=== PATIENT | male | born 1990 | race African-American/Black ===

== ENCOUNTER 2022-08-02 05:58 | Day surgery (SDC) | payer MEDICAID, OTHER, SELFPAY ==
[2022-08-02] VITALS (7 sets, daily range): BP systolic 109–152; BP diastolic 63–103; PULSE 58–77; RESP 14–20; TEMP 36.1–37.1; O2SAT 97–100; BMI 31.8
--- NOTE | ~2022-08-02 | CT_ITS ---
EXAMINATION: CT ABDOMEN AND PELVIS WITHOUT CONTRAST CLINICAL INFORMATION: Pain COMPARISON: None available. TECHNIQUE: Multidetector volumetric imaging was performed from the superior aspect of the liver through the pubic symphysis. Sagittal and coronal reformatted images were obtained on the technologist's workstation. This CT examination was performed using dose optimization techniques as appropriate, variously including the following: *Automated exposure control *Adjustment of mA and/or kV according to patient size (this includes techniques or standardized protocols for targeted exams where dose is matched to indication/reason for exam; i.e. extremities or head) *Use of iterative reconstruction technique DLP: 476 mGy-cm FINDINGS: Exam is limited due to motion. LUNG BASES: The visualized lung bases are unremarkable. LIVER, GALLBLADDER, AND BILIARY TREE: The liver is normal in size, shape, and attenuation. No focal hepatic lesion or biliary ductal dilatation is present. The gallbladder is unremarkable with no evidence of radiopaque gallstones, gallbladder wall thickening, or obvious pericholecystic inflammatory changes. PANCREAS: Unremarkable. SPLEEN: Unremarkable. ADRENAL GLANDS: Unremarkable. KIDNEYS AND URETERS: Severe right hydronephrosis from what appear to be 2 adjacent 5 to 6 mm right UPJ stones. Right perinephric stranding probably representing backflow of urine secondary to obstruction. Infection cannot be excluded and clinical correlation recommended. No renal stone seen. No ureteral dilatation or ureteral stone. BLADDER: Unremarkable. GASTROINTESTINAL TRACT: Mild diverticulosis of the colon. The small and large bowel are otherwise unremarkable. The appendix is not seen. ABDOMINAL WALL: Small umbilical hernia containing fat. LYMPH NODES: Normal. VASCULAR: Unremarkable. PELVIC VISCERA: Unremarkable. OSSEOUS STRUCTURES: Unremarkable. CT/CT abdomen pelvis wo IV con IMPRESSION: Limited exam due to motion. Severe right hydronephrosis from what appear to be 2 adjacent 5 to 6 mm right UPJ stones. Right perinephric stranding probably secondary to backflow of urine from obstruction. Infection cannot be excluded and clinical correlation recommended. Fleischner guidelines were followed.
--- NOTE | ~2022-08-02 | FL_ITS ---
EXAMINATION: FL guidance in OR INDICATION: Reason for Exam stent placement COMPARISON: CT abdomen pelvis performed same day TECHNIQUE: Multiple fluoroscopic OR images were provided. FLUOROSCOPY TIME: 40.3 seconds DOSE: 10.54 mGy FINDINGS: Intraoperative fluoroscopy was obtained. No radiologist was in attendance. Please refer to operative report for complete evaluation. Moderate hydronephrosis with a filling defect in the proximal ureter which may correspond to previously seen obstructing stones. Ureteral stent terminates in the expected region of the bladder. FL/FL guidance in OR IMPRESSION: Intraoperative fluoroscopy was obtained. No radiologist was in attendance. Please refer to operative report for complete evaluation.
[2022-08-02 06:27] LABS: MANUAL DIFF FLAG NO
[2022-08-02 06:31] LABS: Basophils Absolute Auto 0.1 X10*3/uL (0.0-0.2); Basophils Percent Auto 0.7 % (0-2); Eosinophils Absolute Auto 0.1 X10*3/uL (0.0-0.4); Eosinophils Percent Auto 1.5 % (0-4); Hematocrit 50.3 % (42.0-52.0); Hemoglobin 17.1 g/dl (14.0-18.0); Imm Gran Abs Auto 0.02 X10*3/uL (0.00-0.03); Imm Gran Pct Auto 0.2 % (0.0-0.4); Lymphocytes Absolute Auto 2.4 X10*3/uL (1.2-4.9); Lymphocytes Percent Auto 26.5 % (20-40); Mean Corpuscular Hemoglobin 29.1 pg (27.0-33.0); Mean Corpuscular Volume 85.7 fL (80.0-98.0); Mean Platelet Volume 10.5 fL (9.4-12.4); Monocytes Absolute Auto 0.5 X10*3/uL (0.1-1.2); Monocytes Percent Auto 5.9 % (2-11); Neutrophils Percent Auto 65.2 % (45-73); Platelet Count 199 X10*3/uL (160-400); Red Blood Count 5.87 X10*6/uL (4.60-5.80); Red Cell Distribution Width 11.7 % (11.0-16.0); White Blood Count 9.2 X10*3/uL (4.8-10.8)
--- NOTE | 2022-08-02 06:34 | ED.GENADULT ---
HPI - General Adult General Chief complaint: Abdominal Pain Stated complaint: Abd pain Time Seen by Provider: 08/02/22 06:32 Source: patient and diplomatic interpreter/translator Mode of arrival: ambulatory Limitations: language barrier History of Present Illness HPI narrative: Patient is a 32 year old assigned male at with no reported medical history presenting to the emergency department today with right flank pain, nausea, and vomiting. Patient states that this morning he had sudden onset of right flank pain that radiates into the rest of his back with nausea and vomiting. Patient denies any dizziness, lightheadedness, abdominal pain, fever, chills, blurry vision, double vision, loss of vision, chest pain, difficulty breathing, shortness of breath, night sweats, pain with urination, increased urinary frequency, increased urinary urgency, blood in his urine or stool, syncope or a near syncopal episode, recent trauma or falls, bowel incontinence, bladder incontinence, bowel retention, bladder retention, or any other complaints at this time. Onset (ago): hour(s) (3) Location: back Radiation: back Severity: moderate Severity scale (1-10): 5 Pain Consistency: constant Relieving factors: none Exacerbating factors: none Associated symptoms: nausea/vomiting Treatments prior to arrival: other (tylenol) Related Data Allergies Allergy/AdvReac Type Severity Reaction Status Date / Time No Known Allergies Allergy Verified 08/02/22 06:18 Review of Systems Constitutional: Constitutional: Reports no additional constitutional complaints, Denies chills, Denies fever(s) and Denies night sweats Eyes: Eyes: Reports no additional eye complaints, Denies blurry vision, Denies change in vision, Denies diplopia, Denies eye discharge, Denies loss of vision and Denies eye pain ENT: Denies dizziness Cardiovascular: Cardiovascular: Reports no additional cardiovascular complaints, Denies chest pain, Denies lightheadedness, Denies Loss of Consciousness and Denies dyspnea Respiratory: Respiratory: Reports no additional respiratory complaints and Denies dyspnea Gastrointestinal: Gastrointestinal: Reports no additional gastrointestinal complaints, Denies melena, Denies hematochezia, Denies change in bowel habits and Denies change in stool character Genitourinary: Genitourinary: Reports no additional male genitourinary complaints, Denies hematuria, Denies oliguria, Denies difficulty urinating, Denies dysuria, Reports flank pain, Denies urinary frequency, Denies urinary hesitancy, Denies urinary incontinence and Denies urinary urgency Musculoskeletal: Musculoskeletal: Reports no additional musculoskeletal complaints, Reports back pain, Denies numbness and Denies tingling Neurologic: Denies dizziness, Denies loss of vision, Denies numbness and Denies tingling Psychiatric: Psychiatric: Reports no additional psychiatric complaints Endocrine: Endocrine: Reports no additional endocrine complaints Hematologic/Lymphatic: Hematologic/Lymphatic: Reports no additional hematologic/lymphatic complaints Allergic/Immunologic: Allergic/Immunologic: Reports no additional allergic/immunologic complaints [facility] Past Medical History Attestation statement: The following information was validated with the patient. Source: old records reviewed and nursing notes reviewed Social History Social History Alcohol intake: current Alcohol intake frequency: holidays/special occasions only Smoked in Last 30 Days: No Use of substances other than those prescribed or required for medical reasons: No Advance Directives: Yes Advance Directives Information Provided: Yes Advance Directives on File: No Physical Exam ED Vital Signs: Vital Signs - 24 hr 08/02/22 06:14 08/02/22 10:26 Temperature 97.8 F 98.7 F Pulse Rate 74 62 Respiratory Rate 20 14 Blood Pressure 152/103 H 110/66 Pulse Oximetry 97 Oxygen Delivery Method Room Air Room Air BMI result Body Mass Index 31.8 Const General: acute distress and ill appearing Nutritional Appearance: well nourished Orientation/consciousness: patient oriented x3 Limitations: language barrier [facility] Head: Yes normal to inspection Ears: hearing grossly normal bilaterally and external ears normal General nose exam: Normal external nose present, no nasal discharge noted and no epistaxis Face and sinus: Yes normal facial exam, No abrasion and No laceration Mouth: Normal oral and palatal mucosa present, no drooling and no muffled voice Eyes General: appearance normal, both eyes and all related structures Periorbital: periorbital findings normal Eyelids: Yes eyelids normal Conjunctivae: conjunctivae normal Pupils: Equal, round and reactive pupils present EOM: EOMs intact bilaterally Neck Neck: Yes normal visual inspection Chest Chest palpation & inspection: normal inspection of the chest Resp Effort & Inspection: normal respiratory effort, no audible wheezes and other (speaking in a whisper) Auscultation: clear to auscultation bilaterally Cardio Rate: regular rate Heart sounds: S1 normal heart sound present and S2 normal heart sound present GI Inspection: Yes normal to inspection Palpation (GI): Soft to palpation, not firm and nontender Auscultation: normal bowel sounds General: Yes CVA tenderness Back/Spine/Pelvis Other: tenderness to lowerback bilaterally, winces in pain when leaning forward during exam, no tenderness at spine Back: CVA tenderness Neuro General: patient oriented x3 Cranial nerves: Yes Equal, round and reactive pupils present Cognition (Neuro): normal cognition Motor exam (neuro): 5/5 motor strength present throughout Sensory Exam: Normal double simultaneous stimulation for sensation Coordination: [id number] test normal Extrem General: Yes normal to inspection, Yes full ROM and Yes capillary refill normal Psych Appearance: grossly normal Mental Status: mental status grossly normal Affect: normal affect Attitude: cooperative Thought process: Normal thought process present Thought content: Normal thought content present Insight: Good insight present (Psych) Medications Administered Discontinued Medications Generic Name Dose Route Start Last Admin Trade Name Freq PRN Reason Stop Dose Admin Sodium Chloride 1,000 mls @ 999 mls/hr 08/02/22 06:45 08/02/22 08:13 Ns IV 08/02/22 07:45 Infused .Q1H1M QIANA Infusion Sodium Chloride 1,000 mls @ 999 mls/hr 08/02/22 09:00 08/02/22 10:40 Ns IV 08/02/22 10:00 Infused .Q1H1M QIANA Infusion Ketorolac Tromethamine 15 mg 08/02/22 08:17 08/02/22 08:55 Ketorolac Tromethamine 15 Mg/Ml Vial IVPUSH 08/02/22 08:18 15 mg ONCE ONE Administration Ondansetron HCl 4 mg 08/02/22 06:34 08/02/22 06:47 Ondansetron Hcl 4 Mg/2 Ml Vial IVPUSH 08/02/22 06:35 4 mg ONCE ONE Administration Medical Decision Making Medical Decision Making MDM Narrative: Patient is a 32 year old assigned male at with no reported medical history presenting to the emergency department today with right sided flank pain. Patient's physical exam showed right sided CVA tenderness. Patient's blood work showed an elevated CR of 1.46 and an initial lactic acid of 3.0. After 1 liter of fluid, patient's lactic decreased to 1.6. Patient's urine showed no acute infectious process. Patient's abdomen/pelvis CT showed severe right hydronephrosis with 2 kidney stones in the UPJ measuring 5-6mm. I consulted urology who recommended keeping the patient NPO and will take the patient to the OR for ureter stent placement at 1330. Patient's clinical presentation is most consistent with a kidney stone or multiple stones obstructing the right kidney. Patient is not septic (@1100). I explained my physical exam findings as well as all test results to the patient. I answered all questions asked by the patient. Patient verbalized agreement and understanding with this treatment plan and stent placement. Differential Diagnosis Differential Diagnoses: The differential diagnosis associated with the presentation includes kidney stone Admission/Observation Consideration of admission/observation: Escalation of care including admission/observation considered Patient would have been admitted had there been concern of renal failure or infectious process / sepsis. Consult Healthcare Provider Management of the patient was discussed with: Attraction Attendant (spoke with urology as noted in the MDM portion of this chart) Lab Data [facility] Lab Attestation statement: I reviewed the patient's lab results. 08/02/22 06:23 08/02/22 06:23 Labs: Lab Results 08/02/22 08/02/22 08/02/22 Range/Units 06:23 06:23 06:25 WBC 9.2 (4.8-10.8) X10*3/uL RBC 5.87 H (4.60-5.80) X10*6/uL Hgb 17.1 (14.0-18.0) g/dl Hct 50.3 (42.0-52.0) % MCV 85.7 (80.0-98.0) fL MCH 29.1 (27.0-33.0) pg MCHC 34.0 (31.0-36.0) g/dl RDW 11.7 (11.0-16.0) % Plt Count 199 (160-400) X10*3/uL MPV 10.5 (9.4-12.4) fL Immature Gran % (Auto) 0.2 (0.0-0.4) % Neut % (Auto) 65.2 (45-73) % Lymph % (Auto) 26.5 (20-40) % [place] % (Auto) 5.9 (2-11) % Eos % (Auto) 1.5 (0-4) % Baso % (Auto) 0.7 (0-2) % Lymph # (Auto) 2.4 (1.2-4.9) X10*3/uL [place] # (Auto) 0.5 (0.1-1.2) X10*3/uL Eos # (Auto) 0.1 (0.0-0.4) X10*3/uL Baso # (Auto) 0.1 (0.0-0.2) X10*3/uL Abs Immat Gran (auto) 0.02 (0.00-0.03) X10*3/uL Absolute Neuts (auto) 6.0 (2.0-8.3) x10*3/uL Absolute Nucleated RBC 0.000 (0.0-0.012) X10*3/uL Nucleated RBC % (auto) 0.0 (0.0-0.2) /100WBC Sodium 142 (135-145) mmol/L Potassium 4.3 (3.3-5.1) mmol/L Chloride 109 H (96-108) mmol/L Carbon Dioxide 26 (22-29) mmol/L Anion Gap 11 L (12-20) BUN 16 (9-16) mg/dL Creatinine 1.46 H (0.5-1.4) mg/dL Estim Creat Clear Calc 76.0 Estimated GFR 56 Random Glucose 118 H (60-115) mg/dL Lactic Acid (0.5-2.0) mmol/L Lactic Acid F/U @ 2Hr (0.5-2.0) mmol/L Calcium 9.9 (8.4-10.2) mg/dL Total Bilirubin 1.3 H (0.0-1.0) mg/dL Direct Bilirubin 0.3 (0.0-0.5) mg/dL AST 29 (5-37) U/L ALT 42 H (0-40) U/L Alkaline Phosphatase 68 (39-117) U/L Troponin I High Sens < 2.7 (<3.5-35.0) ng/L Total Protein 7.4 (6.5-8.0) g/dL Albumin 4.4 (3.5-5.0) g/dL Lipase 27 (8-78) U/L Urine Color Urine Appearance Urine pH (5.0-9.0) Ur Specific [place] (1.005-1.025) Urine Protein (Neg-Trace) mg/dL Urine Glucose (UA) (Negative) mg/dL Urine Ketones (Negative) mg/dL Urine Blood (Negative) Urine Nitrite (Negative) Ur Leukocyte Esterase (Negative) Urine RBC (0-2) /HPF Urine WBC (0-5) /HPF Ur Squamous Epith Cells (0-2) /HPF Urine Bacteria (None Seen) Hyaline Casts (0-2) /LPF COVID-19 (FERNANDA) (Negative) COVID-19 Clin Com Influenza Type A (ERASTO) (Negative) Influenza Type B (ERASTO) (Negative) Influenza A & B Note 08/02/22 08/02/22 08/02/22 Range/Units 06:37 06:50 06:50 WBC (4.8-10.8) X10*3/uL RBC (4.60-5.80) X10*6/uL Hgb (14.0-18.0) g/dl Hct (42.0-52.0) % MCV (80.0-98.0) fL MCH (27.0-33.0) pg MCHC (31.0-36.0) g/dl RDW (11.0-16.0) % Plt Count (160-400) X10*3/uL MPV (9.4-12.4) fL Immature Gran % (Auto) (0.0-0.4) % Neut % (Auto) (45-73) % Lymph % (Auto) (20-40) % [place] % (Auto) (2-11) % Eos % (Auto) (0-4) % Baso % (Auto) (0-2) % Lymph # (Auto) (1.2-4.9) X10*3/uL [place] # (Auto) (0.1-1.2) X10*3/uL Eos # (Auto) (0.0-0.4) X10*3/uL Baso # (Auto) (0.0-0.2) X10*3/uL Abs Immat Gran (auto) (0.00-0.03) X10*3/uL Absolute Neuts (auto) (2.0-8.3) x10*3/uL Absolute Nucleated RBC (0.0-0.012) X10*3/uL Nucleated RBC % (auto) (0.0-0.2) /100WBC Sodium (135-145) mmol/L Potassium (3.3-5.1) mmol/L Chloride (96-108) mmol/L Carbon Dioxide (22-29) mmol/L Anion Gap (12-20) BUN (9-16) mg/dL Creatinine (0.5-1.4) mg/dL Estim Creat Clear Calc Estimated GFR Random Glucose (60-115) mg/dL Lactic Acid 3.0 H* (0.5-2.0) mmol/L Lactic Acid F/U @ 2Hr (0.5-2.0) mmol/L Calcium (8.4-10.2) mg/dL Total Bilirubin (0.0-1.0) mg/dL Direct Bilirubin (0.0-0.5) mg/dL AST (5-37) U/L ALT (0-40) U/L Alkaline Phosphatase (39-117) U/L Troponin I High Sens (<3.5-35.0) ng/L Total Protein (6.5-8.0) g/dL Albumin (3.5-5.0) g/dL Lipase (8-78) U/L Urine Color Urine Appearance Urine pH (5.0-9.0) Ur Specific [place] (1.005-1.025) Urine Protein (Neg-Trace) mg/dL Urine Glucose (UA) (Negative) mg/dL Urine Ketones (Negative) mg/dL Urine Blood (Negative) Urine Nitrite (Negative) Ur Leukocyte Esterase (Negative) Urine RBC (0-2) /HPF Urine WBC (0-5) /HPF Ur Squamous Epith Cells (0-2) /HPF Urine Bacteria (None Seen) Hyaline Casts (0-2) /LPF COVID-19 (FERNANDA) Negative (Negative) COVID-19 Clin Com See Note Influenza Type A (ERASTO) Negative (Negative) Influenza Type B (ERASTO) Negative (Negative) Influenza A & B Note See Note 08/02/22 08/02/22 Range/Units 08:53 09:03 WBC (4.8-10.8) X10*3/uL RBC (4.60-5.80) X10*6/uL Hgb (14.0-18.0) g/dl Hct (42.0-52.0) % MCV (80.0-98.0) fL MCH (27.0-33.0) pg MCHC (31.0-36.0) g/dl RDW (11.0-16.0) % Plt Count (160-400) X10*3/uL MPV (9.4-12.4) fL Immature Gran % (Auto) (0.0-0.4) % Neut % (Auto) (45-73) % Lymph % (Auto) (20-40) % [place] % (Auto) (2-11) % Eos % (Auto) (0-4) % Baso % (Auto) (0-2) % Lymph # (Auto) (1.2-4.9) X10*3/uL [place] # (Auto) (0.1-1.2) X10*3/uL Eos # (Auto) (0.0-0.4) X10*3/uL Baso # (Auto) (0.0-0.2) X10*3/uL Abs Immat Gran (auto) (0.00-0.03) X10*3/uL Absolute Neuts (auto) (2.0-8.3) x10*3/uL Absolute Nucleated RBC (0.0-0.012) X10*3/uL Nucleated RBC % (auto) (0.0-0.2) /100WBC Sodium (135-145) mmol/L Potassium (3.3-5.1) mmol/L Chloride (96-108) mmol/L Carbon Dioxide (22-29) mmol/L Anion Gap (12-20) BUN (9-16) mg/dL Creatinine (0.5-1.4) mg/dL Estim Creat Clear Calc Estimated GFR Random Glucose (60-115) mg/dL Lactic Acid (0.5-2.0) mmol/L Lactic Acid F/U @ 2Hr 1.6 (0.5-2.0) mmol/L Calcium (8.4-10.2) mg/dL Total Bilirubin (0.0-1.0) mg/dL Direct Bilirubin (0.0-0.5) mg/dL AST (5-37) U/L ALT (0-40) U/L Alkaline Phosphatase (39-117) U/L Troponin I High Sens (<3.5-35.0) ng/L Total Protein (6.5-8.0) g/dL Albumin (3.5-5.0) g/dL Lipase (8-78) U/L Urine Color Yellow Urine Appearance Clear Urine pH 6.0 (5.0-9.0) Ur Specific [place] 1.020 (1.005-1.025) Urine Protein Trace (Neg-Trace) mg/dL Urine Glucose (UA) Negative (Negative) mg/dL Urine Ketones Negative (Negative) mg/dL Urine Blood Large (3+) H (Negative) Urine Nitrite Negative (Negative) Ur Leukocyte Esterase Trace H (Negative) Urine RBC >20 H (0-2) /HPF Urine WBC 6-10 H (0-5) /HPF Ur Squamous Epith Cells 0-2 (0-2) /HPF Urine Bacteria None Seen (None Seen) Hyaline Casts 3-5 (0-2) /LPF COVID-19 (FERNANDA) (Negative) COVID-19 Clin Com Influenza Type A (ERASTO) (Negative) Influenza Type B (ERASTO) (Negative) Influenza A & B Note Independent Interpretation I performed an independent interpretation of an: CT Scan Interpretation: My interpretation is in agreement with the radiologist's impression of this imaging study. EXAMINATION: CT ABDOMEN AND PELVIS WITHOUT CONTRAST? CLINICAL INFORMATION: Pain? COMPARISON: None available. TECHNIQUE: Multidetector volumetric imaging was performed from the superior aspect of the liver through the pubic symphysis. Sagittal and coronal reformatted images were obtained on the technologist's workstation.? This CT examination was performed using dose optimization techniques as appropriate, variously including the following: *Automated exposure control *Adjustment of mA and/or kV according to patient size (this includes techniques or standardized protocols for targeted exams where dose is matched to indication/reason for exam; i.e. extremities or head) *Use of iterative reconstruction technique DLP: 476 mGy-cm FINDINGS: Exam is limited due to motion. LUNG BASES: The visualized lung bases are unremarkable.? LIVER, GALLBLADDER, AND BILIARY TREE: The liver is normal in size, shape, and attenuation. No focal hepatic lesion or biliary ductal dilatation is present. The gallbladder is unremarkable with no evidence of radiopaque gallstones, gallbladder wall thickening, or obvious pericholecystic inflammatory changes.? PANCREAS: Unremarkable.? SPLEEN: Unremarkable.? ADRENAL GLANDS: Unremarkable.? KIDNEYS AND URETERS: Severe right hydronephrosis from what appear to be 2 adjacent 5 to 6 mm right UPJ stones. Right perinephric stranding probably representing backflow of urine secondary to obstruction. Infection cannot be excluded and clinical correlation recommended. No renal stone seen. No ureteral dilatation or ureteral stone. BLADDER: Unremarkable.? GASTROINTESTINAL TRACT: Mild diverticulosis of the colon. The small and large bowel are otherwise unremarkable. The appendix is not seen.? ABDOMINAL WALL: Small umbilical hernia containing fat.? LYMPH NODES: Normal. VASCULAR: Unremarkable. PELVIC VISCERA: Unremarkable.? OSSEOUS STRUCTURES: Unremarkable.? CT/CT abdomen pelvis wo IV con IMPRESSION: Limited exam due to motion. Severe right hydronephrosis from what appear to be 2 adjacent 5 to 6 mm right UPJ stones. Right perinephric stranding probably secondary to backflow of urine from obstruction. Infection cannot be excluded and clinical correlation recommended. ? Fleischner guidelines were followed. Dictated By: Bre Boggs MD Signed By: Electronically signed by Bre Boggs MD 08/02/22 0844 Critical Care Time Critical Care Time Critical Care Time: Yes Total Critical Care Time: 30 Attestation: I spent 30 minutes of Critical Care Time with this patient. This does not include time spent on separately reported billable procedures. Discharge Plan Discharge Clinical Impression: Obstruction of ureteropelvic junction (UPJ) due to stone, Hydronephrosis, Calculus of kidney Patient Disposition: Still a Patient
[2022-08-02] MEDS: 0.9 % Sodium Chloride 1,000 ML 999 ML IV ×2 (06:43→08:58)
[2022-08-02 06:45] LABS: Alanine Aminotransferase 42 U/L (0-40); Albumin Level 4.4 g/dL (3.5-5.0); Alkaline Phosphatase 68 U/L (39-117); Anion Gap 11 (12-20); Aspartate Amino Transferase 29 U/L (5-37); Bilirubin Direct 0.3 mg/dL (0.0-0.5); Bilirubin Total 1.3 mg/dL (0.0-1.0); Blood Urea Nitrogen 16 mg/dL (9-16); Calcium 9.9 mg/dL (8.4-10.2); Carbon Dioxide 26 mmol/L (22-29); Chloride 109 mmol/L (96-108); Estimated Glomerular Filt Rate 56; Glucose Random 118 mg/dL (60-115); Lipase 27 U/L (8-78); Potassium 4.3 mmol/L (3.3-5.1); Sodium 142 mmol/L (135-145); Total Protein 7.4 g/dL (6.5-8.0)
[2022-08-02] MEDS: ondansetron HCL 4 MG/2 ML VIAL IVPUSH (06:47)
[2022-08-02 06:53] LABS: Troponin-I High Sensitivity < 2.7 ng/L (<3.5-35.0)
[2022-08-02 07:14] LABS: COVID-19 Test Negative (Negative); IDNOW Serial# 08D9AD1C; IDNOW Serial# BCCEAD1C; Influenza A Negative (Negative); Influenza B2 Negative (Negative)
[2022-08-02 08:44] LABS: Reflex Lactate? Lactic Acid Added
[2022-08-02] MEDS: Ketorolac Tromethamine 15 MG/ML VIAL IVPUSH (08:55)
[2022-08-02 09:12] LABS: Appearance Urine Clear; Color Urine Yellow; Glucose Urine UA Negative (Negative); Leukocyte Esterase Urine Trace (Negative); Nitrite Urine Negative (Negative); UMIC TRIGGER UACC YES; Urine Blood Large (3+) (Negative); Urine Ketones Negative (Negative); Urine Protein Trace mg/dL (Neg-Trace)
[2022-08-02 09:15] LABS: Bacteria Urine None Seen (None Seen); RBC Urine >20 /HPF (0-2); Squamous Epithelial Cell Urine 0-2 /HPF (0-2); UACC Culture Trigger YES
[2022-08-02 09:23] LABS: ~Lactic Acid-LAB USE ONLY 1.6 mmol/L (0.5-2.0)
--- NOTE | 2022-08-02 11:16 | P.CNUR_ITS ---
History of Present Illness Consult details Consult date: 08/02/22 Narrative: 32 yo male presenting to the ED after waking up at 4am with 10/10 diffuse abdominal pain that is now radiating to his lower back. He has vomited twice this am and has also had a large bowel movement. He has had an appendectomy. He has never had pain like this before. He took Tylenol this am without relief. He is denying chest pain, SOB, BROWN, difficulty urinating/pain with urination. CTAP - Severe right hydronephrosis from what appears to be 2 adjacent 5 to 6 mm right UPJ stones. Review of Systems Review of Systems: 10 point review of systems negative other than stated in HPI [facility] Surgical History Surgical History Hx of appendectomy Social History Social History Alcohol intake: current Alcohol intake frequency: holidays/special occasions only Patient Tobacco Use Status: Never used Tobacco Smoked in Last 30 Days: No Use of substances other than those prescribed or required for medical reasons: No Are you DNR?: No Advance Directives: Yes Advance Directives Information Provided: Yes Advance Directives on File: No Advance Directives Date on File: 08/02/22 Meds Allergies Allergy/AdvReac Type Severity Reaction Status Date / Time No Known Allergies Allergy Verified 08/02/22 12:59 Physical Exam Vital Signs: Vital Signs: Last Vital Signs Temp 98.7 F 08/02/22 10:26 Pulse 62 08/02/22 10:26 Resp 14 08/02/22 10:26 BP 110/66 08/02/22 10:26 Pulse Ox 97 08/02/22 10:26 O2 Del Method Room Air 08/02/22 10:26 BMI result Body Mass Index 31.8 Const: General: healthy appearing, no acute distress and well developed Orientation/consciousness: patient oriented x3 HEENT: Head: Yes normocephalic and Yes atraumatic Eyes: Conjunctivae: conjunctivae normal Neck: Neck: Yes normal visual inspection Chest: Chest palpation & inspection: normal inspection of the chest Resp: Effort & Inspection: normal respiratory effort Cardio: Rate: regular rate GI: Inspection: Yes normal to inspection Palpation (GI): Soft to palpation : General: Yes CVA tenderness (right) Back/Spine/Pelvis: Back: CVA tenderness (right) Skin: General skin exam: no rashes or lesions noted Neuro: General: patient oriented x3 Extrem: General: No pedal edema Psych: Appearance: grossly normal Affect: normal affect Results Labs 08/02/22 06:23 08/02/22 06:23 Labs: Abnormal lab results 08/02/22 08/02/22 08/02/22 Range/Units 06:23 06:23 06:37 RBC 5.87 H (4.60-5.80) X10*6/uL Chloride 109 H (96-108) mmol/L Anion Gap 11 L (12-20) Creatinine 1.46 H (0.5-1.4) mg/dL Random Glucose 118 H (60-115) mg/dL Lactic Acid 3.0 H* (0.5-2.0) mmol/L Total Bilirubin 1.3 H (0.0-1.0) mg/dL ALT 42 H (0-40) U/L Urine Blood (Negative) Ur Leukocyte Esterase (Negative) Urine RBC (0-2) /HPF Urine WBC (0-5) /HPF 08/02/22 Range/Units 08:53 RBC (4.60-5.80) X10*6/uL Chloride (96-108) mmol/L Anion Gap (12-20) Creatinine (0.5-1.4) mg/dL Random Glucose (60-115) mg/dL Lactic Acid (0.5-2.0) mmol/L Total Bilirubin (0.0-1.0) mg/dL ALT (0-40) U/L Urine Blood Large (3+) H (Negative) Ur Leukocyte Esterase Trace H (Negative) Urine RBC >20 H (0-2) /HPF Urine WBC 6-10 H (0-5) /HPF Short CBC 08/02/22 Range/Units 06:23 WBC 9.2 (4.8-10.8) X10*3/uL Hgb 17.1 (14.0-18.0) g/dl Hct 50.3 (42.0-52.0) % Plt Count 199 (160-400) X10*3/uL BMP 08/02/22 06:23 Sodium 142 Potassium 4.3 Chloride 109 H Carbon Dioxide 26 BUN 16 Creatinine 1.46 H Calcium 9.9 Liver Function 08/02/22 Range/Units 06:23 Total Bilirubin 1.3 H (0.0-1.0) mg/dL Direct Bilirubin 0.3 (0.0-0.5) mg/dL AST 29 (5-37) U/L ALT 42 H (0-40) U/L Alkaline Phosphatase 68 (39-117) U/L Albumin 4.4 (3.5-5.0) g/dL Urine 08/02/22 Range/Units 08:53 Urine Color Yellow Urine Appearance Clear Urine pH 6.0 (5.0-9.0) Ur Specific [place] 1.020 (1.005-1.025) Urine Protein Trace (Neg-Trace) mg/dL Urine Glucose (UA) Negative (Negative) mg/dL Imaging Additional studies: Date of Service: 08/02/22 EXAMINATION: CT ABDOMEN AND PELVIS WITHOUT CONTRAST? CLINICAL INFORMATION: Pain? COMPARISON: None available. TECHNIQUE: Multidetector volumetric imaging was performed from the superior aspect of the liver through the pubic symphysis. Sagittal and coronal reformatted images were obtained on the technologist's workstation.? This CT examination was performed using dose optimization techniques as appropriate, variously including the following: *Automated exposure control *Adjustment of mA and/or kV according to patient size (this includes techniques or standardized protocols for targeted exams where dose is matched to indication/reason for exam; i.e. extremities or head) *Use of iterative reconstruction technique DLP: 476 mGy-cm FINDINGS: Exam is limited due to motion. LUNG BASES: The visualized lung bases are unremarkable.? LIVER, GALLBLADDER, AND BILIARY TREE: The liver is normal in size, shape, and attenuation. No focal hepatic lesion or biliary ductal dilatation is present. The gallbladder is unremarkable with no evidence of radiopaque gallstones, gallbladder wall thickening, or obvious pericholecystic inflammatory changes.? PANCREAS: Unremarkable.? SPLEEN: Unremarkable.? ADRENAL GLANDS: Unremarkable.? KIDNEYS AND URETERS: Severe right hydronephrosis from what appear to be 2 adjacent 5 to 6 mm right UPJ stones. Right perinephric stranding probably representing backflow of urine secondary to obstruction. Infection cannot be excluded and clinical correlation recommended. No renal stone seen. No ureteral dilatation or ureteral stone. BLADDER: Unremarkable.? GASTROINTESTINAL TRACT: Mild diverticulosis of the colon. The small and large bowel are otherwise unremarkable. The appendix is not seen.? ABDOMINAL WALL: Small umbilical hernia containing fat.? LYMPH NODES: Normal. VASCULAR: Unremarkable. PELVIC VISCERA: Unremarkable.? OSSEOUS STRUCTURES: Unremarkable.? CT/CT abdomen pelvis wo IV con IMPRESSION: Limited exam due to motion. Severe right hydronephrosis from what appear to be 2 adjacent 5 to 6 mm right UPJ stones. Right perinephric stranding probably secondary to backflow of urine from obstruction. Infection cannot be excluded and clinical correlation recommended. Assessment and Plan (1) Obstruction of ureteropelvic junction (UPJ) due to stone: Status: Acute (2) Hydronephrosis: Status: Acute Plan Plan for Cystoscopy, right ureteral stent. Right retrograde possible ureteroscopy. Risks discussed included but not limited to, possible need to repeat procedure if stone is not completely fragmented, Irritative voiding symptoms, bladder spasms, urgency, blood in urine. Time Spent With Patient Time: Total time managing care of this patient today ____ minutes. Procedures Date of Service Date of Service: 08/02/22
--- NOTE | 2022-08-02 12:40 | PC.NURSE ---
Nurse to nurse report given to TYLER Alcantar in Short Stay. pt aware of plan for surgery. at this time no definitive time frame for procedure
[2022-08-02] MEDS: Lactated Ringers 1,000 ML 50 ML IVCONT (13:18)
--- NOTE | 2022-08-02 13:39 | P.CONAN_ITS ---
FORMERLY [facility], LATER [facility] Active Problems Active Problems: All Active Problems (Updated 08/02/22 @ 11:38 by HOMA Page) Obstruction of ureteropelvic junction (UPJ) due to stone (Acute) Hydronephrosis (Acute) Calculus of kidney (Acute) Surgical History Surgical History Hx of appendectomy History of Problems with Anesthesia: No Social History Social History Alcohol intake: current Alcohol intake frequency: holidays/special occasions only Patient Tobacco Use Status: Never used Tobacco Smoked in Last 30 Days: No Use of substances other than those prescribed or required for medical reasons: No Are you DNR?: No Advance Directives: Yes Advance Directives Information Provided: Yes Advance Directives on File: No Advance Directives Date on File: 08/02/22 Meds Allergies Allergy/AdvReac Type Severity Reaction Status Date / Time No Known Allergies Allergy Verified 08/02/22 12:59 Active Medications: Current Medications Lactated Ringer's (Lr) 1,000 mls @ 50 mls/hr IVCONT .Q20H QIANA Last Admin: 08/02/22 13:18 Dose: 50 mls/hr Acetaminophen (Ofirmev) 1,000 mg in 100 mls @ 400 mls/hr IV ONCE ONE Stop: 08/02/22 13:42 Promethazine HCl 6.5 mg/ (Sodium Chloride) 50.26 mls @ 201.04 mls/hr IV ONCE PRN PRN Reason: Nausea and Vomiting Exam Exam Date and Time: August 02, 2022 1339 Height,Weight and Vital Signs: Height 5 ft 6 in Weight 89.4 kg Last Vital Signs Temp 97.7 F 08/02/22 13:11 Pulse 65 08/02/22 13:11 Resp 15 08/02/22 13:11 BP 122/75 08/02/22 13:11 Pulse Ox 98 08/02/22 13:11 O2 Del Method Room Air 08/02/22 13:11 Pertinent Lab Results Pertinent Lab Results: Laboratory Tests 08/02/22 08/02/22 08/02/22 06:23 06:23 06:25 WBC 9.2 RBC 5.87 H Hgb 17.1 Hct 50.3 MCV 85.7 MCH 29.1 MCHC 34.0 RDW 11.7 Plt Count 199 MPV 10.5 Immature Gran % (Auto) 0.2 Neut % (Auto) 65.2 Lymph % (Auto) 26.5 [place] % (Auto) 5.9 Eos % (Auto) 1.5 Baso % (Auto) 0.7 Lymph # (Auto) 2.4 [place] # (Auto) 0.5 Eos # (Auto) 0.1 Baso # (Auto) 0.1 Abs Immat Gran (auto) 0.02 Absolute Neuts (auto) 6.0 Absolute Nucleated RBC 0.000 Nucleated RBC % (auto) 0.0 Sodium 142 Potassium 4.3 Chloride 109 H Carbon Dioxide 26 Anion Gap 11 L BUN 16 Creatinine 1.46 H Estim Creat Clear Calc 76.0 Estimated GFR 56 Random Glucose 118 H Lactic Acid Lactic Acid F/U @ 2Hr Calcium 9.9 Total Bilirubin 1.3 H Direct Bilirubin 0.3 AST 29 ALT 42 H Alkaline Phosphatase 68 Troponin I High Sens < 2.7 Total Protein 7.4 Albumin 4.4 Lipase 27 Urine Color Urine Appearance Urine pH Ur Specific Clarence Urine Protein Urine Glucose (UA) Urine Ketones Urine Blood Urine Nitrite Ur Leukocyte Esterase Urine RBC Urine WBC Ur Squamous Epith Cells Urine Bacteria Hyaline Casts COVID-19 (FERNANDA) COVID-19 Clin Com Influenza Type A (ERASTO) Influenza Type B (ERASTO) Influenza A & B Note 08/02/22 08/02/22 08/02/22 06:37 06:50 06:50 WBC RBC Hgb Hct MCV MCH MCHC RDW Plt Count MPV Immature Gran % (Auto) Neut % (Auto) Lymph % (Auto) [place] % (Auto) Eos % (Auto) Baso % (Auto) Lymph # (Auto) [place] # (Auto) Eos # (Auto) Baso # (Auto) Abs Immat Gran (auto) Absolute Neuts (auto) Absolute Nucleated RBC Nucleated RBC % (auto) Sodium Potassium Chloride Carbon Dioxide Anion Gap BUN Creatinine Estim Creat Clear Calc Estimated GFR Random Glucose Lactic Acid 3.0 H* Lactic Acid F/U @ 2Hr Calcium Total Bilirubin Direct Bilirubin AST ALT Alkaline Phosphatase Troponin I High Sens Total Protein Albumin Lipase Urine Color Urine Appearance Urine pH Ur Specific Clarence Urine Protein Urine Glucose (UA) Urine Ketones Urine Blood Urine Nitrite Ur Leukocyte Esterase Urine RBC Urine WBC Ur Squamous Epith Cells Urine Bacteria Hyaline Casts COVID-19 (FERNANDA) Negative COVID-19 Clin Com See Note Influenza Type A (ERSATO) Negative Influenza Type B (ERASTO) Negative Influenza A & B Note See Note 08/02/22 08/02/22 08:53 09:03 WBC RBC Hgb Hct MCV MCH MCHC RDW Plt Count MPV Immature Gran % (Auto) Neut % (Auto) Lymph % (Auto) [place] % (Auto) Eos % (Auto) Baso % (Auto) Lymph # (Auto) [place] # (Auto) Eos # (Auto) Baso # (Auto) Abs Immat Gran (auto) Absolute Neuts (auto) Absolute Nucleated RBC Nucleated RBC % (auto) Sodium Potassium Chloride Carbon Dioxide Anion Gap BUN Creatinine Estim Creat Clear Calc Estimated GFR Random Glucose Lactic Acid Lactic Acid F/U @ 2Hr 1.6 Calcium Total Bilirubin Direct Bilirubin AST ALT Alkaline Phosphatase Troponin I High Sens Total Protein Albumin Lipase Urine Color Yellow Urine Appearance Clear Urine pH 6.0 Ur Specific Clarence 1.020 Urine Protein Trace Urine Glucose (UA) Negative Urine Ketones Negative Urine Blood Large (3+) H Urine Nitrite Negative Ur Leukocyte Esterase Trace H Urine RBC >20 H Urine WBC 6-10 H Ur Squamous Epith Cells 0-2 Urine Bacteria None Seen Hyaline Casts 3-5 COVID-19 (FERNANDA) COVID-19 Clin Com Influenza Type A (ERASTO) Influenza Type B (ERASTO) Influenza A & B Note Airway Mallampati Class: II TM Dist: >3cm Neck ROM: Full Heart: RRR Lungs: CTA Assessment and Plan Final Anesthetic Review History of Problems with Anesthesia: No ASA Class: II and Emergency Final Preanesthetic Review: Meds/Allgs Chart Reviewed, Consent Obtained/Reviewed and Anes Risks/Benef Reviewed Patient Risk: Low Procedure Risk: Low Anesthetic Plan Anesthetic Plan: GA Disposition: Standard PACU
--- NOTE | 2022-08-02 14:50 | W.PM.OPN ---
Operative Note Operative Note Date of Service: 08/02/22 Narrative: PreOperative Diagnosis:?? Right UPJ stone, right hydronephrosis Post Operative Diagnosis:?? ?Right obstructive UPJ stone, right hydronephrosis Procedure: - cystoscopy, right retrograde - right stent placement 6 Bermudian by multi -length cm Surgeon:?Dr Anne Hunt Anesthesia:? General Indications for procedure: The patient is a 32-year-old gentleman presented with abdominal pain denies previous history of kidney stones. CTAP right hydronephrosis with UPJ stone Procedure: After informed consent was verified the patient was brought to the operating placed on the OR table in supine position.? General Anesthesia was administered per protocol.? The patient was placed in lithotomy position, prepped and draped in the usual sterile fashion.? Safety pause time-out and side of surgery confirmed.? Antibiotics confirmed. A 22 Bermudian cystoscope was inserted transurethrally, the bulbous urethra was within normal limits. The prostatic urethra was nonobstructive. The bladder was visualized.? Both ureteric orifices were in normal position. On fluoroscopy, calcification seen in the region of the renal pelvis. The? right ureteric orifice was cannulated? and a retrograde examination was performed, dilated renal calyces, a hydrophilic guidewire was placed up to the level of the renal pelvis under fluoroscopy. A? 6 Bermudian by multi-length stent was placed into the ureter and renal pelvis under a combination of fluoroscopy and direct visualization. There was notable resistance as the stent pushed beyond the stone. The bladder was emptied.? The rigid cystoscope was removed. ? The patient tolerated the procedure well and was brought to the recovery room in stable condition. Complications: None Drains: Ureteral stent as dictated above
--- NOTE | 2022-08-02 15:06 | HO.POSTANES ---
Post Anesthesia Evaluation Post Anesthesia Evaluation Date of Service: 08/02/22 Vital Signs: Vital Signs Temp Pulse Resp BP Pulse Ox O2 Del Method 08/02/22 15:02 64 20 121/78 100 Room Air 08/02/22 14:52 77 20 109/66 100 Room Air 08/02/22 14:52 97.5 F 66 16 111/63 97 Room Air 08/02/22 13:11 97.7 F 65 15 122/75 98 Room Air 08/02/22 10:26 98.7 F 62 14 110/66 97 Room Air 08/02/22 06:14 97.8 F 74 20 152/103 H Room Air Anesthesia: General LMA Mental Status: Awake Pain Control: Satisfactory Nausea/Vomiting: None Hydration: Adequate Anesthesia-Related Issues: No Anes. Related Issues
[2022-08-02] MEDS: Phenazopyridine HCL 100 MG TABLET PO (15:16)
== END 2022-08-02 15:50 | disposition home or self-care (01) ==
LOC: HO.ED 11:38 → HO.SSS 14:09
PROVIDERS: Urology; Emergency Provider Internal Medicine; Visit Provider Physician Assistant Medical
PROC: (CPT 52332; principal; 2022-08-02 12:00)
DX: N13.0 Hydronephrosis with ureteropelvic junction obstruction (principal); M54.50 Low back pain, unspecified; K42.9 Umbilical hernia without obstruction or gangrene; K57.30 Diverticulosis of large intestine without perforation or abscess without bleeding; Z90.49 Acquired absence of other specified parts of digestive tract; Z20.822 Contact with and (suspected) exposure to COVID-19
CPT/HCPCS: 52332; 36415; 74176; 80053; 81001; 82248; 83605; 83690; 84484; 85025; 87086; 87502; 87635; 96361; 96374; 96375; 99285; C1758; C2617; J0690; J1100; J1885; J2250; J2405; J3010; Q9967

== ENCOUNTER → 2022-08-12 10:32 | Outpatient (BNVA) | payer MEDICAID, SELFPAY | PROVIDERS: Visit Provider Urology | DX: N20.1 Calculus of ureter (principal); Z96.0 Presence of urogenital implants | CPT/HCPCS: 52310; 99212 ==

== ENCOUNTER 2022-08-16 10:29 | Day surgery (SDC) | payer MEDICAID, SELFPAY ==
[2022-08-16] VITALS (8 sets, daily range): BP systolic 118–148; BP diastolic 60–87; PULSE 66–80; RESP 12–18; TEMP 36.1–36.8; O2SAT 95–100; BMI 30.7
--- NOTE | ~2022-08-16 | FL_ITS ---
EXAMINATION: XR FLUOROSCOPY WITH IMAGES CLINICAL INFORMATION: Cystoscopy COMPARISON: None available. TECHNIQUE: Fluoroscopy Supervised By: Dr. Greene. Fluoroscopy Time: 32.8 seconds. Cumulative Dose: 8.44 mGy. DAP: Gycm2. Images: 5. FINDINGS: Initial images demonstrate catheter and wire projecting over the right renal collecting system and ureter. Final image demonstrates the proximal end of the right internal ureteral stent. FL/FL guidance in OR IMPRESSION: Fluoroscopy guidance for urology procedure
[2022-08-16] MEDS: Lactated Ringers 1,000 ML 50 ML IVCONT (12:40)
--- NOTE | 2022-08-16 14:11 | P.CONAN_ITS ---
ON LICENSE OF [facility] Active Problems Active Problems: All Active Problems (Updated 08/02/22 @ 11:38 by HOMA Page) Obstruction of ureteropelvic junction (UPJ) due to stone (Acute) Hydronephrosis (Acute) Calculus of kidney (Acute) Surgical History Surgical History Hx of appendectomy History of Problems with Anesthesia: No Social History Social History Alcohol intake: current Alcohol intake frequency: holidays/special occasions only Patient Tobacco Use Status: Never used Tobacco Are you DNR?: No Advance Directives: No Advance Directives Information Provided: Yes Advance Directives Date on File: 08/02/22 Nutrition Risks: No Nutritional Risk Meds Allergies Allergy/AdvReac Type Severity Reaction Status Date / Time No Known Allergies Allergy Verified 08/16/22 12:55 Active Medications: Current Medications Lactated Ringer's (Lr) 1,000 mls @ 50 mls/hr IVCONT .Q20H QIANA Last Admin: 08/16/22 12:40 Dose: 50 mls/hr Exam Exam Date and Time: August 16, 2022 1411 Height,Weight and Vital Signs: Height 5 ft 6 in Weight 86.183 kg Last Vital Signs Temp 98.2 F 08/16/22 11:46 Pulse 66 08/16/22 11:46 Resp 18 08/16/22 11:46 BP 126/87 08/16/22 11:46 Pulse Ox 97 08/16/22 11:46 O2 Del Method Room Air 08/16/22 11:46 Airway Mallampati Class: III TM Dist: >3cm Neck ROM: Full Assessment and Plan Assessment Anesthesia Assessment: Anesthesia Plan Discussed and Chart Reviewed Final Anesthetic Review History of Problems with Anesthesia: No NPO: Yes ASA Class: II and Emergency Final Preanesthetic Review: No Changes in Pt Med Stat, Meds/Allgs Chart Reviewed, Consent Obtained/Reviewed and Anes Risks/Benef Reviewed Patient Risk: Low Procedure Risk: Low Anesthetic Plan Anesthetic Plan: GA Disposition: Standard PACU
--- NOTE | 2022-08-16 16:04 | MHC.SHP ---
Pre-Procedural Eval Section A Date of Service: 08/16/22 The patient is an INPATIENT: No The History & Physical has been completed within 30 days and I have reviewed it.: Yes Section B Chief Complaint: Calculus of ureter, right, s/p right stent Allergies: Allergies Allergy/AdvReac Type Severity Reaction Status Date / Time No Known Allergies Allergy Verified 08/16/22 12:55 Plan Diagnosis/Plan: Unchanged I have reviewed the history and physical and performed a pertinent physical examination on my patient. No changes have occurred unless specified. Plan for Cystoscopy, Right ureteroscopy, possible laser lithotripsy, ureteral stent exchange. Risks discussed included but not limited to, possible need to repeat procedure if stone is not completely fragmented, Irritative voiding symptoms, bladder spasms, urgency, blood in urine. Time Spent With Patient Time: Total time managing care of this patient today ____ minutes.
--- NOTE | 2022-08-16 17:43 | P.OP_ITS ---
Operative Note Operative Note Date of Service: 08/16/22 Narrative: PreOperative Diagnosis:?? Right UPJ stone s/p right ureteral stent Post Operative Diagnosis:?? Right UPJ stone s/p right ureteral stent Procedure: - Cystoscopy, right ureteroscopy laser lithotripsy stent exchange, [facility] [place] [facility] Surgeon:?Dr Anne Hunt Anesthesia:? General Indications for procedure: Austrian had obstructive uropathy secondary to Right UPJ stone, ureteral stent placed, he is here for definitive stone management Procedure: After informed consent was verified the patient was brought to the operating placed on the OR table in supine position.? General Anesthesia was administered per protocol.? The patient was placed in lithotomy position, prepped and draped in the usual sterile fashion.? Safety pause time-out and side of surgery confirmed.? Antibiotics confirmed. 2% lidocaine jelly 10 mL was pa ssed transurethrally. A 22 Nigerien cystoscope was inserted transurethrally, the bulbous urethra was within normal limits. The prostatic urethra was nonobstructive. The bladder was visualized.? Both ureteric orifices were in normal position. The right ureteral stent was visualized. The stent was grasped with the grasping forceps and brought our of the urethra a guidewire passed thru the stent and stent removed. The cystoscope was replaced and a second guide wire placed. The cystoscope was removed, leaving both guidewires in place. The disposible flexible ureteroscope was passed over one guide wire to the level of the stone in the at the UPJ. The guidewire was then removed. The laser fiber was then passed through the ureteroscopy. Laser lithotripsy of the stone was done using the 270 fiber with settings 0.8 joules by 6 hertz alternating with 0.5 by 20 Hz. There was good fragmentation of the stone. The 0 degree basket was passed through the ureteroscope, a stone fragment was removed to send for analysis. The ureteroscope was removed. The cystoscope was passed over the safety guidewire. A? 6 Nigerien by [place] cm stent was placed into the ureter and renal pelvis under a combination of fluoroscopy and direct visualization. The bladder was emptied.? The rigid cystoscope was removed. ? The patient tolerated the procedure well and was brought to the recovery room in stable condition. Complications: None Drains: Ureteral stent as dictated above
[2022-08-16] MEDS: Ketorolac Tromethamine 30 MG/ML VIAL IVPUSH (18:58)
[2022-08-19 19:58] LABS: Stone Source RIGHT URETERAL STONE
== END 2022-08-16 19:33 | disposition home or self-care (01) ==
PROVIDERS: Visit Provider Urology
PROC: (CPT 52356; principal; 2022-08-16 13:10)
DX: N20.1 Calculus of ureter (principal); Z96.0 Presence of urogenital implants; K57.30 Diverticulosis of large intestine without perforation or abscess without bleeding; K42.9 Umbilical hernia without obstruction or gangrene
CPT/HCPCS: 52356; 82365; 88300; C1769; C2617; J0131; J0690; J1100; J1885; J2250; J2405; J3010; Q9967

== ENCOUNTER → 2022-08-26 13:34 | Outpatient (BNVA) | payer MEDICAID, SELFPAY | PROVIDERS: Visit Provider Urology | DX: N20.1 Calculus of ureter (principal); Z96.0 Presence of urogenital implants | CPT/HCPCS: 52000; 52310 ==

== ENCOUNTER 2022-08-30 13:30 | Day surgery (SDC) | payer MEDICAID, SELFPAY ==
--- NOTE | 2022-08-29 11:54 | P.CONAN_ITS ---
Documented by User: Peggy Tolentino NP 08/29/22 11:56 HPI - Anesthesia Eval Consult details Narrative: 32yo M for Right Cystoscopy & Stent Placement s/p cysto 08/17/22 with GA-LMA 5 PMFSH Active Problems Active Problems: All Active Problems (Updated 08/16/22 @ 14:12 by Anne Hunt MD) Ureteral stent present (Acute) Obstruction of ureteropelvic junction (UPJ) due to stone (Acute) Hydronephrosis (Acute) Calculus of kidney (Acute) Surgical History Surgical History Hx of appendectomy History of Problems with Anesthesia: No Social History Social History Alcohol intake: current Alcohol intake frequency: holidays/special occasions o nly Patient Tobacco Use Status: Never used Tobacco Use of substances other than those prescribed or required for medical reasons: No Are you DNR?: No Advance Directives: No Advance Directives Information Provided: Yes Advance Directives Date on File: 08/02/22 Meds Allergies Allergy/AdvReac Type Severity Reaction Status Date / Time No Known Allergies Allergy Verified 08/26/22 14:01 Exam Exam Date and Time: August 29, 2022 1154 Pertinent Lab Results Pertinent Lab Results: Laboratory Tests 08/02/22 08/02/22 06:23 06:23 WBC 9.2 Hgb 17.1 Hct 50.3 Plt Count 199 Sodium 142 Potassium 4.3 Chloride 109 H Carbon Dioxide 26 BUN 16 Creatinine 1.46 H Assessment and Plan Assessment Anesthesia Assessment: Chart Reviewed Final Anesthetic Review History of Problems with Anesthesia: No Documented by User: Harsha Dorado MD 08/30/22 16:19 PMFSH Family History Family history of problems with anesthesia: No Surgical History Surgical History Hx of appendectomy Social History Social History Alcohol intake: current Alcohol intake frequency: holidays/special occasions only Patient Tobacco Use Status: Never used Tobacco Use of substances other than those prescribed or required for medical reasons: No Are you DNR?: No Advance Directives: No Advance Directives Information Provided: Yes Advance Directives Date on File: 08/02/22 Meds Allergies Allergy/AdvReac Type Severity Reaction Status Date / Time No Known Allergies Allergy Verified 08/26/22 14:01 Exam Airway Mallampati Class: II TM Dist: >3cm Neck ROM: Full Loose/Missing/Broken Teeth: No Assessment and Plan Assessment Anesthesia Assessment: Anesthesia Plan Discussed Final Anesthetic Review Family History of Problems with Anesthesia: No NPO: Yes ASA Class: II Final Preanesthetic Review: No Changes in Pt Med Stat, Meds/Allgs Chart Reviewed, Consent Obtained/Reviewed and Anes Risks/Benef Reviewed Patient Risk: Low Procedure Risk: Low Anesthetic Plan Anesthetic Plan: MAC: Disposition: Standard PACU
--- NOTE | ~2022-08-30 | FL_ITS ---
EXAMINATION: XR FLUOROSCOPY WITH IMAGES CLINICAL INFORMATION: Stent removal. COMPARISON: None available. TECHNIQUE: Fluoroscopy Supervised By: Dr. Kasper. Fluoroscopy Time: 32.8 seconds. Cumulative Dose: 8.44 mGy. DAP: Gycm2. Images: 0. FINDINGS: No fluoroscopic image submitted FL/FL guidance in OR IMPRESSION: Fluoroscopic guidance provided for urology procedure. No radiologist present. No saved images.
[2022-08-30 15:03] VITALS: BMI 29.9
[2022-08-30 15:16] VITALS: BP 120/82; PULSE 65; RESP 16; TEMP 36.7; O2SAT 97
[2022-08-30] MEDS: Lactated Ringers 1,000 ML 100 ML IVCONT (15:25)
[2022-08-30 16:54] VITALS: BP 121/77; PULSE 89; RESP 16; TEMP 36.6; O2SAT 98
--- NOTE | 2022-08-30 16:58 | W.PM.OPN ---
Operative Note Operative Note Date of Service: 08/30/22 Narrative: PREOP DIAGNOSIS: Right ureteral stone status post ureteroscopy laser and ureteral stent POSTOP DIAGNOSIS: Right ureteral stone status post ureteroscopy laser and ureteral stent PROCEDURE: CYSTOSCOPY right ureteral stent removal SURGEON: Anne Hunt MD ANESTHESIA: MAC Indications: The patient did not tolerate the stent removal in the office Details of procedure: The patient was brought into the operating room placed on the OR table in supine position. 2 g of Ancef IV. IV sedation was administered. The patient was repositioned into lithotomy position, prepped and draped in the usual sterile fashion. Time-out was done per protocol. 2% lidocaine jelly was placed transurethrally. A 22 fr cystoscope was placed transurethrally into the bladder. The right and left ureteral orifices were visualized. The distal end of the was visualized. Fluoroscopy was used. The stent was seen in the kidney there were no will stone fragments seen along the stent. The distal end of the stent was grasped with the grasping forceps and pulled retrograde out of the bladder. The patient was awakened and taken to recovery in stable condition. Complications: None Drains: none
[2022-08-30 17:09] VITALS: BP 132/82; PULSE 68; RESP 14; TEMP 36.6; O2SAT 99
[2022-08-30 17:24] VITALS: BP 129/71; PULSE 65; RESP 14; O2SAT 98
[2022-08-30 17:39] VITALS: BP 133/84; PULSE 63; RESP 14; O2SAT 98
[2022-08-30] MEDS: Acetaminophen 325 MG TABLET 975 MG PO (17:42)
[2022-08-30 17:53] VITALS: BP 128/80; PULSE 662; RESP 14; TEMP 36.6; O2SAT 99
== END 2022-08-30 17:58 | disposition home or self-care (01) ==
PROVIDERS: Visit Provider Urology
PROC: (CPT 52310; principal; 2022-08-30 15:30)
DX: N20.1 Calculus of ureter (principal); Z96.0 Presence of urogenital implants; Z79.899 Other long term (current) drug therapy
CPT/HCPCS: 52310; J0690; J2250

== ENCOUNTER 2022-09-29 15:05 | Outpatient (AMB) | payer MEDICAID, SELFPAY ==
--- NOTE | 2022-09-29 07:07 | A.OFFVIS_ITS ---
Intake Intake Visit Reasons: 4 week follow up Intake Note: Patient presents today for a follow-up on Post Op, Cystoscopy Stent Removal: Meds- Naproxen & Oxybtynin Allergies to Antibiotic- No Known Allergies Blood Thinner- None Thread Dresser Required: No Accompanied by: Self / Same As Patient Allergies No Known Allergies Allergy (Verified 09/29/22 15:13) HPI HPI Comments History of Present Illness Details Manjula is a 32-year-old Fijian speaking male who presents to the office for a 4 week follow-up for kidney stones. 09/29/2022-- He was last seen in the office by me on 08/26/2022. 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 He is status post Cystoscopy, right ureteroscopy, and laser lithotripsy. Stent was removed on operative room under anesthesia on 08/30/2022. Results reviewed-- CAT scan of the abdomen/pelvis without IV cont rast?08/02/2022-- At that time stones were noted in the right UPJ, and no stones were noted in the left kidney. He was again counseled on dietary modifications, and instructed him to increase fluid intake, 48-64 ounces. Discussed stone analysis: Stone analysis came back primarily calcium oxalate- 85 percent, and I will give him a copy of that report. Plan: Given diet sheet to the patient to understand the dietary modifications to decrease the risk of kidney stone productions. Metabolic work up including 24 hour urine culture test. Advised the patient to consume adequate amount of fluids, 48-64 ounces. Follow-up in 14 weeks with 24 hour urine culture test prior. PFSH Surgical History (Updated 09/29/22 @ 15:12 by MICKEY Squires) Hx of appendectomy Hx of bladder endoscopy Family History (Updated 09/29/22 @ 15:12 by MICKEY Squires) Father No problems noted. Mother No problems noted. Social History Alcohol intake: current Alcohol intake frequency: holidays/special occasions only Patient Tobacco Use Status: Never used Tobacco Advance Directives Date on File: 08/02/22 Review of Systems Const All systems reviewed & are unremarkable except as noted in HPI and below Reports no additional complaints Eyes Reports no additional complaints ENT Reports no additional complaints Card Denies dyspnea Resp Denies cough and Denies dyspnea GI Reports no additional complaints Musc Reports no additional complaints Skin/Breast Denies rash and Denies unusual bruising Neuro Reports no additional complaints Psych Reports no additional complaints Endo Reports no additional complaints Teodoro/Lymph Reports no additional complaints Aller/Immun Reports no additional complaints Results AMB Urinalysis, Automated UA Leukoctes 0 Steffanie/uL Last Edit by Monique Chacon Indira on 09/29/22 15:24 UA Nitrite Negative Last Edit by Monique Chacon [facility] on 09/29/22 15:24 UA Urobilinogen 0.2 mg/dL Last Edit by Monique Chacon [facility] on 09/29/22 15:2 4 UA Protein 0 mg/dL Last Edit by Monique Chacon [facility] on 09/29/22 15:24 UA pH 6.0 Last Edit by Monique Chacon [facility] on 09/29/22 15:24 UA Blood 0 Mook/uL Last Edit by Monique Chacon [facility] on 09/29/22 15:24 UA Specific [place] 1.020 Last Edit by Monique Chacon [facility] on 09/29/22 15: 24 UA Ketone Negative Last Edit by Monique Chacon [facility] on 09/29/22 15:24 UA Bilirubin 0 mg/dL Last Edit by Monique Chacon [facility] on 09/29/22 15:24 UA Glucose 0 mg/dL Last Edit by Monique Chacon [facility] on 09/29/22 15:24 Results Reviewed Results Reviewed: Laboratory Last Values Urine pH (Auto) 6.0 09/29/22 15:22 Specific [place] (Auto) 1.020 09/29/22 15:22 Urine Protein (Auto) 0 mg/dL 09/29/22 15:22 Glucose (UA)(Auto) 0 mg/dL 09/29/22 15:22 Urine Ketones (Auto) Negative 09/29/22 15:22 Urine Blood (Auto) 0 Mook/uL 09/29/22 15:22 Urine Nitrite (Auto) Negative 09/29/22 15:22 Urine Bilirubin (Auto) 0 mg/dL 09/29/22 15:22 Urine Urobilinogen (Auto) 0.2 mg/dL 09/29/22 15:22 Leukocyte Esterase (Auto) 0 Steffanie/uL 09/29/22 15:22 Date of Service: 08/02/22 EXAMINATION: CT ABDOMEN AND PELVIS WITHOUT CONTRAST? CLINICAL INFORMATION: Pain? COMPARISON: None available. FINDINGS: Exam is limited due to motion. LUNG BASES: The visualized lung bases are unremarkable.? LIVER, GALLBLADDER, AND BILIARY TREE: The liver is normal in size, shape, and attenuation. No focal hepatic lesion or biliary ductal dilatation is present. The gallbladder is unremarkable with no evidence of radiopaque gallstones, gallbladder wall thickening, or obvious pericholecystic inflammatory changes.? PANCREAS: Unremarkable.? SPLEEN: Unremarkable.? ADRENAL GLANDS: Unremarkable.? KIDNEYS AND URETERS: Severe right hydronephrosis from what appear to be 2 adjacent 5 to 6 mm right UPJ stones. Right perinephric stranding probably representing backflow of urine secondary to obstruction. Infection cannot be excluded and clinical correlation recommended. No renal stone seen. No ureteral dilatation or ureteral stone. BLADDER: Unremarkable.? GASTROINTESTINAL TRACT: Mild diverticulosis of the colon. The small and large bowel are otherwise unremarkable. The appendix is not seen.? ABDOMINAL WALL: Small umbilical hernia containing fat.? LYMPH NODES: Normal. VASCULAR: Unremarkable. PELVIC VISCERA: Unremarkable.? OSSEOUS STRUCTURES: Unremarkable.? IMPRESSION: Limited exam due to motion. Severe right hydronephrosis from what appear to be 2 adjacent 5 to 6 mm right UPJ stones. Right perinephric stranding probably secondary to backflow of urine from obstruction. Infection cannot be excluded and clinical correlation recommended. ? Assessment & Plan Assessment & Plan (1) Calculus of kidney: Code(s): N20.0 - Calculus of kidney Plan Given diet sheet to the patient to understand the dietary modifications to decrease the risk of kidney stone productions. Metabolic work up including 24 hour urine culture test. Advised the patient to consume adequate amount of fluids, 48-64 ounces. Follow-up in 14 weeks with 24 hour urine culture test prior. Orders: Orders AMB Urinalysis Automated 09/29/22 Z13.9 - Encounter for screening, unspecified Patient Instructions: The patient had an opportunity to ask questions regarding treatment plan. All questions were answered. Imaging, Laboratory studies and physical exam results were discussed and reviewed in detail. No major barriers to understanding were identified. The patient expressed understanding and agreement with the above treatment plan.? ? ? The patient is aware they should contact our office by phone for worsening of their current condition or the appearance of new symptoms. Compliance is encouraged with any medications and followup testing that is ordered.? ? ? It is a privilege to be allowed the opportunity to participate in the urologic care of your patient. If you have any questions or concerns regarding treatment for the above conditions please do not hesitate to contact me. The office telephone contact is [phone].? ? ? This note is constructed in part using voice recognition software. While every effort has been made to ensure accuracy dredge pipe operator errors may have been included.? ? ? Yours sincerely,? ? ? Anne Hunt MD? Coding Level of Care Code Est Pt Level 3 (86542) Diagnoses Calculus of kidney N20.0
== END 2022-09-29 15:34 | disposition home or self-care (01) ==
PROVIDERS: Visit Provider Urology
DX: N20.0 Calculus of kidney (principal)
CPT/HCPCS: 99213

== ENCOUNTER → 2022-09-29 15:05 | Outpatient (BNVA) | payer MEDICAID, SELFPAY | PROVIDERS: Visit Provider Urology | DX: N20.0 Calculus of kidney (principal) | CPT/HCPCS: 99212 ==

== ENCOUNTER 2022-12-17 09:40 | Outpatient (REF) | payer MEDICAID, SELFPAY | END 2022-12-17 09:41 | disposition home or self-care (01) | LOC: HO.LAB 09:40 | PROVIDERS: Visit Provider Internal Medicine | DX: Z13.89 Encounter for screening for other disorder (principal) ==

== ENCOUNTER 2022-12-19 08:27 | Outpatient (REF) | payer MEDICAID, OTHER, SELFPAY ==
[2022-12-21 16:49] LABS: TS Negative Control Passed; TS Panel A 1; TS Panel B 2; TS Positive Control Passed; TSpotTB Negative (Negative)
[2022-12-21 18:58] LABS: RPR Rapid Plasma Reagin NON-REACTIVE (NON-REACTIVE)
== END 2022-12-19 08:28 | disposition home or self-care (01) ==
LOC: HO.LAB 08:27
PROVIDERS: Visit Provider Internal Medicine
DX: Z00.00 Encounter for general adult medical examination without abnormal findings (principal); Z11.1 Encounter for screening for respiratory tuberculosis
CPT/HCPCS: 36415; 86481; 86592

== ENCOUNTER 2023-04-20 21:35 | Emergency (ER) | payer MEDICAID, OTHER, SELFPAY ==
[2023-04-20 22:18] VITALS: BP 128/88; PULSE 98; RESP 18; TEMP 37.5; O2SAT 98; BMI 28.9
[2023-04-20] MEDS: Ondansetron ODT 4 MG TAB.RAPDIS TRANSLINGU (22:26)
[2023-04-20 23:09] LABS: MANUAL DIFF FLAG NO
[2023-04-20 23:10] LABS: Basophils Percent Auto 0.3 % (0-2); Eosinophils Percent Auto 0.2 % (0-4); Hemoglobin 19.5 g/dl (14.0-18.0); Imm Gran Abs Auto 0.05 X10*3/uL (0.00-0.03); Imm Gran Pct Auto 0.4 % (0.0-0.4); Lymphocytes Absolute Auto 0.6 X10*3/uL (1.2-4.9); Lymphocytes Percent Auto 4.5 % (20-40); Mean Corpuscular HGB Conc 34.3 g/dl (31.0-36.0); Mean Corpuscular Hemoglobin 28.7 pg (27.0-33.0); Mean Corpuscular Volume 83.7 fL (80.0-98.0); Mean Platelet Volume 9.7 fL (9.4-12.4); Monocytes Absolute Auto 0.8 X10*3/uL (0.1-1.2); Neutrophils Absolute Auto 11.8 x10*3/uL (2.0-8.3); Neutrophils Percent Auto 88.6 % (45-73); Platelet Count 196 X10*3/uL (160-400); White Blood Count 13.3 X10*3/uL (4.8-10.8)
--- NOTE | 2023-04-20 23:10 | MHC.EDTECH ---
Patient blood drawn ,urine sample collected and flu/covid swab all sent to lab .
[2023-04-20 23:14] LABS: Hematocrit 56.9 % (42.0-52.0)
[2023-04-20 23:24] LABS: Alanine Aminotransferase 25 U/L (0-40); Albumin Level 4.7 g/dL (3.5-5.0); Alkaline Phosphatase 63 U/L (39-117); Anion Gap 13 (12-20); Aspartate Amino Transferase 26 U/L (5-37); Bilirubin Total 2.1 mg/dL (0.0-1.0); Blood Urea Nitrogen 16 mg/dL (9-16); Carbon Dioxide 25 mmol/L (22-29); Chloride 105 mmol/L (96-108); Creatinine Clr Calc Pharmacy 97.4; Estimated Glomerular Filt Rate > 60; Glucose Random 94 mg/dL (60-115); Lipase 15 U/L (8-78); Potassium 4.4 mmol/L (3.3-5.1); Sodium 139 mmol/L (135-145)
[2023-04-20 23:25] LABS: COVID-19 Test Negative (Negative); IDNOW Serial# 08D9AD1C
[2023-04-20 23:25] LABS: IDNOW Serial# 152EDE1D; Influenza A Negative (Negative); Influenza B2 Negative (Negative)
[2023-04-20 23:48] LABS: Appearance Urine Clear; Color Urine Yellow; Glucose Urine UA Negative (Negative); Leukocyte Esterase Urine Negative (Negative); Nitrite Urine Negative (Negative); Specific Gravity - Urine 1.025 (1.005-1.025); Urine Blood Negative (Negative); Urine Ketones 15 mg/dL (Negative); Urine Protein Trace mg/dL (Neg-Trace)
[2023-04-21 00:53] VITALS: BP 118/82; PULSE 74; RESP 16; TEMP 38.2; O2SAT 98
--- NOTE | 2023-04-21 01:12 | ED.NAVMDI ---
HPI - Nausea/Vomiting/Diarrhea General Chief complaint: Abdominal Pain Stated complaint: headache t-1, vomiting everything up, back pain Time Seen by Provider: 04/21/23 00:47 Source: patient, family and old records reviewed Mode of arrival: ambulatory Limitations: no limitations History of Present Illness HPI Narrative: 32 yo male with PMH of kidney stones comes in with who states on Monday he started to c/o of a headache and a red eye he then started to vomit and have diarrhea as well as diffuse body aches, fevers and back pain. She denies sick contacts, travel, food exposures. MD elicited complaint: nausea, vomiting, diarrhea, abdominal pain and flank pain Pertinent past history: other (kidney stones) Onset (ago): day(s) (monday) Description of vomiting: food contents and watery Associated nausea: Yes Associated abdominal pain: Yes Location of pain: diffuse Radiation: diffuse Pain consistency: constant Severity: severe Quality: aching Exacerbating factors: eating and movement Relieving factors: none Associated symptoms: myalgias, fever/chills, headaches, loss of appetite, malaise, nausea/vomiting, weakness and fatigue Related Data Previous Rx's Medication Instructions Recorded oxybutynin chloride 5 mg tablet 5 mg PO BID PRN bladder spasms #60 08/12/22 tabs naproxen 375 mg tablet 375 mg PO BID PRN pain #12 tabs 08/30/22 ondansetron 4 mg disintegrating 4 mg PO Q8H PRN nausea and 04/21/23 tablet vomiting #20 tabs Allergies Allergy/AdvReac Type Severity Reaction Status Date / Time No Known Allergies Allergy Verified 04/20/23 22:18 Review of Systems Review of Systems: Constitutional : No Weight loss, pos Fever, pos Chills ENT/Mouth : No sore throat, No Rhinorrhea Eyes: No Swelling, No Redness Cardiovascular : No Chest Pain, No SOB, NoEdema Respiratory : No Cough, No Sputum, No Wheezing Gastrointestinal : Positive Nausea, Positive Vomiting, positive Diarrhea, positive abdominal Pain, No Hematochezia, No Melena Genitourinary : No Dysuria, No Urinary Frequency, No Hematuria, No Urgency Musculoskeletal : No joint pain, pos Myalgias, No Joint Swelling, pos back pain Skin : No Skin Lesions, No rash Neuro : No Weakness, No Numbness, No Dizziness, pos Headache Psych : No Anxiety/Panic, No Depression Heme/Lymph: No Bruising, No Lymphadenopathy Endocrine : No Polyuria, No Polydipsia All other systems reviewed and are negative. Gastrointestinal: Gastrointestinal: Reports nausea PMFSH Past Medical History Attestation statement: The following information was validated with the patient. Source: old records reviewed Medical History Calculus of kidney Hydronephrosis Surgical History Hx of bladder endoscopy Hx of appendectomy Family History Family History (Updated 09/29/22 @ 15:12 by MICKEY Squires) Father No problems noted. Mother No problems noted. Social History Social History Alcohol intake: current Alcohol intake frequency: holidays/special occasions only Patient Tobacco Use Status: Never used Tobacco Advance Directives: Yes Advance Directives on File: Yes Advance Directives Date on File: 08/02/22 Physical Exam Vital Signs: Vital Signs: Last Vital Signs Temp 98.9 F 04/21/23 03:21 Pulse 73 04/21/23 03:21 Resp 16 04/21/23 03:21 BP 119/50 L 04/21/23 03:21 Pulse Ox 97 04/21/23 03:21 O2 Del Method Room Air 04/21/23 03:21 BMI result Body Mass Index 28.9 Appearance: Alert. Oriented X3. No acute distress. Eyes: Pupils equal, round and reactive to light. ENT: Pharynx normal. Neck: Normal inspection. Neck supple. no meningeal signs CVS: Normal heart rate and rhythm. Pulses normal. Respiratory: No respiratory distress. Breath sounds normal. Abdomen: Soft and mild diffuse ttp Skin: Skin warm and dry. Normal skin color. Normal skin turgor. Extremities: No lower extremity edema. No calf ttp Neuro: Oriented X 3. No motor deficit. No sensory deficit. Medications Administered Discontinued Medications Generic Name Dose Route Start Last Admin Trade Name Freq PRN Reason Stop Dose Admin Acetaminophen 650 mg 04/21/23 00:58 04/21/23 01:49 Acetaminophen 325 Mg Tablet PO 04/21/23 00:59 650 mg ONCE ONE Administration Sodium Chloride 1,000 mls @ 999 mls/hr 04/21/23 01:00 04/21/23 02:14 Ns IV 04/21/23 02:00 999 mls/hr .Q1H1M QIANA Administration Sodium Chloride 1,000 mls @ 999 mls/hr 04/21/23 01:00 04/21/23 02:14 Ns IV 04/21/23 02:00 999 mls/hr .Q1H1M QIANA Administration Ketorolac Tromethamine 15 mg 04/21/23 00:58 04/21/23 02:12 Ketorolac Tromethamine 15 Mg/Ml Vial IVPUSH 04/21/23 00:59 15 mg ONCE ONE Administration Morphine Sulfate 4 mg 04/21/23 01:11 04/21/23 02:12 Morphine Sulfate 4 Mg/Ml Cartridge IVPUSH 04/21/23 01:12 4 mg ONCE ONE Administration Protocol Ondansetron HCl 4 mg 04/20/23 22:24 04/20/23 22:26 Ondansetron Odt 4 Mg Tab.Rapdis TRANSLINGU 04/20/23 22:25 4 mg ONCE ONE Administration Ondansetron HCl 4 mg 04/21/23 00:58 04/21/23 02:12 Ondansetron Hcl 4 Mg/2 Ml Vial IVPUSH 04/21/23 00:59 4 mg ONCE ONE Administration Medical Decision Making Medical Decision Making [facility] Narrative: 32 yo male with PMH of kidney stones here with c/o headaches, fevers, n/v/d and abdominal cramps starting monday night given the constellation of symptoms there is a concern for viral syndrome he has no focal ttp but diffuse and everything started abruptly.. No meningeal signs at this time will hydrate, provide supportive medications, obtain labs and viral panel. Differential Diagnosis Differential Diagnoses: The differential diagnosis associated with the presentation includes viral syndrome, colitis, dehydration Admission/Observation Consideration of admission/observation: Escalation of care including admission/observation considered VS improved CBC improved with fluids feeling much better WBC count downtrended stable for DC Lab Data [facility] Lab Attestation statement: I reviewed the patient's lab results. 04/21/23 04:28 04/20/23 23:02 Labs: Lab Results 04/20/23 04/20/23 04/20/23 Range/Units 23:02 23:03 23:08 WBC 13.3 H (4.8-10.8) X10*3/uL RBC 6.80 H (4.60-5.80) X10*6/uL Hgb 19.5 H (14.0-18.0) g/dl Hct 56.9 H (42.0-52.0) % MCV 83.7 (80.0-98.0) fL MCH 28.7 (27.0-33.0) pg MCHC 34.3 (31.0-36.0) g/dl RDW 12.0 (11.0-16.0) % Plt Count 196 (160-400) X10*3/uL MPV 9.7 (9.4-12.4) fL Immature Gran % (Auto) 0.4 (0.0-0.4) % Neut % (Auto) 88.6 H (45-73) % Lymph % (Auto) 4.5 L (20-40) % Bowman % (Auto) 6.0 (2-11) % Eos % (Auto) 0.2 (0-4) % Baso % (Auto) 0.3 (0-2) % Lymph # (Auto) 0.6 L (1.2-4.9) X10*3/uL Bowman # (Auto) 0.8 (0.1-1.2) X10*3/uL Eos # (Auto) 0.0 (0.0-0.4) X10*3/uL Baso # (Auto) 0.0 (0.0-0.2) X10*3/uL Abs Immat Gran (auto) 0.05 H (0.00-0.03) X10*3/uL Absolute Neuts (auto) 11.8 H (2.0-8.3) x10*3/uL Absolute Nucleated RBC 0.000 (0.0-0.012) X10*3/uL Nucleated RBC % (auto) 0.0 (0.0-0.2) /100WBC Sodium 139 (135-145) mmol/L Potassium 4.4 (3.3-5.1) mmol/L Chloride 105 (96-108) mmol/L Carbon Dioxide 25 (22-29) mmol/L Anion Gap 13 (12-20) BUN 16 (9-16) mg/dL Creatinine 1.09 (0.5-1.4) mg/dL Estim Creat Clear Calc 97.4 Estimated GFR > 60 Random Glucose 94 (60-115) mg/dL Calcium 10.0 (8.4-10.2) mg/dL Total Bilirubin 2.1 H (0.0-1.0) mg/dL AST 26 (5-37) U/L ALT 25 (0-40) U/L Alkaline Phosphatase 63 (39-117) U/L Total Protein 8.0 (6.5-8.0) g/dL Albumin 4.7 (3.5-5.0) g/dL Lipase 15 (8-78) U/L Urine Color Yellow Urine Appearance Clear Urine pH 6.0 (5.0-9.0) Ur Specific [place] 1.025 (1.005-1.025) Urine Protein Trace (Neg-Trace) mg/dL Urine Glucose (UA) Negative (Negative) mg/dL Urine Ketones 15 (Negative) mg/dL Urine Blood Negative (Negative) Urine Nitrite Negative (Negative) Ur Leukocyte Esterase Negative (Negative) COVID-19 (FERNANDA) Negative (Negative) COVID-19 Clin Com See Note Influenza Type A (ERASTO) Negative (Negative) Influenza Type B (ERASTO) Negative (Negative) Influenza A & B Note See Note 04/21/23 04/21/23 Range/Units 02:10 04:28 WBC Cancelled 11.9 H (4.8-10.8) X10*3/uL RBC Cancelled 6.08 H (4.60-5.80) X10*6/uL Hgb Cancelled 17.5 (14.0-18.0) g/dl Hct Cancelled 51.4 (42.0-52.0) % MCV Cancelled 84.5 (80.0-98.0) fL MCH Cancelled 28.8 (27.0-33.0) pg MCHC Cancelled 34.0 (31.0-36.0) g/dl RDW Cancelled 12.2 (11.0-16.0) % Plt Count Cancelled 178 (160-400) X10*3/uL MPV Cancelled 9.9 (9.4-12.4) fL Immature Gran % (Auto) (0.0-0.4) % Neut % (Auto) (45-73) % Lymph % (Auto) (20-40) % Bowman % (Auto) (2-11) % Eos % (Auto) (0-4) % Baso % (Auto) (0-2) % Lymph # (Auto) (1.2-4.9) X10*3/uL Bowman # (Auto) (0.1-1.2) X10*3/uL Eos # (Auto) (0.0-0.4) X10*3/uL Baso # (Auto) (0.0-0.2) X10*3/uL Abs Immat Gran (auto) (0.00-0.03) X10*3/uL Absolute Neuts (auto) (2.0-8.3) x10*3/uL Absolute Nucleated RBC Cancelled 0.000 (0.0-0.012) X10*3/uL Nucleated RBC % (auto) Cancelled 0.0 (0.0-0.2) /100WBC Sodium (135-145) mmol/L Potassium (3.3-5.1) mmol/L Chloride (96-108) mmol/L Carbon Dioxide (22-29) mmol/L Anion Gap (12-20) BUN (9-16) mg/dL Creatinine (0.5-1.4) mg/dL Estim Creat Clear Calc Estimated GFR Random Glucose (60-115) mg/dL Calcium (8.4-10.2) mg/dL Total Bilirubin (0.0-1.0) mg/dL AST (5-37) U/L ALT (0-40) U/L Alkaline Phosphatase (39-117) U/L Total Protein (6.5-8.0) g/dL Albumin (3.5-5.0) g/dL Lipase (8-78) U/L Urine Color Urine Appearance Urine pH (5.0-9.0) Ur Specific [place] (1.005-1.025) Urine Protein (Neg-Trace) mg/dL Urine Glucose (UA) (Negative) mg/dL Urine Ketones (Negative) mg/dL Urine Blood (Negative) Urine Nitrite (Negative) Ur Leukocyte Esterase (Negative) COVID-19 (FERNANDA) (Negative) COVID-19 Clin Com Influenza Type A (ERASTO) (Negative) Influenza Type B (ERASTO) (Negative) Influenza A & B Note Independent Historian Clinical information obtained from an independent historian. History obtained from or confirmed by: Spouse External Record Review External record reviewed: Inpatient record Prescription Management I considered prescription management with: Other Critical Care Time Critical Care Time Critical Care Time: Yes Total Critical Care Time: 45 Attestation: IV morphine with impovement in pain, repeat labs, 2L of IVF I attest to this time spent taking care of the patient Discharge Plan Discharge Clinical Impression: Acute viral syndrome Vomiting Qualifiers: Vomiting type: unspecified Nausea presence: with nausea Qualified Code(s): R11.2 - Nausea with vomiting, unspecified Patient Disposition: Home, Self-Care Instructions: Acute Nausea and Vomiting (ED), Viral Syndrome (ED) Additional Instructions: eat a bland diet, advance diet as tolerated over 24 hours return for worsening pain, inability to eat or drink, confusion, no improvement or any other concerns. coma rocio dieta blanda, avance la dieta seg?n la tolerancia sharla 24 horas y regrese si el dolor empeora, incapacidad para comer o beber, confusi?n, no mejora o cualquier otra inquietud. Prescriptions: New ondansetron 4 mg tablet,disintegrating 4 mg PO Q8H PRN (Reason: nausea and vomiting) Qty: 20 0RF No Action naproxen 375 mg tablet 375 mg PO BID PRN (Reason: pain) Qty: 12 0RF oxybutynin chloride 5 mg tablet 5 mg PO BID PRN (Reason: bladder spasms) Qty: 60 0RF Rx Instructions: use one tablet once to twice daily for bladder urgency Stand Alone Forms: Work/School Release Print Language: Moldovan
[2023-04-21] MEDS: Acetaminophen 325 MG TABLET 650 MG PO (01:49)
[2023-04-21] MEDS: Ketorolac Tromethamine 15 MG/ML VIAL IVPUSH (02:12)
[2023-04-21] MEDS: ondansetron HCL 4 MG/2 ML VIAL IVPUSH (02:12)
[2023-04-21] MEDS: Morphine Sulfate 4 MG/ML CARTRIDGE IVPUSH (02:12)
[2023-04-21] MEDS: 0.9 % Sodium Chloride 1,000 ML 999 ML IV ×2 (02:14)
--- NOTE | 2023-04-21 02:20 | PC.NURSE ---
Pt ca&ox4, no signs of distress. Meds given per may late d/t IV placement. Pts mom at bedside. Plan of care ongoing.
[2023-04-21 03:21] VITALS: BP 119/50; PULSE 73; RESP 16; TEMP 37.2; O2SAT 97
[2023-04-21 04:32] LABS: Hematocrit 51.4 % (42.0-52.0); Hemoglobin 17.5 g/dl (14.0-18.0); Mean Corpuscular Hemoglobin 28.8 pg (27.0-33.0); Mean Corpuscular Volume 84.5 fL (80.0-98.0); Mean Platelet Volume 9.9 fL (9.4-12.4); Platelet Count 178 X10*3/uL (160-400); Red Blood Count 6.08 X10*6/uL (4.60-5.80); Red Cell Distribution Width 12.2 % (11.0-16.0); White Blood Count 11.9 X10*3/uL (4.8-10.8)
--- NOTE | 2023-04-21 04:32 | MHC.EDTECH ---
Patient repeated cbc drawn and sent to lab .
== END 2023-04-21 05:03 | disposition home or self-care (01) ==
PROVIDERS: Emergency Provider Emergency Medicine
DX: B34.9 Viral infection, unspecified (principal); R11.2 Nausea with vomiting, unspecified; M54.50 Low back pain, unspecified; R51.9 Headache, unspecified; Z11.52 Encounter for screening for COVID-19; Z79.899 Other long term (current) drug therapy
CPT/HCPCS: 36415; 80053; 81003; 83690; 85025; 85027; 87502; 87635; 96374; 96375; 99284; J1885; J2270; J2405

== ENCOUNTER 2023-04-29 01:51 | Emergency (ER) | payer MEDICAID, OTHER, SELFPAY ==
[2023-04-29 02:05] VITALS: BP 138/86; PULSE 69; RESP 16; TEMP 36.6; O2SAT 98; BMI 28.7
== END 2023-04-29 04:50 | disposition left against medical advice (07) ==
PROVIDERS: Emergency Provider Emergency Medicine
DX: R51.9 Headache, unspecified (principal); Z53.21 Procedure and treatment not carried out due to patient leaving prior to being seen by health care provider
CPT/HCPCS: 99281

== ENCOUNTER 2023-04-29 18:45 | Emergency (ER) | payer MEDICAID, OTHER, SELFPAY ==
--- NOTE | ~2023-04-29 | CT_ITS ---
EXAMINATION: CT head/brain wo IV con CLINICAL INFORMATION: Right-sided morning headaches for 5 days COMPARISON: None. TECHNIQUE: Contiguous axial imaging was performed from the skull base to vertex without intravenous contrast. Sagittal and coronal reformatted images were obtained. This CT examination was performed using dose optimization techniques as appropriate, variously including the following: * Automated exposure control * Adjustment of mA and/or kV according to patient size (this includes techniques or standardized protocols for targeted exams where dose is matched to indication/reason for exam; i.e. extremities or head) Use of iterative reconstruction technique DLP: [id number] mGy-cm FINDINGS: No acute osseous or soft tissue abnormality. The mastoid air cells and visualized portions of the paranasal sinuses are well aerated. There is no evidence of acute intracranial hemorrhage or territorial infarction. No abnormal mass effect or midline shift is seen. Mathews to white matter differentiation is well preserved. No extra-axial fluid collections are identified. No hydrocephalus. No significant volume loss. There is no abnormal attenuation within the brain parenchyma. CT/CT head/brain wo IV con IMPRESSION: No acute intracranial abnormality including hemorrhage, mass effect, hydrocephalus, or acute territorial edematous infarction. If there remains a high index of clinical suspicion for intracranial pathology, dedicated MRI brain with and without contrast may be considered for further assessment.
[2023-04-29 19:17] VITALS: BP 131/85; PULSE 61; RESP 14; TEMP 36.7; O2SAT 97; BMI 28.7
--- NOTE | 2023-04-29 20:07 | ED_ITS ---
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 He has hx of migraines in the [place] used to be on medications but that was years ago and they resolved. He has never had any imaging done. Takes excedrin and it feels better. No trauma to the head. No vision changes. Feels pressure in the L eye MD elicited complaint: headache and migraine Pertinent past history: migraines Onset (ago): day(s) (5) Onset description: gradually and while at rest Location: temporal Severity: moderate Quality & Timing: throbbing Exacerbating factors: light, noise and other (laying down) Relieving factors: NSAIDs Context: occurred at rest Associated symptoms: nausea, photophobia and eye pain Treatments prior to arrival: none Related Data Previous Rx's Medication Instructions Recorded oxybutynin chloride 5 mg tablet 5 mg PO BID PRN bladder spasms #60 08/12/22 tabs naproxen 375 mg tablet 375 mg PO BID PRN pain #12 tabs 08/30/22 ondansetron 4 mg disintegrating 4 mg PO Q8H PRN nausea and 04/21/23 tablet vomiting #20 tabs ltrgxwjjoy-qztrhkkkpgtdt-phsyfprl 1 cap PO TID PRN pain #20 caps 04/29/23 50 mg-300 mg-40 mg capsule (Fioricet) sumatriptan succinate 50 mg tablet See Rx Instructions PO .COMPLEX 04/29/23 #10 tabs Allergies Allergy/AdvReac Type Severity Reaction Status Date / Time No Known Allergies Allergy Verified 04/20/23 22:18 Review of Systems Review of Systems: Constitutional : No Fever, No Chills, No Fatigue ENT/Mouth : No sore throat, No Rhinorrhea Eyes: pos Eye Pain, No Swelling, No Redness Cardiovascular : No Chest Pain, No SOB, No Dyspnea on Exertion Respiratory : No Cough, No Sputum Gastrointestinal : No Nausea, No Vomiting, No Diarrhea, No abdominal Pain Genitourinary : No Dysuria, No Urinary Frequency, No Hematuria, Musculoskeletal : No joint pain, No Myalgias, No Joint Swelling Skin : No Skin Lesions, No rash Neuro : No Weakness, No Numbness, No Dizziness, positive Headache Psych : No Anxiety/Panic, No Depression All other systems reviewed and are negative REPLACED BY [facility] Past Medical History Attestation statement: The following information was validated with the patient. Source: old records reviewed Medical History Calculus of kidney Hydronephrosis Surgical History Hx of bladder endoscopy Hx of appendectomy Family History Family History (Updated 09/29/22 @ 15:12 by MICKEY Squires) Father No problems noted. Mother No problems noted. Social History Social History Alcohol intake: current Alcohol intake frequency: holidays/special occasions only Patient Tobacco Use Status: Never used Tobacco Advance Directives: No Advance Directives Information Provided: No Advance Directives Date on File: 08/02/22 Physical Exam Vital Signs: Vital Signs: Last Vital Signs Temp 98.1 F 04/29/23 19:17 Pulse 61 04/29/23 19:17 Resp 14 04/29/23 19:17 BP 131/85 04/29/23 19:17 Pulse Ox 97 04/29/23 19:17 O2 Del Method Room Air 04/29/23 19:17 BMI result Body Mass Index 28.7 Appearance: Alert. Oriented X3. No acute distress. Eyes: Pupils equal, round and reactive to light. reports normal vision pressure in L eye 17 ENT: Pharynx normal. Neck: Normal inspection. Neck supple. no meningeal signs CVS: Normal heart rate and rhythm. Pulses normal. Respiratory: No respiratory distress. Breath sounds normal. Abdomen: Soft and non-tender. Skin: Skin warm and dry. Normal skin color. Normal skin turgor. Extremities: No lower extremity edema. No calf ttp Neuro: Oriented X 3. No motor deficit. No sensory deficit. Medications Administered Discontinued Medications Generic Name Dose Route Start Last Admin Trade Name Freq PRN Reason Stop Dose Admin Ketorolac Tromethamine 30 mg 04/29/23 20:18 04/29/23 20:36 Ketorolac Tromethamine 30 Mg/Ml Vial IM 04/29/23 20:19 30 mg ONCE ONE Administration Metoclopramide HCl 10 mg 04/29/23 20:18 04/29/23 20:35 Metoclopramide Hcl 10 Mg/2 Ml Vial IM 04/29/23 20:19 10 mg ONCE ONE Administration Medical Decision Making Medical Decision Making MDM Narrative: 32 yo male with hx of migraines here with gradual onset headache that is waxing and waning worse at night and AM - started 5 days ago no trauma no fevers no meningeal signs was gradual no trauma hx doubt SAH or ADVANCE SCOUT infection. At this time will provide supportive medications and given pain at rest and laying flat - CT scan for mass. IOP normal at 17. No vision loss. IM supportive medications ordered. Differential Diagnosis Differential Diagnoses: The differential diagnosis associated with the presentation includes migraine, glaucoma, mass, tension headache, viral syndrome Admission/Observation Consideration of admission/observation: Escalation of care including admission/observation considered feels better stable for DC Lab Data [facility] Lab Attestation statement: I reviewed the patient's lab results. Labs: Lab Results 04/29/23 Range/Units 20:42 COVID-19 (FERNANDA) Negative (Negative) COVID-19 Clin Com See Note Independent Interpretation I performed an independent interpretation of an: CT Scan (no mass) Radiology Impression Discussion of test interpretation with radiology: I have reviewed the radiologist's reading. Independent Historian Clinical information obtained from an independent historian. History obtained from or confirmed by: Spouse External Record Review External record reviewed: Inpatient record Prescription Management I considered prescription management with: Pain Medication and Other Discharge Plan Discharge Clinical Impression: Migraine Qualifiers: Migraine type: unspecified Status migrainosus presence: without status migrainosus Intractability: not intractable Qualified Code(s): G43.909 - Migraine, unspecified, not intractable, without status migrainosus Patient Disposition: Home, Self-Care Instructions: Migraine Headache (ED) Additional Instructions: return for numbness, weakness, vision changes, no improvement in pain. you need to see a primary care doctor, eye doctor as well. CT scan shows no acute findings or mass. Regrese por entumecimiento, debilidad, cambios en la visi?n, sin mejor?a en el dolor. es necesario consultar a un m?dico de atenci?n primaria y tambi?n a un oftalm?logo. La tomograf?a computarizada no muestra hallazgos agudos ni masa. Prescriptions: New rmsvgudkyx-coljejvjquang-emdx [Fioricet] 50-300-40 mg capsule 1 cap PO TID PRN (Reason: pain) Qty: 20 0RF sumatriptan succinate 50 mg tablet See Rx Instructions .ROUTE .COMPLEX Qty: 10 0RF Rx Instructions: take 1 tab at onset of headache; if no relief may repeat 1 tab after at least 2 hrs; max = 4 tabs/24 hr No Action naproxen 375 mg tablet 375 mg PO BID PRN (Reason: pain) Qty: 12 0RF ondansetron 4 mg tablet,disintegrating 4 mg PO Q8H PRN (Reason: nausea and vomiting) Qty: 20 0RF oxybutynin chloride 5 mg tablet 5 mg PO BID PRN (Reason: bladder spasms) Qty: 60 0RF Rx Instructions: use one tablet once to twice daily for bladder urgency Print Language: Urdu
[2023-04-29] MEDS: Metoclopramide HCl 10 MG/2 ML VIAL IM (20:35)
[2023-04-29] MEDS: Ketorolac Tromethamine 30 MG/ML VIAL IM (20:36)
[2023-04-29 21:28] LABS: COVID-19 Test Negative (Negative); IDNOW Serial# 152EDE1D
== END 2023-04-29 22:05 | disposition home or self-care (01) ==
PROVIDERS: Emergency Provider Emergency Medicine
DX: G43.909 Migraine, unspecified, not intractable, without status migrainosus (principal); H57.12 Ocular pain, left eye; H53.142 Visual discomfort, left eye; Z11.52 Encounter for screening for COVID-19
CPT/HCPCS: 70450; 87635; 96372; 99283; 99284; J1885; J2765

== ENCOUNTER 2023-05-10 10:03 | Outpatient (REF) | payer MEDICAID, OTHER, SELFPAY ==
[2023-05-10 11:28] LABS: MANUAL DIFF FLAG NO
[2023-05-10 11:31] LABS: Basophils Percent Auto 0.7 % (0-2); Eosinophils Percent Auto 0.7 % (0-4); Hematocrit 53.9 % (42.0-52.0); Hemoglobin 18.1 g/dl (14.0-18.0); Imm Gran Abs Auto 0.02 X10*3/uL (0.00-0.03); Imm Gran Pct Auto 0.3 % (0.0-0.4); Lymphocytes Absolute Auto 2.3 X10*3/uL (1.2-4.9); Lymphocytes Percent Auto 37.7 % (20-40); Mean Corpuscular HGB Conc 33.6 g/dl (31.0-36.0); Mean Corpuscular Volume 86.2 fL (80.0-98.0); Mean Platelet Volume 10.8 fL (9.4-12.4); Monocytes Absolute Auto 0.4 X10*3/uL (0.1-1.2); Monocytes Percent Auto 6.3 % (2-11); Neutrophils Absolute Auto 3.3 x10*3/uL (2.0-8.3); Neutrophils Percent Auto 54.3 % (45-73); Platelet Count 244 X10*3/uL (160-400); Red Blood Count 6.25 X10*6/uL (4.60-5.80)
[2023-05-10 12:04] LABS: Erythrocyte Sedimentation Rate 1 MM/HR (0-15)
[2023-05-10 13:28] LABS: Alanine Aminotransferase 30 U/L (0-40); Albumin Level 4.5 g/dL (3.5-5.0); Alkaline Phosphatase 63 U/L (39-117); Anion Gap 8 (12-20); Aspartate Amino Transferase 22 U/L (5-37); Bilirubin Total 1.2 mg/dL (0.0-1.0); Blood Urea Nitrogen 15 mg/dL (9-16); Calcium 10.1 mg/dL (8.4-10.2); Carbon Dioxide 30 mmol/L (22-29); Chloride 106 mmol/L (96-108); Cholesterol 150 mg/dL (<200); Estimated Glomerular Filt Rate > 60; Glucose Random 89 mg/dL (60-115); HDL Cholesterol 36 mg/dL (>40); LDL Cholesterol Calculated 85 mg/dL (<100); Potassium 4.8 mmol/L (3.3-5.1); Sodium 139 mmol/L (135-145); Total Protein 7.7 g/dL (6.5-8.0); Triglycerides 145 mg/dL (<150)
[2023-05-10 13:54] LABS: TSH reflex Free T4 1.33 uIU/mL (0.32-4.0)
[2023-05-10 14:18] LABS: Reflex LDLD? No
[2023-05-11 08:43] LABS: Syphilis Screen Nonreactive (Nonreactive)
== END 2023-05-10 10:04 | disposition home or self-care (01) ==
LOC: HO.HHCL 10:03
PROVIDERS: Visit Provider Internal Medicine
DX: G44.52 New daily persistent headache (NDPH) (principal)
CPT/HCPCS: 36415; 80053; 80061; 84443; 85025; 85652; 86780

== ENCOUNTER 2023-08-02 19:00 | Emergency (ER) | payer MEDICAID, OTHER, SELFPAY ==
[2023-08-02 19:08] VITALS: BP 139/96; PULSE 61; RESP 18; TEMP 36.6; O2SAT 99; BMI 26.6
--- NOTE | 2023-08-02 19:08 | ED.GENADULT ---
HPI - General Adult General Chief complaint: Neck Pain/Injury Stated complaint: neck pain Time Seen by Provider: 08/02/23 19:45 Source: patient, RN notes reviewed and old records reviewed Mode of arrival: ambulatory Limitations: no limitations History of Present Illness ED Provider: Kristen BARNES narrative: 33-year-old male presents for evaluation of neck pain. He reports waking up with the pain 3 days ago. Denies any trauma to the area, heavy lifting. He has not had any fevers or headaches He reports only using 1 pillow when he sleeps at night. His pain tends to be worse in the morning and improves only symptom today He reports the pain is not in the center of his neck but on both sides and his neck hurts when he turns his head to the right Denies any numbness, tingling. The pain does not radiate to his arm or hand Related Data Previous Rx's ?Medication ?Instructions ?Recorded oxybutynin chloride 5 mg tablet 5 mg PO BID PRN bladder spasms #60 08/12/22 tabs naproxen 375 mg tablet 375 mg PO BID PRN pain #12 tabs 08/30/22 ondansetron 4 mg disintegrating 4 mg PO Q8H PRN nausea and 04/21/23 tablet vomiting #20 tabs bmhodatsib-wfxawappvqyun-leewhkfm 1 cap PO TID PRN pain #20 caps 04/29/23 50 mg-300 mg-40 mg capsule (Fioricet) sumatriptan succinate 50 mg tablet See Rx Instructions PO .COMPLEX 04/29/23 #10 tabs cyclobenzaprine 10 mg tablet 10 mg PO TID PRN muscle spasm #20 08/02/23 tabs Allergies Allergy/AdvReac Type Severity Reaction Status Date / Time No Known Allergies Allergy Verified 08/02/23 19:10 Review of Systems Constitutional: Constitutional: Denies body ache(s), Denies chills, Denies fever(s) and Denies headache(s) Eyes: Eyes: Denies blurry vision ENT: Denies headache(s), Reports neck pain and Denies sore throat Cardiovascular: Cardiovascular: Denies chest pain and Denies dyspnea Respiratory: Respiratory: Denies cough and Denies dyspnea Gastrointestinal: Gastrointestinal: Denies abdominal pain, Denies nausea and Denies vomiting Musculoskeletal: Musculoskeletal: Denies back pain, Denies deformity, Denies muscle cramps, Denies muscle weakness, Reports neck pain, Denies numbness, Denies radiating pain into limb, Reports stiffness and Denies tingling Integumentary/Breasts: Skin/Breast: Denies rash Neurologic: Denies headache(s), Denies numbness and Denies tingling PMFSH Past Medical History Medical History Calculus of kidney Hydronephrosis Surgical History Hx of bladder endoscopy Hx of appendectomy Family History Family History (Updated 09/29/22 @ 15:12 by MICKEY Squires) Father No problems noted. Mother No problems noted. Social History Social History Alcohol intake: current Alcohol intake frequency: holidays/special occasions only Patient Tobacco Use Status: Never used Tobacco Advance Directives: Yes Advance Directives on File: Yes Advance Directives Date on File: 08/02/22 Do you have a plan to hurt others: No Plan Physical Exam ED Vital Signs: Vital Signs - 24 hr 08/02/23 19:08 08/02/23 19:47 Temperature 97.9 F 98.4 F Pulse Rate 61 58 Respiratory Rate 18 16 Blood Pressure 139/96 H 133/90 H Pulse Oximetry 99 97 Oxygen Delivery Method Room Air Room Air BMI result Body Mass Index 26.6 Const General: healthy appearing, comfortable, no acute distress, alert and awake Nutritional Appearance: well nourished Orientation/consciousness: patient oriented x3 HENMT Head: Yes normocephalic and Yes atraumatic Eyes Eyelids: Yes eyelids normal Conjunctivae: conjunctivae normal Sclerae: sclerae normal Corneas: corneas normal Pupils: Equal, round and reactive pupils present EOM: EOMs intact bilaterally Neck Neck: Yes full ROM, No positive Brudzinski's sign and No positive Kernig's sign Resp Effort & Inspection: normal respiratory effort, able to speak in complete sentences and not labored Back/Spine/Pelvis Other: Tenderness across the trapezius muscle groups. No C-spine tenderness. No deformity to the upper extremities. Full range of motion of the bilateral upper extremities. Skin General skin exam: elasticity normal Neuro General: patient oriented x3 Cranial nerves: Yes Equal, round and reactive pupils present and Yes Bilaterally intact EOM present Cognition (Neuro): normal cognition Extrem Other: Moving all extremities well without any obvious deformities Course Course Course Narrative: This is an RME done by HOMA Mccarthy: Additional HPI, ROS, PE not included below will be deferred to primary provider. 33 year old male pmh of hydronephrosis and calculus of kidney presents with complaint of atraumatic neck pain that began 3 days ago when he woke up. He rates the pain a 10/10. Denies fever, chills, change to bowel or bladder habits, numbness, tingling, weakness. Appearance: Alert.? Oriented X3.? No acute cardiopulmonary distress distress.? Head: Normocephalic, atraumatic, no step-offs or deformities Neck: Normal inspection.? Neck supple.?Discomfort with ROM. CVS: Pulses normal.? Respiratory: No respiratory distress.? Abdomen: Soft and nontender.? Skin: ? Normal skin color. Extremities: 5/5 strength to bilateral upper and lower extremities Back: No midline tenderness, no C-spine tenderness, full range of motion, No CVA tenderness bilaterally Neuro: Oriented X 3.? No motor deficit.? No sensory deficit. Medications Administered Discontinued Medications Generic Name Dose Route Start Last Admin Trade Name Freq PRN Reason Stop Dose Admin Cyclobenzaprine HCl 10 mg 08/02/23 20:25 08/02/23 20:45 Cyclobenzaprine Hcl 10 Mg Tablet PO 08/02/23 20:26 10 mg ONCE ONE Administration Ketorolac Tromethamine 30 mg 08/02/23 20:25 08/02/23 20:46 Ketorolac Tromethamine 30 Mg/Ml Vial IM 08/02/23 20:26 30 mg ONCE ONE Administration Medical Decision Making Medical Decision Making MDM Narrative: 83-year-old male presents for evaluation of atraumatic neck pain. 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 He has no fevers to suggest infectious cause. Denies any headaches. He has not IV drug abuse. Plan for symptomatic treatment Differential Diagnosis Differential Diagnoses: The differential diagnosis associated with the presentation includes Muscle strain Cervical strain Radiculopathy Arthritis Cervicalgia Discharge Plan Discharge Clinical Impression: Strain of neck muscle Patient Disposition: Home, Self-Care Instructions: Cervical Strain (ED) Additional Instructions: Your pain is most likely related to muscle spasms in your neck. Use ibuprofen/Tylenol as needed for pain. You may use cyclobenzaprine as needed for muscle spasms. This may make you sleepy, did not drink alcohol or drive after taking it I also recommend using warm compresses to help with your discomfort Follow-up with your primary doctor Prescriptions: New cyclobenzaprine 10 mg tablet 10 mg PO TID PRN (Reason: muscle spasm) Qty: 20 0RF No Action naproxen 375 mg tablet 375 mg PO BID PRN (Reason: pain) Qty: 12 0RF ondansetron 4 mg tablet,disintegrating 4 mg PO Q8H PRN (Reason: nausea and vomiting) Qty: 20 0RF kfjkvlihpx-bttgaqkwahckk-hooj [Fioricet] 50-300-40 mg capsule 1 cap PO TID PRN (Reason: pain) Qty: 20 0RF sumatriptan succinate 50 mg tablet See Rx Instructions .ROUTE .COMPLEX Qty: 10 0RF Rx Instructions: take 1 tab at onset of headache; if no relief may repeat 1 tab after at least 2 hrs; max = 4 tabs/24 hr oxybutynin chloride 5 mg tablet 5 mg PO BID PRN (Reason: bladder spasms) Qty: 60 0RF Rx Instructions: use one tablet once to twice daily for bladder urgency Print Language: Ukrainian
[2023-08-02 19:47] VITALS: BP 133/90; PULSE 58; RESP 16; TEMP 36.9; O2SAT 97
[2023-08-02] MEDS: Cyclobenzaprine HCl 10 MG TABLET PO (20:45)
[2023-08-02] MEDS: Ketorolac Tromethamine 30 MG/ML VIAL IM (20:46)
--- NOTE | 2023-08-02 20:50 | PC.NURSE ---
assumed care at 2030, pt assessed c/o 10/10 neck pain
[2023-08-02 20:51] VITALS: BP 133/90; PULSE 58; RESP 16; TEMP 36.9; O2SAT 97
--- NOTE | 2023-08-02 20:51 | PC.NURSE ---
pt medicated per MAR
== END 2023-08-02 20:54 | disposition home or self-care (01) ==
PROVIDERS: Emergency Provider Emergency Medicine
DX: S16.1XXA Strain of muscle, fascia and tendon at neck level, initial encounter (principal); X58.XXXA Exposure to other specified factors, initial encounter; Y93.9 Activity, unspecified; Y92.9 Unspecified place or not applicable; Y99.9 Unspecified external cause status
CPT/HCPCS: 96372; 99283; 99284; J1885

== ENCOUNTER 2023-08-22 13:40 | Outpatient (REF) | payer MEDICAID, OTHER, SELFPAY ==
[2023-08-22 18:06] LABS: Appearance Urine Clear; Color Urine Yellow; Glucose Urine UA Negative (Negative); Leukocyte Esterase Urine Negative (Negative); Nitrite Urine Negative (Negative); Specific Gravity - Urine 1.025 (1.005-1.025); Urine Blood Negative (Negative); Urine Ketones Trace mg/dL (Negative); Urine Protein Negative (Neg-Trace)
[2023-08-22 18:11] LABS: Bacteria Urine None Seen (None Seen); Hyaline Casts Urine 0-2 /LPF (0-2); RBC Urine 0-2 /HPF (0-2); Squamous Epithelial Cell Urine 0-2 /HPF (0-2); WBC Urine 0-5 /HPF (0-5)
[2023-08-23 03:57] LABS: Syphilis Screen Nonreactive (Nonreactive)
[2023-08-23 04:35] LABS: HBS Num1 1.46 mIU/mL (0-7.99); HIV AB/AG Nonreactive (Nonreactive); HIV Num 1 0.07 S/CO (0.00-0.99); ~Hepatitis B Surface Antibody NONREACTIVE (Nonreactive); ~Hepatitis C Antibody Nonreactive (Nonreactive)
== END 2023-08-22 13:41 | disposition home or self-care (01) ==
LOC: HO.CHCLDS 13:40
PROVIDERS: Visit Provider Internal Medicine
DX: A60.02 Herpesviral infection of other male genital organs (principal)
CPT/HCPCS: 36415; 81001; 86706; 86780; 86803; 87070; 87205; 87389

== ENCOUNTER 2023-08-31 13:18 | Outpatient (REF) | payer MEDICAID, OTHER, SELFPAY ==
[2023-09-01 17:40] LABS: CT PCR NOT DETECTED (Not Detect.); NG PCR NOT DETECTED (Not Detect.)
== END 2023-08-31 13:19 | disposition home or self-care (01) ==
LOC: HO.CHCLNP 13:18
PROVIDERS: Visit Provider Internal Medicine
DX: A60.02 Herpesviral infection of other male genital organs (principal)
CPT/HCPCS: 87491; 87591

== ENCOUNTER 2023-12-20 17:59 | Emergency (ER) | payer MEDICAID, OTHER, SELFPAY ==
[2023-12-20 18:02] VITALS: BP 139/85; PULSE 62; RESP 19; TEMP 36.8; O2SAT 98; BMI 29.9
--- NOTE | 2023-12-20 18:26 | ED.HA ---
HPI - Headache General Chief Complaint: Headache Stated Complaint: headache Time Seen by Provider: 12/20/23 21:46 History of Present Illness ED Provider: Cely BARNES Narrative: The patient is a 33-year-old male who presents with a complaint of head and neck pains he has had for the last 3 days. He says that he has a history of migraine headaches and does not feel this is a migraine. He says that his current symptoms he feels primarily in the back of his neck and are worse with movements. Any kind of activity makes the pain worse. If he lies down and keeps completely still his symptoms resolved. He has had no fever, sweats, chills. He has had no injury. No nausea or vomiting. No numbness, tingling, weakness, burning in his extremities. No visual symptoms. No photophobia. The patient says that when he has a migraine headache it is very different. He says that he gets the pain behind his left eye in his very sensitive to the light. He does not have these symptoms on this occasion. Related Data Previous Rx's ?Medication ?Instructions ?Recorded oxybutynin chloride 5 mg tablet 5 mg PO BID PRN bladder spasms #60 08/12/22 tabs naproxen 375 mg tablet 375 mg PO BID PRN pain #12 tabs 08/30/22 ondansetron 4 mg disintegrating 4 mg PO Q8H PRN nausea and 04/21/23 tablet vomiting #20 tabs rbdsztyunc-jlsvayugaqctu-zepvfpph 1 cap PO TID PRN pain #20 caps 04/29/23 50 mg-300 mg-40 mg capsule (Fioricet) sumatriptan succinate 50 mg tablet See Rx Instructions PO .COMPLEX 04/29/23 #10 tabs cyclobenzaprine 10 mg tablet 10 mg PO TID PRN muscle spasm #20 08/02/23 tabs cyclobenzaprine 10 mg tablet 10 mg PO TID PRN muscle spasm #14 12/20/23 tabs ibuprofen 600 mg tablet 600 mg PO Q6H PRN pain #14 tabs 12/20/23 Allergies Allergy/AdvReac Type Severity Reaction Status Date / Time No Known Allergies Allergy Verified 12/20/23 18:05 Review of Systems Review of Systems: Yes all other systems are reviewed and are negative [facility] Past Medical History Medical History Calculus of kidney Hydronephrosis Surgical History Hx of bladder endoscopy Hx of appendectomy Family History Family History (Updated 09/29/22 @ 15:12 by MICKEY Squires) Father No problems noted. Mother No problems noted. Social History Social History Alcohol intake: current Alcohol intake frequency: holidays/special occasions only Patient Tobacco Use Status: Never used Tobacco Advance Directives: No Advance Directives Information Provided: No Advance Directives Date on File: 08/02/22 Do you have a plan to hurt others: No Plan Physical Exam Vital Signs: Vital Signs: Last Vital Signs Temp 98.9 F 12/20/23 22:27 Pulse 56 12/20/23 22:27 Resp 18 12/20/23 22:27 BP 145/98 H 12/20/23 22:27 Pulse Ox 98 12/20/23 18:02 O2 Del Method Room Air 12/20/23 22:27 BMI result Body Mass Index 29.9 Const: Other: The patient looks as though he is ordinarily healthy and athletic 33 year old. Does not appear in acute distress. HEENT: Other: Face is symmetrical. Mucous membranes moist. The posterior pharynx is normal. Eyes: Other: Pupils are round and equal, conjunctivae are clear, extraocular movements intact. Neck: Other: Neck is supple. No adenopathy. The patient has a lot of muscular tenderness in the paraspinous muscles of the back into the muscles of the shoulder. Resp: Effort & Inspection: normal respiratory effort Auscultation: clear to auscultation bilaterally Cardio: Rate: regular rate Rhythm: regular rhythm Heart sounds: S1 normal heart sound present and S2 normal heart sound present GI: Other: Abdomen is soft and nontender Skin: Other: Skin is dry and unremarkable Neuro: Other: The patient is awake and alert with a normal mental status. His demeanor is nontoxic. He is pleasant and cooperative. Cranial nerves 2-12 are intact. He moves his extremities normally. He has a normal gait. He seems entirely neurologically intact. Extrem: Other: No peripheral edema Course Course Course Narrative: This is a Rapid Medical Examination (RME) performed by Osvaldo Lucas PA-C in triage. Full HPI, ROS, assessment and treatment plan per primary provider in the Main ED. 33 yo male here for eval of headache x3 days. taking tylenol with temporary improvement. reports hx of headaches, feels like typical however not resolving. no injury or trauma. admits to assoc neck pain. utd on vaccines. + exam nonfocal. perrla. no midline c spine tenerness or step off. Plan: basic labs, viral serology Medications Administered Discontinued Medications Generic Name Dose Route Start Last Admin Trade Name Jose Angelq PRN Reason Stop Dose Admin Acetaminophen 975 mg 12/20/23 22:13 12/20/23 22:19 Acetaminophen 325 Mg Tablet PO 12/20/23 22:14 975 mg ONCE ONE Administration Cyclobenzaprine HCl 10 mg 12/20/23 22:13 12/20/23 22:18 Cyclobenzaprine Hcl 10 Mg Tablet PO 12/20/23 22:14 10 mg ONCE ONE Administration Ketorolac Tromethamine 30 mg 12/20/23 22:13 12/20/23 22:21 Ketorolac Tromethamine 30 Mg/Ml Vial IM 12/20/23 22:14 30 mg ONCE ONE Administration Medical Decision Making Medical Decision Making [facility] Narrative: The patient is a 33-year-old male who presents with pain of the head and neck that is worse with movements and which is not similar to previous migraine headaches. He has a lot of pain in the back of his neck and tenderness in the musculature of the paraspinous muscles of the neck and the muscles of the shoulders. Clinically the pain seems very much musculoskeletal rather than the result of some kind of internal derangement. The patient was given an injection of ketorolac. He was also given a dose of cyclobenzaprine. He will be discharged with a prescription for ibuprofen and for cyclobenzaprine. He should follow up with his PCP. He should return if worse. Lab Data 12/20/23 18:50 12/20/23 18:50 Labs: Lab Results 12/20/23 Range/Units 18:50 WBC 9.7 (4.8-10.8) X10*3/uL RBC 5.69 (4.60-5.80) X10*6/uL Hgb 16.9 (14.0-18.0) g/dl Hct 49.1 (42.0-52.0) % MCV 86.3 (80.0-98.0) fL MCH 29.7 (27.0-33.0) pg MCHC 34.4 (31.0-36.0) g/dl RDW 11.9 (11.0-16.0) % Plt Count 208 (160-400) X10*3/uL MPV 10.1 (9.4-12.4) fL Immature Gran % (Auto) 0.3 (0.0-0.4) % Neut % (Auto) 57.2 (45-73) % Lymph % (Auto) 34.4 (20-40) % [place] % (Auto) 5.9 (2-11) % Eos % (Auto) 1.4 (0-4) % Baso % (Auto) 0.8 (0-2) % Lymph # (Auto) 3.3 (1.2-4.9) X10*3/uL [place] # (Auto) 0.6 (0.1-1.2) X10*3/uL Eos # (Auto) 0.1 (0.0-0.4) X10*3/uL Baso # (Auto) 0.1 (0.0-0.2) X10*3/uL Abs Immat Gran (auto) 0.03 (0.00-0.03) X10*3/uL Absolute Neuts (auto) 5.5 (2.0-8.3) x10*3/uL Absolute Nucleated RBC 0.000 (0.0-0.012) X10*3/uL Nucleated RBC % (auto) 0.0 (0.0-0.2) /100WBC Sodium 140 (135-145) mmol/L Potassium 4.1 (3.3-5.1) mmol/L Chloride 105 (96-108) mmol/L Carbon Dioxide 27 (22-29) mmol/L Anion Gap 12 (12-20) BUN 17 H (9-16) mg/dL Creatinine 1.16 (0.5-1.4) mg/dL Estim Creat Clear Calc 92.0 Estimated GFR > 60 Random Glucose 95 (60-115) mg/dL Calcium 9.7 (8.4-10.2) mg/dL Magnesium 2.0 (1.6-2.6) mg/dL Total Bilirubin 0.9 (0.0-1.0) mg/dL AST 23 (5-37) U/L ALT 23 (0-40) U/L Alkaline Phosphatase 66 (39-117) U/L Total Protein 7.6 (6.5-8.0) g/dL Albumin 4.5 (3.5-5.0) g/dL Influenza Type A (PCR) NEGATIVE (Negative) Influenza Type B (PCR) NEGATIVE (Negative) RSV RNA Qual (PCR) NEGATIVE (Negative) SARS-CoV-2 RNA (RT-PCR) NEGATIVE (Negative) Discharge Plan Discharge Clinical Impression: Acute tension headache, Acute neck pain Patient Disposition: Home, Self-Care Additional Instructions: Your headache can your neck pain seem very muscular to me. You may continue to take Tylenol (acetaminophen) as needed for this pain. Additionally I have sent a prescription for ibuprofen that you may also use every 6 hours as needed. Furthermore I have sent a prescription for a medication called cyclobenzaprine, a muscle relaxant. You may take this up to 3 times a day. However you should not take this medication if he will be working or driving. It can make you drowsy. Please follow up with your regular doctor soon. Return to the emergency room if worse. Prescriptions: New ibuprofen 600 mg tablet 600 mg PO Q6H PRN (Reason: pain) Qty: 14 0RF cyclobenzaprine 10 mg tablet 10 mg PO TID PRN (Reason: muscle spasm) Qty: 14 0RF No Action naproxen 375 mg tablet 375 mg PO BID PRN (Reason: pain) Qty: 12 0RF cyclobenzaprine 10 mg tablet 10 mg PO TID PRN (Reason: muscle spasm) Qty: 20 0RF ondansetron 4 mg tablet,disintegrating 4 mg PO Q8H PRN (Reason: nausea and vomiting) Qty: 20 0RF ctwwfewivj-aqxgvspqipwmq-zvdt [Fioricet] 50-300-40 mg capsule 1 cap PO TID PRN (Reason: pain) Qty: 20 0RF sumatriptan succinate 50 mg tablet See Rx Instructions .ROUTE .COMPLEX Qty: 10 0RF Rx Instructions: take 1 tab at onset of headache; if no relief may repeat 1 tab after at least 2 hrs; max = 4 tabs/24 hr oxybutynin chloride 5 mg tablet 5 mg PO BID PRN (Reason: bladder spasms) Qty: 60 0RF Rx Instructions: use one tablet once to twice daily for bladder urgency Referrals: [facility] [Provider Group] (headache and neck pain) Stand Alone Forms: Work/School Release Interventions: ED Discharge Assessment Last Done: 12/20/23 22:27 Discharge Date/Time: 12/20/23 22:28 Print Language: Canadian
[2023-12-20 18:52] LABS: MANUAL DIFF FLAG NO
[2023-12-20 18:54] LABS: Basophils Absolute Auto 0.1 X10*3/uL (0.0-0.2); Basophils Percent Auto 0.8 % (0-2); Eosinophils Absolute Auto 0.1 X10*3/uL (0.0-0.4); Eosinophils Percent Auto 1.4 % (0-4); Hematocrit 49.1 % (42.0-52.0); Hemoglobin 16.9 g/dl (14.0-18.0); Imm Gran Abs Auto 0.03 X10*3/uL (0.00-0.03); Imm Gran Pct Auto 0.3 % (0.0-0.4); Lymphocytes Absolute Auto 3.3 X10*3/uL (1.2-4.9); Lymphocytes Percent Auto 34.4 % (20-40); Mean Corpuscular HGB Conc 34.4 g/dl (31.0-36.0); Mean Corpuscular Hemoglobin 29.7 pg (27.0-33.0); Mean Corpuscular Volume 86.3 fL (80.0-98.0); Mean Platelet Volume 10.1 fL (9.4-12.4); Monocytes Absolute Auto 0.6 X10*3/uL (0.1-1.2); Monocytes Percent Auto 5.9 % (2-11); Neutrophils Absolute Auto 5.5 x10*3/uL (2.0-8.3); Neutrophils Percent Auto 57.2 % (45-73); Platelet Count 208 X10*3/uL (160-400); Red Blood Count 5.69 X10*6/uL (4.60-5.80); Red Cell Distribution Width 11.9 % (11.0-16.0); White Blood Count 9.7 X10*3/uL (4.8-10.8)
[2023-12-20 19:19] LABS: Alanine Aminotransferase 23 U/L (0-40); Albumin Level 4.5 g/dL (3.5-5.0); Alkaline Phosphatase 66 U/L (39-117); Anion Gap 12 (12-20); Aspartate Amino Transferase 23 U/L (5-37); Bilirubin Total 0.9 mg/dL (0.0-1.0); Blood Urea Nitrogen 17 mg/dL (9-16); Calcium 9.7 mg/dL (8.4-10.2); Carbon Dioxide 27 mmol/L (22-29); Chloride 105 mmol/L (96-108); Estimated Glomerular Filt Rate > 60; Glucose Random 95 mg/dL (60-115); Potassium 4.1 mmol/L (3.3-5.1); Sodium 140 mmol/L (135-145); Total Protein 7.6 g/dL (6.5-8.0)
[2023-12-20 19:30] LABS: Influenza A PCR NEGATIVE (Negative); Influenza B PCR NEGATIVE (Negative); Resp Syncy Virus RNA Qual PCR NEGATIVE (Negative); SARS COV2 PCR INHOUSE NEGATIVE (Negative)
[2023-12-20] MEDS: Cyclobenzaprine HCl 10 MG TABLET PO (22:18)
[2023-12-20] MEDS: Acetaminophen 325 MG TABLET 975 MG PO (22:19)
[2023-12-20] MEDS: Ketorolac Tromethamine 30 MG/ML VIAL IM (22:21)
[2023-12-20 22:27] VITALS: BP 145/98; PULSE 56; RESP 18; TEMP 37.2
== END 2023-12-20 22:28 | disposition home or self-care (01) ==
PROVIDERS: Physician Assistant Medical; Emergency Provider Emergency Medicine
DX: G44.209 Tension-type headache, unspecified, not intractable (principal); M54.2 Cervicalgia; Z03.818 Encounter for observation for suspected exposure to other biological agents ruled out
CPT/HCPCS: 0241U; 36415; 80053; 83735; 85025; 96372; 99283; 99284; J1885

== ENCOUNTER 2024-01-13 17:30 | Emergency (ER) | payer MEDICAID, OTHER, SELFPAY ==
--- NOTE | ~2024-01-13 | XR_ITS ---
EXAMINATION: XR KNEE, RIGHT CLINICAL INFORMATION: Atraumatic knee pain COMPARISON: None available. TECHNIQUE: Four views of the right knee. FINDINGS: No fracture or joint effusion. Alignment is anatomic. Joint spaces are maintained. No abnormal soft tissue calcification. XR/XR knee RT 3V IMPRESSION: Normal right knee. Electronically signed by: Berlin Nathan MD 01/13/2024 06:08 PM EST
[2024-01-13 17:35] VITALS: BP 143/93; PULSE 77; RESP 16; TEMP 37; O2SAT 98; BMI 30.3
--- NOTE | 2024-01-13 17:35 | ED_ITS ---
HPI - Extremity Injury (Lower) General Chief Complaint: Extremity Injury, Lower Stated Complaint: Rt knee pain Time Seen by Provider: 01/13/24 17:55 Source: patient, family and healthcare interpreter Mode of arrival: ambulatory Limitations: language barrier History of Present Illness ED Provider: Gracie Atkinson APRN HPI Narrative: 33 yo male here with complaints of atraumatic right knee pain x weeks. No known injury or trauma. Pain worsened with ambulation. Has tried muscle relaxant with continued pain. Has not tried motrin or tylenol. No associated swelling, redness, numbness, tingling of extremity. Related Data Previous Rx's ?Medication ?Instructions ?Recorded oxybutynin chloride 5 mg tablet 5 mg PO BID PRN bladder spasms #60 08/12/22 tabs naproxen 375 mg tablet 375 mg PO BID PRN pain #12 tabs 08/30/22 ondansetron 4 mg disintegrating 4 mg PO Q8H PRN nausea and 04/21/23 tablet vomiting #20 tabs okcejioqkq-jmfbosnxjjhiw-ujgbjubi 1 cap PO TID PRN pain #20 caps 04/29/23 50 mg-300 mg-40 mg capsule (Fioricet) sumatriptan succinate 50 mg tablet See Rx Instructions PO .COMPLEX 04/29/23 #10 tabs cyclobenzaprine 10 mg tablet 10 mg PO TID PRN muscle spasm #20 08/02/23 tabs cyclobenzaprine 10 mg tablet 10 mg PO TID PRN muscle spasm #14 12/20/23 tabs ibuprofen 600 mg tablet 600 mg PO Q6H PRN pain #14 tabs 12/20/23 ibuprofen 600 mg tablet 600 mg PO Q6H PRN pain #20 tabs 01/13/24 Allergies Allergy/AdvReac Type Severity Reaction Status Date / Time No Known Allergies Allergy Verified 01/13/24 17:38 Review of Systems Review of Systems: Yes all other systems are reviewed and are negative Constitutional: Constitutional: Reports no additional constitutional complaints, Denies body ache(s), Denies chills, Denies fever(s), Denies headache(s) and Denies weakness Eyes: Eyes: Reports no additional eye complaints and Denies change in vision ENT: Reports system reviewed and no additional complaints, except as documented, Denies dizziness, Denies headache(s), Denies nasal congestion, Denies nasal discharge and Denies neck pain Cardiovascular: Cardiovascular: Reports no additional cardiovascular complaints, Denies chest pain, Denies leg edema and Denies dyspnea Respiratory: Respiratory: Reports no additional respiratory complaints, Denies cough and Denies dyspnea Gastrointestinal: Gastrointestinal: Reports no additional gastrointestinal complaints, Denies abdominal pain, Denies diarrhea, Denies nausea and Denies vomiting Genitourinary: Genitourinary: Denies urinary incontinence Musculoskeletal: Musculoskeletal: Reports no additional musculoskeletal complaints, Denies back pain, Reports arthralgias, Denies joint swelling, Denies limited range of motion, Denies neck pain, Denies numbness and Denies tingling Integumentary/Breasts: Skin/Breast: Reports system reviewed and no additional complaints, except as docu and Denies rash Neurologic: Reports system reviewed and no additional complaints, except as documented, Denies Abnormal speech present, Denies dizziness, Denies headache(s), Denies numbness, Denies tingling and Denies weakness PMFSH Past Medical History Attestation statement: The following information was validated with the patient. Source: old records reviewed and nursing notes reviewed Medical History Calculus of kidney Hydronephrosis Surgical History Hx of bladder endoscopy Hx of appendectomy Family History Family History Father No problems noted. Mother No problems noted. Social History Social History Alcohol intake: current Alcohol intake frequency: holidays/special occasions only Patient Tobacco Use Status: Never used Tobacco Advance Directives: No Advance Directives Information Provided: Yes Advance Directives Date on File: 08/02/22 Physical Exam Vital Signs: Vital Signs: Last Vital Signs Temp 98.6 F 01/13/24 17:35 Pulse 77 01/13/24 17:35 Resp 16 01/13/24 17:35 BP 143/93 H 01/13/24 17:35 Pulse Ox 98 01/13/24 17:35 O2 Del Method Room Air 01/13/24 17:35 BMI result Body Mass Index 30.3 Const: General: cooperative, healthy appearing, comfortable and no acute distress Orientation/consciousness: patient oriented x3 Limitations: no limitations HEENT: Head: Yes normal to inspection Ears: hearing grossly normal bilaterally General nose exam: Normal external nose present Face and sinus: Yes normal facial exam Mouth: Normal oral and palatal mucosa present Throat: Yes posterior oropharynx normal Eyes: General: appearance normal, both eyes and all related structures Pupils: Equal, round and reactive pupils present Neck: Neck: Yes normal visual inspection Chest: Chest palpation & inspection: normal inspection of the chest Resp: Effort & Inspection: normal respiratory effort Auscultation: clear to auscultation bilaterally Cardio: Rate: regular rate Rhythm: regular rhythm Peripheral pulses: Peripheral pulses 2+ throughout GI: Inspection: Yes normal to inspection Palpation (GI): Soft to palpation and nontender Auscultation: normal bowel sounds Back/Spine/Pelvis: Thoracic/Lumbar Spine: thoracic and lumbar spine normal to inspection Skin: General skin exam: no rashes or lesions noted Neuro: General: patient oriented x3, no focal motor deficits and normal sensation to monofilament Cranial nerves: Yes Equal, round and reactive pupils present Cognition (Neuro): normal cognition Speech: No Abnormal speech present Gait exam (Neuro): Normal gait present Motor exam (neuro): 5/5 motor strength present throughout Extrem: Other: Tenderness along the medial joint enoch. No swelling/warmth/erythema. FROM. NO ligamental laxity. No calf pain or swelling. General: Yes normal to inspection Course Course Course Narrative: This is an RME performed by Yuliya Georges SPECIAL ED ASSISTANT: Additional HPI, ROS, PE not included below will be deferred to primary provider. Patient is a 33-year-old male presents emergency department for evaluation of right knee pain. Onset approximately 2 weeks ago. Has not tried any OTC emergency denies any precipitating injury. Pain is exacerbated while standing for prolonged period and will attempting to drive. Reports approximately 3-4 months ago he had significant swelling to that knee that self resolved after applying ice and elevation. Denies concern for sexually transmitted infections. Denies recent tick bites or possible exposure for Lyme. Plan: XR Reevaluation(s) Reevaluation #1: X-ray show no bony abnormality. Due to chronicity of symptoms I will recommend that he follow up outpatient with Orthopedics. Reviewed supportive measures at home in addition to an NSAID. Reviewed worrisome signs and symptoms of when to return to the emergency room. Comfortable plan for discharge home Medical Decision Making Medical Decision Making MDM Narrative: 33 yo male here with complaints of atraumatic right knee pain x weeks. No known injury or trauma. Pain worsened with ambulation. Has tried muscle relaxant with continued pain. Has not tried motrin or tylenol. No associated swelling, redness, numbness, tingling of extremity. Tenderness along the medial joint enoch. No swelling/warmth/erythema. FROM. NO ligamental laxity. No calf pain or swelling. Will obtain x-rays Differential Diagnosis Differential Diagnoses: The differential diagnosis associated with the presentation includes strain, sprain, ligamental injury, meniscus injury arthritis Low suspicion for DVT, septic arthritis, dislocation or fracture Admission/Observation Consideration of admission/observation: Escalation of care including admission/observation considered Low suspicion for DVT, septic arthritis, dislocation or fracture requiring advanced imaging, urgent ortho referral or consultation Independent Interpretation I performed an independent interpretation of an: Plain X-Ray Interpretation: I independently reviewed the x-ray and agree with the rad report Radiology Impression Discussion of test interpretation with radiology: I have reviewed the radiologist's reading. Radiologist Impression: [address] [address] XRay Report Signed Patient: Manjula Dietrich MR#: [id number] : 1990 Acct:[id number] Age/Sex: 33 / M ADM Date: 01/13/24 Loc: .ED Attending Dr: Ordering Physician: Lisset Georges CNP Date of Service: 01/13/24 Procedure(s): XR knee RT 3V Accession Number(s): [id number] cc: Lisset Georges CNP; Physician,None ~ EXAMINATION: XR KNEE, RIGHT CLINICAL INFORMATION: Atraumatic knee pain COMPARISON: None available. TECHNIQUE: Four views of the right knee. FINDINGS: No fracture or joint effusion. Alignment is anatomic. Joint spaces are maintained. No abnormal soft tissue calcification. XR/XR knee RT 3V IMPRESSION: Normal right knee. Electronically signed by: [place] Nathan MD 01/13/2024 06:08 PM [facility] [place] Independent Historian Clinical information obtained from an independent historian. History obtained from or confirmed by: Spouse Discharge Plan Discharge Clinical Impression: Acute knee pain Patient Disposition: Home, Self-Care Instructions: Knee Pain (ED) Additional Instructions: Your x-ray show no bony abnormality Please call orthopedics to follow-up Apply heat or ice Gentle stretching Elevation Prescriptions: New ibuprofen 600 mg tablet 600 mg PO Q6H PRN (Reason: pain) Qty: 20 0RF No Action naproxen 375 mg tablet 375 mg PO BID PRN (Reason: pain) Qty: 12 0RF cyclobenzaprine 10 mg tablet 10 mg PO TID PRN (Reason: muscle spasm) Qty: 20 0RF ibuprofen 600 mg tablet 600 mg PO Q6H PRN (Reason: pain) Qty: 14 0RF cyclobenzaprine 10 mg tablet 10 mg PO TID PRN (Reason: muscle spasm) Qty: 14 0RF ondansetron 4 mg tablet,disintegrating 4 mg PO Q8H PRN (Reason: nausea and vomiting) Qty: 20 0RF gcyvauuttu-volvhwfkphfxb-tuey [Fioricet] 50-300-40 mg capsule 1 cap PO TID PRN (Reason: pain) Qty: 20 0RF sumatriptan succinate 50 mg tablet See Rx Instructions .ROUTE .COMPLEX Qty: 10 0RF Rx Instructions: take 1 tab at onset of headache; if no relief may repeat 1 tab after at least 2 hrs; max = 4 tabs/24 hr oxybutynin chloride 5 mg tablet 5 mg PO BID PRN (Reason: bladder spasms) Qty: 60 0RF Rx Instructions: use one tablet once to twice daily for bladder urgency Referrals: [facility] [place] Group] - 2 weeks Print Language: Yakut
[2024-01-13 18:40] VITALS: BP 134/85; PULSE 68; RESP 20; TEMP 36.9; O2SAT 99
[2024-01-13 18:44] VITALS: BP 134/85; PULSE 68; RESP 20; TEMP 36.9; O2SAT 99
== END 2024-01-13 18:46 | disposition home or self-care (01) ==
PROVIDERS: Emergency Provider Emergency Medicine
DX: M25.561 Pain in right knee (principal)
CPT/HCPCS: 73562; 99282; 99283

== ENCOUNTER 2024-01-25 16:13 | Outpatient (REF) | payer MEDICAID, OTHER, SELFPAY ==
[2024-01-25 18:37] LABS: Alanine Aminotransferase 33 U/L (0-40); Albumin Level 4.5 g/dL (3.5-5.0); Alkaline Phosphatase 58 U/L (39-117); Anion Gap 11 (12-20); Aspartate Amino Transferase 28 U/L (5-37); Bilirubin Total 0.9 mg/dL (0.0-1.0); Blood Urea Nitrogen 17 mg/dL (9-16); Calcium 9.9 mg/dL (8.4-10.2); Carbon Dioxide 27 mmol/L (22-29); Chloride 107 mmol/L (96-108); Estimated Glomerular Filt Rate > 60; Glucose Random 74 mg/dL (60-115); Sodium 141 mmol/L (135-145); Total Protein 7.8 g/dL (6.5-8.0)
[2024-01-25 18:37] LABS: Creatinine Urine 136.88 mg/dL; Microalbum/Creatinine Ratio Ur 5.1 ug/mg cr (<30)
[2024-01-26 07:49] LABS: Syphilis Screen Nonreactive (Nonreactive)
[2024-01-26 08:18] LABS: HIV AB/AG Nonreactive (Nonreactive); HIV Num 1 0.06 S/CO (0.00-0.99); ~HepC Num1 0.15 S/CO (0.00-0.79); ~Hepatitis C Antibody Nonreactive (Nonreactive)
[2024-01-26 14:29] LABS: CT PCR NOT DETECTED (Not Detect.); NG PCR NOT DETECTED (Not Detect.)
== END 2024-01-25 16:14 | disposition home or self-care (01) ==
LOC: HO.CHCLDS 16:13
PROVIDERS: Visit Provider Pediatrics
DX: A60.01 Herpesviral infection of penis (principal); F41.8 Other specified anxiety disorders; I10 Essential (primary) hypertension
CPT/HCPCS: 36415; 80053; 82043; 82570; 86780; 86803; 87389; 87491; 87591

== ENCOUNTER 2024-02-16 17:20 | Emergency (ER) | payer MEDICAID, OTHER, SELFPAY ==
--- NOTE | ~2024-02-16 | US_ITS ---
EXAMINATION: US SCROTUM CLINICAL INFORMATION: Left testicular pain. COMPARISON: None available. TECHNIQUE: A sonogram of the scrotum was performed assessing dasilva-scale appearance and color Doppler flow. Spectral Doppler analysis of the arterial and venous flow were performed in the testes bilaterally. FINDINGS: RIGHT: Right testicle measures 4.4 x 2.5 x 4.2 cm, volume 24.8 mL. No focal testicular parenchymal lesions are visualized. Spectral Doppler analysis of the arterial and venous flow is normal in the right testis. Right epididymal head is normal in size. No right hydrocele or varicocele is seen. Right epididymal Doppler flow is normal. LEFT: Left testicle measures 3.9 x 2.5 x 2.8 cm, volume 14.4 mL. No focal testicular parenchymal lesions are visualized. Spectral Doppler analysis of the arterial and venous flow is normal in the left testis. Left epididymal head is normal in size. No left hydrocele or varicocele is seen. Left epididymal Doppler flow is normal. US/US scrotum IMPRESSION: Normal scrotal ultrasound. Electronically signed by: Matthieu Pang DO 02/16/2024 06:48 PM EST
--- NOTE | ~2024-02-16 | US_ITS ---
EXAMINATION: US SCROTUM CLINICAL INFORMATION: Left testicular pain. COMPARISON: None available. TECHNIQUE: A sonogram of the scrotum was performed assessing dasilva-scale appearance and color Doppler flow. Spectral Doppler analysis of the arterial and venous flow were performed in the testes bilaterally. FINDINGS: RIGHT: Right testicle measures 4.4 x 2.5 x 4.2 cm, volume 24.8 mL. No focal testicular parenchymal lesions are visualized. Spectral Doppler analysis of the arterial and venous flow is normal in the right testis. Right epididymal head is normal in size. No right hydrocele or varicocele is seen. Right epididymal Doppler flow is normal. LEFT: Left testicle measures 3.9 x 2.5 x 2.8 cm, volume 14.4 mL. No focal testicular parenchymal lesions are visualized. Spectral Doppler analysis of the arterial and venous flow is normal in the left testis. Left epididymal head is normal in size. No left hydrocele or varicocele is seen. Left epididymal Doppler flow is normal. US/US scrotum doppler IMPRESSION: Normal scrotal ultrasound. Electronically signed by: Matthieu Pang DO 02/16/2024 06:48 PM EST
[2024-02-16 17:24] VITALS: BP 146/89; PULSE 77; RESP 18; TEMP 36.6; O2SAT 98; BMI 29.9
--- NOTE | 2024-02-16 17:26 | ED.GENADULT ---
HPI - General Adult General Chief complaint: Urogenital-Male Stated complaint: Left testicular pain/discomfort Time Seen by Provider: 02/16/24 23:47 Source: patient Mode of arrival: ambulatory Limitations: no limitations History of Present Illness ED Provider: HPI narrative: Patient complaining of pain in left last 2 had 2 episode last 2 episodes this week this time yet pain started 90 minutes ago had ultrasound done at the time of pain which was normal no urinary problems no trauma no penile discharge no history of STI Related Data Previous Rx's ?Medication ?Instructions ?Recorded oxybutynin chloride 5 mg tablet 5 mg PO BID PRN bladder spasms #60 08/12/22 tabs naproxen 375 mg tablet 375 mg PO BID PRN pain #12 tabs 08/30/22 ondansetron 4 mg disintegrating 4 mg PO Q8H PRN nausea and 04/21/23 tablet vomiting #20 tabs drajgnwoux-bvttpnnlrfvps-huhssiqm 1 cap PO TID PRN pain #20 caps 04/29/23 50 mg-300 mg-40 mg capsule (Fioricet) sumatriptan succinate 50 mg tablet See Rx Instructions PO .COMPLEX 04/29/23 #10 tabs cyclobenzaprine 10 mg tablet 10 mg PO TID PRN muscle spasm #20 08/02/23 tabs cyclobenzaprine 10 mg tablet 10 mg PO TID PRN muscle spasm #14 12/20/23 tabs ibuprofen 600 mg tablet 600 mg PO Q6H PRN pain #14 tabs 12/20/23 ibuprofen 600 mg tablet 600 mg PO Q6H PRN pain #20 tabs 01/13/24 Allergies Allergy/AdvReac Type Severity Reaction Status Date / Time No Known Allergies Allergy Verified 02/16/24 17:29 Review of Systems Review of Systems: Yes all other systems are reviewed and are negative PMFSH Past Medical History Medical History Calculus of kidney Hydronephrosis Surgical History Hx of bladder endoscopy Hx of appendectomy Family History Family History Father No problems noted. Mother No problems noted. Social History Social History Alcohol intake: current Alcohol intake frequency: holidays/special occasions only Patient Tobacco Use Status: Never used Tobacco Advance Directives: No Advance Directives Information Provided: No Advance Directives Date on File: 08/02/22 Do you have a plan to hurt others: No Plan Physical Exam ED Vital Signs: Vital Signs - 24 hr 02/16/24 17:24 02/16/24 22:46 02/17/24 00:05 Temperature 98 F 98 F 97.9 F Pulse Rate 77 73 78 Respiratory Rate 18 19 16 Blood Pressure 146/89 H 140/91 H 142/100 H Pulse Oximetry 98 98 97 Oxygen Delivery Method Room Air Room Air Room Air BMI result Body Mass Index 29.9 Appearance: Alert. Oriented X3. No acute distress. ENT: Pharynx normal. Oral Mucosa moist Neck: Normal inspection. Neck supple. CVS: Normal heart rate and rhythm. Pulses normal. Respiratory: No respiratory distress. Equal air entry bilateral, no wheezing/rales/rhonchi Skin: Skin warm and dry. Normal skin color. Normal skin turgor. Extremities: No lower extremity edema. Neuro: Oriented X 3. Male General Exam: Yes normal external exam Penis: normal penis and circumcised Meatus: meatus normal Scrotum: scrotum normal, testes descended bilaterally, no hydroceles, no inguinal hernias, no masses, no scrotal swelling, no spermatoceles and no varicoceles Testes: Testes normal, testicular lie normal and epididymides normal Course Course Course Narrative: RME, this is a rapid medical exam performed by Anthony Franks please refer to primary provider for complete H&P- 33-year-old male presents for evaluation of left testicular pain. The patient does not actively have any pain but he has had the pain for times in the last week. Denies any flank pain, abdominal pain, urethral discharge. Plan for labs, urinalysis, ultrasound of the scrotum with Doppler Medical Decision Making Medical Decision Making MDM Narrative: Patient with nonspecific pain of the testicle possible has transient intermittent torsion but ultrasound was done at the time when patient has pain and has a good blood flow patient advised to follow up with urologist Differential Diagnosis Differential Diagnoses: The differential diagnosis associated with the presentation includes Lab Data MDM Lab Attestation statement: I reviewed the patient's lab results. 02/16/24 19:26 02/16/24 19:26 Labs: Lab Results 02/16/24 Range/Units 19:26 WBC 7.7 (4.8-10.8) X10*3/uL RBC 5.96 H (4.60-5.80) X10*6/uL Hgb 17.7 (14.0-18.0) g/dl Hct 50.2 (42.0-52.0) % MCV 84.2 (80.0-98.0) fL MCH 29.7 (27.0-33.0) pg MCHC 35.3 (31.0-36.0) g/dl RDW 11.9 (11.0-16.0) % Plt Count 205 (160-400) X10*3/uL MPV 9.7 (9.4-12.4) fL Immature Gran % (Auto) 0.3 (0.0-0.4) % Neut % (Auto) 53.3 (45-73) % Lymph % (Auto) 39.4 (20-40) % Highland % (Auto) 5.5 (2-11) % Eos % (Auto) 0.9 (0-4) % Baso % (Auto) 0.6 (0-2) % Lymph # (Auto) 3.0 (1.2-4.9) X10*3/uL [place]land # (Auto) 0.4 (0.1-1.2) X10*3/uL Eos # (Auto) 0.1 (0.0-0.4) X10*3/uL Baso # (Auto) 0.1 (0.0-0.2) X10*3/uL Abs Immat Gran (auto) 0.02 (0.00-0.03) X10*3/uL Absolute Neuts (auto) 4.1 (2.0-8.3) x10*3/uL Absolute Nucleated RBC 0.000 (0.0-0.012) X10*3/uL Nucleated RBC % (auto) 0.0 (0.0-0.2) /100WBC Sodium 141 (135-145) mmol/L Potassium 4.5 (3.3-5.1) mmol/L Chloride 108 (96-108) mmol/L Carbon Dioxide 25 (22-29) mmol/L Anion Gap 13 (12-20) BUN 14 (9-16) mg/dL Creatinine 1.11 (0.5-1.4) mg/dL Estim Creat Clear Calc 96.1 Estimated GFR > 60 Random Glucose 89 (60-115) mg/dL Calcium 9.6 (8.4-10.2) mg/dL Urine Color Yellow Urine Appearance Clear Urine pH 6.0 (5.0-9.0) Ur Specific Manson >= 1.030 H (1.005-1.025) Urine Protein Trace (Neg-Trace) mg/dL Urine Glucose (UA) Negative (Negative) mg/dL Urine Ketones Negative (Negative) mg/dL Urine Blood Negative (Negative) Urine Nitrite Negative (Negative) Ur Leukocyte Esterase Negative (Negative) Urine RBC 0-2 (0-2) /HPF Urine WBC 0-5 (0-5) /HPF Ur Squamous Epith Cells 0-2 (0-2) /HPF Urine Bacteria None Seen (None Seen) Hyaline Casts 0-2 (0-2) /LPF Independent Interpretation I performed an independent interpretation of an: Ultrasound Interpretation: NAD Radiology Impression Discussion of test interpretation with radiology: I have reviewed the radiologist's reading. Discharge Plan Discharge Clinical Impression: Left testicular pain Patient Disposition: Home, Self-Care Instructions: Testicle Pain (ED) Additional Instructions: Cause of your testicular pain is not clear possible you have intermittent testicular torsion at this time there is no torsion Follow up with urologist in 2-3 days Report to the ER if recurrence of the pain Prescriptions: No Action naproxen 375 mg tablet 375 mg PO BID PRN (Reason: pain) Qty: 12 0RF cyclobenzaprine 10 mg tablet 10 mg PO TID PRN (Reason: muscle spasm) Qty: 20 0RF ibuprofen 600 mg tablet 600 mg PO Q6H PRN (Reason: pain) Qty: 14 0RF cyclobenzaprine 10 mg tablet 10 mg PO TID PRN (Reason: muscle spasm) Qty: 14 0RF ondansetron 4 mg tablet,disintegrating 4 mg PO Q8H PRN (Reason: nausea and vomiting) Qty: 20 0RF jenuxtyenz-rkpkkhhjeijgn-jkik [Fioricet] 50-300-40 mg capsule 1 cap PO TID PRN (Reason: pain) Qty: 20 0RF sumatriptan succinate 50 mg tablet See Rx Instructions .ROUTE .COMPLEX Qty: 10 0RF Rx Instructions: take 1 tab at onset of headache; if no relief may repeat 1 tab after at least 2 hrs; max = 4 tabs/24 hr ibuprofen 600 mg tablet 600 mg PO Q6H PRN (Reason: pain) Qty: 20 0RF oxybutynin chloride 5 mg tablet 5 mg PO BID PRN (Reason: bladder spasms) Qty: 60 0RF Rx Instructions: use one tablet once to twice daily for bladder urgency Referrals: Thor Santoyo MD [Physician] - 3 days Print Language: Malawian
[2024-02-16 19:30] LABS: MANUAL DIFF FLAG NO
[2024-02-16 19:36] LABS: Basophils Absolute Auto 0.1 X10*3/uL (0.0-0.2); Basophils Percent Auto 0.6 % (0-2); Eosinophils Absolute Auto 0.1 X10*3/uL (0.0-0.4); Eosinophils Percent Auto 0.9 % (0-4); Hematocrit 50.2 % (42.0-52.0); Hemoglobin 17.7 g/dl (14.0-18.0); Imm Gran Abs Auto 0.02 X10*3/uL (0.00-0.03); Imm Gran Pct Auto 0.3 % (0.0-0.4); Lymphocytes Percent Auto 39.4 % (20-40); Mean Corpuscular HGB Conc 35.3 g/dl (31.0-36.0); Mean Corpuscular Hemoglobin 29.7 pg (27.0-33.0); Mean Corpuscular Volume 84.2 fL (80.0-98.0); Mean Platelet Volume 9.7 fL (9.4-12.4); Monocytes Absolute Auto 0.4 X10*3/uL (0.1-1.2); Monocytes Percent Auto 5.5 % (2-11); Neutrophils Absolute Auto 4.1 x10*3/uL (2.0-8.3); Neutrophils Percent Auto 53.3 % (45-73); Platelet Count 205 X10*3/uL (160-400); Red Blood Count 5.96 X10*6/uL (4.60-5.80); Red Cell Distribution Width 11.9 % (11.0-16.0); White Blood Count 7.7 X10*3/uL (4.8-10.8)
[2024-02-16 19:44] LABS: Bacteria Urine None Seen (None Seen); Hyaline Casts Urine 0-2 /LPF (0-2); RBC Urine 0-2 /HPF (0-2); Squamous Epithelial Cell Urine 0-2 /HPF (0-2); WBC Urine 0-5 /HPF (0-5)
[2024-02-16 19:47] LABS: Appearance Urine Clear; Color Urine Yellow; Glucose Urine UA Negative (Negative); Leukocyte Esterase Urine Negative (Negative); Nitrite Urine Negative (Negative); Specific Gravity - Urine >= 1.030 (1.005-1.025); Urine Blood Negative (Negative); Urine Ketones Negative (Negative); Urine Protein Trace mg/dL (Neg-Trace)
[2024-02-16 19:56] LABS: Anion Gap 13 (12-20); Blood Urea Nitrogen 14 mg/dL (9-16); Calcium 9.6 mg/dL (8.4-10.2); Carbon Dioxide 25 mmol/L (22-29); Chloride 108 mmol/L (96-108); Creatinine Clr Calc Pharmacy 96.1; Estimated Glomerular Filt Rate > 60; Glucose Random 89 mg/dL (60-115); Potassium 4.5 mmol/L (3.3-5.1); Sodium 141 mmol/L (135-145)
[2024-02-16 22:46] VITALS: BP 140/91; PULSE 73; RESP 19; TEMP 36.6; O2SAT 98
[2024-02-17 00:05] VITALS: BP 142/100; PULSE 78; RESP 16; TEMP 36.6; O2SAT 97
[2024-02-17 01:10] VITALS: BP 132/98; PULSE 80; RESP 16; TEMP 36.4; O2SAT 99
[2024-02-17 01:48] LABS: CT PCR NOT DETECTED (Not Detect.); NG PCR NOT DETECTED (Not Detect.)
== END 2024-02-17 01:11 | disposition home or self-care (01) ==
PROVIDERS: Physician Assistant; Emergency Provider Internal Medicine
DX: N50.812 Left testicular pain (principal)
CPT/HCPCS: 36415; 76870; 80048; 81001; 85025; 87491; 87591; 93975; 99284

== ENCOUNTER 2024-07-25 16:12 | Outpatient (REF) | payer MEDICAID, SELFPAY ==
--- OUTSIDE RECORDS SUMMARY | 2024-07-25 16:24 | XMS_ITS | Encounter Summary ---
Author Organization [employer] Address [address] [place] [address] [address] [place] [address] Care Team Providers Care Floor Space Allocator Name Role Phone Jaimie Cadena MD Primary Care Provider [phone] Reason for Referral * Consultation (Routine) - Pending Review Specialty Diagnoses / Procedures Referred By Анна wilson Referred To Contact Urology Diagnoses Encounter for circumcision Rolf John MD [address] [place] [address] Phone: tel: fax: Referral ID Status Reason Start Date Expiration Date Visits Requested Visits Authorized [id number] Pending Review Specialty Services Required 07/25/2024 07/25/2025 1 1 Encounter Details Date Type Department Care Team ([facility] st Contact Info) Description 07/25/2024 3:30 PM EDT Office Visit [facility] [address] [place] [address] Rolf John MD [address] [place] [address] Bloating (Primary Dx); Encounter for circumcision Social History Tobacco Use Types Packs/Day Years Used Date Smoking Tobacco: Never Passive Smoke Exposure: Never Smokeless Tobacco: Never Alcohol Use Standard Drinks/Week Comments Not Currently 0 (1 standard drink = 0.6 oz pur e alcohol) Last drink > 5y ago Depression Answer Date Recorded Patient Health Questionnaire-9 Score 16 09/18/2023 Patient Health Questionnaire-9 Score 16 09/18/2023 Last PHQ-9: Questionnaire Data Not on file 0 09/18/2023 Housing Stability Answer Date Recorded What is your housing situation today? I have wing thomas 05/16/[address] you li ve. Do you have problems with any of the following? None of the above 05/16/2023 Food Insecurity Answer Date Recorded Within the past 12 months, y ou worried that your food would run out before you got money to buy more: Never True 05/16/2023 Within the past 12 months,th e food you bought just didn't last and you didn't have enough money to get more: Never True 02/2024 Transportation Answer Date Recorded In the past 12 months, has l ack of transportation kept you from medical appts, meetings, work or from getting things needed for daily living? No 05/16/2023 Utilities Answer Date Recorded In the past 12 months, has t he electric, gas, oil or water company threatened to shut off services in your home? No 05/16/2023 Depression Answer Date Recorded Patient Health Questionnaire-2 Score 4 09/18/2023 Sex and Gender Information Value Date Recorded Sex Assigned at Male 09/28/2022 9:44 AM EDT Legal Sex Male 9:43 AM EDT Gender Identity Male 09/28/2022 9:44 AM EDT Sexual Orientation Don't know 09/28/2022 9: 44 AM EDT documented as of this encounter Last Filed Vital Signs Vital Sign Reading Time Taken Comments Blood Pressure 161/88 07/25/2024 3:47 PM EDT Pulse 73 07/25/2024 3:47 PM EDT Temperature 36.4 ??C (97.6 ??F) 07/25/2024 3:47 PM ED T Respiratory Rate 20 07/25/2024 3:47 PM EDT Oxygen Saturation 99% 07/25/2024 3:47 PM EDT Inhaled Oxygen Concentration - - Weight 89.4 kg (197 lb) 07/25/2024 3:47 PM EDT Height 170.2 cm (5' 7 ) 07/25/2024 3:47 PM EDT Body Mass Index 30.85 07/25/2024 3:47 PM EDT documented in this encounter Plan of Treatment Upcoming Encounters Date Type Department Care Team (Late st Contact Info) Description 08/14/2024 3:15 PM EDT Office Visit [facility] [address] [place] [address] Ino Delgado DMD [address] [place] [address] 09/04/2024 10:15 AM EDT Office Visit [facility]ED[facility] [address] [place] [address] Jaimie Cadena MD [address] [place] [address] 10/23/2024 3:00 PM EDT Office Visit [facility] [address] [place] [address] Aileen Jacome Scheduled Orders Name Type Priority Associated Diagnoses Orde r Schedule Helicobacter pylori??Antigen, EIA, Stool Lab Routine Bloating Expected: 07/25/2024, Expires: 07/25/2025 Scheduled Referrals Name Type Priority Associated Diagnoses Orde r Schedule Referral to Urology Outpatient Referral Routine Encounter for circumcision Expected: 07/25/2024 (Approximate), Expires: 07/25/2025 documented as of this encounter Visit Diagnoses Diagnosis Bloating- Primary Flatulence, eructation, and gas pain Encounter for circumcision Routine or ritual circumcision documented in this encounter Additional Health Concerns Assessment Noted Time PHQ-9 Depression Total Score: 16 07/2 024 9:53 AM EDT documented as of this encounter Care Teams Floor Space Allocator Relationship Specialty Start Date End Date Jaimie Cadena MD [address] [place] [address] PCP - General Internal Medicine 05/25/23 documented as of this encounter
== END 2024-07-25 16:13 | disposition home or self-care (01) ==
LOC: HO.CHCLDS 16:12
PROVIDERS: Visit Provider Internal Medicine
DX: R14.0 Abdominal distension (gaseous) (principal)
CPT/HCPCS: 87338

== ENCOUNTER → 2024-12-10 13:02 | Outpatient (BNVA) | payer OTHER, SELFPAY | PROVIDERS: Visit Provider Physician Assistant Medical | DX: Z77.21 Contact with and (suspected) exposure to potentially hazardous body fluids (principal); Z23 Encounter for immunization | CPT/HCPCS: 84450; 84460; 85025; 86704; 86706; 86803; 87340; 87389; 90715; 99203 ==

== ENCOUNTER 2024-12-17 14:20 | Emergency (ER) | payer MEDICAID, OTHER, SELFPAY ==
--- OUTSIDE RECORDS SUMMARY | 2024-10-25 11:00 | XMS_ITS | Encounter Summary ---
Author Organization [employer] Address [address] [place] [address] Care Team Providers Care Mrp Controller Name Role Phone Jaimie Cadena MD Primary Care Provider [phone] Reason for Visit * Reason Comments Routine Cleaning Dental Exam Encounter Details Date Type Department Care Team ([facility] st Contact Info) Description 10/25/2024 11:00 AM EDT Office Visit [facility] [address] [place] [address] Melquiades Hawkins Dental calculus (Primary Dx); Supernumerary teeth Social History Tobacco Use Types Packs/Day Years Used Date Smoking Tobacco: Never Passive Smoke Exposure: Never Smokeless Tobacco: Never Alcohol Use Standard Drinks/Week Comments Not Currently 0 (1 standard drink = 0.6 oz pur e alcohol) Last drink > 5y ago Depression Answer Date Recorded Patient Health Questionnaire-9 Score 0 09/04/2024 Patient Health Questionnaire-9 Score 0 09/04/2024 Last PHQ-9: Questionnaire Data Not on file 0 09/04/2024 Housing Stability Answer Date Recorded What is your housing situation today? I have wing thomas 09/04/[address] you li ve. Do you have problems with any of the following? None of the above 09/04/2024 Food Insecurity Answer Date Recorded Within the past 12 months, y ou worried that your food would run out before you got money to buy more: Never True 09/04/2024 Within the past 12 months,th e food you bought just didn't last and you didn't have enough money to get more: Never True 04/2024 Transportation Answer Date Recorded In the past 12 months, has l ack of transportation kept you from medical appts, meetings, work or from getting things needed for daily living? No 09/04/2024 Utilities Answer Date Recorded In the past 12 months, has t he electric, gas, oil or water company threatened to shut off services in your home? No 09/04/2024 Depression Answer Date Recorded Patient Health Questionnaire-2 Score 0 09/04/2024 Internet Access Answer Date Recorded Internet Access Q1 Yes 09/04/2024 Internet Access Q2 Not on file 09/04/2024 Sex and Gender Information Value Date Recorded Sex Assigned at Male 09/28/2022 9:44 AM EDT Legal Sex Male 9:43 AM EDT Gender Identity Male 09/28/2022 9:44 AM EDT Sexual Orientation Don't know 09/28/2022 9: 44 AM EDT documented as of this encounter Last Filed Vital Signs Vital Sign Reading Time Taken Comments Blood Pressure 136/80 10/25/2024 11:06 AM EDT Pulse 80 10/25/2024 11:06 AM EDT Temperature - - Respiratory Rate - - Oxygen Saturation - - Inhaled Oxygen Concentration - - Weight - - Height - - Body Mass Index - - documented in this encounter Progress Notes * Nelli Real DDS - 10/25/2024 11:00 AM EDT Dental procedures in this visit D1110 - PROPHYLAXIS - ADULT (Completed) Service provider: Melquiades Hawkins Billblu provider: Aura Ralph DDS D1330 - ORAL HYGIENE INSTRUCTIONS (Completed) Service provider: Melquiades Hawkins Billblu provider: Aura Ralph DDS D9450 - CASE PRESENTATION, DETAILED AND EXTENSIVE TREATMENT PLANNING (Completed) Service provider: Melquiades Hawkins Billblu provider: Aura Ralph DDS D0120 - PERIODIC ORAL EVALUATION - ESTABLISHED PATIENT (Completed) Service provider: Nelli Real DDS Billing provider: Aura Ralph DDS Patient ID: Manjula Webb is a 34 y.o. male. Time Out: Date: 10/25/2024 Location: [facility] Tooth: Maxilla and Mandible Procedure: Exam Verified the above with patient, assistant professor of german, and provider. Confirmed via patient's chart, intraorally and by radiographs. On Site Property Manager: not applicable 34 y.o. years old male presents for a periodic examination done by Dr. Nelli Real DDS CONSENT FORM INITIALED & SIGNED BY THE PATIENT AND COUNTER SIGNED BY Dr. Nelli Real DDS Chief Complaint: Just here for my check up, my gums are sensitive Medical History: Patient does not report any changes in health issues that could alter the Treatment Plan. Medical consult / medical clearance needed: No CHIGNIK LAGOON: Pain: No, occasional gingival sensitivity Duration: No extended duration Scale of pain from 1 - 10: - Aggravating factors: Brushing Pain radiating: No Postural variation: No Allergies: Reviewed in EHR Medications: Reviewed in EHR Vital signs: Blood pressure 136/80, pulse 80. Habits: Smoking: no Drinking: yes, social drinking Brushinx day Flossing: occasional Cancer screening: Extra-oral: wnl Intraoral: wnl Extra-oral examination TMJ Deviation - no Clicking - no Tenderness - no Facial symmetry - symmetrical Lymph nodes - wnl Cheeks - wnl Intraoral examination Soft tissues - wnl Palate - wnl Tongue - wnl Buccal mucosa - wnl Floor of mouth - wnl, bilateral kenzie Vestibules - wnl Glands - wnl Duct area - wnl Oropharynx - wnl Gingiva Color - pink Contour - wnl Recession - yes Consistency - soft Texture - hard Bleeding on probing - no Radiographs Full Mouth X-rays taken on: No radiographs taken on this visit Quality are of diagnostic value and appropriate for radiographic analysis? : NA Radiograph interpretation Thickened PDL on: NA Abnormal root resorption: No Horizontal Bone Resorption: No Abnormal root formation: No Vertical Bone Loss: No Periodontal diagnosis: No Hard tissue exam Missing - as charted Plaque - light localized Calculus - light localized Abfraction - no Mobility - no Furcation - no Occlusion Overbite (mm): 3 mm Overjet (mm): 5 mm Diastema: no Right Molar Occlusion: class 1 Left Molar Occlusion: class 1 Right Canine Occlusion: class 1 Left Canine Occlusion: class 1 Midline: class 1 Anterior/Posterior crossbite: no Arches: wide Wear Facets: yes DIAGNOSIS Findings, risks, benefits and alternatives discussed with pt. Discussed sequelae of bacteria on gingiva and underlying bone. Prophy, and OHI performed by Ashwini Hawkins. Advised increased frequency of brushing and flossing. 4-6 week perio reevaluation to determine if further treatment indicated. Oral surgery consult necessary for wisdom teeth removal and supra-numerary upper right posterior. TREATMENT PLAN Phase 1 - Oral Surgery Consult for [place] Teeth Removal and Supra-numerary Phase 2 - Restorative Phase 3- Recall Patient agrees with treatment plan. Patient satisfied, dismissed in stable condition. NV: Oral Surgery Consult Provider: Dr. Nelli Real DDS Supervising Dentist: Dr. Aura Ralph * Mlequiades Hawkins - 10/25/2024 11:00 AM EDT Patient ID: Manjula Webb is a 34 y.o. male. Time Out: Timeout Date: 10/25/24, Timeout Time: 1105 Location: [facility] Tooth: Maxilla and Mandible Procedure: Exam and Prophylaxis Verified the above with patient, assistant professor of german, and provider. Confirmed via patient's chart, intraorally and by radiographs. On Site Property Manager: not applicable Medical Hx: Vitals: Blood pressure 136/80, pulse 80. Medications, Med Hx reviewed with patient and updated in chart. Treatment Provided Dental procedures in this visit D1110 - PROPHYLAXIS - ADULT (Completed) Service provider: Melquiades Hawkins Billblu provider: Aura Ralph DDS D1330 - ORAL HYGIENE INSTRUCTIONS (Completed) Service provider: Melquiades Hawkins Billing provider: Aura Ralph DDS D9450 - CASE PRESENTATION, DETAILED AND EXTENSIVE TREATMENT PLANNING (Completed) Service provider: Melquiades Hawkins Billing provider: Aura Ralph DDS Instruments Used: Ultrasonic Scalers and Prophy angle Fluoride: N/A Oral Cancer Screening: No lesions Head/Neck Exam: No Lesions Calculus: Light and Localized Plaque: Light and Generalized Stain: Light and Localized Bleeding: Light and Localized Gingiva: Healthy OH: Fair Perio Chart: Not Completed Oral hygiene instructions provided to patient including brushing technique and flossing. Dental exam done by . Recommendations: Neches two times daily, modified chilel technique, Floss daily Recall Frequency: 6 mo NV: vivien Hygienist: Melquiades Hawkins RDH * Aura Ralph DDS - 10/25/2024 11:00 AM EDT I have reviewed the documentation and dental procedures completed by the rendering provider, Nelli Real DDS, and approve their chart entries for this visit. SINDY Aj DDS documented in this encounter Plan of Treatment Upcoming Encounters Date Type Department Care Team (Late st Contact Info) Description 04/28/2025 12:45 PM EST Office Visit [facility] [address] [place] [address] Melquiades Hawkins Scheduled Orders Name Type Priority Associated Diagnoses Orde r Schedule 1 1 EXTRACTION, ERUPTED TOOTH OR EXPOSED ROOT (ELEVATION/FORCEPS REMOVAL) Dental Routine [address] arting 10/25/2024 16 16 EXTRACTION, ERUPTED TOOTH OR EXPOSED ROOT (ELEVATION/FORCEPS REMOVAL) Dental Routine [address] arting 10/25/2024 17 17 EXTRACTION, ERUPTED TOOTH OR EXPOSED ROOT (ELEVATION/FORCEPS REMOVAL) Dental Routine [address] arting 10/25/2024 32 32 EXTRACTION, ERUPTED TOOTH OR EXPOSED ROOT (ELEVATION/FORCEPS REMOVAL) Dental Routine [address] arting 10/25/2024 documented as of this encounter Procedures Procedure Name Priority Date/Time Associated Diagnosis Comments PROPHYLAXIS - ADULT Routine 10/25/2024 1 1:00 AM EDT PERIODIC ORAL EVALUATION - ESTABLISHED PATIENT Routine 10/25/2024 11:00 AM EDT ORAL HYGIENE INSTRUCTIONS Routine 2024 11:00 AM EDT CASE PRESENTATION, DETAILED AND EXTENSIVE TREATMENT PLANNING Routine 10/25/2024 11:00 AM EDT 30 B COMPOSITE FILLING Routine 12:00 AM EDT 29 O COMPOSITE FILLING Routine 5 12:00 AM EDT 28 O COMPOSITE FILLING Routine 12:00 AM EDT documented in this encounter Visit Diagnoses Diagnosis Dental calculus- Primary Accretions on teeth Supernumerary teeth documented in this encounter Additional Health Concerns Assessment Noted Time PHQ-9 Depression Total Score: 0 07/02/20 25 10:20 AM EDT documented as of this encounter Care Teams Mrp Controller Relationship Specialty Start Date End Date Jaimie Cadena MD [address] [place] [id number] PCP - General Internal Medicine 05/25/23 documented as of this encounter
[2024-12-17 14:51] VITALS: BP 143/78; PULSE 75; RESP 18; TEMP 36.6; O2SAT 98; BMI 27.3
--- NOTE | 2024-12-17 14:51 | ED.GENADULT ---
HPI - General Adult General Chief complaint: Headache Stated complaint: headache Time Seen by Provider: 12/17/24 21:22 Source: patient, RN notes reviewed, old records reviewed and permastone mechanic Mode of arrival: ambulatory Limitations: language barrier History of Present Illness ED Provider: Golden HPI narrative: 34-year-old male presents for evaluation of headache. He reports he woke up at 9:00 a.m. this morning with a pain in his right upper shoulder that radiates up the right side of his head. He feels if he has muscle soreness. 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 He does not remember injuring himself yesterday but again does lift heavy items. He denies any fevers, chills, cough, shortness of breath pain Denies any blurry vision, nausea vomiting. He reports a history of migraines but this feels different No other complaints or concerns at this time Related Data Previous Rx's ?Medication ?Instructions ?Recorded oxybutynin chloride 5 mg tablet 5 mg PO BID PRN bladder spasms #60 08/12/22 tabs naproxen 375 mg tablet 375 mg PO BID PRN pain #12 tabs 08/30/22 ondansetron 4 mg disintegrating 4 mg PO Q8H PRN nausea and 04/21/23 tablet vomiting #20 tabs odkwsweyzc-onwzzqdxjdxak-altvunnp 1 cap PO TID PRN pain #20 caps 04/29/23 50 mg-300 mg-40 mg capsule (Fioricet) sumatriptan succinate 50 mg tablet See Rx Instructions PO .COMPLEX 04/29/23 #10 tabs cyclobenzaprine 10 mg tablet 10 mg PO TID PRN muscle spasm #20 08/02/23 tabs cyclobenzaprine 10 mg tablet 10 mg PO TID PRN muscle spasm #14 12/20/23 tabs ibuprofen 600 mg tablet 600 mg PO Q6H PRN pain #14 tabs 12/20/23 ibuprofen 600 mg tablet 600 mg PO Q6H PRN pain #20 tabs 01/13/24 cyclobenzaprine 10 mg tablet 10 mg PO TID PRN muscle spasm #20 12/17/24 tabs naproxen 500 mg tablet 500 mg PO BID PRN pain #20 tabs 12/17/24 Allergies Allergy/AdvReac Type Severity Reaction Status Date / Time No Known Allergies Allergy Verified 12/17/24 14:52 Review of Systems Constitutional: Constitutional: Denies body ache(s), Denies chills, Denies fever(s), Denies frequent falls and Reports headache(s) Eyes: Eyes: Denies blurry vision and Denies exophthalmos ENT: Denies vertigo, Denies dizziness and Reports headache(s) Cardiovascular: Cardiovascular: Denies chest pain, Denies dyspnea and Denies dyspnea on exertion Respiratory: Respiratory: Denies cough, Denies dyspnea and Denies dyspnea on exertion Gastrointestinal: Gastrointestinal: Denies abdominal pain, Denies nausea and Denies vomiting Musculoskeletal: Musculoskeletal: Denies back pain Integumentary/Breasts: Skin/Breast: Denies rash Neurologic: Denies vertigo, Denies dizziness, Denies frequent falls and Reports headache(s) Psychiatric: Psychiatric: Denies depression PMFSH Past Medical History Medical History Calculus of kidney Hydronephrosis Surgical History Hx of bladder endoscopy Hx of appendectomy Family History Family History Father No problems noted. Mother No problems noted. Social History Social History Alcohol intake: current Alcohol intake frequency: holidays/special occasions only Patient Tobacco Use Status: Never used Tobacco Advance Directives: No Advance Directives Information Provided: No Advance Directives Date on File: 08/02/22 Do you have a plan to hurt others: No Plan Physical Exam ED Vital Signs: Vital Signs - 24 hr 12/17/24 14:51 12/17/24 21:13 Temperature 98 F Pulse Rate 75 75 Respiratory Rate 18 16 Blood Pressure 143/78 H 135/91 H Pulse Oximetry 98 96 Oxygen Delivery Method Room Air Room Air BMI result Body Mass Index 27.3 Const General: healthy appearing, comfortable, no acute distress, alert and awake Nutritional Appearance: well nourished Orientation/consciousness: patient oriented x3 HENMT Head: Yes normocephalic and Yes atraumatic Eyes Eyelids: Yes eyelids normal Conjunctivae: conjunctivae normal Sclerae: sclerae normal Corneas: corneas normal Pupils: Equal, round and reactive pupils present EOM: EOMs intact bilaterally Neck Neck: Yes full ROM Resp Effort & Inspection: normal respiratory effort, able to speak in complete sentences and not labored Cardio Rate: regular rate Rhythm: regular rhythm GI Inspection: No distended Palpation (GI): Soft to palpation, not firm, nontender, no guarding and not rigid Skin General skin exam: no rashes or lesions noted Neuro General: patient oriented x3 Cranial nerves: Yes CN's II-XII intact bilaterally, Yes Equal, round and reactive pupils present and Yes Bilaterally intact EOM present Cognition (Neuro): normal cognition Extrem Other: Moving all extremities well without any obvious deformities Course Course Course Narrative: This is a rapid medical exam performed by Cirilo New NP: Additional HPI, ROS, PE not included below will be deferred to primary provider. Patient is a 34y/o Ghanaian speaking male presenting to the ED with complaint of headache since 9am today. Took OTC medication without relief. Whispering due to pain. Reports history of headaches but not usually this strong. Plan: viral swabs Medications Administered Discontinued Medications Generic Name Dose Route Start Last Admin Trade Name Freq PRN Reason Stop Dose Admin Cyclobenzaprine HCl 10 mg 12/17/24 22:09 12/17/24 22:18 Cyclobenzaprine Hcl 10 Mg Tablet PO 12/17/24 22:10 10 mg ONCE ONE Administration Ketorolac Tromethamine 30 mg 12/17/24 22:09 12/17/24 22:18 Ketorolac Tromethamine 30 Mg/Ml Vial IM 12/17/24 22:10 30 mg ONCE ONE Administration Medical Decision Making Medical Decision Making [facility] Narrative: 34-year-old male presents for evaluation of a headache. He does lift heavy for work. He feels like he has a muscle spasm in his tender in the right trapezius muscle group. He has no neuro deficits, an NIH stroke score is 0. There were no trauma to the head or neck. We will treat conservatively for tension headache. No evidence of infectious cause Differential Diagnosis Differential Diagnoses: The differential diagnosis associated with the presentation includes Muscle strain Acute headache Tension headache Migraine Cluster headache Lab Data Labs: Lab Results 12/17/24 Range/Units 15:00 COVID-19 (FERNANDA) Negative (Negative) COVID-19 Clin Com See Note Influenza Type A (ERASTO) Negative (Negative) Influenza Type B (ERASTO) Negative (Negative) Influenza A & B Note See Note Discharge Plan Discharge Clinical Impression: Tension headache Patient Disposition: Home, Self-Care Instructions: Tension Headache (ED) Additional Instructions: Your exam is most consistent with a tension headache. That has muscle spasm in the upper shoulder area that causes your headache pain I recommend using naproxen and cyclobenzaprine for your pain. Cyclobenzaprine may make you drowsy, do not drink alcohol or drive after taking it. You may also benefit from some warm compresses Follow up with your primary doctor, return for new or worsening symptoms Prescriptions: New naproxen 500 mg tablet 500 mg PO BID PRN (Reason: pain) Qty: 20 0RF cyclobenzaprine 10 mg tablet 10 mg PO TID PRN (Reason: muscle spasm) Qty: 20 0RF No Action naproxen 375 mg tablet 375 mg PO BID PRN (Reason: pain) Qty: 12 0RF cyclobenzaprine 10 mg tablet 10 mg PO TID PRN (Reason: muscle spasm) Qty: 20 0RF ibuprofen 600 mg tablet 600 mg PO Q6H PRN (Reason: pain) Qty: 14 0RF cyclobenzaprine 10 mg tablet 10 mg PO TID PRN (Reason: muscle spasm) Qty: 14 0RF ondansetron 4 mg tablet,disintegrating 4 mg PO Q8H PRN (Reason: nausea and vomiting) Qty: 20 0RF qkpbvjtvbm-fsikhwicnxuqd-xhbq [Fioricet] 50-300-40 mg capsule 1 cap PO TID PRN (Reason: pain) Qty: 20 0RF sumatriptan succinate 50 mg tablet See Rx Instructions .ROUTE .COMPLEX Qty: 10 0RF Rx Instructions: take 1 tab at onset of headache; if no relief may repeat 1 tab after at least 2 hrs; max = 4 tabs/24 hr ibuprofen 600 mg tablet 600 mg PO Q6H PRN (Reason: pain) Qty: 20 0RF oxybutynin chloride 5 mg tablet 5 mg PO BID PRN (Reason: bladder spasms) Qty: 60 0RF Rx Instructions: use one tablet once to twice daily for bladder urgency Stand Alone Forms: Work/School Release Print Language: Ghanaian
[2024-12-17 15:31] LABS: COVID-19 Test Negative (Negative); IDNOW Serial# 55D5AD1C; IDNOW Serial# 58CA691E; Influenza B2 Negative (Negative)
[2024-12-17 21:13] VITALS: BP 135/91; PULSE 75; RESP 16; O2SAT 96
--- OUTSIDE RECORDS SUMMARY | 2024-12-17 21:26 | XMS_ITS | Encounter Summary ---
Author Organization [employer] Address [address] [place] [address] Care Team Providers Care Chili Pepper Grinder Name Role Phone Jaimie Cadena MD Primary Care Provider [phone] Encounter Details Date Type Department Care Team ([facility] st Contact Info) Description 05/25/2023 Telephone [facility] [address] [place] [address] Jaimie Cadena MD [address] [place], [place] [phone] Social History Tobacco Use Types Packs/Day Years Used Date Smoking Tobacco: Never Smokeless Tobacco: Never Alcohol Use Standard Drinks/Week Comments Not Currently 0 (1 standard drink = 0.6 oz pur e alcohol) Last drink > 5y ago Depression Answer Date Recorded Patient Health Questionnaire-9 Score 9 05/25/2023 Patient Health Questionnaire-9 Score 9 05/25/2023 Last PHQ-9: Questionnaire Data Not on file 0 05/25/2023 Housing Stability Answer Date Recorded What is [...] Answer Date Recorded Patient Health Questionnaire-2 Score 2 05/25/2023 Sex and Gender Information Value Date Recorded Sex Assigned at Male 09/28/2022 9:44 AM EDT Legal Sex Male 9:43 AM EDT Gender Identity Male 09/28/2022 9:44 AM EDT Sexual Orientation Don't know 09/28/2022 9: 44 AM EDT documented as of this encounter Functional Status * Over the past 2 weeks, how often have you been bothered by any of the following problems? Question Answer Date of Assessment Author Patient Health Questionnaire -2 Score 2 05/25/2023 1:19 PM EDT Sonny Pizano MA * If you checked off any problems on this questionnaire so far, Question Answer Date of Assessment Author How difficult have these problems made it for you to do your work, take care of things at home, or get along with other people? Not difficult at all 05/25/2023 1:19 PM EDT Mary Pizano MA * Over the past 2 weeks, how often have you been bothered by any of the following problems? Question Answer Date of Assessment Author Little interest or pleasure in doing things Several days 05/25/2023 1:19 PM PHILOMENAT Mary Pizano MA Feeling down, depressed, or hopeless Several days 05/25/2023 1:19 PM EDT Mary Pizano MA Trouble falling or staying asleep, or sleeping too much More than half the days 05/25/2023 1:19 PM EDT Mary Pizano MA Feeling tired or having little energy More than half the days 05/25/2023 1:19 PM PHILOMENAT Mary Pizano MA Poor appetite or overeating More than half the days 05/25/2023 1:19 PM EDT Mary Pizano MA Feeling bad about yourself - or that you are a failure or have let yourself or your family down Not at all 05/25/2023 1:19 PM EDT Mary Pizano MA Trouble concentrating on things, such as reading the newspaper or watching television Not at all 05/25/2023 1:19 PM EDT Mary Pizano MA Moving or speaking so slowly that other people could have noticed? Or the opposite - being so fidgety or restless that you have been moving around a lot more than usual. Several days 05/25/2023 1:19 PM EDT Mary Pizano MA Thoughts that you would be better off or hurting yourself in some way Not at all 05/25/2023 1:19 PM EDT Mary Pizano MA Patient Health Questionnaire-9 Score 9 05/25/2023 1:19 PM EDT Mary Pizano MA documented as of this encounter Plan of Treatment Upcoming Encounters Date Type Department Care Team (Late st Contact Info) Description 04/28/2025 12:45 PM EST Office Visit [facility] [address] [place] [address] Melquiades Hawkins documented as of this encounter Visit Diagnoses Not on filedocumented in this encounter Additional Health Concerns Assessment Noted Time PHQ-9 Depression Total Score: 9 05/25/19 1:19 PM EDT documented as of this encounter Care Teams Chili Pepper Grinder Relationship Specialty Start Date End Date Jaimie Cadena MD [address] [place] [address] PCP - General Internal Medicine 05/25/23 documented as of this encounter
--- OUTSIDE RECORDS SUMMARY | 2024-12-17 21:26 | XMS_ITS | Encounter Summary ---
Author Organization [facility] Address [address] [place] [address] Care Team Providers Care Microstrategy Reports Developer Name Role Phone Jaimie Cadena Primary Care Provider [phone] Encounter Details Date Type Department Care Team ([facility] st Contact Info) Description 09/27/2024 myChart Message [facility] Operating Room [address] [place] [id number] Mychart, Generic Provider [address] [place] [id number] Questionnaire Submission Social History Tobacco Use Types Packs/Day Years Used Date Smoking Tobacco: Never Passive Smoke Exposure: Never Smokeless Tobacco: Never Alcohol Use Standard Drinks/Week Comments Never 0 (1 standard drink = 0.6 oz pur e alcohol) Sex and Gender Information Value Date Recorded Sex Assigned at Male 07/02/2023 7:40 PM EDT Legal Sex Male 12:25 PM EDT Gender Identity Male 07/02/2023 7:40 PM EDT Sexual Orientation Choose not to disclose 2023 7:40 PM EDT documented as of this encounter Plan of Treatment Not on file documented as of this encounter Visit Diagnoses Not on filedocumented in this encounter Care Teams Microstrategy Reports Developer Relationship Specialty Start Date End Date Jaimie Cadena [address] [place] [address] PCP - General Internal Medicine 06/15/23 documented as of this encounter
--- OUTSIDE RECORDS SUMMARY | 2024-12-17 21:26 | XMS_ITS | Encounter Summary ---
Author Organization [employer] Address [address] [facility] 7 [place] [address] Care Team Providers Care Ice Rink Attendant Name Role Phone Jaimie Cadena MD Primary Care Provider [phone] Reason for Visit * Reason Onset Date Comments Results 07/30/2024 Encounter Details Date Type Department Care Team ([facility] st Contact Info) Description 07/30/2024 Telephone [facility] MEDICINE [address] [place] [address] Jaimie Cadena MD [address] [place], [place] [phone] Results Social History Tobacco Use Types Packs/Day Years [...] AM EDT documented as of this encounter Miscellaneous Notes * Telephone Encounter - Manuel Cheung - 07/31/2024 9:30 AM EDT Tc from pt requesting status of prior message Please return call [phone] * Telephone Encounter - Myriam Muhammad - 07/30/2024 11:06 AM EDT TC from pt requesting call back regarding Results. Type of results: Helicobacter pylori Antigen, EIA, Stool Date when done: 07/25/2024 Facility: [facility] [phone] [facility] documented in this encounter Plan of Treatment Upcoming Encounters Date Type Department Care Team (Late st Contact Info) Description 04/28/2025 12:45 PM EST Office Visit [facility] ADULT D[facility]AL [address] [place] [address] Melquiaeds Hawkins documented as of this encounter Visit Diagnoses Not on filedocumented in this encounter Additional Health Concerns Assessment Noted Time PHQ-9 Depression Total Score: 16 024 9:53 AM EDT documented as of this encounter Care Teams Ice Rink Attendant Relationship Specialty Start Date End Date Jaimie Cadena MD [address] [place] [address] PCP - General Internal Medicine 05/25/23 documented as of this encounter
--- OUTSIDE RECORDS SUMMARY | 2024-12-17 21:26 | XMS_ITS | Encounter Summary ---
Author Organization [employer] Address [address] [facility] 7 [place] [address] Care Team Providers Care Clinical Psychiatrist Name Role Phone Jaimie Cadena MD Primary Care Provider [phone] Reason for Visit * Reason Onset Date Comments New Med Request 05/25/2023 Encounter Details Date Type Department Care Team ([facility] st Contact Info) Description 05/25/2023 Telephone [facility] MED[facility]INE [address] [place] [address] Jaimie Cadena MD [address] [place], [place] [phone] New Med Request Social History Tobacco Use Types Packs/Day Years [...] 1:19 PM PHILOMENAT Mary Pizano MA Feeling bad about yourself [...] Pizano MA documented as of this encounter Miscellaneous Notes * Telephone Encounter - Keshia Sheridan RN - 05/26/2023 10:32 AM EDT Returned call to pt and informed med was sent to pharmacy last night and can fern picker med at pt convenience. Pt agrees with plan. * Telephone Encounter - Ines Alfred - 05/25/2023 3:57 PM EDT Tc from pt stating during visit today Dr Cadena stated will send script for Lisinopril, however went to the pharmacy and is not there, please advise. documented in this encounter Plan of Treatment Upcoming Encounters Date Type Department Care Team (Late st Contact Info) Description 04/28/2025 12:45 PM EST Office Visit [facility] ADULT DENTAL [address] [facility] [place] [address] Melquiades Hawkins documented as of this encounter Visit Diagnoses Not on filedocumented in this encounter Additional Health Concerns Assessment Noted Time PHQ-9 Depression Total Score: 9 05/25/19 24 1:19 PM EDT documented as of this encounter Care Teams Clinical Psychiatrist Relationship Specialty Start Date End Date Jaimie Cadena MD [address] [place] [phone] PCP - General Internal Medicine 05/25/23 documented as of this encounter
--- OUTSIDE RECORDS SUMMARY | 2024-12-17 21:26 | XMS_ITS | Clinical Summary ---
Author Organization [employer] Address 75 [facility] 7t [place] [address] Care Team Providers Care Pile Fabric Knitter Name Role Phone Jaimie Cadena MD Primary Care Provider [phone] Allergies No known active allergies Medications * This document contains information received from the source organization and may not represent a complete record from that organization. valACYclovir (Valtrex) 1 g tablet Take 1 tablet (1,000 mg) by mouth Once per day. 30 tablet 01/25/20 24 025 Active Additional Information Patient not taking.Reported on 11/27/2024 Omeprazole 20 MG tablet delayed-releas e Take 1 tablet (20 mg) by mouth Once per day. 90 tablet 07/26/19 25 Active Additional Information Patient not taking.Reported on 11/27/2024 FLUoxetine (PROzac) 20 MG capsuleIndicat ions:Anxiety with depression Take 1 capsule (20 mg) by mouth Once per day. 30 capsule 09/05/19 026 Active lisinopril (Prinivil) 20 MG tablet Take 1 tablet (20 mg) by mouth Once per day. 30 tablet 09/05/19 026 Active cyclobenzaprin e (Flexeril) 10 MG tabletIndicati ons:Neck pain TAKE 1 TABLET BY MOUTH THREE TIMES DAILY 30 tablet 2 11/22/19 25 Active SUMAtriptan (Imitrex) 100 MG tablet TAKE 1 TABLET BY MOUTH ONCE NEEDED FOR MIGRAINE 9 tablet 3 12/03/19 25 Active SUMAtriptan (Imitrex) 100 MG tablet TAKE 1 TABLET BY MOUTH ONCE NEEDED FOR MIGRAINE 9 tablet 3 07/24/19 25 025 Discontinued cyclobenzaprin e (Flexeril) 10 MG tabletIndicati ons:Neck pain Take 1 tablet (10 mg) by mouth 3 times daily. 30 tablet 2 09/05/19 25 025 Discontinued Active Problems Problem Noted Date Diagnosed Date Helicobacter pylori (H. pylori) infection 2024 Assessment & Plan (08/01/2024 2:26 PM EDT): Positive results, will start on quadruple therapy, risk vs benefits discussed, follow up in 6 weeks for erradication confirmation Bloating 07/26/2024 Assessment & Plan (07/26/2024 2:10 PM EDT): Bloating with flatus, and gerd, will order hpylori test, fodmap diet reviewed, call back if not improving Encounter for circumcision 07/26/2024 Assessment & Plan (07/26/2024 2:11 PM EDT): Will refer to urology for evaluation Neck pain 01/31/2024 Assessment & Plan (01/31/2024 3:49 PM EST): Apply heat on affected area Acetaminophen PRN Flexeril 10mg Q 8hrs if needed (Patient is aware of side effect somnolence, I advise not to drive while on this medication) Anxiety with depression 12/11/2023 Assessment & Plan (12/11/2023 2:22 PM EDT): I prescribed for him his fluoxetine 20mg daily Continue to f/u with PCP 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 Manjula experiences depressive symptoms on and off over the last two years per his report. Constant headaches, relationship issues and every day stress exacerbates symptoms and are identified as triggers for presentation of sxs. He currently lives with his mom; has positive support from family. During today's consult, Manjula was engaged in active, reflective listening. clinician provided intervention and assessed for risk, stressors, and protective factors using open-ended questions. Discussed grounding techniques: meditation, journaling, physical activity as part of self-regulation when symptoms increase. PLAN: (check all that apply) Behavioral Health Integration Plan Patient Self Plan Patient to utilize skills provided in intervention , Patient to reach out to [facility] team as needed, and Patient to reach out to [facility] as needed. Due to limited insurance patient was self- referred to [facility] programs. clinician will be available if requested/needed during next medical appointment. Persistent depressive disorder 09/14/2023 Assessment & Plan (09/18/2023 10:17 AM EDT): During IBH Consult Manjula presenting with depressed mood, loss of interests/pleasure , changes in sleep difficulty falling asleep, change in appetite or weight reduce appetite, psychomotor retardation, trouble concentrating, thoughts of worthlessness or guilt, fatigue/loss of energy, difficulty concentrating; for a period of 24+ mo, for all symptoms in the context of divorce/separation and illness or family illness. Manjula experiences depressive symptoms on and off over the last two years per his report. Constant headaches, relationship issues and every day stress exacerbates symptoms and are identified as triggers for presentation of sxs. He currently lives with his mom; has positive support from family. During today's consult, Manjula was engaged in active, reflective listening. clinician provided intervention and assessed for risk, stressors, and protective factors using open-ended questions. Discussed grounding techniques: meditation, journaling, physical activity as part of self-regulation when symptoms increase. PLAN: (check all that apply) Behavioral Health Integration Plan Patient Self Plan Patient to utilize skills provided in intervention , Patient to reach out to [facility] team as needed, and Patient to reach out to [facility] as needed. Due to limited insurance patient was self- referred to [facility] programs. clinician will be available if requested/needed during next medical appointment. Lesion of frontal lobe of brain 05/25/2023 Hypertension 05/25/2023 Assessment & Plan (12/11/2023 2:21 PM EDT): I advise low Na diet I refilled his lisinopril F/u with PCP Elevated blood pressure reading 05/08/2023 Assessment & Plan (05/08/2023 2:44 PM EST): Pos Fam Hx Counseled re low salt diet/increase moderate physical activity. Check home BP TIW and prn CP/BROWN/CARREON, fu with new PCP in 2w Non smoking patient. Vision abnormalities 05/08/2023 Assessment & Plan (05/08/2023 2:44 PM EST): Likely related to migraine Last exam > 2y ago, will refer to eye clinic. New daily persistent headache 05/08/2023 Assessment & Plan (05/08/2023 2:44 PM EST): Most likely migraine BROWN, he has Fam Hx or it could have been triggered by recent viral disease or other conditions, HTN? Order labs to ro underlying conditions.. Take Tylenol prn onset BROWN. Take Imitrex 100 mg if BROWN is not resolved within 2h after taking tylenol Encounters Date Type Department Care Team Description 12/01/2024 Refill [facility] MEDICINE [address] [place] [address] Jaimie Cadena MD 11/27/2024 1:00 PM EDT Office Visit [facility] ADULT DENTAL [address] [place] [address] Nelli Real DDS 11/21/2024 Refill [facility] [address] [place], [place] [phone] Jaimie Cadena MD Neck pain 10/28/2024 Telephone [facility] WALK[facility] [address] [place] [address] Claude Haynes MD 10/25/2024 11:00 AM EDT Office Visit [facility]ULT [facility] [address] [place] [address] Melquiades Hawkins Dental calculus (Primary Dx); 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 Orders Only [facility] [address] [place] [address] Provider, MD Micheal from Last 3 Months Immunizations Immunization Administration Dates Next Due Hep B, adult 08/31/2023,12/18/2022 Influenza Injectable Quadriv alant Preservative Free IIV4 MDCK 12/18/2022 Influenza, seasonal, injectable, preservative fr ee 01/25/2024 MMR 12/18/2022 Tdap 12/18/2022 Family History Medical History Relation Name Comments brain bleed Father Migraines Mother Relation Name Status Comments Brother Alive Daughter Alive Father Mother Alive Sister Alive Social History Tobacco Use Types Packs/Day Years Used Date Smoking Tobacco: Never Passive Smoke Exposure: Never Smokeless Tobacco: Never Tobacco Cessation:Counseling Given: Not Answered Alcohol Use Standard Drinks/Week Comments Not Currently [...] the past 12 months, has t he [employer] oil or water company threatened to shut [...] Don't know 09/28/2022 9: 44 AM EDT Last Filed Vital Signs Vital Sign Reading Time Taken Comments Blood Pressure 140/62 11/27/2024 1:12 PM EDT Pulse 80 10/25/2024 11:06 AM EDT Temperature 36.3 C (97.3 F) 09/04/2024 10:13 AM EDT Respiratory Rate 16 09/04/2024 10:13 AM EDT Oxygen Saturation 99% 07/25/2024 3:47 PM EDT Inhaled Oxygen Concentration - - Weight 83 kg (183 lb) 09/04/2024 10:13 AM EDT Height 170.2 cm (5' 7 ) 09/04/2024 10:13 AM EDT Body Mass Index 28.66 09/04/2024 10:13 AM EDT Plan of Treatment Upcoming Encounters Date Type Department Care Team (Late st Contact Info) Description 04/28/2025 12:45 PM EST Office Visit [facility] ADULT [facility] [address] [place] [address] Melquiades Hawkins Health Maintenance Due Date Last Done Comments Disability Screening 1990 Family Planning (PISQ) 2005 HPV Vaccines (1 - Male 3-dos e series) 2005 Hepatitis B Vaccines (3 of 3 - 19+ 3-dose series) 10/26/2023 08/31/2023, 12/18/2022 COVID-19 Vaccine (1 - 2023-2 5 season) 2024 Influenza Vaccine (#1) 2024 , 12/18/2022 Dental X-Ray: Bitewings 04/25/2025 04/24/2024 Dental Oral Exam 04/28/2025 10/25/2024, 04/24/2024 Dental Prophylaxis 04/28/2025 10/25/2024, 04/24/2024 Alcohol/Substance Use Screening 09/04/2025 09/04/2024 Depression Screening 09/04/2025 09/04/2024, 09/04/2024 SDOH Screening 09/04/2025 09/04/2024 Tobacco Screening 11/27/2025 11/27/2024 Dental X-Ray: Full Mouth 05/22/2027 025, 04/24/2024 Lipid Panel 05/09/2028 05/10/2023 DTaP/Tdap/Td Vaccines (2 - T d or Tdap) 12/18/2032 12/18/2022 Zoster Vaccines (1 of 2) 2040 RSV Patients and Patients Aged 60 years or older (1 - 1-dose 75+ series) 2065 HIV Screening Completed 01/25/2024, 08/22/2023 Hepatitis C Screening Completed 01/25/2024 , 08/22/2023 HIB Vaccines Aged Out No longer eligi ble based on patient's age to complete this topic Hepatitis A Vaccines Aged Out No long er eligible based on patient's age to complete this topic IPV Vaccines Aged Out No longer eligi ble based on patient's age to complete this topic Meningococcal B Vaccine Aged Out No l onger eligible based on patient's age to complete this topic Meningococcal Vaccine Aged Out No pema louie eligible based on patient's age to complete this topic Pneumococcal Vaccine: Pediatrics (0 to 5 Years) and At-Risk Patients (6 to 49) Years Aged Out No longer eligible b ased on patient's age to complete this topic RSV under 20 months Aged Out No longe r eligible based on patient's age to complete this topic Rotavirus Vaccines Aged Out No longer eligible based on patient's age to complete this topic Procedures Procedure Name Priority Date/Time Associated Diagnosis Comments 2 O RESIN-BASED COMPOSITE - 1 SURF, POSTERIOR Routine 11/27/2024 1:00 PM EDT CASE PRESENTATION, DETAILED AND EXTENSIVE TREATMENT PLANNING Routine 11/27/2024 1:00 PM EDT PERIODIC ORAL EVALUATION - ESTABLISHED PATIENT Routine 10/25/2024 11:00 AM EDT ORAL HYGIENE INSTRUCTIONS Routine 10/25/2024 11:00 AM EDT PROPHYLAXIS - ADULT Routine 10/25/2024 1 1:00 AM EDT CASE PRESENTATION, DETAILED AND EXTENSIVE TREATMENT PLANNING Routine 10/25/2024 11:00 AM EDT 30 B COMPOSITE FILLING Routine 10/25/2024 12:00 AM EDT 29 O COMPOSITE FILLING Routine 10/25/2024 12:00 AM EDT 28 O COMPOSITE FILLING Routine 10/25/2024 12:00 AM EDT SURGICAL PATHOLOGY Routine 10/21/2024 12 :37 PM EDT AMB REFERRAL TO UROLOGY Routine 10/21/2024 Encounter for circumcision PANORAMIC RADIOGRAPHIC IMAGE Routine 05/20/2024 2:30 PM EDT INTRAORAL - COMPLETE SERIES OF RADIOGRAPHIC IMAGES Routine 04/24/2024 2:00 PM EST HEPATITIS C AB W/REFL TO HCV RNA, QN, PCR Routine 01/25/2024 4:15 PM EST Anxiety with depression Primary hypertension Herpes simplex infection of penis HIV 1/2 ANTIGEN/ANTIBODY, FOURTH GENERATION W/RFL Routine 01/25/2024 4:15 PM EST Anxiety with depression Primary hypertension Herpes simplex infection of penis LIPID PANEL WITH REFLEX TO DIRECT LDL Routine 05/10/2023 10:05 AM EST New daily persistent headache from Last 3 Months or Most Recently Relevant to Health Maintenance Results * Surgical Pathology (10/21/2024 12:37 PM EDT) Historical Provider LAB PATHOLOGY ORDERABLES Final Result * Referral to Urology (10/21/2024) us Rolf Cruz MD OUTPATIENT REFERRA L ORDERABLES Final Result * Hepatitis C Antibody with Reflex to HCV, RNA, Quantitative, Real-Time PCR (01/25/2024 4:15 PM EST) Hepatitis C Antibody Nonreactive Nonreactive [facility] Comment:Antibodies to HCV no t detected; does not exclude early acuteHCV infection. Blood Venous blood specimen / Unknown 01/25/2024 4:15 PM EST 01/25/2024 5:47 PM EST us Jaimie Cadena MD LAB BLOOD ORDERABLES Final Re sult Performing Organization Address City/[facility] Co de Phone Number [facility] [address] [place] [phone] * HIV-1/2 Antigen and Antibodies, Fourth Generation, with Reflexes (01/25/2024 4:15 PM EST) HIV AB/AG Nonreactive Nonreactive [facility] Comment:HIV-1 p24 Ag and/or HIV-1/HIV-2 Ab not detected.A test result that is nonreactive does not exclude thepossibility of exposure to or infection with HIV-1 and/orHIV-2. Nonreactive results in this assay for individualswith prior exposure to HIV-1 and/or HIV-2 may be due toantigen and antibody levels that are below the limit ofdetection of this assay.The [employer] HIV Ag/Ab Combo assay result andsupplemental assay results should be interpreted inconjunction with the patient's clinical presentation,history and other laboratory results. If the results areinconsistent with clinical evidence, additional testing issuggested to confirm the result. Blood Venous blood specimen / Unknown 01/25/2024 4:15 PM EST 01/25/2024 5:47 PM EST Jaimie Cadena MD LAB BLOOD ORDERABLES Final Re sult Performing Organization Address City/[facility]/ZIP Co de Phone Number [facility] [address] [place] [address] [phone] * (ABNORMAL) Lipid Panel with Reflex to Direct LDL (05/10/2023 10:05 AM EST) Triglycerides 145 <150 mg/dL [facility] Comment:Desirable Triglyceri de: less than 150 mg/dLBorderline High Triglyceride 150-199 mg/dLHigh Triglyceride: 200-499 mg/dLVery High Triglyceride: greater than or equal to 5OO mg/dL Cholesterol 150 <200 mg/dL [facility] Comment:Desirable Cholestero l: less than 200 mg/dLBorderline High Cholesterol: 200-239 mg/dLHigh Cholesterol: greater than 239 mg/dL LDL Cholesterol Calculated 85 <100 mg/dL [facility] Comment:Desirable LDL: less than 100 mg/dLNear Optimal/Above Optimal LDL: 110- 129 mg/dLBorderline High LDL: 130-159 mg/dLHigh LDL: 160-189 mg/dLVery High LDL: greater than or equal to 190 mg/dL HDL Cholesterol 36(L) >40 mg/dL [facility] Comment:Desirable HDL: great er than 40 mg/dL Note: This HDL assay may give artificially low results in patients with liver disease. Blood 05/10/2023 10:0 5 AM EST 05/10/2023 11:23 AM EST Emelia Hui MD LAB BLOOD ORDERABLES Fin al Result Performing Organization Address City/State/[facility] Co de Phone Number [facility] [address] [place] [phone] from Last 3 Months or Most Recently Relevant to Health Maintenance Insurance [facility] D[facility] MEDICAID LIMITED ADULT DENTAL - [facility]SN FULL (MEDICAID) Care Teams Pile Fabric Knitter Relationship Specialty Start Date End Date Jaimie Cadena MD [address] [place] [phone] PCP - General Internal Medicine 05/25/23
--- OUTSIDE RECORDS SUMMARY | 2024-12-17 21:26 | XMS_ITS | Encounter Summary ---
Author Organization [employer] Address [address] [place] [address] 7[address] [place] [address] Care Team Providers Care Brim Flexer Name Role Phone Jaimie Cadena MD Primary Care Provider [phone] Reason for Visit * Reason Onset Date Comments New Patient 11/30/2022 Encounter Details Date Type Department Care Team (Late Contact Info) Description 11/30/2022 Telephone [facility] MEDICINE [address] [place] [address] Hakeem Akhtar MD [address] [place] [address] New Patient Social History Tobacco Use Types Packs/Day Years Used Date Smoking Tobacco: Never Assessed Sex and Gender Information Value Date Recorded Sex Assigned at Male 09/28/2022 9:44 AM EDT Legal Sex Male 9:43 AM EDT Gender Identity Male 09/28/2022 9:44 AM EDT Sexual Orientation Don't know 09/28/2022 9: 44 AM EDT documented as of this encounter Miscellaneous Notes * Telephone Encounter - Jenny Rivers - 11/30/2022 2:03 PM EDT New Patients Par Jenny Rodriguez called to schedule New patient appt, pt did not answer/ could not leave voicemail documented in this encounter Plan of Treatment Upcoming Encounters Date Type Department Care Team (Late Contact Info) Description 04/28/2025 12:45 PM EST Office Visit [facility] ADULT D[facility] [address] [place], [place] [phone] Melquiades Hawkins documented as of this encounter Visit Diagnoses Not on filedocumented in this encounter Care Teams Brim Flexer Relationship Specialty Start Date End Date Jaimie Cadena MD [address] [place] [phone] PCP - General Internal Medicine 05/25/23 documented as of this encounter
--- OUTSIDE RECORDS SUMMARY | 2024-12-17 21:26 | XMS_ITS | Clinical Summary ---
Author Organization [facility] Address [address] [place] [address] Care Team Providers Care Manager Sales Support Name Role Phone Jaimie Cadena Primary Care Provider [phone] Allergies No known active allergies Medications butalbital-acet aminophen-caffe ine (FIORICET) 50-325-40 mg tablet Take 1 tablet by mouth 3 times daily as needed for migraine. 05/25/2023 Active lisinopriL (PRINIVIL,ZESTR IL) 10 mg tablet Take 10 mg by mouth once a day. Active SUMAtriptan (IMITREX) 100 mg tablet Take 100 mg by mouth once as needed. Active acetaminophen (TYLENOL) 325 mg tablet Take 2 tablets (650 mg total) by mouth every 6 hours as needed for pain. 10/21/2024 Active Active Problems No known active problems Encounters Date Type Department Care Team Description 10/21/2024 10:05 AM EDT Anesthesia Event [facility] Operating Room [address] [place] [address] Tavares Shine MD Gioules, Nicole A, DO 10/21/2024 9:10 AM EDT - 10/21/2024 11:10 AM EDT Surgery [facility] Operating Room [address] [place] [address] Luciana Mata MD Circumcision, penile block, all indicated procedures [98313 (CPT )] 10/21/2024 6:36 AM EDT - 10/21/2024 1:29 PM EDT Hospital Encounter [facility] Operating Room [address] [place] [address] Luciana Mata MD Redundant prepuce Discharge Disposition: Home or Self Care () 10/21/2024 Telephone [facility] Urology [address] [address] [employer] Supervisor: Luciana Bellamy MD 09/27/2024 Results Follow-Up [facility] Urology [address] [address] [employer] Supervisor: Luciana Bellamy MD 09/27/2024 myChart Message [facility] Operating Room [address] [place] [address] Manuela, [facility] Provider Questionnaire Submission 09/25/2024 5:14 PM EDT - 09/25/2024 11:59 PM EDT Hospital Encounter [facility] Ultrasound [address] [place] [address] Luciana Mata MD History of nephrolithiasis Discharge Disposition: Home or Self Care () 09/25/2024 Telephone [facility] Urology [address] [address] [employer] Supervisor: Luciana Bellamy MD 09/16/2024 11:00 AM EDT Office Visit [facility] Urology [address] [address] [employer] Supervisor: Luciana Bellamy MD Redundant prepuce (Primary Dx); History of nephrolithiasis 09/16/2024 Telephone [facility] Urology [address] [address] [employer] Supervisor: Luciana Bellamy MD 09/16/2024 Prep for [facility] [address] [place] [address] [employer] Supervisor: Luciana Bellamy MD Redundant prepuce (Primary Dx) from Last 3 Months Family History Medical History Relation Name Comments Bladder Cancer Neg Hx Kidney cancer Neg Hx Prostate cancer Neg Hx Urolithiasis Neg Hx Social History Tobacco Use Types Packs/Day Years Used Date Smoking Tobacco: Never Passive Smoke Exposure: Never Smokeless Tobacco: Never Alcohol Use Standard Drinks/Week Comments Yes 0 (1 standard drink = 0.6 oz pur e alcohol) social Sex and Gender Information Value Date Recorded Sex Assigned at Male 07/02/2023 7:40 PM EDT Legal Sex Male 12:25 PM EDT Gender Identity Male 07/02/2023 7:40 PM EDT Sexual Orientation Choose not to disclose 2023 7:40 PM EDT Last Filed Vital Signs Vital Sign Reading Time Taken Comments Blood Pressure 128/89 10/21/2024 12:30 PM EDT Pulse 61 10/21/2024 12:30 PM EDT Temperature 36.1 C (97 F) 10/21/2024 12:30 PM EDT Respiratory Rate 23 10/21/2024 12:30 PM EDT Oxygen Saturation 100% 10/21/2024 12:30 PM EDT Inhaled Oxygen Concentration - - Weight 84.6 kg (186 lb 8.2 oz) 10/21/2024 7:14 A M EDT Height 178.4 cm (5' 10.24 ) 10/21/2024 7:14 AM E DT Body Mass Index 26.58 10/21/2024 7:14 AM EDT Plan of Treatment Health Maintenance Due Date Last Done Comments Varicella Vaccines (1 of 2 - 13+ 2-dose series) 05/18/2003 Hepatitis B Vaccines (3 of 3 - 19+ 3-dose series) 10/26/2023 08/31/2023, 12/18/2022 Alcohol/Substance Use Screening 03/06/2024 Depression Screening and Follow-Up 03/06/2024 Social Drivers of Health Annual Screening 03/06/2024 Basic Metabolic Panel 05/09/2024 05/10/2023 COVID-19 Vaccine (1 - 2024-2 6 season) 2024 Influenza Vaccine (#1) 2024 , 12/18/2022 DTaP,Tdap,and Td Vaccines (2 - Td or Tdap) 12/18/2032 12/18/2022 RSV Vaccine (60+ years old and patients) (1 - 1-dose 75+ series) 2065 HIV Screening Completed 01/25/2024, 01/25/2024, 08/22/2023 Hepatitis C Screening Completed 01/25/2024 Pneumococcal Vaccine: Pediatric (0-5 Years) and At-Risk Patients (6-50 Years) Aged Out No longer eligible based on patient's age to complete this topic Procedures * Due to [place] [employer] law, this organization might not be sharing negative HIV tests. Procedure Name Priority Date/Time Associated Diagnosis Comments TISSUE EXAM Routine 10/21/2024 10:42 AM EDT Redundant prepuce [place] CIRCUMCISION,OTHR 10/21/2024 9:57 AM EDT Redundant prepuce US KIDNEY AND BLADDER COMPLETE Routine 09/25/2024 6:12 PM EDT History of nephrolithiasis from Last 3 Months Results * Due to [place] [employer] law, this organization might not be sharing negative HIV tests. * Tissue Exam (10/21/2024 10:42 AM EDT) Final Diagnosis Foreskin, Circumcision: - Unremarkable foreskin [facility] 10/22/2024 1:13 PM EDT [employer] [facility] at 1313 EDT Clinical History Pre-op diagnosis: Redundant prepuce [N47.8] [facility] 10/22/2024 1:13 PM EDT [employer] [facility] Gross Description 1. Foreskin The specimen is received in formalin, labeled with the patient's name, medical record number, date of , and foreskin . It consists of a 7.5 x 3.5 x 1.3 cm dark brown, wrinkled skin fragment with a pink-red, shaggy underlying fascial plane (inked black). The skin surface is unremarkable for any grossly identifiable lesions. The cut surface ranges from red-pink and soft to focally fibrous. Siding Applicator sections are submitted in 1A. [facility] MANUAL 10/22/2024 1:13 PM EDT [facility] Gross Description User Grossing complete by Hope Terry on 10/21/2024 1:40 PM [facility] MANUAL 10/22/2024 1:13 PM EDT [employer] [facility] Embedded Images [facility] MANUAL 10/22/2024 1:13 PM EDT [facility] [employer] Resulting Agency Case was signed out at [facility], Department of Pathology, [employer] 3 CLIA [id number] [facility] MANUAL 10/22/2024 1:13 PM EDT [facility] [employer] [facility] Report Header Surgical Pathology Report Case: [id number] Authorizing Provider: Luciana Mata MD Collected: 10/21/2024 1042 Ordering Location: [facility] Received: 10/21/2024 [facility] Operating Room Pathologist: Jaden Lind MD Specimen: Foreskin, foreskin 10/22/2024 1:13 PM EDT [facility] [employer] [facility] Tissue Structure of prepuce of penis / Unknown 10/21/2024 10:42 AM EDT 10/21/2024 12:42 PM EDT Comment:Pre-op diagnosis: Redundant prepuce [N47.8] us Luciana Mata MD LAB PATHOLOGY/CYTOLOGY OR DERABLES Final Result [facility] [employer] [facility] [address] [place] [address], [place] * US Kidney Complete and Bladder (09/25/2024 6:12 PM EDT) Anatomical Region Laterality Modality Body N/A Ultrasound 09/26/2024 5:13 AM EDT Impressions 09/26/2024 5:15 AM EDT Impression: 1. No sonographically evident nephrolithiasis bilaterally. No indwelling ureteral stents seen. Communication: Per written report. If this radiology report contains a blank impression section, it is an incomplete radiology report. Please contact the interpreting radiologist or applicable radiology division as soon as possible to obtain the completed interpretation. Workstation ID: [id number] Narrative 09/26/2024 5:15 AM EDT Examination: Renal ultrasound. Indication: Unclear history of stone treatment or presence of stent Technique: Real-time sonographic evaluation of the kidneys and bladder with color Doppler and pre and post voiding bladder volume calculation is performed and business services representative static images and cine captures are submitted. Comparison: None Findings: RIGHT KIDNEY: 11.0 cm. Extrarenal pelvis. Normal parenchyma without solid mass hydronephrosis or sonographically evident nephrolithiasis. Patent vasculature. No ureteral stent identified. LEFT KIDNEY: 11.6 cm. Normal parenchyma without solid mass hydronephrosis or sonographically evident nephrolithiasis. Patent vasculature. No ureteral stent identified. BLADDER: Distended total volume of 274 mL. Both ureteral jets seen. No ureteral stent identified. No dependent debris or bladder wall thickening Post voiding residual 6 mL. Resulting Agency Comment [id number] Procedure Note Massimo, Bre Ireland MD - 09/26/2024 Examination: Renal ultrasound. Indication: Unclear history of stone treatment or presence of stent Technique: Real-time sonographic evaluation of the kidneys and bladderwith color Doppler and pre and post voiding bladder volume calculation isperformed and business services representative static images and cine captures aresubmitted. Comparison: None Findings: RIGHT KIDNEY: 11.0 cm. Extrarenal pelvis. Normal parenchyma without solidmass hydronephrosis or sonographically evident nephrolithiasis. Patentvasculature. No ureteral stent identified. LEFT KIDNEY: 11.6 cm. Normal parenchyma without solid mass hydronephrosisor sonographically evident nephrolithiasis. Patent vasculature. Noureteral stent identified. BLADDER: Distended total volume of 274 mL. Both ureteral jets seen. Noureteral stent identified. No dependent debris or bladder wall thickeningPost voiding residual 6 mL. IMPRESSION: Impression: 1. No sonographically evident nephrolithiasis bilaterally. No indwellingureteral stents seen. Communication: Per written report. If this radiology report contains a blank impression section, it is anincomplete radiology report. Please contact the interpreting radiologistor applicable radiology division as soon as possible to obtain thecompleted interpretation. Workstation ID: [id number] us Luciana Mata MD IMG US PROCEDURES Final R esult from Last 3 Months Insurance [facility] [place] [id number] HSNO/FREE CARE Care Teams Manager Sales Support Relationship Specialty Start Date End Date Jaimie Cadena [address] [place] [id number] PCP - General Internal Medicine 06/15/23
--- OUTSIDE RECORDS SUMMARY | 2024-12-17 21:26 | XMS_ITS | Encounter Summary ---
Author Organization [employer] Address [address] [place] [address] Care Team Providers Care Prism Measurer Name Role Phone Jaimie Cadena MD Primary Care Provider [phone] Encounter Details Date Type Department Care Team (Late st Contact Info) Description 10/23/2024 Orders Only [facility] [address] [place] [address] ProviderMicheal MD Social History Tobacco Use Types Packs/Day Years [...] AM EDT documented as of this encounter Plan of Treatment Upcoming Encounters Date Type Department Care Team (Late st Contact Info) Description 04/28/2025 12:45 PM EST Office Visit [facility] [place] [facility] [address] [place] [address] Melquiades Hawkins documented as of this encounter Procedures Procedure Name Priority Date/Time Associated Diagnosis Comments SURGICAL PATHOLOGY Routine 10/21/2024 12:37 PM EDT documented in this encounter Results * Surgical Pathology (10/21/2024 12:37 PM EDT) us Historical Provider LAB PATHOLOGY ORDERABLES Final Result documented in this encounter Visit Diagnoses Not on filedocumented in this encounter Additional Health Concerns Assessment Noted Time PHQ-9 Depression Total Score: 0 09/05/19 25 10:20 AM EDT documented as of this encounter Care Teams Prism Measurer Relationship Specialty Start Date End Date Jaimie Cadena MD [address] [place] [address] PCP - General Internal Medicine 05/25/23 documented as of this encounter
[2024-12-17 22:36] VITALS: BP 135/91; PULSE 75; RESP 16; TEMP -17.7; TEMP 0; O2SAT 96
== END 2024-12-17 22:37 | disposition home or self-care (01) ==
PROVIDERS: Registered Nurse Emergency; Emergency Provider Emergency Medicine
DX: G44.209 Tension-type headache, unspecified, not intractable (principal)
CPT/HCPCS: 87502; 87635; 99283; J1885

== ENCOUNTER 2025-01-06 10:32 | Emergency (ER) | payer MEDICAID, OTHER, SELFPAY ==
--- NOTE | ~2025-01-06 | CT_ITS ---
EXAMINATION: CT ANGIOGRAM HEAD AND NECK CLINICAL INFORMATION: Left eye pain, elevated intraocular pressure. COMPARISON: No prior CT angiography. Correlation made with CT noncontrast head 04/29/2023. TECHNIQUE: Noncontrast axial imaging of the head was performed. This was followed by test bolus sequences and head and neck intravenous bolus administration 70 mL of Omnipaque 350. Helical imaging was performed in the axial plane from the aortic arch to the skull vertex. The data was processed at the nuclear medicine chief technologist's workstation for generation of MIP sequences. Angled MIPs and volume rendered reformatted images were also generated at an offline 3D workstation. Stenoses are assessed in accordance with NASCET criteria unless otherwise indicated. This CT examination was performed using dose optimization techniques as appropriate, variously including the following: *Automated exposure control *Adjustment of mA and/or kV according to patient size (this includes techniques or standardized protocols for targeted exams where dose is matched to indication/reason for exam; i.e. extremities or head) *Use of iterative reconstruction technique FINDINGS: NONCONTRAST HEAD CT: There is no evidence of intracranial hemorrhage or extra-axial fluid collection. There is no mass effect, or edema. No CT evidence of acute territorial infarct. Ventricles, sulci, and cisterns are normal in size and configuration for patient age. No hydrocephalus. No midline shift. No significant white matter abnormalities. Globes and orbital contents image normally. No extracranial soft tissue abnormalities. The paranasal sinuses, mastoid air cells, and tympanic cavities are normally aerated. No suspicious bony abnormalities. NECK CTA: -AORTIC ARCH: Normal in caliber. No atheromatous calcification. Three-vessel branching pattern. -GREAT VESSEL ORIGINS: Widely patent. No stenosis. -RIGHT COMMON CAROTID ARTERY: Normal in course and caliber to the level of the bifurcation. -CERVICAL RIGHT INTERNAL CAROTID ARTERY: Normal opacification without focal stenosis or occlusion. -LEFT COMMON CAROTID ARTERY: Normal in course and caliber to the level of the bifurcation. -CERVICAL LEFT INTERNAL CAROTID ARTERY: Normal opacification without focal stenosis or occlusion. -CERVICAL RIGHT VERTEBRAL ARTERY: Dominant. Normal in origin, course and caliber into the skull base. -CERVICAL LEFT VERTEBRAL ARTERY: Nondominant. Normal in origin, course and caliber into the skull base. OTHER, SOFT TISSUES: -No lymphadenopathy or mass. No abnormal fluid collection or soft tissue swelling. -Normal thyroid. -Imaged superior mediastinal structures normal. -Imaged lung apices clear. CTA OF THE BRAIN: -INTRACRANIAL INTERNAL CAROTID ARTERIES: No focal stenosis or occlusion. The ophthalmic artery origins enhance normally. -RIGHT ANTERIOR CEREBRAL ARTERY: Normal A1 segment. Normal arborization of the distal segments. -LEFT ANTERIOR CEREBRAL ARTERY: Normal A1 segment. Normal arborization of the distal segments. -ANTERIOR COMMUNICATING ARTERY: Normal. -RIGHT MIDDLE CEREBRAL ARTERY: Normal M1 segment of the MCA without focal stenosis or occlusion. Normal bifurcation. Normal arborization of the distal segments. -LEFT MIDDLE CEREBRAL ARTERY: Normal M1 segment of the MCA without focal stenosis or occlusion. Normal bifurcation. Normal arborization of the distal segments. -RIGHT VERTEBRAL ARTERY V4: Normal in course and caliber. Normal PICA branch. -LEFT VERTEBRAL ARTERY V4: Normal in course and caliber. Normal PICA branch. -BASILAR ARTERY: Normal without focal stenosis or occlusion. Normal appearance of the proximal superior cerebellar arteries. Normal basilar tip. -RIGHT POSTERIOR CEREBRAL ARTERY: Normal P1 segment. Normal opacification of the distal HEEL NAILING MACHINE OPERATOR segments. -LEFT POSTERIOR CEREBRAL ARTERY: Normal P1 segment. Normal opacification of the distal HEEL NAILING MACHINE OPERATOR segments. -POSTERIOR COMMUNICATING ARTERIES: The left is small but present. The right is not well seen. Normal opacification of the superior sagittal, straight, transverse, and sigmoid sinuses. No venous thrombosis. CT/CT angio head neck IMPRESSION: NON-CONTRAST HEAD CT: 1. No intracranial hemorrhage or mass effect. No CT evidence of acute territorial infarct. CTA NECK: 1. No evidence of significant stenosis, occlusion, dissection, or aneurysm of the major cervical arterial vasculature. CTA HEAD: 1. No evidence of significant stenosis, occlusion, dissection, or aneurysm of the major intracranial arterial vasculature. The ophthalmic artery origins bilaterally enhance normally. 2. Major cortical and dural venous sinuses are patent. Electronically signed by: Pablo Dawson MD 01/06/2025 03:48 PM EST
--- NOTE | 2025-01-06 10:37 | ED.GENADULT ---
HPI - General Adult General Chief complaint: Recheck/Abnormal Lab/Rx Stated complaint: head pressure, liu? Time Seen by Provider: 01/06/25 13:09 Source: patient Mode of arrival: ambulatory Limitations: no limitations History of Present Illness ED Provider: ADEOLA LUCAS PA-C HPI narrative: 34-year-old male with pmhx significant for hypertension presents to the ED today for evaluation of left eye pain/pressure x24 hours. Pain has been intermittent. States it feels like a throbbing sensation around the left eye. He does have a history of migraines, managed with Sumatriptan prescribed by his PCP. He did not attempt to take this for his pain. He reports compliance with his antihypertensives (lisinopril). Took this yesterday and this morning without improvement in pain. He is not established with an medical interpreter and has not received an eye exam. Denies fever, chills, nasal congestion, eye tearing, N/V, photophobia, vision changes, scalp tenderness, jaw claudication, neck pain. Related Data Previous Rx's ?Medication ?Instructions ?Recorded oxybutynin chloride 5 mg tablet 5 mg PO BID PRN bladder spasms #60 08/12/22 tabs naproxen 375 mg tablet 375 mg PO BID PRN pain #12 tabs 08/30/22 ondansetron 4 mg disintegrating 4 mg PO Q8H PRN nausea and 04/21/23 tablet vomiting #20 tabs vetojcfged-vbgonzvwfshcm-kgmwmsgn 1 cap PO TID PRN pain #20 caps 04/29/23 50 mg-300 mg-40 mg capsule (Fioricet) sumatriptan succinate 50 mg tablet See Rx Instructions PO .COMPLEX 04/29/23 #10 tabs cyclobenzaprine 10 mg tablet 10 mg PO TID PRN muscle spasm #20 08/02/23 tabs cyclobenzaprine 10 mg tablet 10 mg PO TID PRN muscle spasm #14 12/20/23 tabs ibuprofen 600 mg tablet 600 mg PO Q6H PRN pain #14 tabs 12/20/23 ibuprofen 600 mg tablet 600 mg PO Q6H PRN pain #20 tabs 01/13/24 cyclobenzaprine 10 mg tablet 10 mg PO TID PRN muscle spasm #20 12/17/24 tabs naproxen 500 mg tablet 500 mg PO BID PRN pain #20 tabs 12/17/24 rvcrcctghe-bfnkvjhdxiqkn-drvctaec 1 cap PO Q8H PRN headache #5 caps 01/06/25 50 mg-300 mg-40 mg capsule (Fioricet) Allergies Allergy/AdvReac Type Severity Reaction Status Date / Time No Known Allergies Allergy Verified 01/06/25 10:43 Review of Systems Review of Systems: Yes all other systems are reviewed and are negative PMFSH Past Medical History Attestation statement: The following information was validated with the patient. Source: old records reviewed and nursing notes reviewed Medical History Calculus of kidney Hydronephrosis Surgical History Hx of bladder endoscopy Hx of appendectomy Family History Family History Father No problems noted. Mother No problems noted. Social History Social History Alcohol intake: current Alcohol intake frequency: holidays/special occasions only Patient Tobacco Use Status: Never used Tobacco Advance Directives Date on File: 08/02/22 Physical Exam ED Vital Signs: Vital Signs - 24 hr 01/06/25 10:38 01/06/25 13:33 01/06/25 16:27 Temperature 97.7 F Pulse Rate 69 73 66 Respiratory Rate 18 18 18 Blood Pressure 143/87 H 119/76 105/67 Pulse Oximetry 99 98 98 Oxygen Delivery Method Room Air Room Air Room Air 01/06/25 17:18 Temperature 97.9 F Pulse Rate 68 Respiratory Rate 16 Blood Pressure 107/63 Pulse Oximetry 99 Oxygen Delivery Method Room Air BMI result Body Mass Index 30.0 Hypertensive General: Well appearing, in no acute distress. Skin: Warm, dry, intact. No rashes or lesions. Head: Normocephalic, atraumatic. no palpable temporal artery, no scalp tenderness. EENT: Hearing is intact b/l. Moist mucous membranes.?No periorbital swelling. No enophthalmous or exopthalmous. EOMs intact without pain or entrapment. PERRLA. Positive photophobia. No obvious foreign body or abrasion. No conjunctival injection or chemosis. No hazy cornea. Visual acuity 20/20 bilaterally. IOP OD 16.5, IOP OS 17. On tetracaine exam, no reuptake to suggest abrasion or fb. No ulceration. No dendritic lesions. Cardiac: Chest wall symmetric. RRR Lungs: Normal respiratory effort without accessory muscle use. CTA bilaterally Ext: Upper and lower extremities atraumatic, without tenderness, deformity, swelling or erythema Neuro: AOx3. Normal speech. NIH 0. Ambulating with steady gait. Psych: Appropriate mood and affect. Responds appropriately to questions. Course Course Course Narrative: Rapid medical examination performed in triage by Francisca Browning PA-C: Patient is a 34 year old assigned male at presenting to the emergency department with a headache and elevated blood pressure. Patient states that he has a history of high blood pressure and takes his medication as prescribed. Patient states that he has a headache and the urgent care was concerned so they sent him here. Detailed physical exam and review of systems are deferred to the aids social worker. EKG, labs, imaging, and swabs ordered. Patient placed back in the waiting room pending room availability and results. Reevaluation(s) Reevaluation #1: CBC without leukocytosis or left shift. No anemia. H&H stable. Chemistry without acute electrolyte abnormality requiring intervention. No SHANELL. Liver function appears to be around baseline. Troponin undetectable. Negative COVID, flu. CTA head/neck unremarkable. I did perform tetracaine/fluorescein exam which did not demonstrate any abrasion or foreign body. Intra-ocular pressures are normal. Inflammatory markers are normal. > patient endorses improvement in headache after receiving migraine cocktail. Patient has remained stable throughout ED visit today. Discussed worrisome signs and symptoms and when to return to the ED. All questions answered at this time. Patient is agreeable with disposition and stable for discharge. Medications Administered Discontinued Medications Generic Name Dose Route Start Last Admin Trade Name Freq PRN Reason Stop Dose Admin Diphenhydramine HCl 25 mg 01/06/25 13:42 01/06/25 14:58 Diphenhydramine Hcl 50 Mg/Ml Vial IVPUSH 01/06/25 13:43 25 mg ONCE ONE Administration Fluorescein Sodium 1 strip 01/06/25 14:51 01/06/25 15:06 Fluorescein Sodium Strip EYE-LEFT 01/06/25 14:52 1 strip ONCE ONE Administration Iohexol 100 ml 01/06/25 15:19 01/06/25 15:19 Iohexol 350 Mg/Ml 100 Ml Infus..Btl IV 01/06/25 15:20 70 ml ONCE ONE Administration Ketorolac Tromethamine 30 mg 01/06/25 13:42 01/06/25 14:58 Ketorolac Tromethamine 30 Mg/Ml Vial IVPUSH 01/06/25 13:43 30 mg ONCE ONE Administration Metoclopramide HCl 10 mg 01/06/25 13:42 01/06/25 14:58 Metoclopramide Hcl 10 Mg/2 Ml Vial IVPUSH 01/06/25 13:43 10 mg ONCE ONE Administration Tetracaine HCl 1 drop 01/06/25 14:51 01/06/25 15:03 Tetracaine Hcl/Pf 0.5% Oph Ines 4 Ml Drops EYE-LEFT 01/06/25 14:52 1 drop ONCE ONE Administration Medical Decision Making Medical Decision Making [facility] Narrative: 34-year-old male with pmhx significant for hypertension presents to the ED today for evaluation of left eye pain/pressure x24 hours. Differential diagnosis includes anemia, electrolyte abnormality, dehydration, viral syndrome, migraine vs tension type headache. No headache red flags. Neurologic exam without evidence of meningismus. No focal neurologic findings. Presentation not consistent with acute intracranial bleed including SAH. Presentation not consistent with acute SALON RECEPTIONIST infection including meningitis or brain abscess. Temporal arteritis unlikely, as is acute angle closure glaucoma given history and physical findings. Presentation not consistent with other acute, emergent causes of headache at this time. Plan to treat symptomatically with pain medication. No indication for LP at this time. Plan: labs, viral swabs, migraine cocktail, eye exam, CT brain, reassessment Differential Diagnosis Differential Diagnoses: The differential diagnosis associated with the presentation includes as above. Admission/Observation Not indicated Lab Data [facility] Lab Attestation statement: I reviewed the patient's lab results. as above. 01/06/25 11:09 01/06/25 11:09 Labs: Lab Results 01/06/25 Range/Units 11: WBC 6.2 (4.8-10.8) X10*3/uL RBC 6.06 H (4.60-5.80) X10*6/uL Hgb 17.5 (14.0-18.0) g/dl Hct 52.0 (42.0-52.0) % MCV 85.8 (80.0-98.0) fL MCH 28.9 (27.0-33.0) pg MCHC 33.7 (31.0-36.0) g/dl RDW 11.9 (11.0-16.0) % Plt Count 186 (160-400) X10*3/uL MPV 10.2 (9.4-12.4) fL Immature Gran % (Auto) 0.2 (0.0-0.4) % Neut % (Auto) 60.1 (45-73) % Lymph % (Auto) 30.0 (20-40) % [place] % (Auto) 6.1 (2-11) % Eos % (Auto) 2.6 (0-4) % Baso % (Auto) 1.0 (0-2) % Lymph # (Auto) 1.9 (1.2-4.9) X10*3/uL [place] # (Auto) 0.4 (0.1-1.2) X10*3/uL Eos # (Auto) 0.2 (0.0-0.4) X10*3/uL Baso # (Auto) 0.1 (0.0-0.2) X10*3/uL Abs Immat Gran (auto) 0.01 (0.00-0.03) X10*3/uL Absolute Neuts (auto) 3.8 (2.0-8.3) x10*3/uL Absolute Nucleated RBC 0.000 (0.0-0.012) X10*3/uL Nucleated RBC % (auto) 0.0 (0.0-0.2) /100WBC ESR 1 (0-15) MM/HR Sodium 141 (135-145) mmol/L Potassium 5.0 (3.3-5.1) mmol/L Chloride 108 (96-108) mmol/L Carbon Dioxide 30 H (22-29) mmol/L Anion Gap 8 L (12-20) BUN 17 H (9-16) mg/dL Creatinine 1.00 (0.5-1.4) mg/dL Estim Creat Clear Calc 113.0 Estimated GFR > 60 Random Glucose 104 (60-115) mg/dL Calcium 9.7 (8.4-10.2) mg/dL Total Bilirubin 1.1 H (0.0-1.0) mg/dL AST 56 H (5-37) U/L ALT 53 H (0-40) U/L Alkaline Phosphatase 60 (39-117) U/L Troponin I High Sens < 2.7 (<3.5-35.0) ng/L C-Reactive Protein < 0.10 (< or = 0.50) mg/dL Total Protein 7.7 (6.5-8.0) g/dL Albumin 4.9 (3.5-5.0) g/dL COVID-19 (FERNANDA) Negative (Negative) COVID-19 Clin Com See Note Influenza Type A (ERASTO) Negative (Negative) Influenza Type B (ERASTO) Negative (Negative) Influenza A & B Note See Note Independent Interpretation I performed an independent interpretation of an: EKG and CT Scan Interpretation: ekg showing NSR rate 66 bpm, no acute ischemic changes or st elevations ct head without occlusion, bleed Radiology Impression Discussion of test interpretation with radiology: I have reviewed the radiologist's reading. Radiologist Impression: Procedure(s): CT angio head neck Accession Number(s): [id number] cc: Physician,Unknown ; Adeola Lucas~ Report Number: [id number]: Total DLP = 1556.00 mGy-cm Reason for Exam: L EYE PAIN, ELEVATED IOP EXAMINATION: CT ANGIOGRAM HEAD AND NECK CLINICAL INFORMATION: Left eye pain, elevated intraocular pressure. COMPARISON: No prior CT angiography. Correlation made with CT noncontrast head 04/29/2023. TECHNIQUE: Noncontrast axial imaging of the head was performed. This was followed by test bolus sequences and head and neck intravenous bolus administration 70 mL of Omnipaque 350. Helical imaging was performed in the axial plane from the aortic arch to the skull vertex. The data was processed at the geospatial technologist's workstation for generation of MIP sequences. Angled MIPs and volume rendered reformatted images were also generated at an offline 3D workstation. Stenoses are assessed in accordance with NASCET criteria unless otherwise indicated. This CT examination was performed using dose optimization techniques as appropriate, variously including the following: *Automated exposure control *Adjustment of mA and/or kV according to patient size (this includes techniques or standardized protocols for targeted exams where dose is matched to indication/reason for exam; i.e. extremities or head) *Use of iterative reconstruction technique FINDINGS: NONCONTRAST HEAD CT: There is no evidence of intracranial hemorrhage or extra-axial fluid collection. There is no mass effect, or edema. No CT evidence of acute territorial infarct. Ventricles, sulci, and cisterns are normal in size and configuration for patient age. No hydrocephalus. No midline shift. No significant white matter abnormalities. Globes and orbital contents image normally. No extracranial soft tissue abnormalities. The paranasal sinuses, mastoid air cells, and tympanic cavities are normally aerated. No suspicious bony abnormalities. NECK CTA: -AORTIC ARCH: Normal in caliber. No atheromatous calcification. Three-vessel branching pattern. -GREAT VESSEL ORIGINS: Widely patent. No stenosis. -RIGHT COMMON CAROTID ARTERY: Normal in course and caliber to the level of the bifurcation. -CERVICAL RIGHT INTERNAL CAROTID ARTERY: Normal opacification without focal stenosis or occlusion. -LEFT COMMON CAROTID ARTERY: Normal in course and caliber to the level of the bifurcation. -CERVICAL LEFT INTERNAL CAROTID ARTERY: Normal opacification without focal stenosis or occlusion. -CERVICAL RIGHT VERTEBRAL ARTERY: Dominant. Normal in origin, course and caliber into the skull base. -CERVICAL LEFT VERTEBRAL ARTERY: Nondominant. Normal in origin, course and caliber into the skull base. OTHER, SOFT TISSUES: -No lymphadenopathy or mass. No abnormal fluid collection or soft tissue swelling. -Normal thyroid. -Imaged superior mediastinal structures normal. -Imaged lung apices clear. CTA OF THE BRAIN: -INTRACRANIAL INTERNAL CAROTID ARTERIES: No focal stenosis or occlusion. The ophthalmic artery origins enhance normally. -RIGHT ANTERIOR CEREBRAL ARTERY: Normal A1 segment. Normal arborization of the distal segments. -LEFT ANTERIOR CEREBRAL ARTERY: Normal A1 segment. Normal arborization of the distal segments. -ANTERIOR COMMUNICATING ARTERY: Normal. -RIGHT MIDDLE CEREBRAL ARTERY: Normal M1 segment of the MCA without focal stenosis or occlusion. Normal bifurcation. Normal arborization of the distal segments. -LEFT MIDDLE CEREBRAL ARTERY: Normal M1 segment of the MCA without focal stenosis or occlusion. Normal bifurcation. Normal arborization of the distal segments. -RIGHT VERTEBRAL ARTERY V4: Normal in course and caliber. Normal PICA branch. -LEFT VERTEBRAL ARTERY V4: Normal in course and caliber. Normal PICA branch. -BASILAR ARTERY: Normal without focal stenosis or occlusion. Normal appearance of the proximal superior cerebellar arteries. Normal basilar tip. -RIGHT POSTERIOR CEREBRAL ARTERY: Normal P1 segment. Normal opacification of the distal TELEGRAPH REPEATER INSTALLER segments. -LEFT POSTERIOR CEREBRAL ARTERY: Normal P1 segment. Normal opacification of the distal TELEGRAPH REPEATER INSTALLER segments. -POSTERIOR COMMUNICATING ARTERIES: The left is small but present. The right is not well seen. Normal opacification of the superior sagittal, straight, transverse, and sigmoid sinuses. No venous thrombosis. CT/CT angio head neck IMPRESSION: NON-CONTRAST HEAD CT: 1. No intracranial hemorrhage or mass effect. No CT evidence of acute territorial infarct. CTA NECK: 1. No evidence of significant stenosis, occlusion, dissection, or aneurysm of the major cervical arterial vasculature. CTA HEAD: 1. No evidence of significant stenosis, occlusion, dissection, or aneurysm of the major intracranial arterial vasculature. The ophthalmic artery origins bilaterally enhance normally. 2. Major cortical and dural venous sinuses are patent. Electronically signed by: Pablo Dawson MD 01/06/2025 03:48 PM [facility] External Record Review External record reviewed: Inpatient record Prescription Management I considered prescription management with: Pain Medication Chronic Conditions Patient?s care impacted by: Hypertension Social Determinants Patient?s care significantly limited by Social Determinants of Health including: Other Social Determinant of Health Critical Care Time Critical Care Time Critical Care Time: No Discharge Plan Discharge Clinical Impression: Headache Patient Disposition: Home, Self-Care Instructions: General Headache (ED) Additional Instructions: Your workup today is reassuring. Your eye pressures are normal. There is no obvious abrasion to your cornea. The CT scan of your head is normal. Your blood pressure has improved. Your symptoms have improved with IV medications today. Please follow up with your PCP. I have also provided you with a referral to Ophthalmology. Contact them to establish care you should have regular eye exams. Return with any new or worsening symptoms. In the case of an emergency call 911. Prescriptions: New oihvaorksp-makjzepntpuxu-rsbh [Fioricet] 50-300-40 mg capsule 1 cap PO Q8H PRN (Reason: headache) Qty: 5 0RF No Action naproxen 375 mg tablet 375 mg PO BID PRN (Reason: pain) Qty: 12 0RF cyclobenzaprine 10 mg tablet 10 mg PO TID PRN (Reason: muscle spasm) Qty: 20 0RF ibuprofen 600 mg tablet 600 mg PO Q6H PRN (Reason: pain) Qty: 14 0RF cyclobenzaprine 10 mg tablet 10 mg PO TID PRN (Reason: muscle spasm) Qty: 14 0RF naproxen 500 mg tablet 500 mg PO BID PRN (Reason: pain) Qty: 20 0RF cyclobenzaprine 10 mg tablet 10 mg PO TID PRN (Reason: muscle spasm) Qty: 20 0RF ondansetron 4 mg tablet,disintegrating 4 mg PO Q8H PRN (Reason: nausea and vomiting) Qty: 20 0RF hdldrnkpvr-teetldgwvhmqd-ripm [Fioricet] 50-300-40 mg capsule 1 cap PO TID PRN (Reason: pain) Qty: 20 0RF sumatriptan succinate 50 mg tablet See Rx Instructions .ROUTE .COMPLEX Qty: 10 0RF Rx Instructions: take 1 tab at onset of headache; if no relief may repeat 1 tab after at least 2 hrs; max = 4 tabs/24 hr ibuprofen 600 mg tablet 600 mg PO Q6H PRN (Reason: pain) Qty: 20 0RF oxybutynin chloride 5 mg tablet 5 mg PO BID PRN (Reason: bladder spasms) Qty: 60 0RF Rx Instructions: use one tablet once to twice daily for bladder urgency Referrals: Christopher Riley [Physician, Ophthalmology] Physician,Conchita J [Primary Care Provider, Medical] Interventions: ED Discharge Assessment Last Done: 01/06/25 17:18 Discharge Date/Time: 01/06/25 17:19 Print Language: Serbian
[2025-01-06 10:38] VITALS: BP 143/87; PULSE 69; RESP 18; TEMP 36.5; O2SAT 99
--- NOTE | 2025-01-06 10:43 | ECG_ITS ---
Test Reason : hypertension Blood Pressure : */* mmHG Vent. Rate : 66 BPM Atrial Rate : 66 BPM P-R Int : 138 ms QRS Dur : 82 ms QT Int : 364 ms P-R-T Axes : 63 26 30 degrees QTcB Int : 381 ms Normal sinus rhythm Normal ECG No previous ECGs available Referred By: Francisca Browning Electronically Signed By: Vj Gómez
[2025-01-06 11:15] LABS: MANUAL DIFF FLAG NO
[2025-01-06 11:16] LABS: Hematocrit 52.0 % (42.0-52.0); Hemoglobin 17.5 g/dl (14.0-18.0); Imm Gran Abs Auto 0.01 X10*3/uL (0.00-0.03); Imm Gran Pct Auto 0.2 % (0.0-0.4); Lymphocytes Absolute Auto 1.9 X10*3/uL (1.2-4.9); Mean Corpuscular HGB Conc 33.7 g/dl (31.0-36.0); Mean Corpuscular Hemoglobin 28.9 pg (27.0-33.0); Mean Corpuscular Volume 85.8 fL (80.0-98.0); NRBC Abs Auto 0.000 X10*3/uL (0.0-0.012); NRBC Pct Auto 0.0 /100WBC (0.0-0.2); Platelet Count 186 X10*3/uL (160-400); Red Blood Count 6.06 X10*6/uL (4.60-5.80); White Blood Count 6.2 X10*3/uL (4.8-10.8)
[2025-01-06 11:30] LABS: Alanine Aminotransferase 53 U/L (0-40); Albumin Level 4.9 g/dL (3.5-5.0); Alkaline Phosphatase 60 U/L (39-117); Anion Gap 8 (12-20); Aspartate Amino Transferase 56 U/L (5-37); Blood Urea Nitrogen 17 mg/dL (9-16); Calcium 9.7 mg/dL (8.4-10.2); Carbon Dioxide 30 mmol/L (22-29); Chloride 108 mmol/L (96-108); Creatinine Clr Calc Pharmacy 113.0; Estimated Glomerular Filt Rate > 60; Potassium 5.0 mmol/L (3.3-5.1); Sodium 141 mmol/L (135-145); Total Protein 7.7 g/dL (6.5-8.0)
[2025-01-06 11:35] LABS: COVID-19 Test Negative (Negative); IDNOW Serial# 55D5AD1C
[2025-01-06 11:37] LABS: Troponin-I High Sensitivity < 2.7 ng/L (<3.5-35.0)
[2025-01-06 11:39] LABS: IDNOW Serial# 58CA691E; Influenza B2 Negative (Negative)
[2025-01-06 13:33] VITALS: BP 119/76; PULSE 73; RESP 18; O2SAT 98
--- NOTE | 2025-01-06 14:28 | PC.NURSE ---
Patient is away for imaging at this time, will medicate upon return.
[2025-01-06] MEDS: Tetracaine HCl/PF 0.5% Oph Sol 4 ML DROPS 1 DROP EYE-LEFT (15:03)
[2025-01-06] MEDS: Fluorescein Sodium STRIP 1 STRIP EYE-LEFT (15:06)
[2025-01-06] MEDS: iohexoL 350 MG/ML 100 ML INFUS..BTL IV (15:19)
[2025-01-06 15:39] LABS: Erythrocyte Sedimentation Rate 1 MM/HR (0-15)
[2025-01-06 16:27] VITALS: BP 105/67; PULSE 66; RESP 18; O2SAT 98
[2025-01-06 17:18] VITALS: BP 107/63; PULSE 68; RESP 16; TEMP 36.6; O2SAT 99
== END 2025-01-06 17:19 | disposition home or self-care (01) ==
PROVIDERS: Physician Assistant Medical; Emergency Provider Emergency Medicine
DX: R51.9 Headache, unspecified (principal); H57.12 Ocular pain, left eye; Z79.899 Other long term (current) drug therapy; Z86.69 Personal history of other diseases of the nervous system and sense organs
CPT/HCPCS: 70496; 70498; 80053; 84484; 85025; 85652; 86140; 87502; 87635; 93005; 96374; 96375; 99284; J1200; J1885; J2765; Q9967

== ENCOUNTER → 2025-01-06 10:43 | Outpatient (BNV) | payer MEDICAID, SELFPAY | PROVIDERS: Emergency Provider Emergency Medicine; Visit Provider Internal Medicine Cardiovascular Disease | DX: I10 Essential (primary) hypertension (principal) | CPT/HCPCS: 93010 ==

== ENCOUNTER → 2025-01-06 13:42 | Outpatient (BNV) | payer MEDICAID, SELFPAY | PROVIDERS: Emergency Provider Emergency Medicine; Visit Provider Radiology Diagnostic Radiology | DX: H57.12 Ocular pain, left eye (principal) | CPT/HCPCS: 70496; 70498 ==

== ENCOUNTER 2025-01-11 14:34 | Emergency (ER) | payer MEDICAID, OTHER, SELFPAY ==
--- OUTSIDE RECORDS SUMMARY | 2025-01-06 10:00 | XMS_ITS | Encounter Summary ---
Author Organization [employer] Address [address] [facility] [address] [facility] [address] [place] [address] Care Team Providers Care Movement Assembler Name Role Phone Jaimie Cadena MD Primary Care Provider [phone] Reason for Visit * Reason Comments Eye Pain Encounter Details Date Type Department Care Team ([facility] st Contact Info) Description 01/06/2025 10:00 AM EST Office Visit [facility] [address] [place] [address] Marybel Shin FNP [address] [place] [address] Acute intractable headache, unspecified headache type (Primary Dx); Elevated blood pressure reading in office with diagnosis of hypertension Social History Tobacco Use Types Packs/Day Years [...] Sign Reading Time Taken Comments Blood Pressure 149/110 01/06/2025 9:46 AM EST Pulse 86 01/06/2025 9:46 AM EST Temperature 36.7 C (98.1 F) 01/06/2025 9:46 AM EST Respiratory Rate 18 01/06/2025 9:46 AM EST Oxygen Saturation 98% 01/06/2025 9:46 AM EST Inhaled Oxygen Concentration - - Weight 88.9 kg (196 lb) 01/06/2025 9:46 AM EST Height - - Body Mass Index 30.7 09/04/2024 10:13 AM EDT documented in this encounter Progress Notes * ROMÁN Steinberg - 01/06/2025 10:00 AM EST SUBJECTIVE Manjula Webb is a 34 y.o. male who presents for Migraine and Headache - History of migraines, with previous episodes described as sensitivity to light and noise - Current episode began on January 05, 2025, with pain in the left eye and left side of the face, described as pounding and drumming sensation - Eye pain associated with tearing and keeping the eye closed due to discomfort when opened - Light sensitivity present during previous migraines, but currently daylight is not bothersome - Noise sensitivity and nausea reported - Severity of headache described as bad and different from usual migraine pain - Takes Imitrex for migraine, and did not take any abortive medication this morning - BP elevated at this visit reports Took antihypertensive pill in the morning. History of high blood pressure, with previous episodes of elevated readings - Current episode of elevated blood pressure, took antihypertensive medication this morning Review of Systems Constitutional: Negative for chills and fever. HENT: Negative for congestion, sinus pressure and sore throat. Respiratory: Negative for cough, chest tightness, shortness of breath and wheezing. Cardiovascular: Negative for chest pain and palpitations. Neurological: Positive for headaches. Negative for dizziness, weakness and light-headedness. Psychiatric/Behavioral: Negative for suicidal ideas. Allergies[1] OBJECTIVE Vitals: 01/06/25 0946 BP: (!) 149/110 BP Location: Right arm Patient Position: Sitting BP Cuff Size: Adult Pulse: 86 Resp: 18 Temp: 98.1 ??F (36.7 ??C) TempSrc: Temporal SpO2: 98% Weight: 196 lb (88.9 kg) Physical Exam Vitals reviewed. Constitutional: Appearance: Normal appearance. HENT: Head: Atraumatic. Cardiovascular: Rate and Rhythm: Normal rate and regular rhythm. Pulses: Normal pulses. Heart sounds: Normal heart sounds. No murmur heard. Pulmonary: Effort: Pulmonary effort is normal. Breath sounds: Normal breath sounds. No wheezing. Neurological: Mental Status: He is alert and oriented to person, place, and time. Motor: No weakness. Coordination: Coordination normal. Gait: Gait normal. Deep Tendon Reflexes: Reflexes normal. Psychiatric: Mood and Affect: Mood normal. Behavior: Behavior normal. Assessment/Plan Problem List Items Addressed This Visit Hypertension Acute intractable headache - Primary Headache with elevated blood pressure: - Severe headache episode with associated elevated blood pressure. Differential diagnosis includes migraine triggered or exacerbated by hypertension. - Referred to emergency department for intravenous medication to lower blood pressure and treat migraine. [place] [facility] [place]. This note was drafted using Ambient (AI) technology. The patient/patient's guardian has been informed and has consented to the use of this technology: Yes Future Appointments Date Time Provider Department Center 04/28/2025 12:45 PM Melquiades Hawkins [facility] [1] No Known Allergies documented in this encounter Plan of Treatment Upcoming Encounters Date Type Department Care Team (Late st Contact Info) Description 01/22/2025 9:00 AM EST Office Visit [facility] MED [facility] PEDS [address] [place] [address] Jaimie Cadena MD [address] [place] [address] 04/28/2025 12:45 PM EST Office Visit [facility] ADULT DENTAL [address] [place] [address] Melquiades Hawkins documented as of this encounter Visit Diagnoses Diagnosis Acute intractable headache, unspecified headache type- Primary Elevated blood pressure reading in office with diagnosis of hypertension documented in this encounter Additional Health Concerns Assessment Noted Time PHQ-9 Depression Total Score: 0 09/05/19 25 10:20 AM EDT documented as of this encounter Care Teams Movement Assembler Relationship Specialty Start Date End Date Jaimie Cadena MD [address] [place] [address] PCP - General Internal Medicine 05/25/23 documented as of this encounter
[2025-01-11 14:38] VITALS: BP 147/85; PULSE 89; RESP 18; TEMP 36.3; O2SAT 99; BMI 21.5
--- NOTE | 2025-01-11 14:39 | ED.GENADULT ---
HPI - General Adult General Chief complaint: Headache Stated complaint: headache Time Seen by Provider: 01/11/25 18:28 History of Present Illness HPI narrative: Patient is a 34-year-old male presents today with having headache on the left side over the head to the back. Very similar headache in the past. Patient was seen recently. Was given Fioricet and lisinopril for blood pressure and headache. Patient claims that the symptom has gotten worse again. Came to the ED. He actually had a CAT scan done during the last visit. No fever no chills no neck pain. No focal weakness. Patient is from home. No sudden deaths in his family. No trauma. Patient claims the headache has been ongoing Related Data Previous Rx's ?Medication ?Instructions ?Recorded oxybutynin chloride 5 mg tablet 5 mg PO BID PRN bladder spasms #60 08/12/22 tabs naproxen 375 mg tablet 375 mg PO BID PRN pain #12 tabs 08/30/22 ondansetron 4 mg disintegrating 4 mg PO Q8H PRN nausea and 04/21/23 tablet vomiting #20 tabs lzoenpnrkf-wwrdibvbvfjhm-nxzdqvrc 1 cap PO TID PRN pain #20 caps 04/29/23 50 mg-300 mg-40 mg capsule (Fioricet) sumatriptan succinate 50 mg tablet See Rx Instructions PO .COMPLEX 04/29/23 #10 tabs cyclobenzaprine 10 mg tablet 10 mg PO TID PRN muscle spasm #20 08/02/23 tabs cyclobenzaprine 10 mg tablet 10 mg PO TID PRN muscle spasm #14 12/20/23 tabs ibuprofen 600 mg tablet 600 mg PO Q6H PRN pain #14 tabs 12/20/23 ibuprofen 600 mg tablet 600 mg PO Q6H PRN pain #20 tabs 01/13/24 cyclobenzaprine 10 mg tablet 10 mg PO TID PRN muscle spasm #20 12/17/24 tabs naproxen 500 mg tablet 500 mg PO BID PRN pain #20 tabs 12/17/24 hfijbyotsc-qlhpvgslkujry-zrubxlcp 1 cap PO Q8H PRN headache #5 caps 01/06/25 50 mg-300 mg-40 mg capsule (Fioricet) Allergies Allergy/AdvReac Type Severity Reaction Status Date / Time No Known Allergies Allergy Verified 01/11/25 14:40 Review of Systems Review of Systems: Positive headache Yes all other systems are reviewed and are negative [facility] Past Medical History Attestation statement: The following information was validated with the patient. Medical History Calculus of kidney Hydronephrosis Surgical History Hx of bladder endoscopy Hx of appendectomy Family History Family History Father No problems noted. Mother No problems noted. Social History Social History Alcohol intake: current Alcohol intake frequency: holidays/special occasions only Patient Tobacco Use Status: Never used Tobacco Advance Directives: No Advance Directives Information Provided: No Advance Directives Date on File: 08/02/22 Physical Exam ED Exam Exam: Appearance: Alert. Oriented X3. No acute distress. Eyes: Pupils equal, round and reactive to light. ENT: Pharynx normal. Neck: Normal inspection. Neck supple. No lymph nodes noted. No crepitus CVS: Normal heart rate and rhythm. Pulses normal. Normal S1 and S2 Respiratory: No respiratory distress. Breath sounds normal. No Wheezing. No rales Abdomen: Soft and nontender. No rigidity. No distention. good BS x4 Skin: Skin warm and dry. Normal skin color. Normal skin turgor. Extremities: No lower extremity edema. Neurovascular intact to all extremities. No Lacerations. No Rash Neuro: Oriented X 3. No motor deficit. No sensory deficit. Moving all extermities. No slurred speech Vital Signs: Vital Signs - 24 hr 01/11/25 14:38 01/11/25 18:44 01/11/25 19:59 Temperature 97.3 F 97.6 F 97.8 F Pulse Rate 89 65 67 Respiratory Rate 18 16 18 Blood Pressure 147/85 H 131/95 H 143/88 H Pulse Oximetry 99 100 99 Oxygen Delivery Method Room Air Room Air Room Air BMI result Body Mass Index 21.5 Course Course Course Narrative: Medical screening exam performed. Please refer to detailed history, exam, evaluation, and management by primary provider. 34-year-old male with recurrent headaches. Multiple recent visits, including CTA of the head and neck which was negative. Patient continues medications but minimal improvement. Repeat labs. Medications Administered Discontinued Medications Generic Name Dose Route Start Last Admin Trade Name Federico PRRuth Reason Stop Dose Admin Diphenhydramine HCl 25 mg 01/11/25 18:43 01/11/25 20:06 Diphenhydramine Hcl 50 Mg/Ml Vial IVPUSH 01/11/25 18:44 25 mg ONCE ONE Administration Sodium Chloride 1,000 mls @ 999 mls/hr 01/11/25 18:45 01/11/25 20:05 Ns IV 01/11/25 19:45 999 mls/hr .Q1H1M QIANA Administration Ketorolac Tromethamine 30 mg 01/11/25 18:43 01/11/25 20:06 Ketorolac Tromethamine 30 Mg/Ml Vial IVPUSH 01/11/25 18:44 30 mg ONCE ONE Administration Metoclopramide HCl 10 mg 01/11/25 18:44 01/11/25 20:06 Metoclopramide Hcl 10 Mg/2 Ml Vial IVPUSH 01/11/25 18:45 10 mg ONCE ONE Administration Medical Decision Making Medical Decision Making MDM Narrative: Neurologically intact. I reviewed patient's old chart including previous CTA angio head there is no evidence of bleed. There is no evidence for aneurysm on a previous CT done within the last week. Neurologically intact patient well-appearing symptoms not consistent with meningitis. Patient's white count is normal. Electrolytes unremarkable. COVID flu RSV were all negative. Given a migraine cocktail for the left-sided headache with good relief of symptoms. Will discharge patient home. Differential Diagnosis Differential Diagnoses: The differential diagnosis associated with the presentation includes Migraine headache tension headache Admission/Observation Consideration of admission/observation: Escalation of care including admission/observation considered Lab Data [facility] Lab Attestation statement: I reviewed the patient's lab results. 01/11/25 14:52 01/11/25 14:52 Labs: Lab Results 01/11/25 Range/Units 14:52 WBC 8.3 (4.8-10.8) X10*3/uL RBC 6.21 H (4.60-5.80) X10*6/uL Hgb 18.1 H (14.0-18.0) g/dl Hct 52.9 H (42.0-52.0) % MCV 85.2 (80.0-98.0) fL MCH 29.1 (27.0-33.0) pg MCHC 34.2 (31.0-36.0) g/dl RDW 12.0 (11.0-16.0) % Plt Count 210 (160-400) X10*3/uL MPV 10.2 (9.4-12.4) fL Immature Gran % (Auto) 0.2 (0.0-0.4) % Neut % (Auto) 56.4 (45-73) % Lymph % (Auto) 32.0 (20-40) % Hunt % (Auto) 7.5 (2-11) % Eos % (Auto) 2.9 (0-4) % Baso % (Auto) 1.0 (0-2) % Lymph # (Auto) 2.6 (1.2-4.9) X10*3/uL Hunt # (Auto) 0.6 (0.1-1.2) X10*3/uL Eos # (Auto) 0.2 (0.0-0.4) X10*3/uL Baso # (Auto) 0.1 (0.0-0.2) X10*3/uL Abs Immat Gran (auto) 0.02 (0.00-0.03) X10*3/uL Absolute Neuts (auto) 4.7 (2.0-8.3) x10*3/uL Absolute Nucleated RBC 0.000 (0.0-0.012) X10*3/uL Nucleated RBC % (auto) 0.0 (0.0-0.2) /100WBC Sodium 140 (135-145) mmol/L Potassium 4.4 (3.3-5.1) mmol/L Chloride 106 (96-108) mmol/L Carbon Dioxide 26 (22-29) mmol/L Anion Gap 12 (12-20) BUN 11 (9-16) mg/dL Creatinine 1.01 (0.5-1.4) mg/dL Estim Creat Clear Calc 129.1 Estimated GFR > 60 Random Glucose 87 (60-115) mg/dL Calcium 9.4 (8.4-10.2) mg/dL COVID-19 (FERNANDA) Negative (Negative) COVID-19 Clin Com See Note Influenza Type A (ERASTO) Negative (Negative) Influenza Type B (ERASTO) Negative (Negative) Influenza A & B Note See Note External Record Review I reviewed patient's previous CT angio head and neck. Prescription Management I considered prescription management with: Pain Medication Patient already has a script for pain medication Social Determinants Patient?s care significantly limited by Social Determinants of Health including: Problems related to primary support group Discharge Plan Discharge Clinical Impression: Headache Patient Disposition: Home, Self-Care Instructions: Acute Headache (DC) Prescriptions: No Action naproxen 375 mg tablet 375 mg PO BID PRN (Reason: pain) Qty: 12 0RF cyclobenzaprine 10 mg tablet 10 mg PO TID PRN (Reason: muscle spasm) Qty: 20 0RF ibuprofen 600 mg tablet 600 mg PO Q6H PRN (Reason: pain) Qty: 14 0RF cyclobenzaprine 10 mg tablet 10 mg PO TID PRN (Reason: muscle spasm) Qty: 14 0RF naproxen 500 mg tablet 500 mg PO BID PRN (Reason: pain) Qty: 20 0RF cyclobenzaprine 10 mg tablet 10 mg PO TID PRN (Reason: muscle spasm) Qty: 20 0RF ondansetron 4 mg tablet,disintegrating 4 mg PO Q8H PRN (Reason: nausea and vomiting) Qty: 20 0RF alegvupwjx-uljvmaqpjutyk-zcpx [Fioricet] 50-300-40 mg capsule 1 cap PO TID PRN (Reason: pain) Qty: 20 0RF sumatriptan succinate 50 mg tablet See Rx Instructions .ROUTE .COMPLEX Qty: 10 0RF Rx Instructions: take 1 tab at onset of headache; if no relief may repeat 1 tab after at least 2 hrs; max = 4 tabs/24 hr ibuprofen 600 mg tablet 600 mg PO Q6H PRN (Reason: pain) Qty: 20 0RF wgtbphbsga-obmkcydlgjugx-rmcy [Fioricet] 50-300-40 mg capsule 1 cap PO Q8H PRN (Reason: headache) Qty: 5 0RF oxybutynin chloride 5 mg tablet 5 mg PO BID PRN (Reason: bladder spasms) Qty: 60 0RF Rx Instructions: use one tablet once to twice daily for bladder urgency Referrals: [facility] [Physician, Medical] - 01/14/25 Physician,Unknown J [Primary Care Provider, Medical] Print Language: Montenegrin
[2025-01-11 14:57] LABS: MANUAL DIFF FLAG NO
[2025-01-11 14:58] LABS: Hematocrit 52.9 % (42.0-52.0); Hemoglobin 18.1 g/dl (14.0-18.0); Imm Gran Abs Auto 0.02 X10*3/uL (0.00-0.03); Imm Gran Pct Auto 0.2 % (0.0-0.4); Lymphocytes Absolute Auto 2.6 X10*3/uL (1.2-4.9); Mean Corpuscular HGB Conc 34.2 g/dl (31.0-36.0); Mean Corpuscular Hemoglobin 29.1 pg (27.0-33.0); Mean Corpuscular Volume 85.2 fL (80.0-98.0); NRBC Abs Auto 0.000 X10*3/uL (0.0-0.012); NRBC Pct Auto 0.0 /100WBC (0.0-0.2); Platelet Count 210 X10*3/uL (160-400); Red Blood Count 6.21 X10*6/uL (4.60-5.80); White Blood Count 8.3 X10*3/uL (4.8-10.8)
[2025-01-11 15:16] LABS: COVID-19 Test Negative (Negative); IDNOW Serial# 55D5AD1C; IDNOW Serial# 58CA691E; Influenza B2 Negative (Negative)
[2025-01-11 15:19] LABS: Anion Gap 12 (12-20); Blood Urea Nitrogen 11 mg/dL (9-16); Calcium 9.4 mg/dL (8.4-10.2); Carbon Dioxide 26 mmol/L (22-29); Chloride 106 mmol/L (96-108); Creatinine Clr Calc Pharmacy 129.1; Estimated Glomerular Filt Rate > 60; Potassium 4.4 mmol/L (3.3-5.1); Sodium 140 mmol/L (135-145)
--- OUTSIDE RECORDS SUMMARY | 2025-01-11 17:53 | XMS_ITS | Encounter Summary ---
Author Organization [employer] Address [address] [place] [address] Care Team Providers Care Director Customer Name Role Phone Jaimie Cadena MD Primary Care Provider [phone] Encounter Details Date Type Department Care Team ([facility] st Contact Info) Description 05/25/[address] [facility] MEDICINE [address] [place] [address] Jaimie Cadena MD [address] [place], [place] [phone] Social History Tobacco Use Types Packs/Day Years [...] Description 01/22/2025 9:00 AM EST Office Visit [facility] MED & PEDS [address] [place] [address] Jaimie Cadena MD [address] [place] [address] 04/28/2025 12:45 PM EST Office Visit [facility] ADULT DENTAL [address] [place] [address] Melquiades Hawkins documented as of this encounter Visit Diagnoses Not on filedocumented in this encounter Additional Health Concerns Assessment Noted Time PHQ-9 Depression Total Score: 9 05/25/19 24 1:19 PM EDT documented as of this encounter Care Teams Director Customer Relationship Specialty Start Date End Date Jaimie Cadena MD [address] [place] [address] PCP - General Internal Medicine 05/25/23 documented as of this encounter
--- OUTSIDE RECORDS SUMMARY | 2025-01-11 17:53 | XMS_ITS | Encounter Summary ---
Author Organization [employer] Address [address] [facility] [address] 7 [place] [address] Care Team Providers Care Bond Broker Name Role Phone Jaimie Cadena MD Primary Care Provider [phone] Reason for Visit * Reason Onset Date Comments New Patient 11/30/2022 Encounter Details Date Type Department Care Team (Late Contact Info) Description 11/30/2022 Telephone [facility] MEDICINE [address] [place] [address] Hakeem Akhtar MD [address] [place] [address] New Patient Social History Tobacco Use Types [...] Department Care Team (Late Contact Info) Description 01/22/2025 9:00 AM EST Office Visit [facility] MED & PEDS [address] [place], [place] [phone] Jaimie Cadena MD [address] [place] [address] 04/28/2025 12:45 PM EST Office Visit [facility] ADULT DENTAL [address] [place] [address] Melquiades Hawkins documented as of this encounter Visit Diagnoses Not on filedocumented in this encounter Care Teams Bond Broker Relationship Specialty Start Date End Date Jaimie Cadena MD [address] [place] [address] PCP - General Internal Medicine 05/25/23 documented as of this encounter
--- OUTSIDE RECORDS SUMMARY | 2025-01-11 17:53 | XMS_ITS | Encounter Summary ---
Author Organization [employer] Address [address] [facility] 7 [place] [address] Care Team Providers Care Chromosomal Disorders Counselor Name Role Phone Jaimie Cadena MD Primary Care Provider [phone] Reason for Visit * Reason Onset Date Comments Results 07/30/2024 Encounter Details Date Type Department Care Team ([facility] st Contact Info) Description 07/30/2024 Telephone [facility] MEDICINE [address] [place] [address] Jaimie Cadena MD [address] [place] [address] Results Social History Tobacco Use Types Packs/Day [...] status of prior message Please return call [phone] * Telephone Encounter - Myriam Muhammad - 07/30/2024 11:06 AM EDT TC from pt requesting call back regarding Results. Type of results: Helicobacter pylori Antigen, EIA, Stool Date when done: 07/25/2024 Facility: [facility] [phone] [facility] documented in this encounter Plan of Treatment Upcoming Encounters Date Type Department Care Team (Late st Contact Info) Description 01/22/2025 9:00 AM EST Office Visit [facility] MED & PEDS [address] [place] [address] Jaimie Cadena MD [address] [place] [address] 04/28/2025 12:45 PM EST Office Visit [facility] ADULT DENTAL [address] [place] [address] Melquiades Hawkins documented as of this encounter Visit Diagnoses Not on filedocumented in this encounter Additional Health Concerns Assessment Noted Time PHQ-9 Depression Total Score: 16 024 9:53 AM EDT documented as of this encounter Care Teams Chromosomal Disorders Counselor Relationship Specialty Start Date End Date Jaimie Cadena MD [address] [place] [address] PCP - General Internal Medicine 05/25/23 documented as of this encounter
--- OUTSIDE RECORDS SUMMARY | 2025-01-11 17:53 | XMS_ITS | Encounter Summary ---
Author Organization [employer] Address [address] [place] [address] Care Team Providers Care Bottling Supervisor Name Role Phone Jaimie Cadena MD Primary Care Provider [phone] Encounter Details Date Type Department Care Team (Latest Contact Info) Description 01/06/2025 Travel Social History Tobacco Use Types Packs/Day Years [...] your housing situation today? I have wing thomsa 09/04/[address] you li [...] Description 01/22/2025 9:00 AM EST Office Visit [facility] MED & PEDS [address] [place] [address] Jaimie Cadena MD [address] [place] [address] 04/28/2025 12:45 PM EST Office Visit [facility] ADULT DENTAL [address] [place] [address] Melquiades Hawkins documented as of this encounter Visit Diagnoses Not on filedocumented in this encounter Additional Health Concerns Assessment Noted Time PHQ-9 Depression Total Score: 0 09/05/19 25 10:20 AM EDT documented as of this encounter Care Teams Bottling Supervisor Relationship Specialty Start Date End Date Jaimie Cadena MD [address] [place] [address] PCP - General Internal Medicine 05/25/23 documented as of this encounter
--- OUTSIDE RECORDS SUMMARY | 2025-01-11 17:53 | XMS_ITS | Encounter Summary ---
Author Organization [employer] Address [address] 7[address] [place] [address] Care Team Providers Care Tool Smith Name Role Phone Jaimie Cadena MD Primary Care Provider [phone] Encounter Details Date Type Department Care Team (Late st Contact Info) Description 10/23/2024 Orders Only [facility] CHC MED & PEDS [address] [place] [address] ProviderMicheal MD Social History Tobacco Use Types [...] Description 01/22/2025 9:00 AM EST Office Visit [facility] MED & PEDS [address] [place] [address] Jaimie Cadena MD [address] [place] [address] 04/28/2025 12:45 PM EST Office Visit [facility] ADULT DENTAL [address] [place] [address] Melquiades Hawkins documented as of this encounter [...] documented as of this encounter Care Teams Tool Smith Relationship Specialty Start Date End Date Jaimie Cadena MD [address] [place] [address] PCP - General Internal Medicine 05/25/23 documented as of this encounter
--- OUTSIDE RECORDS SUMMARY | 2025-01-11 17:53 | XMS_ITS | Clinical Summary ---
Author Organization [facility] Address [address] [place] [address] Care Team Providers Care Still Operator Gin Name Role Phone Jaimie Cadena Primary Care Provider Allergies No known active allergies Medications butalbital-acet [...] Description 10/21/2024 10:05 AM EDT Anesthesia Event [facility] Operating Room [address] [place] [address] Tavares Shine MD Gioules, Nicole A, DO 10/21/2024 9:10 AM EDT - 10/21/2024 11:10 AM EDT Surgery [facility] Operating Room [address] [place] [address] Luciana Mata MD Circumcision, penile block, all indicated procedures [21569 (CPT )] 10/21/2024 6:36 AM EDT - 10/21/2024 1:29 PM EDT Hospital Encounter [facility] Operating Room [address] [place] [address] Luciana Mata MD Redundant prepuce Discharge Disposition: Home or Self Care () 10/21/2024 Telephone [facility] [address] [facility] [place] [address] [employer] Shop Supervisor: Luciana Bellamy MD from Last 3 Months Family History Medical [...] (2 - Td or Tdap) 12/18/2032 12/18/2022 HIV Screening Completed 01/25/2024, 01/25/2024, 08/22/2023 Hepatitis C Screening Completed 01/25/2024 Pneumococcal Vaccine: Pediatric (0-5 Years) and At-Risk Patients (6-50 Years) Aged Out No longer eligible based on patient's age to complete this topic Procedures * Due to [place] law, this organization might not be sharing negative HIV tests. Procedure Name Priority Date/Time Associated Diagnosis Comments TISSUE EXAM Routine 10/21/2024 10:42 AM EDT Redundant prepuce IA CIRCUMCISION,OTHR 10/21/2024 9:57 AM EDT Redundant prepuce from Last 3 Months Results * Due to [place] law, this organization might not be sharing negative HIV tests. * Tissue Exam (10/21/2024 10:42 AM EDT) Final Diagnosis Foreskin, Circumcision: - Unremarkable foreskin [facility] 10/22/2024 1:13 PM EDT [facility] at 1313 EDT Clinical History Pre-op diagnosis: Redundant prepuce [N47.8] [facility] 10/22/2024 1:13 PM EDT [facility] Gross Description 1. [...] from red-pink and soft to focally fibrous. Slag Wheeler sections are submitted in 1A. [facility] 10/22/2024 1:13 PM EDT [facility] Gross Description User Grossing complete by Hope Terry on 10/21/2024 1:40 PM [facility] 10/22/2024 1:13 PM EDT [facility] Embedded Images [facility] 10/22/2024 1:13 PM EDT [facility] Resulting Agency Case was signed out at [facility], Department of Pathology, [employer] 3 CLIA [id number] [facility] 10/22/2024 1:13 PM EDT [facility] Report Header Surgical Pathology Report Case: [id number] Authorizing Provider: Luciana Mata MD Collected: 10/21/2024 1042 Ordering Location: [facility] Received: 10/21/[address] [place] [address] Operating Room Pathologist: Jaden Lind MD Specimen: Foreskin, foreskin 10/22/2024 1:13 PM EDT [facility] Tissue Structure of prepuce of penis / Unknown 10/21/2024 10:42 AM EDT 10/21/2024 12:42 PM EDT Comment:Pre-op diagnosis: Redundant prepuce [N47.8] us Luciana Mata MD LAB PATHOLOGY/CYTOLOGY OR DERABLES Final Result [facility] [address] [place] [address], from Last 3 Months Insurance [facility] HSNO/FREE CARE Care Teams Still Operator Gin Relationship Specialty Start Date End Date Jaimie Cadena [address] [place] [address] PCP - General Internal Medicine 06/15/23
--- OUTSIDE RECORDS SUMMARY | 2025-01-11 17:53 | XMS_ITS | Encounter Summary ---
Author Organization [employer] Address [address] [facility] 7t [place] [address] Care Team Providers Care Railway Signal Electrician Name Role Phone Jaimie Cadena MD Primary Care Provider [phone] Reason for Visit * Reason Onset Date Comments ED Expect 01/06/2025 Encounter Details Date Type Department Care Team (Late st Contact Info) Description 01/06/2025 Telephone [facility] MEDICINE [address] [place] [address] Petra Lai, RN [address] [place] [address] ED Expect Social History Tobacco Use Types Packs/Day Years [...] encounter Miscellaneous Notes * Telephone Encounter - Petra Lai RN - 01/06/2025 10:18 AM EST Telephone call placed to [facility] ED for expect per Aleida. Informed severe H/A and blood pressure 149/110, pt arriving by normal vehicle. Ruchi SCOTT repeated back to me. documented in this encounter Plan of Treatment Upcoming Encounters Date Type Department Care Team (Late st Contact Info) Description 01/22/2025 9:00 AM EST Office Visit [facility] MED & PEDS [address] [place] [address] Jaimie Cadena MD [address] [place] [address] 04/28/2025 12:45 PM EST Office Visit [facility] ADULT DENTAL [address] [place] [address] Melquiades Hawkins documented as of this encounter Visit Diagnoses Not on filedocumented in this encounter Additional Health Concerns Assessment Noted Time PHQ-9 Depression Total Score: 0 09/05/19 25 10:20 AM EDT documented as of this encounter Care Teams Railway Signal Electrician Relationship Specialty Start Date End Date Jaimie Cadena MD [address] [place] [address] PCP - General Internal Medicine 05/25/23 documented as of this encounter
--- OUTSIDE RECORDS SUMMARY | 2025-01-11 17:53 | XMS_ITS | Encounter Summary ---
Author Organization [employer] Address [address] [facility] 7 [place] [address] Care Team Providers Care Cd Storage And Materials Make Up Helper Name Role Phone Jaimie Cadena MD Primary Care Provider [phone] Reason for Visit * Reason Onset Date Comments New Med Request 05/25/2023 Encounter Details Date Type Department Care Team ([facility] st Contact Info) Description 05/25/2023 Telephone [facility] MEDICINE [address] [place] [address] Jaimie Cadena MD [address] [place], [place] [phone] New Med Request Social History Tobacco Use [...] sent to pharmacy last night and can cotton picker med at pt convenience. Pt agrees [...] 01/22/2025 9:00 AM EST Office Visit [facility] MED & PEDS [address] [place] [address] Jaimie Cadena MD [address] [place] [address] 04/28/2025 12:45 PM EST Office Visit [facility] ADULT DENTAL [address] [place] [address] Melquiades Hawkins documented as of this encounter Visit Diagnoses Not on filedocumented in this encounter Additional Health Concerns Assessment Noted Time PHQ-9 Depression Total Score: 9 05/25/19 24 1:19 PM EDT documented as of this encounter Care Teams [employer] Storage [employer] Materials Make Up Helper Relationship Specialty Start Date End Date Jaimie Cadena MD [address] [facility] [place] [address] PCP - General Internal Medicine 05/25/23 documented as of this encounter
--- OUTSIDE RECORDS SUMMARY | 2025-01-11 17:53 | XMS_ITS | Clinical Summary ---
Author Organization [employer] Address [address] [facility] [address] [place] [address] Care Team Providers Care Wiring Mechanic Name Role Phone Jaimie Cadena MD Primary Care Provider [phone] Allergies No known active allergies Medications * This document contains information received from the source organization and may not represent a complete record from that organization. valACYclovir (Valtrex) 1 g tablet Take 1 tablet (1,000 mg) by mouth Once per day. 30 tablet 11 4 01/20/20 25 Active Additional Information Patient not taking.Reported on 11/27/2024 Omeprazole 20 MG tablet delayed-release Take 1 tablet (20 mg) by mouth Once per day. 90 tablet 5 Active Additional Information Patient not taking.Reported on 11/27/2024 FLUoxetine (PROzac) 20 MG capsuleIndicati ons:Anxiety with depression Take 1 capsule (20 mg) by mouth Once per day. 30 capsule 11 5 09/05/19 26 Active lisinopril (Prinivil) 20 MG tablet Take 1 tablet (20 mg) by mouth Once per day. 30 tablet 11 5 09/05/19 26 Active cyclobenzaprine (Flexeril) 10 MG tabletIndicatio ns:Neck pain TAKE 1 TABLET BY MOUTH THREE TIMES DAILY 30 tablet 2 5 Active SUMAtriptan (Imitrex) 100 MG tablet TAKE 1 TABLET BY MOUTH ONCE NEEDED FOR MIGRAINE 9 tablet 3 5 Active Active Problems Problem Noted Date Diagnosed Date Acute intractable headache 01/06/2025 Helicobacter pylori (H. pylori) infection 2024 Assessment [...] intervention , Patient to reach out to [facility] team as needed, and Patient [...] intervention , Patient to reach out to [facility] team as needed, and Patient to reach out to [facility] as needed. Due to limited insurance patient was self- referred to [facility] programs. clinician will be available if requested/needed [...] Encounters Date Type Department Care Team Description 01/10/2025 Telephone [facility] [address] [place] [phone] Jaimie Cadena MD Nurse Triage 01/06/2025 10:00 AM EST Office Visit [facility] [address] [place] [address] Marybel Shin, ROMÁN Acute intractable headache, unspecified headache type (Primary Dx); Elevated blood pressure reading in office with diagnosis of hypertension 01/06/2025 Telephone [facility] [address] [place] [address] Petra Lai, PASTE THINNER Expect 01/06/2025 Travel 12/01/2024 Refill [facility] [address] [place] [address] Jaimie Cadena MD 11/27/2024 1:00 PM EDT Office Visit [facility] [address] [place] [address] Nelli Real DDS 11/21/2024 Refill [facility] [address] [place] [address] Jaimie Cadena MD Neck pain 10/28/2024 Telephone [facility] [address] [place], [place] [phone] Claude Haynes MD 10/25/2024 11:00 AM EDT Office Visit [facility] [address] [place] [address] Melquiades Hawkins Dental calculus (Primary Dx); 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 I have wingziggy thomas 09/04/[address] you [...] (196 lb) 01/06/2025 9:46 AM EST Height 170.2 cm (5' 7 ) 09/04/2024 10:13 AM EDT Body Mass Index 30.7 09/04/2024 10:13 AM EDT Plan of Treatment Upcoming Encounters Date Type Department Care Team (Late st Contact Info) Description 01/22/2025 9:00 AM EST Office Visit [facility] [address] [place] [address] Jaimie Cadena MD [address] [place] [address] 04/28/2025 12:45 PM EST Office Visit [facility] [address] [place] [address] Melquiades Hawkins Health Maintenance Due Date Last [...] 09/04/2024 SDOH Screening 09/04/2025 09/04/2024 Tobacco Screening 01/06/2026 01/06/2025 Dental X-Ray: Full Mouth 05/22/2027 025, 04/24/2024 Lipid Panel 05/09/2028 05/10/2023 DTaP/Tdap/Td Vaccines (3 - T d or Tdap) 12/10/2034 12/10/2024, 12/18/2022 Zoster Vaccines (1 of 2) 2040 [...] Final Result * Referral to Urology (10/21/2024) Rolf Cruz MD OUTPATIENT REFERRA L ORDERABLES Final Result * Hepatitis C Antibody with Reflex to HCV, RNA, Quantitative, Real-Time PCR (01/25/2024 4:15 PM EST) Hepatitis C Antibody Nonreactive Nonreactive [facility] Comment:Antibodies to HCV no t detected; does not exclude early acuteHCV infection. Blood Venous blood specimen / Unknown 01/25/2024 4:15 PM EST 01/25/2024 5:47 PM EST us Jaimie Cadena MD LAB BLOOD ORDERABLES Final Re sult [facility] [address] [place] [phone] * HIV-1/2 Antigen and Antibodies, Fourth Generation, with Reflexes (01/25/2024 4:15 PM EST) HIV AB/AG Nonreactive Nonreactive [facility] Comment:HIV-1 p24 Ag and/or HIV-1/HIV-2 Ab not detected.A test result that is nonreactive does not exclude thepossibility of exposure to or infection with HIV-1 and/orHIV-2. Nonreactive results in this assay for individualswith prior exposure to HIV-1 and/or HIV-2 may be due toantigen and antibody levels that are below the limit ofdetection of this assay.The [employer] HIV Ag/Ab Combo assay result andsupplemental assay results should be interpreted inconjunction with the patient's clinical presentation,history and other laboratory results. If the results areinconsistent with clinical evidence, additional testing issuggested to confirm the result. Blood Venous blood specimen / Unknown 01/25/2024 4:15 PM EST 01/25/2024 5:47 PM EST us Jaimie Cadena MD LAB BLOOD ORDERABLES Final Re sult Performing Organization Address [facility] de Phone Number [facility] [address] [place] [address] [phone] * (ABNORMAL) Lipid Panel with Reflex to Direct LDL (05/10/2023 10:05 AM EST) Triglycerides 145 <150 mg/dL [facility] Comment:Desirable Triglyceri de: less than 150 mg/dLBorderline High Triglyceride 150-199 mg/dLHigh Triglyceride: 200-499 mg/dLVery High Triglyceride: greater than or equal to 5OO mg/dL Cholesterol 150 <200 mg/dL [facility] Comment:Desirable Cholestero l: less than 200 mg/dLBorderline High Cholesterol: 200-239 mg/dLHigh Cholesterol: greater than 239 mg/dL LDL Cholesterol Calculated 85 <100 mg/dL [facility] Comment:Desirable LDL: less than 100 mg/dLNear Optimal/Above Optimal LDL: 110- 129 mg/dLBorderline High LDL: 130-159 mg/dLHigh LDL: 160-189 mg/dLVery High LDL: greater than or equal to 190 mg/dL HDL Cholesterol 36(L) >40 mg/dL [facility] Comment:Desirable HDL: great er than 40 mg/dL Note: This HDL assay may give artificially low results in patients with liver disease. Blood 05/10/2023 10:0 5 AM EST 05/10/2023 11:23 AM EST us Emelia Hui MD LAB BLOOD ORDERABLES Fin al Result Performing Organization Address [facility] Co de Phone Number [facility] [address] [place] [address] [phone] from Last 3 Months or Most Recently Relevant to Health Maintenance Insurance [employer] [facility] F[facility] MEDICAID LIMITED ADULT DENTAL - HSN FULL (MEDICAID) Care Teams Wiring Mechanic Relationship Specialty Start Date End Date Jaimie Cadena MD [address] [place] [phone] PCP - General Internal Medicine 05/25/23
--- OUTSIDE RECORDS SUMMARY | 2025-01-11 17:53 | XMS_ITS | Encounter Summary ---
Author Organization [employer] Address [address] [facility] 7 [place] [address] Care Team Providers Care Aircraft Engine Installer Name Role Phone Jaimie Cadena MD Primary Care Provider [phone] Reason for Visit * Reason Onset Date Comments Nurse Triage 01/10/2025 Encounter Details Date Type Department Care Team (Late st Contact Info) Description 01/10/2025 Telephone [facility] [address] [place] [address] Jaimie Cadena MD [address] [place] [address] Nurse Triage Social History Tobacco Use Types Packs/Day Years [...] encounter Miscellaneous Notes * Telephone Encounter - Savannah Hernandez RN - 01/10/2025 10:45 AM EST Noted pt. In ED send from walk in 01/06/25 for severe headache, pressure behind L eye and BP 149/110. BP in ED 143/87 then 105/[address]/ CTA WNL. Eye pressure checked and normal. Pt. Was given migraine cocktail with positive effect. Discharged home with Fioricet q. 8 hours prn. Recommended f/up with eye care referral although not sure if pt. Can be seen at referring office (Dr. Nic noonan) with limited insurance. TC returned to pt. Pt. Reports has not checked BP at home since discharge from ED Monday. Has been compliant with lisinopril daily. Reports migraine pain and throbbing pressure behind eye is still present, has been using Imitrex without positive effect. Reports he went to [facility] pharmacy to p/up fiorecet and was unable to obtain. TC placed to [facility] pharmacy and they report capsules are not covered but tablets are. They took the verbal order to change the prescription. Pt. Informed of this, he will come to [facility] pharmacy today to see if this medication has positive effect. Also informed pt. I would place a referral for our eye care department and pt. Agrees to plan. Pt. Agrees to f/up appointment with PCP 01/22/25 at 9am. Willcontact the clinic for any worsening symptoms or if fiorecet does not improve current symptoms. ED note sent to scan * Telephone Encounter - Jaci Calloway - 01/10/2025 10:01 AM EST Symptom: High Blood Pressure - Caller Reports Outcome: Schedule an urgent appointment (within 1 hour) or talk to a nurse or provider soon Reason: Getting worse The caller accepted this outcome. Tristanian speaker Dr. Cadena documented in this encounter Plan of Treatment Upcoming Encounters Date Type Department Care Team ([facility] st Contact Info) Description 01/22/2025 9:00 AM EST Office Visit [facility] [address] [place] [address] Jaimie Cadena MD [address] [place] [address] 04/28/2025 12:45 PM EST Office Visit [facility] ADULT DENT[facility] [address] [place] [address] Melquiades Hawkins documented as of this encounter Visit Diagnoses Not on filedocumented in this encounter Additional Health Concerns Assessment Noted Time PHQ-9 Depression Total Score: 0 09/05/19 25 10:20 AM EDT documented as of this encounter Care Teams Aircraft Engine Installer Relationship Specialty Start Date End Date Jaimie Cadena MD [address] [place] [address] PCP - General Internal Medicine 05/25/23 documented as of this encounter
--- OUTSIDE RECORDS SUMMARY | 2025-01-11 17:53 | XMS_ITS | Encounter Summary ---
Author Organization [facility] Address [address] [place] [address] Care Team Providers Care Plant Health Manager Name Role Phone Jaimie Cadena Primary Care Provider [phone] Encounter Details Date Type Department Care Team ([facility] st Contact Info) Description 09/27/2024 myChart Message [facility] Operating Room [address] [place] [address] Mychart, Generic Provider [address] [place] [phone] Questionnaire Submission Social History Tobacco Use [...] on filedocumented in this encounter Care Teams Plant Health Manager Relationship Specialty Start Date End Date Jaimie Cadena [address] [place] [address] PCP - General Internal Medicine 06/15/23 documented as of this encounter
[2025-01-11 18:44] VITALS: BP 131/95; PULSE 65; RESP 16; TEMP 36.4; O2SAT 100
--- NOTE | 2025-01-11 19:47 | PC.NURSE ---
Waiting for the language interpreter, meds delayed.
[2025-01-11 19:59] VITALS: BP 143/88; PULSE 67; RESP 18; TEMP 36.6; O2SAT 99
[2025-01-11 20:52] VITALS: BP 143/88; PULSE 67; RESP 18; TEMP 36.6; O2SAT 99
== END 2025-01-11 20:52 | disposition home or self-care (01) ==
PROVIDERS: Physician Assistant; Emergency Provider Emergency Medicine Emergency Medical Services
DX: R51.9 Headache, unspecified (principal)
CPT/HCPCS: 80048; 85025; 87502; 87635; 96361; 96374; 96375; 99284; 99285; J1200; J1885; J2765

== ENCOUNTER 2025-01-13 10:25 | Outpatient (REF) | payer MEDICAID, OTHER, SELFPAY ==
--- OUTSIDE RECORDS SUMMARY | 2025-01-13 09:15 | XMS_ITS | Encounter Summary ---
Author Organization [employer] Address [address] [facility] 7t [place] [address] Care Team Providers Care Plaster Patternmaker Name Role Phone Jaimie Cadena MD Primary Care Provider [phone] Encounter Details Date Type Department Care Team ([facility] st Contact Info) Description 01/13/2025 9:15 AM EST Office Visit [facility] [address] [place], [place] [phone] Cindy Davila, ROMÁN [address] [place] [address] Pain of left eye (Primary Dx) Social History Tobacco Use Types Packs/Day Years [...] Sign Reading Time Taken Comments Blood Pressure 148/100 01/13/2025 9:11 AM EST Pulse 72 01/13/2025 9:11 AM EST Temperature 36.8 C (98.2 F) 01/13/2025 9:11 AM EST Respiratory Rate 20 01/13/2025 9:11 AM EST Oxygen Saturation 99% 01/13/2025 9:11 AM EST Inhaled Oxygen Concentration - - Weight 87.5 kg (193 lb) 01/13/2025 9:11 AM EST Height 170.2 cm (5' 7 ) 01/13/2025 9:11 AM EST Body Mass Index 30.23 01/13/2025 9:11 AM EST documented in this encounter Plan of Treatment Upcoming Encounters Date Type Department Care Team (Late st Contact Info) Description 01/14/2025 3:30 PM EST Office Visit [facility] [address] [place] [address] Idania Thomas, OD [address] [place] [address] 01/22/2025 9:00 AM EST Office Visit [facility] [address] [place] [address] Jaimie Cadena MD [address] [place] [address] 04/28/2025 12:45 PM EST Office Visit [facility] [address] [place] [address] Melquiades Hawkins Scheduled Orders Name Type Priority Associated Diagnoses Orde r Schedule CBC auto differential Lab Routine Pain of left eye Expected: 01/13/2025 (Approximate), Expires: 01/13/2026 Sed Rate by Modified Westergren Lab Routine Pain of left eye Expected: 01/13/2025, Expires: 01/13/2026 documented as of this encounter Visit Diagnoses Diagnosis Pain of left eye- Primary documented in this encounter Additional Health Concerns Assessment Noted Time PHQ-9 Depression Total Score: 0 09/05/19 25 10:20 AM EDT documented as of this encounter Care Teams Plaster Patternmaker Relationship Specialty Start Date End Date Jaimie Cadena MD [address] [place] [address] PCP - General Internal Medicine 05/25/23 documented as of this encounter
--- OUTSIDE RECORDS SUMMARY | 2025-01-13 12:13 | XMS_ITS | Encounter Summary ---
Author Organization [employer] Address 75 [facility] 7 [place] [address] Care Team Providers Care Automation Operator Name Role Phone Jaimie Cadena MD Primary Care Provider [phone] Reason for Visit * Reason Onset Date Comments New Med Request 05/25/2023 Encounter Details Date Type Department Care Team ([facility] st Contact Info) Description 05/25/[address] [facility] MEDICINE [address] [place] [address] Jaimie Cadena MD [address] [place], [place] [phone] New Med Request Social History Tobacco Use [...] sent to pharmacy last night and can potato picker med at pt convenience. Pt agrees [...] Description 01/14/2025 3:30 PM EST Office Visit [facility] OPTOMETRY [address] [place] [address] Idania Thomas, OD [address] [place] [address] 01/22/2025 9:00 AM EST Office Visit [facility] CHC MED & PEDS [address] [place] [address] Jaimie Cadena MD [address] [place] [address] 04/28/2025 12:45 PM EST Office Visit [facility] ADULT DENTAL [address] [place] [address] Melquiades Hawkins documented as of this encounter Visit Diagnoses Not on filedocumented in this encounter Additional Health Concerns Assessment Noted Time PHQ-9 Depression Total Score: 9 05/25/19 24 1:19 PM EDT documented as of this encounter Care Teams Automation Operator Relationship Specialty Start Date End Date Jaimie Cadena MD [address] [place] [address] PCP - General Internal Medicine 05/25/23 documented as of this encounter
--- OUTSIDE RECORDS SUMMARY | 2025-01-13 12:13 | XMS_ITS | Encounter Summary ---
Author Organization [employer] Address 75 [facility] 7 [place] [address] Care Team Providers Care Video Game Producer Name Role Phone Jaimie Cadena MD Primary Care Provider [phone] Reason for Visit * Reason Onset Date Comments Results 07/30/2024 Encounter Details Date Type Department Care Team ([facility] st Contact Info) Description 07/30/2024 Telephone [facility] MEDICINE [address] [place] [address] Jaimie Cadena MD [address] [place] [address] Results Social History Tobacco Use Types Packs/Day [...] status of prior message Please return call [phone] * Telephone Encounter - Myriam Muhammad - 07/30/2024 11:06 AM EDT TC from pt requesting call back regarding Results. Type of results: Helicobacter pylori Antigen, EIA, Stool Date when done: 07/25/2024 Facility: [facility] [phone] [facility] documented in this encounter Plan of Treatment Upcoming Encounters Date Type Department Care Team (Late st Contact Info) Description 01/14/2025 3:30 PM EST Office Visit [facility] OPTOMETRY [address] [place] [address] Idania Thomas, OD [address] [place] [address] 01/22/2025 9:00 AM EST Office Visit [facility] MED & PEDS [address] [place] [address] Jaimie Cadena MD [address] [place] [address] 04/28/2025 12:45 PM EST Office Visit [facility] ADULT DENTAL [address] [place] [address] Melquiades Hawkins documented as of this encounter Visit Diagnoses Not on filedocumented in this encounter Additional Health Concerns Assessment Noted Time PHQ-9 Depression Total Score: 16 07/ 024 9:53 AM EDT documented as of this encounter Care Teams Video Game Producer Relationship Specialty Start Date End Date Jaimie Cadena MD [address] [place] [address] PCP - General Internal Medicine 05/25/23 documented as of this encounter
--- OUTSIDE RECORDS SUMMARY | 2025-01-13 12:13 | XMS_ITS | Encounter Summary ---
Author Organization [employer] Address [address] [facility] [address] 7t [place] [address] Care Team Providers Care Rubbing Bed Operator Name Role Phone Jaimie Cadena MD Primary Care Provider [phone] Encounter Details Date Type Department Care Team (Latest Contact Info) Description 01/13/2025 Travel Social History Tobacco Use Types Packs/Day [...] Description 01/14/2025 3:30 PM EST Office Visit [facility] OPTOMETRY [address] [place] [address] TarIdania stevens, OD [address] [place] [address] 01/22/2025 9:00 AM EST Office Visit [facility] MED & PEDS [address] [place] [address] Jaimie Cadena MD [address] [place] [address] 04/28/2025 12:45 PM EST Office Visit [facility] ADULT DENTAL [address] [place] [address] Melquiades Hawkins documented as of this encounter Visit Diagnoses Not on filedocumented in this encounter Additional Health Concerns Assessment Noted Time PHQ-9 Depression Total Score: 0 09/05/19 25 10:20 AM EDT documented as of this encounter Care Teams Rubbing Bed Operator Relationship Specialty Start Date End Date Jaimie Cadena MD [address] [place] [address] PCP - General Internal Medicine 05/25/23 documented as of this encounter
--- OUTSIDE RECORDS SUMMARY | 2025-01-13 12:13 | XMS_ITS | Encounter Summary ---
Author Organization [employer] Address [address] [facility] [address] 7t [place] [address] Care Team Providers Care Customer Marketing Assistant Name Role Phone Jaimie Cadena MD Primary Care Provider Encounter Details Date Type Department Care Team (Late st Contact Info) Description 10/23/2024 Orders Only [facility] CHC MED & PEDS [address] [place] [address] ProviderMicheal MD Social History Tobacco Use Types [...] Description 01/14/2025 3:30 PM EST Office Visit [facility] OPTOMETRY [address] [place] [address] TarkaIdania, OD [address] [place] [address] 01/22/2025 9:00 AM EST Office Visit [facility] MED & PEDS [address] [place] [address] Jaimie Cadena MD [address] [place] [address] 04/28/2025 12:45 PM EST Office Visit [facility] ADULT DENTAL [address] [place] [address] Melquiades Hawkins documented as of this encounter [...] documented as of this encounter Care Teams Customer Marketing Assistant Relationship Specialty Start Date End Date Jaimie Cadena MD [address] [place] [address] PCP - General Internal Medicine 05/25/23 documented as of this encounter
--- OUTSIDE RECORDS SUMMARY | 2025-01-13 12:13 | XMS_ITS | Clinical Summary ---
Author Organization [employer] Address 75 [facility] 7t [place] [address] Care Team Providers Care Curtain Feller Blindstitch Name Role Phone Jaimie Cadena MD Primary Care Provider [phone] Allergies No known active allergies Medications * [...] FOR MIGRAINE 9 tablet 3 5 Active oxyCODONE (Roxicodone) 5 MG immediate release tabletIndicatio ns:Pain of left eye Take 1 tablet (5 mg) by mouth every 6 (six) hours if needed for severe pain for up to 1 day. 4 tablet 5 01/15/20 25 Active Active Problems Problem Noted Date Diagnosed [...] intervention , Patient to reach out to [facility] team as needed, and Patient [...] intervention , Patient to reach out to [facility] team as needed, and Patient [...] Encounters Date Type Department Care Team Description 01/13/2025 9:15 AM EST Office Visit [facility] CHC MED & PEDS [address] [place] [address] Cindy Davila, CARD PUNCHER Pain of left eye (Primary Dx) 01/13/2025 Travel 01/10/2025 Telephone [facility] MEDICINE [address] [place] [address] Jaimie Cadena MD Nurse Triage 01/06/2025 10:00 AM EST Office Visit [facility] WALK-IN CENTER [address] [place] [address] Marybel Shin, ROMÁN Acute intractable headache, unspecified headache type (Primary Dx); Elevated blood pressure reading in office with diagnosis of hypertension 01/06/2025 Telephone [facility] MEDICINE [address] [place] [address] Petra Lai, HIGH SCHOOL COMPUTER SCIENCE TEACHER Expect 01/06/2025 Travel 12/01/2024 Refill [facility] MEDICINE [address] [place] [address] Jaimie Cadena MD 11/27/2024 1:00 PM EDT Office Visit [facility] ADULT DENTAL [address] [place] [address] Nelli Real DDS 11/21/2024 Refill [facility] MED & PEDS [address] [place] [address] Jaimie Cadena MD Neck pain 10/28/2024 Telephone [facility] WALK-IN CENTER [address] [place] [address] Claude Haynes MD 10/25/2024 11:00 AM EDT Office Visit [facility] ADULT DENTAL [address] [place] [address] Melquiades Hawkins Dental calculus (Primary Dx); 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 Orders Only [facility] MED & PEDS [address] [place] [address] Provider, MD Micheal from Last 3 Months [...] Mass Index 30.23 01/13/2025 9:11 AM EST Plan of Treatment Upcoming Encounters Date Type Department Care Team (Late st Contact Info) Description 01/14/2025 3:30 PM EST Office Visit [facility] OPTOMETRY [address] [place] [address] GihildaIdania, OD [address] [place] [address] 01/22/2025 9:00 AM EST Office Visit [facility] MED & PEDS [address] [place], [place] [phone] Jaimie Cadena MD [address] [place], [place] [phone] 04/28/2025 12:45 PM EST Office Visit [facility] ADULT DENTAL [address] [place], [place] [phone] Melquiades Hawkins Health Maintenance Due Date Last [...] * Surgical Pathology (10/21/2024 12:37 PM EDT) Micheal Provider LAB PATHOLOGY ORDERABLES Final Result * Referral to Urology (10/21/2024) Rolf Cruz MD OUTPATIENT REFERRA L ORDERABLES Final Result * Hepatitis C Antibody with Reflex to HCV, RNA, Quantitative, Real-Time PCR (01/25/2024 4:15 PM EST) Hepatitis C Antibody Nonreactive Nonreactive [facility] Comment:Antibodies to HCV no t detected; does not exclude early acuteHCV infection. Blood Venous blood specimen / Unknown 01/25/2024 4:15 PM EST 01/25/2024 5:47 PM EST Jaimie Cadena MD LAB BLOOD ORDERABLES Final Re sult [facility] [address] [place] [phone] * HIV-1/2 Antigen and Antibodies, Fourth Generation, with Reflexes (01/25/2024 4:15 PM EST) HIV AB/AG Nonreactive Nonreactive [facility] Comment:HIV-1 p24 Ag and/or HIV-1/HIV-2 Ab not detected.A test result that is nonreactive does not exclude thepossibility of exposure to or infection with HIV-1 and/orHIV-2. Nonreactive results in this assay for individualswith prior exposure to HIV-1 and/or HIV-2 may be due toantigen and antibody levels that are below the limit ofdetection of this assay.The [employer] HIV Ag/Ab Combo assay result andsupplemental assay results should be interpreted inconjunction with the patient's clinical presentation,history and other laboratory results. If the results areinconsistent with clinical evidence, additional testing issuggested to confirm the result. Blood Venous blood specimen / Unknown 01/25/2024 4:15 PM EST 01/25/2024 5:47 PM EST us Jaimie Cadena MD LAB BLOOD ORDERABLES Final Re sult [facility] [address] [place] [phone] * (ABNORMAL) Lipid Panel with Reflex to Direct LDL (05/10/2023 10:05 AM EST) Triglycerides 145 <150 mg/dL [facility] Comment:Desirable Triglyceri de: less than 150 mg/dLBorderline High Triglyceride 150-199 mg/dLHigh Triglyceride: 200-499 mg/dLVery High Triglyceride: greater than or equal to 5OO mg/dL Cholesterol 150 <200 mg/dL [facility] Comment:Desirable Cholestero l: less than 200 mg/dLBorderline High Cholesterol: 200-239 mg/dLHigh Cholesterol: greater than 239 mg/dL LDL Cholesterol Calculated 85 <100 mg/dL [facility] Comment:Desirable LDL: less than 100 mg/dLNear Optimal/Above Optimal LDL: 110- 129 mg/dLBorderline High LDL: 130-159 mg/dLHigh LDL: 160-189 mg/dLVery High LDL: greater than or equal to 190 mg/dL HDL Cholesterol 36(L) >40 mg/dL [facility] Comment:Desirable HDL: great er than 40 mg/dL Note: This HDL assay may give artificially low results in patients with liver disease. Blood 05/10/2023 10:0 5 AM EST 05/10/2023 11:23 AM EST Emelia Hui MD LAB BLOOD ORDERABLES Fin al Result [facility] [address] [place] [address] [phone] from Last 3 Months or Most Recently Relevant to Health Maintenance Insurance [facility] HSN FULL DENTAL[place] ADULT DENTAL - HSN FULL (MEDICAID) Care Teams Curtain Feller Blindstitch Relationship Specialty Start Date End Date Jaimie Cadena MD [address] [place] [address] PCP - General Internal Medicine 05/25/23
--- OUTSIDE RECORDS SUMMARY | 2025-01-13 12:13 | XMS_ITS | Clinical Summary ---
Author Organization [facility] Address [address] [place] [address] Care Team Providers Care Hyperbaric Technologist Name Role Phone Jaimie Cadena Primary Care Provider [phone] Allergies No known active allergies Medications butalbital-acet [...] Description 10/21/2024 10:05 AM EDT Anesthesia Event [facility] Operating Room [address] [place] [address] Tavares Shine MD Gioules, Nicole A, DO 10/21/2024 9:10 AM EDT - 10/21/2024 11:10 AM EDT Surgery [facility] Operating Room [address] [place] [address] Luciana Mata MD Circumcision, penile block, all indicated procedures [18695 (CPT )] 10/21/2024 6:36 AM EDT - 10/21/2024 1:29 PM EDT Hospital Encounter [facility] Operating Room [address] [place] [address] Luciana Mata MD Redundant prepuce Discharge Disposition: Home or Self Care () 10/21/2024 Telephone [facility] Urology Clinic [address] [facility] [place] [address] Principal Associate: Luciana Bellamy MD from Last 3 Months [...] complete this topic Procedures * Due to [place] [employer] law, this organization might not be sharing negative HIV tests. Procedure Name Priority Date/Time Associated Diagnosis Comments TISSUE EXAM Routine 10/21/2024 10:42 AM EDT Redundant prepuce ME CIRCUMCISION,OTHR 10/21/2024 9:57 AM EDT Redundant prepuce from Last 3 Months Results * Due to [place] [employer] law, this organization might not be sharing negative HIV tests. * Tissue Exam (10/21/2024 10:42 AM EDT) Final Diagnosis Foreskin, Circumcision: - Unremarkable foreskin [facility] 10/22/2024 1:13 PM EDT [facility] at 1313 EDT Clinical History Pre-op diagnosis: Redundant prepuce [N47.8] [facility] 10/22/2024 1:13 PM EDT [facility] Gross Description 1. [...] from red-pink and soft to focally fibrous. [employer] Mill Operator sections are submitted in 1A. [facility] 10/22/2024 1:13 PM EDT [facility] Gross Description User Grossing complete by Hope Terry on 10/21/2024 1:40 PM [facility] 10/22/2024 1:13 PM EDT [facility] Embedded Images [facility] 10/22/2024 1:13 PM EDT [employer] [facility] Resulting Agency Case was signed out at [facility], Department of Pathology, [employer] 3 CLIA [id number] [facility] 10/22/2024 1:13 PM EDT [facility] Report Header Surgical Pathology Report Case: [id number] Authorizing Provider: Luciana Mata MD Collected: 10/21/2024 1042 Ordering Location: [facility] Received: 10/21/[address] [place] [address] Operating Room Pathologist: Jaden Lind MD Specimen: Foreskin, foreskin 10/22/2024 1:[address] [facility] Tissue Structure of prepuce of penis / Unknown 10/21/2024 10:42 AM EDT 10/21/2024 12:42 PM EDT Comment:Pre-op diagnosis: Redundant prepuce [N47.8] us Luciana Mata MD LAB PATHOLOGY/CYTOLOGY OR DERABLES Final Result [facility] [address] [place] [address], from Last [address] [facility] HSNO/FREE CARE Care Teams Hyperbaric Technologist Relationship Specialty Start Date End Date Jaimie Cadena [address] [place] [phone] PCP - General Internal Medicine 06/15/23
--- OUTSIDE RECORDS SUMMARY | 2025-01-13 12:13 | XMS_ITS | Encounter Summary ---
Author Organization [employer] Address 75 [facility] 7 [place] [address] Care Team Providers Care Animal Nursery Worker Name Role Phone Jaimie Cadena MD Primary Care Provider [phone] Reason for Visit * Reason Onset Date Comments Nurse Triage 01/10/2025 Encounter Details Date Type Department Care Team (Late st Contact Info) Description 01/10/2025 Telephone [facility] MEDICINE [address] [place] [address] Jaimie Cadena MD [address] [place] [address] Nurse Triage Social History Tobacco Use Types [...] without positive effect. Reports he went to [facility] pharmacy to p/up fiorecet and was unable to obtain. TC placed to [facility] pharmacy and they report capsules are not covered but tablets are. They took the verbal order to change the prescription. Pt. Informed of this, he will come to [facility] pharmacy today to see if this [...] Getting worse The caller accepted this outcome. Icelandic speaker Dr. Cadena documented in this encounter Plan of Treatment Upcoming Encounters Date Type Department Care Team (Late st Contact Info) Description 01/14/2025 3:30 PM EST Office Visit [facility] OPTOMETRY [address] [place] [address] TarkaIdania, OD [address] [place] [address] 01/22/2025 9:00 AM EST Office Visit [facility] MED & PEDS [address] [place] [address] Jaimie Cadena MD [address] [place] [address] 04/28/2025 12:45 PM EST Office Visit [facility] ADULT DENTAL [address] [place] [address] Melquiades Hawkins documented as of this encounter Visit Diagnoses Not on filedocumented in this encounter Additional Health Concerns Assessment Noted Time PHQ-9 Depression Total Score: 0 09/05/19 25 10:20 AM EDT documented as of this encounter Care Teams Animal Nursery Worker Relationship Specialty Start Date End Date Jaimie Cadena MD [address] [place] [address] PCP - General Internal Medicine 05/25/23 documented as of this encounter
--- OUTSIDE RECORDS SUMMARY | 2025-01-13 12:13 | XMS_ITS | Encounter Summary ---
Author Organization [facility] Address [address] [place] [address] Care Team Providers Care Lna Name Role Phone Jaimie Cadena Primary Care Provider [phone] Encounter Details Date Type Department Care Team ([facility] st Contact Info) Description 09/27/2024 myChart Message [facility] Operating Room [address] [place] [address] Mychart, Generic Provider [address] [place] [phone] Questionnaire Submission Social History Tobacco Use [...] on filedocumented in this encounter Care Teams Lna Relationship Specialty Start Date End Date Jaimie Cadena [address] [place] [address] PCP - General Internal Medicine 06/15/23 documented as of this encounter
--- OUTSIDE RECORDS SUMMARY | 2025-01-13 12:13 | XMS_ITS | Encounter Summary ---
Author Organization [employer] Address [address] [place] [address] Care Team Providers Care Operator Receptionist Name Role Phone Jaimie Cadena MD Primary Care Provider [phone] Encounter Details Date Type Department Care Team ([facility] st Contact Info) Description 05/25/2023 Telephone [facility] MEDICINE [address] [place] [address] Jaimie Cadena MD [address] [place], [place] [phone] Social History Tobacco Use Types Packs/Day Years [...] Description 01/14/2025 3:30 PM EST Office Visit [facility] OPTOMETRY [address] [place] [address] Idania Thomas, OD [address] [place] [address] 01/22/2025 9:00 AM EST Office Visit [facility] MED & PEDS [address] [place] [address] Jaimie Cadena MD [address] [place] [address] 04/28/2025 12:45 PM EST Office Visit [facility] ADULT DENTAL [address] [place] [address] Melquiades Hawkins documented as of this encounter Visit Diagnoses Not on filedocumented in this encounter Additional Health Concerns Assessment Noted Time PHQ-9 Depression Total Score: 9 05/25/19 24 1:19 PM EDT documented as of this encounter Care Teams Operator Receptionist Relationship Specialty Start Date End Date Jaimie Cadena MD [address] [place] [address] PCP - General Internal Medicine 05/25/23 documented as of this encounter
--- OUTSIDE RECORDS SUMMARY | 2025-01-13 12:13 | XMS_ITS | Encounter Summary ---
Author Organization [employer] Address [address] [place] [address] [address] [place] [address] Care Team Providers Care Analytical Research Program Manager Name Role Phone Jaimie Cadena MD Primary Care Provider [phone] Reason for Visit * Reason Onset Date Comments New Patient 11/30/2022 Encounter Details Date Type Department Care Team (Late st Contact Info) Description 11/30/2022 Telephone [facility] MEDICINE [address] [place] [address] Hakeem Akhtar MD [address] [place] [address] New Patient Social History Tobacco Use Types [...] 3:30 PM EST Office Visit [facility] OPTOMETRY [address] [place], [place] [phone] TarkaIdania, OD [address] [place] [address] 01/22/2025 9:00 AM EST Office Visit [facility] MED & PEDS [address] [place] [address] Jaimie Cadena MD [address] [place] [address] 04/28/2025 12:45 PM EST Office Visit [facility] ADULT DENTAL [address] [place] [address] Melquiades Hawkins documented as of this encounter Visit Diagnoses Not on filedocumented in this encounter Care Teams Analytical Research Program Manager Relationship Specialty Start Date End Date Jaimie Cadena MD [address] [place] [address] PCP - General Internal Medicine 05/25/23 documented as of this encounter
[2025-01-13 14:22] LABS: MANUAL DIFF FLAG NO
[2025-01-13 14:26] LABS: Hematocrit 53.2 % (42.0-52.0); Hemoglobin 17.6 g/dl (14.0-18.0); Imm Gran Abs Auto 0.03 X10*3/uL (0.00-0.03); Imm Gran Pct Auto 0.5 % (0.0-0.4); Lymphocytes Absolute Auto 2.1 X10*3/uL (1.2-4.9); Mean Corpuscular HGB Conc 33.1 g/dl (31.0-36.0); Mean Corpuscular Hemoglobin 28.9 pg (27.0-33.0); Mean Corpuscular Volume 87.2 fL (80.0-98.0); NRBC Abs Auto 0.000 X10*3/uL (0.0-0.012); NRBC Pct Auto 0.0 /100WBC (0.0-0.2); Platelet Count 204 X10*3/uL (160-400); Red Blood Count 6.10 X10*6/uL (4.60-5.80); White Blood Count 6.6 X10*3/uL (4.8-10.8)
== END 2025-01-13 10:26 | disposition home or self-care (01) ==
LOC: HO.CHCLDS 10:25
PROVIDERS: Visit Provider Registered Nurse
DX: H57.12 Ocular pain, left eye (principal)
CPT/HCPCS: 36415; 85025; 85652

== ENCOUNTER 2025-01-14 11:18 | Emergency (ER) | payer MEDICAID, OTHER, SELFPAY ==
--- OUTSIDE RECORDS SUMMARY | 2025-01-13 09:15 | XMS_ITS | Encounter Summary ---
Author Organization [employer] Address 75 [facility] 7t [place] [address] Care Team Providers Care Forest Fire Prevention Specialist Name Role Phone Jaimie Cadena MD Primary Care Provider [phone] Encounter Details Date Type Department Care Team ([facility] st Contact Info) Description 01/13/2025 9:15 AM EST Office Visit [facility] MED & PEDS [address] [place], [place] [phone] Cindy Davila, AIR PRESS OPERATOR [address] [place], [place] [phone] Headache behind the eyes (Primary Dx) Social [...] - He was evaluated on 01/06/25 at [facility] Walk in [place] and sent to ED. Head CT and CTA of brain and neck were unremarkable. Eye pressures and visual acuity checked in hospital were wnl. He was given migraine cocktail with positive effect. Lab work reassuring including no leukocytosis and normal inflammatory markers. - He was re-evaluated in [facility] ED on 01/11/25 for persistent symptoms. There [...] by Modified Westergren Follow up: tomorrow with [facility], ED sooner as needed. [1] [...] [facility] MED & PEDS [address] [place] [address] Jaimie Cadena MD [address] [place] [address] 04/28/2025 12:45 PM EST Office Visit [facility] ADULT DENTAL [address] [place] [address] Melquiades Velazco documented as of this encounter Procedures Procedure Name Priority Date/Time Associated Diagnosis Comments CBC WITH AUTO DIFFERENTIAL Routine 01/13/2025 10:29 AM EST Headache behind the eyes SED RATE BY MODIFIED WESTERGREN Routine 01/13/2025 10:29 AM EST Headache behind the eyes documented in this encounter Results * Sed Rate by Modified Westergren (01/13/2025 10:29 AM EST) Pathologist [facility] Erythrocyte Sedimentation Rate 1 0 - 15 MM/HR [facility] Comment:Patients with polycy themia and many hemoglobin abnormalitiesmay have depressed sed rates whereas patients with anemiamay have elevated sed rates. Blood Venous blood specimen / Unknown 01/13/2025 10:29 AM EST 01/13/2025 2:17 PM EST Cindy Davila [facility] LAB BLOOD ORDERABLES Final Res ult [facility] [address] [place] [phone] * (ABNORMAL) CBC auto differential (01/13/2025 10:29 AM EST) Pathologist [facility] White Blood Count 6.6 4.8 - 10.8 X10*3/uL [facility] Red Blood Count 6.10(H) 4.60 - 5.80 X10*6/uL [facility] Hemoglobin 17.6 14.0 - 18.0 g/dl [facility] Hematocrit 53.2(H) 42.0 - 52.0 % [facility] Mean Corpuscular Volume 87.2 80.0 - 98.0 fL [facility] Mean Corpuscular Hemoglobin 28.9 27.0 - 33.0 pg [facility] Mean Corpuscular HGB Conc 33.1 31.0 - 36.0 g/dl [facility] Red Cell Distribution Width 12.2 11.0 - 16.0 % [facility] Platelet Count 204 160 - 400 X10*3/uL [facility] Mean Platelet Volume 10.8 9.4 - 12.4 fL [facility] Neutrophils Percent Auto 60.3 45 - 73 % [facility] Imm Gran Pct Auto 0.5(H) 0.0 - 0.4 % [facility] Lymphocytes Percent Auto 31.2 20 - 40 % [facility] Monocytes Percent Auto 6.2 2 - 11 % [facility] Eosinophils Percent Auto 1.2 0 - 4 % [facility] Basophils Percent Auto 0.6 0 - 2 % [facility] NRBC Pct Auto 0.0 0.0 - 0.2 /100WBC [facility] Neutrophils Absolute Auto 4.0 2.0 - 8.3 x10*3/uL [facility] Imm Gran Abs Auto 0.03 0.00 - 0.03 X10*3/uL [facility] Lymphocytes Absolute Auto 2.1 1.2 - 4.9 X10*3/uL [facility] Monocytes Absolute Auto 0.4 0.1 - 1.2 X10*3/uL [facility] Eosinophils Absolute Auto 0.1 0.0 - 0.4 X10*3/uL [facility] Basophils Absolute Auto 0.0 0.0 - 0.2 X10*3/uL [facility] NRBC Abs Auto 0.000 0.0 - 0.012 X10*3/uL [facility] Blood Venous blood specimen / Unknown 01/13/2025 10:29 AM EST 01/13/2025 2:20 PM EST us Cindy Davila AIR PRESS OPERATOR LAB BLOOD ORDERABLES Final Res ult [facility] [address] [place] [phone] documented in this encounter Visit Diagnoses Diagnosis Headache behind the eyes- Primary Headache documented in this encounter Additional Health Concerns Assessment Noted Time PHQ-9 Depression Total Score: 0 09/05/19 25 10:20 AM EDT documented as of this encounter Care Teams Forest Fire Prevention Specialist Relationship Specialty Start Date End Date Jaimie Cadena MD [address] [place] [address] PCP - General Internal Medicine 05/25/23 documented as of this encounter
--- OUTSIDE RECORDS SUMMARY | 2025-01-13 14:00 | XMS_ITS | Encounter Summary ---
Author Organization [employer] Address [address] [facility] 7t [place] [address] Care Team Providers Care Industrial Aerial Installer Name Role Phone Jaimie Cadena MD Primary Care Provider [phone] Encounter Details Date Type Department Care Team ([facility] st Contact Info) Description 01/13/2025 2:00 PM EST Office Visit [facility] OPTOMETRY [address] [place], [place] [phone] TarkaIdania, OD [address] [place] [address] Migraine without aura and with status migrainosus, [...] tropicamide @ 2:09 PM Additional Tests Color escapement matcher desat: normal, symmetrical Slit Lamp and Fundus [...] Exam Right Left Vitreous Clear Clear Disc [place] with distinct margins [place] with distinct margins C/D Ratio Vertical 0.20 [...] CTA, CT, labs and viral testing at [facility]. Walk in provider reordered CBC & ESR to r/o GCA - all tests have returned and are unremarkable. - Advised patient that ocular health assessment today was unremarkable and symptoms are consistent with cluster headache - Recommended that patient follow up with PCP and to go to the ER if symptoms worsen/persist Idania Thomas, OD 01/13/2025, 3:18 PM Top Precipitator Operator Source: __ None _x_ Bilingual Staff __ Qualified Staff Certified Ethical Hacker __ Telephone Top Precipitator Operator; ID# __ Top Precipitator Operator brought by patient (family member, friend, CUTTER IN, etc) __ In person director labor standards __ Ipad Top Precipitator Operator; ID#: Language Spoken During Exam: Maltese [1] Current Outpatient Medications Medication Sig Dispense [...] [facility] MED & PEDS [address] [place] [address] Jaimie Cadena MD [address] [place], [place] [phone] 04/28/2025 12:45 PM EST Office Visit [facility] CHC ADULT DENTAL [address] [place] [address] Melquiades Hawkins documented as of this encounter Visit Diagnoses Diagnosis Migraine without aura and with status migrainosus, not intractable- Primary documented in this encounter Additional Health Concerns Assessment Noted Time PHQ-9 Depression Total Score: 0 09/05/19 25 10:20 AM EDT documented as of this encounter Care Teams Industrial Aerial Installer Relationship Specialty Start Date End Date Jaimie Cadena MD [address] [place] [address] PCP - General Internal Medicine 05/25/23 documented as of this encounter
--- NOTE | 2025-01-14 | ECG_ITS ---
Test Reason : AMS Blood Pressure : */* mmHG Vent. Rate : 61 BPM Atrial Rate : 61 BPM P-R Int : 148 ms QRS Dur : 86 ms QT Int : 380 ms P-R-T Axes : 56 23 20 degrees QTcB Int : 382 ms Normal sinus rhythm Normal ECG When compared with ECG of 06-Jan-2025 11:02, No significant change was found Referred By: Generic ED Physician Electronically Signed By: JAEL KELLER MD
--- NOTE | ~2025-01-14 | CT_ITS ---
EXAMINATION: CT HEAD WITHOUT CONTRAST CLINICAL INFORMATION: [facility] COMPARISON: April 29, 2023. TECHNIQUE: Contiguous axial imaging was performed from the skull base to vertex without intravenous administration of contrast. This CT examination was performed using dose optimization techniques as appropriate, variously including the following: *Automated exposure control *Adjustment of mA and/or kV according to patient size (this includes techniques or standardized protocols for targeted exams where dose is matched to indication/reason for exam; i.e. extremities or head) *Use of iterative reconstruction technique DLP: 716 mGy-cm FINDINGS: No acute intracranial hemorrhage, mass effect, midline shift, hydrocephalus or herniation. Mathews-white matter differentiation is normal. Posterior cranial fossa contents demonstrated no acute hemorrhage or mass effect. Normal position of the cerebellar tonsils. Sellar/suprasellar region demonstrated no gross abnormality. Tympanic cavities and mastoid cells are aerated. Pneumatized petrous apices, congenital. Mucous retention cyst, left ethmoid air cells. CT/CT head/brain wo IV con IMPRESSION: No acute or structural brain abnormality by CT. Electronically signed by: Zain Cunningham MD 01/14/2025 02:32 PM [facility]
--- OUTSIDE RECORDS SUMMARY | 2025-01-14 11:00 | XMS_ITS | Encounter Summary ---
Author Organization [employer] Address [address] 7[address] [place] [address] Care Team Providers Care Steamfitter Supervisor Name Role Phone Jaimie Cadena MD Primary Care Provider [phone] Encounter Details Date Type Department Care Team (Latest Contact Info) Description 01/14/2025 11:00 AM EST Office Visit [facility] WALK-IN CENTER [address] [place] [phone] Claude Haynes MD [address] [place] [address] Decreased responsiveness (Primary Dx); Intractable headache, unspecified [...] and hypertension,referred to the ED. In [place] [facility] [place], CT scan of the head, CTA of the brain and CTA of the neck were read as no acute abnormalities. Bilateral intraocular pressures were normal. CBC, CMP, rapid COVID and flu tests were negative. Clinical impression: Headache. Discharged home. On January 11 he returned to the [facility] ED because of persistent left headache. [...] Description 01/22/2025 9:00 AM EST Office Visit [facility] MED & PEDS [address] [place] [address] Jaimie Cadena MD [address] [place] [address] 04/28/2025 12:45 PM EST Office Visit [facility] ADULT DENTAL [address] [place] [address] Melquiades Hawkins documented as of this encounter Visit Diagnoses Diagnosis Decreased responsiveness- Primary Intractable headache, unspecified chronicity pattern, unspecified headache type Hypertension, unspecified type documented in this encounter Additional Health Concerns Assessment Noted Time PHQ-9 Depression Total Score: 0 09/05/19 25 10:20 AM EDT documented as of this encounter Care Teams Steamfitter Supervisor Relationship Specialty Start Date End Date Jaimie Cadena MD [address] [place] [address] PCP - General Internal Medicine 05/25/23 documented as of this encounter
[2025-01-14 11:36] VITALS: BP 140/90; PULSE 59; RESP 18; TEMP 36.8; O2SAT 100; BMI 26.5
[2025-01-14 11:42] VITALS: BP 170/94; PULSE 56; O2SAT 100
[2025-01-14 11:54] LABS: MANUAL DIFF FLAG NO
[2025-01-14 11:57] LABS: Hematocrit 53.2 % (42.0-52.0); Hemoglobin 17.9 g/dl (14.0-18.0); Imm Gran Abs Auto 0.02 X10*3/uL (0.00-0.03); Imm Gran Pct Auto 0.3 % (0.0-0.4); Lymphocytes Absolute Auto 2.0 X10*3/uL (1.2-4.9); Mean Corpuscular HGB Conc 33.6 g/dl (31.0-36.0); Mean Corpuscular Hemoglobin 29.4 pg (27.0-33.0); Mean Corpuscular Volume 87.5 fL (80.0-98.0); NRBC Abs Auto 0.000 X10*3/uL (0.0-0.012); NRBC Pct Auto 0.0 /100WBC (0.0-0.2); Platelet Count 188 X10*3/uL (160-400); Red Blood Count 6.08 X10*6/uL (4.60-5.80); White Blood Count 7.7 X10*3/uL (4.8-10.8)
[2025-01-14 12:09] LABS: Alanine Aminotransferase 63 U/L (0-40); Albumin Level 4.8 g/dL (3.5-5.0); Alkaline Phosphatase 62 U/L (39-117); Anion Gap 10 (12-20); Aspartate Amino Transferase 43 U/L (5-37); Blood Urea Nitrogen 14 mg/dL (9-16); Calcium 9.8 mg/dL (8.4-10.2); Carbon Dioxide 27 mmol/L (22-29); Chloride 106 mmol/L (96-108); Creatinine Clr Calc Pharmacy 90.6; Estimated Glomerular Filt Rate > 60; Magnesium 2.0 mg/dL (1.6-2.6); Potassium 4.7 mmol/L (3.3-5.1); Sodium 138 mmol/L (135-145); Total Protein 7.7 g/dL (6.5-8.0)
--- NOTE | 2025-01-14 13:35 | ED_ITS ---
HPI - General Adult General Chief complaint: General Medical Stated complaint: UNRESPONSIVE Time Seen by Provider: 01/14/25 13:17 History of Present Illness ED Provider: Dr. Becerra HPI narrative: 34 y/o M patient; PMH recurrent migraine headaches; presents via EMS from clinic appointment with unresponsiveness . The patient to EMS and family reported NBNB nausa/vomiting and headache. He described the headache as left sided with eye throbbing. EMS did provide Zofran 4mg IV prior to arrival. Patient providing limited information. I reviewed his recent relevant medical records. He was seen at this hospital 04/29/2023 for headache and started on Fioricet and Sumatriptan at that time. He was seen at [facility] 12/17, 01/06, 01/11/25 for these symptoms as well. He was then started on naproxen and cyclobenazaprine. He had a CTA Head/Neck completed which was reassuring. He was seen at his PCP recently where he was prescribed 5mg Oxycodone. He was referred to the ophthlamologist who evaluated him yesterday and reported no abnormalities. I spoke with the on-call neurologist Dr. Busch. Recommends 60mg Prednisone 3 days and then taper. Related Data Previous Rx's ?Medication ?Instructions ?Recorded oxybutynin chloride 5 mg tablet 5 mg PO BID PRN bladde r spasms #60 08/12/22 tabs naproxen 375 mg tablet 375 mg PO BID PRN pain #12 t abs 08/30/22 ondansetron 4 mg disintegrating 4 mg PO Q8H PRN nausea and 04/21/23 tablet vomiting #20 tabs dzyeyyzygu-ljjycuojlfqdv-dftkkdyk 1 cap PO TID PRN rhoda n #20 caps 04/29/23 50 mg-300 mg-40 mg capsule (Fioricet) sumatriptan succinate 50 mg tablet See Rx Instructions PO .COMPLEX 04/29/23 #10 tabs cyclobenzaprine 10 mg tablet 10 mg PO TID PRN muscle s pasm #20 08/02/23 tabs cyclobenzaprine 10 mg tablet 10 mg PO TID PRN muscle s pasm #14 12/20/23 tabs ibuprofen 600 mg tablet 600 mg PO Q6H PRN pain #14 t abs 12/20/23 ibuprofen 600 mg tablet 600 mg PO Q6H PRN pain #20 t abs 01/13/24 cyclobenzaprine 10 mg tablet 10 mg PO TID PRN muscle s pasm #20 12/17/24 tabs naproxen 500 mg tablet 500 mg PO BID PRN pain #20 t abs 12/17/24 hqcvgyubwx-eexxyocfmubgl-yoltmwuw 1 cap PO Q8H PRN hea dache #5 caps 01/06/25 50 mg-300 mg-40 mg capsule (Fioricet) prednisone 10 mg tablet 60 mg (6 x 10 mg) PO DIRE CTED 01/14/25 18 days #63 tabs Allergies Allergy/AdvReac Type Severity Reaction Status Date / Time No Known Allergies Allergy Verified 01/14/25 11:39 Review of Systems 2 Review of Systems: Yes all other systems are reviewed and are negative Neurologic: Denies Abnormal speech present and Denies Sensory deficit (Neuro) [facility] Past Medical History Attestation statement: The following information was validated with the patient. Source: old records reviewed Medical History Calculus of kidney Hydronephrosis Surgical History Hx of bladder endoscopy Hx of appendectomy Family History Family History Father No problems noted. Mother No problems noted. Social History Social History Alcohol intake: current Alcohol intake frequency: holidays/special occasions only Patient Tobacco Use Status: Never used Tobacco Advance Directives: No Advance Directives Information Provided: Yes Advance Directives Date on File: 08/02/22 Do you have a plan to hurt others: No Plan Physical Exam ED Vital Signs: Vital Signs - 24 hr 01/14/25 11:36 01/14/25 13:51 Temperature 98.3 F Pulse Rate 59 73 Respiratory Rate 18 12 Blood Pressure 140/90 H 129/84 Pulse Oximetry 100 98 Oxygen Delivery Method Room Air Room Air BMI result Body Mass Index 26.5 Patient is afebrile and hemodynamically stable. Const General: cooperative and no acute distress Orientation/consciousness: patient oriented x3 HENMT Head: Yes normal to inspection and Yes atraumatic Eyes General: appearance normal, both eyes and all related structures Pupils: Equal, round and reactive pupils present EOM: EOMs intact bilaterally Neck Neck: Yes normal visual inspection, Yes full ROM, Yes supple and No tender Chest Chest palpation & inspection: normal inspection of the chest and normal palpation of entire chest wall Resp Effort & Inspection: normal respiratory effort, able to speak in complete sentences and no cough Auscultation: clear to auscultation bilaterally Cardio Rate: regular rate Rhythm: regular rhythm Peripheral pulses: Peripheral pulses 2+ throughout GI Inspection: Yes normal to inspection, No Abdominal wall edema and No distended Palpation (GI): Soft to palpation, not firm, nontender, no guarding and not rigid Auscultation: normal bowel sounds Back/Spine/Pelvis Back: No back tenderness Neuro General: patient oriented x3 Cranial nerves: Yes Equal, round and reactive pupils present Cognition (Neuro): normal cognition Speech: No Abnormal speech present Motor exam (neuro): 5/5 motor strength present throughout Sensory Exam: No Sensory deficit (Neuro) Course Course Course Narrative: Patient is afebrile and hemodynamically stable. He is voluntarily moving his feet and hands. Will plan to observe. Will obtain screening labs and repeat CT Head due to patient's dramatic presentation today. Providing symptom control with tylenol, IV fluids, reglan, and benadryl. Labs reviewed. No significant anemia. No significant leukocytosis. Mild (baseline) transaminitis. CT Head is unremarkable. Patient placed on NRB 15L with concern for cluster headaches. Consented for lidocaine block - applied 1.5cc 2% lidocaine to bilateral nares with atomizer. I discussed the case with Neurology Dr. Busch given patient's multiple recent emergency department visits. Agrees with plan for prednisone 60mg for 3 days, then taper. Will give information for follow up. Patient reports modest improvement in symptoms from >10/10 to 8/10. He is ambulatory without difficulty and has a normal neurological exam. Plan: Discharge to home with Neurology follow up Return precautions given Rx prednisone taper sent to pharmacy Medications Administered Discontinued Medications Generic Name Dose Route Start Last Admin Trade Name Freq PRN Reason Stop Dose Admin Diphenhydramine HCl 50 mg 01/14/25 13:42 01/14/25 13:55 Diphenhydramine Hcl 50 Mg/Ml Vial IVPUSH 01/14/25 13:43 50 mg ONCE ONE Administration Sodium Chloride 1,000 mls @ 999 mls/hr 01/14/25 13:45 01/14/25 15:39 Ns IV 01/14/25 14:45 Infused .Q1H1M QIANA Infusion Acetaminophen 1,000 mg in 100 mls @ 400 mls/hr 01/14/25 13:42 01/14/25 14:45 Ofirmev IV 01/14/25 13:56 Infused ONCE ONE Infusion Metoclopramide HCl 10 mg 01/14/25 13:42 01/14/25 13:55 Metoclopramide Hcl 10 Mg/2 Ml Vial IVPUSH 01/14/25 13:43 10 mg ONCE ONE Administration Medical Decision Making Lab Data 01/14/25 11:49 01/14/25 11:49 Labs: Lab Results 01/14/25 Range/Units 11:49 WBC 7.7 (4.8-10.8) X10*3/uL RBC 6.08 H (4.60-5.80) X10*6/uL Hgb 17.9 (14.0-18.0) g/dl Hct 53.2 H (42.0-52.0) % MCV 87.5 (80.0-98.0) fL MCH 29.4 (27.0-33.0) pg MCHC 33.6 (31.0-36.0) g/dl RDW 11.9 (11.0-16.0) % Plt Count 188 (160-400) X10*3/uL MPV 10.1 (9.4-12.4) fL Immature Gran % (Auto) 0.3 (0.0-0.4) % Neut % (Auto) 66.6 (45-73) % Lymph % (Auto) 25.4 (20-40) % Patrick % (Auto) 5.7 (2-11) % Eos % (Auto) 1.2 (0-4) % Baso % (Auto) 0.8 (0-2) % Lymph # (Auto) 2.0 (1.2-4.9) X10*3/uL Patrick # (Auto) 0.4 (0.1-1.2) X10*3/uL Eos # (Auto) 0.1 (0.0-0.4) X10*3/uL Baso # (Auto) 0.1 (0.0-0.2) X10*3/uL Abs Immat Gran (auto) 0.02 (0.00-0.03) X10*3/uL Absolute Neuts (auto) 5.2 (2.0-8.3) x10*3/uL Absolute Nucleated RBC 0.000 (0.0-0.012) X10*3/uL Nucleated RBC % (auto) 0.0 (0.0-0.2) /100WBC Sodium 138 (135-145) mmol/L Potassium 4.7 (3.3-5.1) mmol/L Chloride 106 (96-108) mmol/L Carbon Dioxide 27 (22-29) mmol/L Anion Gap 10 L (12-20) BUN 14 (9-16) mg/dL Creatinine 1.26 (0.5-1.4) mg/dL Estim Creat Clear Calc 90.6 Estimated GFR > 60 Random Glucose 97 (60-115) mg/dL Calcium 9.8 (8.4-10.2) mg/dL Magnesium 2.0 (1.6-2.6) mg/dL Total Bilirubin 0.9 (0.0-1.0) mg/dL AST 43 H (5-37) U/L ALT 63 H (0-40) U/L Alkaline Phosphatase 62 (39-117) U/L Total Protein 7.7 (6.5-8.0) g/dL Albumin 4.8 (3.5-5.0) g/dL Independent Interpretation I performed an independent interpretation of an: EKG Interpretation: EKG independently interpreted by myself as NSR 61BPM with normal intervals without ischemic changes Radiology Impression Discussion of test interpretation with radiology: I have reviewed the radiologist's reading. Radiologist Impression: EXAMINATION: CT HEAD WITHOUT CONTRAST CLINICAL INFORMATION: AMS COMPARISON: April 29, 2023. TECHNIQUE: Contiguous axial imaging was performed from the skull base to vertex without intravenous administration of contrast. This CT examination was performed using dose optimization techniques as appropriate, variously including the following: *Automated exposure control *Adjustment of mA and/or kV according to patient size (this includes techniques or standardized protocols for targeted exams where dose is matched to indication/reason for exam; i.e. extremities or head) *Use of iterative reconstruction technique DLP: 716 mGy-cm FINDINGS: No acute intracranial hemorrhage, mass effect, midline shift, hydrocephalus or herniation. Mathews-white matter differentiation is normal. Posterior cranial fossa contents demonstrated no acute hemorrhage or mass effect. Normal position of the cerebellar tonsils. Sellar/suprasellar region demonstrated no gross abnormality. Tympanic cavities and mastoid cells are aerated. Pneumatized petrous apices, congenital. Mucous retention cyst, left ethmoid air cells. CT/CT head/brain wo IV con IMPRESSION: No acute or structural brain abnormality by CT. Electronically signed by: Zain Cunningham MD 01/14/2025 02:32 PM [facility] Discharge Plan Discharge Clinical Impression: Cluster headache Patient Disposition: Home, Self-Care Additional Instructions: Today you were diagnosed with cluster headaches. You received high dose oxygen and a block with lidocaine for your pain. I spoke with the Neurologist who recommended calling their office for appointment. Take the prednisone exactly as prescribed. Take 60mg (6 tabs) for 3 days Take 50mg (5 tab) for 3 days Take 40mg (4 tab) for 3 days Take 30mg (3 tab) for 3 days Take 20mg (2 tab) for 3 days Take 10mg (1 tab) for 3 days Prescriptions: New prednisone 10 mg tablet 60 mg PO DIRECTED 18 Days Qty: 63 0RF Rx Instructions: see taper instructions Take 60mg (6 tabs) for 3 days Take 50mg (5 tab) for 3 days Take 40mg (4 tab) for 3 days Take 30mg (3 tab) for 3 days Take 20mg (2 tab) for 3 days Take 10mg (1 tab) for 3 days No Action naproxen 375 mg tablet 375 mg PO BID PRN (Reason: pain) Qty: 12 0RF cyclobenzaprine 10 mg tablet 10 mg PO TID PRN (Reason: muscle spasm) Qty: 20 0RF ibuprofen 600 mg tablet 600 mg PO Q6H PRN (Reason: pain) Qty: 14 0RF cyclobenzaprine 10 mg tablet 10 mg PO TID PRN (Reason: muscle spasm) Qty: 14 0RF naproxen 500 mg tablet 500 mg PO BID PRN (Reason: pain) Qty: 20 0RF cyclobenzaprine 10 mg tablet 10 mg PO TID PRN (Reason: muscle spasm) Qty: 20 0RF ondansetron 4 mg tablet,disintegrating 4 mg PO Q8H PRN (Reason: nausea and vomiting) Qty: 20 0RF oziocygztk-cfelbkrdpwjgr-srhd [Fioricet] 50-300-40 mg capsule 1 cap PO TID PRN (Reason: pain) Qty: 20 0RF sumatriptan succinate 50 mg tablet See Rx Instructions .ROUTE .COMPLEX Qty: 10 0RF Rx Instructions: take 1 tab at onset of headache; if no relief may repeat 1 tab after at least 2 hrs; max = 4 tabs/24 hr ibuprofen 600 mg tablet 600 mg PO Q6H PRN (Reason: pain) Qty: 20 0RF xibodcpalc-bznrshgiqnpln-klfn [Fioricet] 50-300-40 mg capsule 1 cap PO Q8H PRN (Reason: headache) Qty: 5 0RF oxybutynin chloride 5 mg tablet 5 mg PO BID PRN (Reason: bladder spasms) Qty: 60 0RF Rx Instructions: use one tablet once to twice daily for bladder urgency Referrals: Joie Busch MD [Physician, Neurology] Referral Note: Please call this number to make an appointment with the neurologist and ask to have an appointment with Brianna Ruvalcbaa Print Language: Maldivian
[2025-01-14 13:51] VITALS: BP 129/84; PULSE 73; RESP 12; O2SAT 98
--- OUTSIDE RECORDS SUMMARY | 2025-01-14 14:04 | XMS_ITS | Encounter Summary ---
Author Organization [employer] Address [address] [facility] 7 [place] [address] Care Team Providers Care Gas Line Installer Supervisor Name Role Phone Jaimie Cadena MD Primary Care Provider [phone] Reason for Visit * Reason Onset Date Comments 911 Call 01/14/2025 Encounter Details Date Type Department Care Team ([facility] st Contact Info) Description 01/14/2025 Telephone [facility] [address] [place] [address] Jaimie Cadena MD [address] [place] [address] [id number] Call Social History Tobacco Use Types Packs/Day Years [...] encounter Miscellaneous Notes * Telephone Encounter - Mei Herrera RN - 01/14/2025 11:29 AM EST Patient presented to walk in center almost collapsed while checking in front desk admin called for nurse.Patient found incoherent in waiting room responsive to touch immediately asked [place] to get a providerand pt was brought back in a wheel chair to be assessed while 911 was initiated. Pt was found to behypertensive all other vitals stable however pt was diaphoretic and placed on 2 L of oxygen. EMS transported pt to [facility] will forward message to [facility] for a status check tomorrow. documented in this encounter Plan of Treatment Upcoming Encounters Date Type Department Care Team (Late st Contact Info) Description 01/22/2025 9:00 AM EST Office Visit [facility] [address] [place] [address] Jaimie Cadena MD [address] [place] [address] 04/28/2025 12:45 PM EST Office Visit [facility] [address] [place] [address] Melquiades Hawkins documented as of this encounter Visit Diagnoses Not on filedocumented in this encounter Additional Health Concerns Assessment Noted Time PHQ-9 Depression Total Score: 0 09/05/19 25 10:20 AM EDT documented as of this encounter Care Teams Gas Line Installer Supervisor Relationship Specialty Start Date End Date Jaimie Cadena MD [address] [place] [address] PCP - General Internal Medicine 05/25/23 documented as of this encounter
--- OUTSIDE RECORDS SUMMARY | 2025-01-14 14:04 | XMS_ITS | Encounter Summary ---
Author Organization [employer] Address [address] [facility] [address] 7[address] [place] [address] Care Team Providers Care Transport Operations Inspector Name Role Phone Jaimie Cadena MD Primary Care Provider Encounter Details Date Type Department Care Team ([facility] st Contact Info) Description 05/25/2023 Telephone [facility] [address] [place] [address] Jaimie Cadena MD [address] [place], [place] [phone] Social History Tobacco Use Types Packs/Day Years [...] Score 9 05/25/2023 1:19 PM EDT Mary Piazno [place] documented as of this encounter Plan of Treatment Upcoming Encounters Date Type Department Care Team (Late st Contact Info) Description 01/22/2025 9:00 AM EST Office Visit [facility] [address] [place] [address] Jaimie Cadena MD [address] [place] [address] 04/28/2025 12:45 PM EST Office Visit [facility] [address] [place] [address] Melquiades Hawkins documented as of this encounter Visit Diagnoses Not on filedocumented in this encounter Additional Health Concerns Assessment Noted Time PHQ-9 Depression Total Score: 9 05/25/19 24 1:19 PM EDT documented as of this encounter Care Teams Transport Operations Inspector Relationship Specialty Start Date End Date Jaimie Cadena MD [address] [place] [address] PCP - General Internal Medicine 05/25/23 documented as of this encounter
--- OUTSIDE RECORDS SUMMARY | 2025-01-14 14:04 | XMS_ITS | Encounter Summary ---
Author Organization [employer] Address [address] [facility] [address] 7[address] [place] [address] Care Team Providers Care Mortgage Closer Name Role Phone Jaimie Cadena MD Primary Care Provider [phone] Encounter Details Date Type Department Care Team (Late st Contact Info) Description 10/23/2024 Orders Only [facility] [address] [place] [address] ProviderMicheal MD Social History Tobacco Use Types [...] Description 01/22/2025 9:00 AM EST Office Visit [facility] [address] [place] [address] Jaimie Cadena MD [address] [place] [address] 04/28/2025 12:45 PM EST Office Visit [facility] [address] [place] [address] Melquiades Hawkins documented as of this encounter [...] documented as of this encounter Care Teams Mortgage Closer Relationship Specialty Start Date End Date Jaimie Cadena MD [address] [place] [address] PCP - General Internal Medicine 05/25/23 documented as of this encounter
--- OUTSIDE RECORDS SUMMARY | 2025-01-14 14:04 | XMS_ITS | Encounter Summary ---
Author Organization [employer] Address [address] [facility] 7 [place] [address] Care Team Providers Care Technical Illustrations Map Inker Name Role Phone Jaimie Cadena MD Primary Care Provider [phone] Reason for Visit * Reason Onset Date Comments New Med Request 05/25/2023 Encounter Details Date Type Department Care Team ([facility] st Contact Info) Description 05/25/2023 Telephone [facility] MEDIC[facility] [address] [place] [address] Jaimie Cadena MD [address] [place], [place] [phone] New Med Request Social History Tobacco Use [...] sent to pharmacy last night and can belt picker med at pt convenience. Pt agrees [...] 01/22/2025 9:00 AM EST Office Visit [facility] [address] [place] [address] Jaimie Cadena MD [address] [place] [address] 04/28/2025 12:45 PM EST Office Visit [facility] [address] [place] [address] Melquiades Hawkins documented as of this encounter Visit Diagnoses Not on filedocumented in this encounter Additional Health Concerns Assessment Noted Time PHQ-9 Depression Total Score: 9 05/25/19 24 1:19 PM EDT documented as of this encounter Care Teams Technical Illustrations Map Inker Relationship Specialty Start Date End Date Jaimie Cadena MD [address] [facility] [place] [address] PCP - General Internal Medicine 05/25/23 documented as of this encounter
--- OUTSIDE RECORDS SUMMARY | 2025-01-14 14:05 | XMS_ITS | Encounter Summary ---
Author Organization [employer] Address [address] [facility] [address] [place] [address] Care Team Providers Care Tree Worker Name Role Phone Jaimie Cadena MD Primary Care Provider [phone] Encounter Details Date Type Department Care Team [...] AM EST Office [facility] [address] [place] [address] Jaimie Cadena MD [address] [place] [address] 04/28/2025 12:45 PM EST Office [facility] [address] [place] [address] Melquiades Hawkins documented as of this encounter Visit Diagnoses Not on filedocumented in this encounter Additional Health Concerns Assessment Noted Time PHQ-9 Depression Total Score: 0 09/05/19 25 10:20 AM EDT documented as of this encounter Care Teams Tree Worker Relationship Specialty Start Date End Date Jaimie Cadena MD [address] [place] [address] PCP - General Internal Medicine 05/25/23 documented as of this encounter
--- OUTSIDE RECORDS SUMMARY | 2025-01-14 14:05 | XMS_ITS | Encounter Summary ---
Author Organization [employer] Address [address] [facility] 7 [place] [address] Care Team Providers Care Assistant Brand Manager Name Role Phone Jaimie Cadena MD Primary Care Provider [phone] Reason for Visit * Reason Onset Date Comments Results 07/30/2024 Encounter Details Date Type Department Care Team ([facility] st Contact Info) Description 07/30/2024 Telephone [facility] MED[facility] [address] [place] [address] Jaimie Cadena MD [address] [place] [address] Results Social History Tobacco Use Types Packs/Day [...] status of prior message Please return call [phone] * Telephone Encounter - Myriam Muhammad - 07/30/2024 11:06 AM EDT TC from pt requesting call back regarding Results. Type of results: Helicobacter pylori Antigen, EIA, Stool Date when done: 07/25/2024 Facility: [facility] [phone] [facility] documented in this encounter Plan of Treatment Upcoming Encounters Date Type Department Care Team (Late st Contact Info) Description 01/22/2025 9:00 AM EST Office Visit [facility] [address] [place] [address] Jaimie Cadena MD [address] [place] [address] 04/28/2025 12:45 PM EST Office Visit [facility] [address] [place] [address] Melquiades Hawkins documented as of this encounter Visit Diagnoses Not on filedocumented in this encounter Additional Health Concerns Assessment Noted Time PHQ-9 Depression Total Score: 16 024 9:53 AM EDT documented as of this encounter Care Teams Assistant Brand Manager Relationship Specialty Start Date End Date Jaimie Cadena MD [address] [place] [address] PCP - General Internal Medicine 05/25/23 documented as of this encounter
--- OUTSIDE RECORDS SUMMARY | 2025-01-14 14:05 | XMS_ITS | Encounter Summary ---
Author Organization [employer] Address [address] [facility] [address] [place] [address] Care Team Providers Care Gas Engine Operator Name Role Phone Jaimie Cadena MD Primary Care Provider [phone] Encounter Details Date Type Department Care Team (Latest Contact Info) Description 01/14/2025 Travel Social History Tobacco Use Types Packs/Day [...] Description 01/22/2025 9:00 AM EST Office Visit [facility] [address] [place] [address] Jaimie Cadena MD [address] [place] [address] 04/28/2025 12:45 PM EST Office Visit [facility] [address] [place] [address] Melquiades Hawkins documented as of this encounter Visit Diagnoses Not on filedocumented in this encounter Additional Health Concerns Assessment Noted Time PHQ-9 Depression Total Score: 0 09/05/19 25 10:20 AM EDT documented as of this encounter Care Teams Gas Engine Operator Relationship Specialty Start Date End Date Jaimie Cadena MD [address] [place] [address] PCP - General Internal Medicine 05/25/23 documented as of this encounter
--- OUTSIDE RECORDS SUMMARY | 2025-01-14 14:05 | XMS_ITS | Encounter Summary ---
Author Organization [facility] Address [address] [place] [address] Care Team Providers Care Regrind Mill Operator Name Role Phone Jaimie Cadena Primary Care Provider [phone] Encounter Details Date Type Department Care Team ([facility] st Contact Info) Description 09/27/2024 myChart Message [facility] Operating Room [address] [place] [address] Mychart, Generic Provider [address] [place] [address] Questionnaire Submission Social History Tobacco Use [...] on filedocumented in this encounter Care Teams Regrind Mill Operator Relationship Specialty Start Date End Date Jaimie Cadena [address] [place] [address] PCP - General Internal Medicine 06/15/23 documented as of this encounter
--- OUTSIDE RECORDS SUMMARY | 2025-01-14 14:05 | XMS_ITS | Clinical Summary ---
Author Organization [facility] Address [address] [place] [address] Care Team Providers Care Dental Cream Maker Name Role Phone Jaimie Cadena Primary Care Provider [phone] Allergies No known active allergies Medications butalbital-acet [...] Description 10/21/2024 10:05 AM EDT Anesthesia Event [facility] Operating Room [address] [place] [address] Tavares Shine MD Gioules, Nicole A, DO 10/21/2024 9:10 AM EDT - 10/21/2024 11:10 AM EDT Surgery [facility] Operating Room [address] [place] [address] Luciana Mata MD Circumcision, penile block, all indicated procedures [14139 (CPT )] 10/21/2024 6:36 AM EDT - 10/21/2024 1:29 PM EDT Hospital Encounter [facility] Operating Room [address] [place] [address] Luciana Mata MD Redundant prepuce Discharge Disposition: Home or Self Care () 10/21/2024 Telephone [facility] [address] [facility] [place] [address] Coal Cutter: Luciana Bellamy MD from Last 3 Months [...] complete this topic Procedures * Due to [place] Tuan800 law, this organization might not be sharing negative HIV tests. Procedure Name Priority Date/Time Associated Diagnosis Comments TISSUE EXAM Routine 10/21/2024 10:42 AM EDT Redundant prepuce [place] CIRCUMCISION,OTHR 10/21/2024 9:57 AM EDT Redundant prepuce from Last 3 Months Results * Due to [place] Tuan800 law, this organization might not be sharing negative HIV tests. * Tissue Exam (10/21/2024 10:42 AM EDT) Final Diagnosis Foreskin, Circumcision: - Unremarkable foreskin [facility] 10/22/2024 1:13 PM EDT [facility] at 1313 EDT Clinical History Pre-op diagnosis: Redundant prepuce [N47.8] [facility] 10/22/2024 1:13 PM EDT [facility] Gross Description 1. [...] from red-pink and soft to focally fibrous. Equip Tech sections are submitted in 1A. [facility] 10/22/2024 1:13 PM EDT [facility] Gross Description User Grossing complete by Hope Terry on 10/21/2024 1:40 PM [facility] 10/22/2024 1:13 PM EDT [facility] Embedded Images [facility] 10/22/2024 1:13 PM EDT [facility] Resulting Agency Case was signed out at [facility], Department of Pathology, Biotech 3 CLIA [id number] [facility] MANUAL 10/22/2024 1:13 PM EDT [facility] Report Header Surgical Pathology Report Case: [id number] Authorizing Provider: Luciana Mata MD Collected: 10/21/2024 1042 Ordering Location: [facility] Received: 10/21/[address] [place] [address] Operating Room Pathologist: Jaden Lind MD Specimen: Foreskin, foreskin 10/22/2024 1:13 PM EDT [facility] Tissue Structure of prepuce of penis / Unknown 10/21/2024 10:42 AM EDT 10/21/2024 12:42 PM EDT Comment:Pre-op diagnosis: Redundant prepuce [N47.8] us Luciana Mata MD LAB PATHOLOGY/CYTOLOGY OR DERABLES Final Result [facility] [address] [place] [address], from Last 3 Months Insurance [facility] HSNO/FREE CARE Care Teams Dental Cream Maker Relationship Specialty Start Date End Date Jaimie Cadena [address] [place] [phone] PCP - General Internal Medicine 06/15/23
--- OUTSIDE RECORDS SUMMARY | 2025-01-14 14:05 | XMS_ITS | Encounter Summary ---
Author Organization [employer] Address [address] [facility] 7t [place] [address] Care Team Providers Care Plasticator Name Role Phone Jaimie Cadena MD Primary Care Provider [phone] Encounter Details Date Type Department Care Team ([facility] Contact Info) Description 01/13/2025 Results Follow-Up [facility] CHC MED & PEDS [address] [place], [place] [phone] Cindy Davila, SALES OFFICE ADMINISTRATOR [address] [place] [address] CBC auto differential, Sed Rate by Modified Westergren Social History Tobacco Use Types Packs/Day Years [...] Visit [facility] MED & PEDS [address] [place] [address] Jaimie Cadena MD [address] [place] [address] 04/28/2025 12:45 PM EST Office Visit [facility] ADULT DENTAL [address] [place] [address] Melquiades Hawkins documented as of this encounter Visit Diagnoses Not on filedocumented in this encounter Additional Health Concerns Assessment Noted Time PHQ-9 Depression Total Score: 0 09/05/19 25 10:20 AM EDT documented as of this encounter Care Teams Plasticator Relationship Specialty Start Date End Date Jaimie Cadena MD [address] [place] [address] PCP - General Internal Medicine 05/25/23 documented as of this encounter
--- OUTSIDE RECORDS SUMMARY | 2025-01-14 14:05 | XMS_ITS | Encounter Summary ---
Author Organization [employer] Address [address] [facility] 7 [place] [address] Care Team Providers Care Kettle Operator Head Name Role Phone Jaimie Cadena MD Primary Care Provider [phone] Reason for Visit * Reason Onset Date Comments New Patient 11/30/2022 Encounter Details Date Type Department Care Team (Late Contact Info) Description 11/30/2022 Telephone [facility] MEDICINE [address] [place] [address] Hakeem Akhtar MD [address] [place] [address] New Patient Social History Tobacco Use Types [...] Description 01/22/2025 9:00 AM EST Office Visit [facility] CHC MED & PEDS [address] [place], [place] [phone] Jaimie Cadena MD [address] [place] [address] 04/28/2025 12:45 PM EST Office Visit [facility] ADULT DENTAL [address] [place] [address] Melquiades Hawkins documented as of this encounter Visit Diagnoses Not on filedocumented in this encounter Care Teams Kettle Operator Head Relationship Specialty Start Date End Date Jaimie Cadena MD [address] [place] [address] PCP - General Internal Medicine 05/25/23 documented as of this encounter
--- OUTSIDE RECORDS SUMMARY | 2025-01-14 14:05 | XMS_ITS | Encounter Summary ---
Author Organization [employer] Address [address] [facility] 7 [place] [address] Care Team Providers Care Computer Systems Security Administrator Name Role Phone Jaimie Cadena MD Primary Care Provider [phone] Reason for Visit * Reason Onset Date Comments Nurse Triage 01/10/2025 Encounter Details Date Type Department Care Team (Late st Contact Info) Description 01/10/2025 Telephone [facility] MEDICINE [address] [place] [address] Jaimie Cadena MD [address] [place] [address] Nurse Triage Social History Tobacco Use Types [...] without positive effect. Reports he went to [facility] pharmacy to p/up fiorecet and was unable to obtain. TC placed to [facility] pharmacy and they report capsules are not covered but tablets are. They took the verbal order to change the prescription. Pt. Informed of this, he will come to [facility] pharmacy today to see if this medication [...] Getting worse The caller accepted this outcome. Occitan speaker Dr. Cadena documented in this encounter Plan of Treatment Upcoming Encounters Date Type Department Care Team ([facility] st Contact Info) Description 01/22/2025 9:00 AM EST Office Visit [facility] MED & PEDS [address] [place] [address] Jaimie Cadena MD [address] [place] [address] 04/28/2025 12:45 PM EST Office Visit [facility] ADULT DENTAL [address] [place] [address] Melquiades Hawkins documented as of this encounter Visit Diagnoses Not on filedocumented in this encounter Additional Health Concerns Assessment Noted Time PHQ-9 Depression Total Score: 0 09/05/19 25 10:20 AM EDT documented as of this encounter Care Teams Computer Systems Security Administrator Relationship Specialty Start Date End Date Jaimie Cadena MD [address] [place] [address] PCP - General Internal Medicine 05/25/23 documented as of this encounter
--- OUTSIDE RECORDS SUMMARY | 2025-01-14 14:05 | XMS_ITS | Clinical Summary ---
Author Organization [employer] Address [address] [facility] 7t [place] [address] Care Team Providers Care Border Police Name Role Phone Jaimie Cadena MD Primary Care Provider [phone] Allergies No known active allergies Medications * [...] oxyCODONE (Roxicodone) 5 MG immediate release tabletIndicatio ns:Headache behind the eyes Take 1 tablet (5 mg) by mouth [...] intervention , Patient to reach out to [facility] team as needed, and Patient to reach [...] intervention , Patient to reach out to [facility] team as needed, and Patient to reach [...] new PCP in 2w Non smoking patient. New daily persistent headache 05/08/2023 Assessment & Plan (05/08/2023 2:44 PM EST): Most likely migraine BROWN, he has Fam Hx or it could have been triggered by recent viral disease or other conditions, HTN? Order labs to ro underlying conditions.. Take Tylenol prn onset BROWN. Take Imitrex 100 mg if BROWN is not resolved within 2h after taking tylenol Resolved Problems Problem Noted Date Diagnosed Date Resolved Date Vision abnormalities 05/08/2023 025 Assessment & Plan (05/08/2023 2:44 PM EST): Likely related to migraine Last exam > 2y ago, will refer to eye clinic. Encounters Date Type Department Care Team Description 01/14/2025 11:00 AM EST Office Visit [facility] WALK-IN CENTER [address] [place] [address] Claude Haynes MD Decreased responsiveness (Primary Dx); Intractable headache, unspecified chronicity pattern, unspecified headache type; Hypertension, unspecified type 01/14/2025 Telephone [facility] WALK-IN CENTER [address] [place] [address] Jaimie Cadena MD 911 Call 01/14/2025 Travel 01/13/2025 2:00 PM EST Office Visit [facility] OPTOMETRY [address] [place] [address] Idania Thomas, OD Migraine without aura and with status migrainosus, not intractable (Primary Dx) 01/13/2025 9:15 AM EST Office Visit [facility] MED & PEDS [address] [place] [address] Cindy Davila, OSTEOPATHIC PHYSICIAN Headache behind the eyes (Primary Dx) 01/13/2025 Results Follow-Up [facility] MED & PEDS [address] [place] [address] Cindy Davila, OSTEOPATHIC PHYSICIAN CBC auto differential, Sed Rate by Modified Westergren 01/13/2025 Travel 01/10/[address] [address] Jaimie Cadena MD Nurse Triage 01/06/2025 10:00 AM EST Office Visit [facility] WALK-IN [address] [address] Marybel Shin FNP Acute intractable headache, unspecified headache type (Primary Dx); Elevated blood pressure reading in office with diagnosis of hypertension 01/06/[address] [address] Petra Lai, OPTICAL DISPENSER Expect 01/06/2025 Travel 12/01/[address] [address] Jaimie Cadena MD 11/27/2024 1:00 PM EDT Office Visit [facility] ADULT DENTAL [address] [place] [address] Nelli Real DDS 11/21/2024 Refill [facility] MED & PEDS [address] [place] [address] Jaimie Cadena MD Neck pain 10/28/2024 Telephone [facility] WALK-IN [address] [address] Claude Haynes MD 10/25/2024 11:00 AM EDT Office Visit [facility] ADULT DENTAL [address] [place] [address] Melquiades Hawkins Dental calculus (Primary Dx); 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 Orders Only [facility] MED & PEDS [address] [place] [address] Provider, MD Micheal from Last 3 Months [...] Pulse 65 01/14/2025 12:06 PM EST Temperature 36.8 C (98.2 F) 01/13/2025 9:11 AM EST Respiratory Rate 12 01/14/2025 12:06 PM EST [...] Description 01/22/2025 9:00 AM EST Office Visit [facility] MED & PEDS [address] [place] [address] Jaimie Cadena MD [address] [place] [address] 04/28/2025 12:45 PM EST Office Visit [facility] ADULT DENTAL [address] [place] [address] Melquiades Hawkins Health Maintenance Due Date Last [...] 09/04/2024 SDOH Screening 09/04/2025 09/04/2024 Tobacco Screening 01/14/2026 01/14/2025 Dental X-Ray: Full Mouth 05/22/2027 025, 04/24/2024 [...] Procedure Name Priority Date/Time Associated Diagnosis Comments SED RATE BY MODIFIED WESTERGREN Routine 01/13/2025 10:29 AM EST Headache behind the eyes CBC WITH AUTO DIFFERENTIAL Routine 01/13/2025 10:29 AM EST Headache behind the eyes 2 O RESIN-BASED COMPOSITE - 1 SURF, [...] Recently Relevant to Health Maintenance Results * (ABNORMAL) CBC auto differential (01/13/2025 10:29 AM EST) White Blood Count 6.6 4.8 - 10.8 X10*3/uL [facility] Red Blood Count 6.10(H) 4.60 - 5.80 X10*6/uL [facility] Hemoglobin 17.6 14.0 - 18.0 g/dl [facility] Hematocrit 53.2(H) 42.0 - 52.0 % [facility] Mean Corpuscular Volume 87.2 80.0 - 98.0 fL [facility] Mean Corpuscular Hemoglobin 28.9 27.0 - 33.0 pg [facility] Mean Corpuscular HGB Conc 33.1 31.0 - 36.0 g/dl [facility] Red Cell Distribution Width 12.2 11.0 - 16.0 % [facility] Platelet Count 204 160 - 400 X10*3/uL [facility] Mean Platelet Volume 10.8 9.4 - 12.4 fL [facility] Neutrophils Percent Auto 60.3 45 - 73 % [facility] Imm Gran Pct Auto 0.5(H) 0.0 - 0.4 % [facility] Lymphocytes Percent Auto 31.2 20 - 40 % [facility] Monocytes Percent Auto 6.2 2 - 11 % [facility] Eosinophils Percent Auto 1.2 0 - 4 % [facility] Basophils Percent Auto 0.6 0 - 2 % [facility] NRBC Pct Auto 0.0 0.0 - 0.2 /100WBC [facility] Neutrophils Absolute Auto 4.0 2.0 - 8.3 x10*3/uL [facility] Imm Gran Abs Auto 0.03 0.00 - 0.03 X10*3/uL [facility] Lymphocytes Absolute Auto 2.1 1.2 - 4.9 X10*3/uL [facility] Monocytes Absolute Auto 0.4 0.1 - 1.2 X10*3/uL [facility] Eosinophils Absolute Auto 0.1 0.0 - 0.4 X10*3/uL [facility] Basophils Absolute Auto 0.0 0.0 - 0.2 X10*3/uL [facility] NRBC Abs Auto 0.000 0.0 - 0.012 X10*3/uL [facility] Blood Venous blood specimen / Unknown 01/13/2025 10:29 AM EST 01/13/2025 2:20 PM EST us Cindy Phalen OSTEOPATHIC PHYSICIAN LAB BLOOD ORDERABLES Final Res ult Performing Organization Address [facility] Co de Phone Number [facility] [address] [place] [address] [phone] * Sed Rate by Modified Abilioergren (01/13/2025 10:29 AM EST) Erythrocyte Sedimentation Rate 1 0 - 15 MM/HR [facility] Comment:Patients with polycy themia and many hemoglobin abnormalitiesmay have depressed sed rates whereas patients with anemiamay have elevated sed rates. Blood Venous blood specimen / Unknown 01/13/2025 10:29 AM EST 01/13/2025 2:17 PM EST Cindy Davila OSTEOPATHIC PHYSICIAN LAB BLOOD ORDERABLES Final Res ult Performing Organization Address [facility] Co de Phone Number [facility] [address] [place] [phone] * Surgical Pathology (10/21/2024 12:37 PM EDT) Micheal Moyer MD LAB PATHOLOGY ORDERABLES Final Result * Referral to Urology (10/21/2024) Rolf Cruz MD OUTPATIENT REFERRA L ORDERABLES Final Result * Hepatitis C Antibody with Reflex to HCV, RNA, Quantitative, Real-Time PCR (01/25/2024 4:15 PM EST) Hepatitis C Antibody Nonreactive Nonreactive [facility] Comment:Antibodies to HCV no t detected; does not exclude early acuteHCV infection. Blood Venous blood specimen / Unknown 01/25/2024 4:15 PM EST 01/25/2024 5:47 PM EST Jaimie Cadena MD LAB BLOOD ORDERABLES Final Re sult Performing Organization Address [facility] Co de Phone Number [facility] [address] [place] [address] [phone] * HIV-1/2 Antigen and Antibodies, Fourth Generation, with Reflexes (01/25/2024 4:15 PM EST) Pathologist [facility] HIV AB/AG Nonreactive Nonreactive [facility] Comment:HIV-1 p24 Ag and/or HIV-1/HIV-2 Ab not detected.A test result that is nonreactive does not exclude thepossibility of exposure to or infection with HIV-1 and/orHIV-2. Nonreactive results in this assay for individualswith prior exposure to HIV-1 and/or HIV-2 may be due toantigen and antibody levels that are below the limit ofdetection of this assay.The [email or web address] HIV Ag/Ab Combo assay result andsupplemental assay results should be interpreted inconjunction with the patient's clinical presentation,history and other laboratory results. If the results areinconsistent with clinical evidence, additional testing issuggested to confirm the result. Blood Venous blood specimen / Unknown 01/25/2024 4:15 PM EST 01/25/2024 5:47 PM EST us Jaimie Cadena MD LAB BLOOD ORDERABLES Final Re sult [facility] [address] [place] [address] [phone] * (ABNORMAL) Lipid Panel with Reflex to Direct LDL (05/10/2023 10:05 AM EST) Triglycerides 145 <150 mg/dL [facility] Comment:Desirable Triglyceri de: less than 150 mg/dLBorderline High Triglyceride 150-199 mg/dLHigh Triglyceride: 200-499 mg/dLVery High Triglyceride: greater than or equal to 5OO mg/dL Cholesterol 150 <200 mg/dL [facility] Comment:Desirable Cholestero l: less than 200 mg/dLBorderline High Cholesterol: 200-239 mg/dLHigh Cholesterol: greater than 239 mg/dL LDL Cholesterol Calculated 85 <100 mg/dL [facility] Comment:Desirable LDL: less than 100 mg/dLNear Optimal/Above Optimal LDL: 110- 129 mg/dLBorderline High LDL: 130-159 mg/dLHigh LDL: 160-189 mg/dLVery High LDL: greater than or equal to 190 mg/dL HDL Cholesterol 36(L) >40 mg/dL [facility] Comment:Desirable HDL: great er than 40 mg/dL Note: This HDL assay may give artificially low results in patients with liver disease. Blood 05/10/2023 10:0 5 AM EST 05/10/2023 11:23 AM EST us Emelia Hui MD LAB BLOOD ORDERABLES Fin al Result [facility] [address] [place] [phone] from Last 3 Months or Most Recently Relevant to Health Maintenance [facility] [place] [address] [place] DENT[place] - [place] FULL (MEDICAID) Care Teams Border Police Relationship Specialty Start Date End Date Jaimie Cadena MD [address] [place] [phone] PCP - General Internal Medicine 05/25/23
[2025-01-14] MEDS: Lidocaine HCl 2 % 20 ML VIAL INFILTRATI (16:38)
[2025-01-14 16:41] VITALS: BP 140/92; PULSE 70; RESP 18; TEMP 36.7; O2SAT 99
[2025-01-14 16:43] VITALS: BP 140/92; PULSE 70; RESP 18; TEMP 36.7; O2SAT 99
== END 2025-01-14 16:44 | disposition home or self-care (01) ==
PROVIDERS: Emergency Provider Emergency Medicine; PCP Pediatrics
DX: G44.009 Cluster headache syndrome, unspecified, not intractable (principal); R41.82 Altered mental status, unspecified; R11.2 Nausea with vomiting, unspecified
CPT/HCPCS: 36415; 70450; 80053; 83735; 85025; 93005; 96361; 96374; 96375; 99284; 99285; J0131; J1200; J2003; J2765

== ENCOUNTER → 2025-01-14 11:58 | Outpatient (BNV) | payer MEDICAID, SELFPAY | PROVIDERS: Emergency Provider Emergency Medicine; PCP Pediatrics; Visit Provider Internal Medicine Cardiovascular Disease | DX: R41.82 Altered mental status, unspecified (principal) | CPT/HCPCS: 93010 ==

== ENCOUNTER → 2025-01-14 13:18 | Outpatient (BNV) | payer MEDICAID, SELFPAY | PROVIDERS: Emergency Provider Emergency Medicine; PCP Pediatrics; Visit Provider Radiology Diagnostic Radiology | DX: R41.82 Altered mental status, unspecified (principal) | CPT/HCPCS: 70450 ==

== ENCOUNTER 2025-01-17 21:47 | Emergency (ER) | payer MEDICAID, OTHER, SELFPAY ==
[2025-01-17 21:53] VITALS: BMI 24.4
[2025-01-17 22:04] VITALS: BP 144/85; PULSE 67; RESP 20; TEMP 36.6; O2SAT 100
[2025-01-17] MEDS: diazePAM 10 MG/2 ML CARTRIDGE 2.5 MG IVPUSH (22:37)
--- NOTE | 2025-01-17 22:51 | PC.NURSE ---
15 L O2 applied via non rebreather for 15 min for cluster headaches per ELIZABETH verbal order. Pt tolerated well.
[2025-01-18 00:34] VITALS: BP 97/52; PULSE 78; RESP 18; TEMP 36.7; O2SAT 98
--- OUTSIDE RECORDS SUMMARY | 2025-01-18 01:10 | XMS_ITS | Clinical Summary ---
Author Organization [facility] Address [address] [place] [address] Care Team Providers Care Cardiology Specialist Name Role Phone Jaimie Cadena Primary Care Provider [phone] Allergies No known active allergies Medications butalbital-acet [...] Description 10/21/2024 10:05 AM EDT Anesthesia Event [facility] Operating Room [address] [place] [address] Tavares Shine MD Gioules, Nicole A, DO 10/21/2024 9:10 AM EDT - 10/21/2024 11:10 AM EDT Surgery [facility] Operating Room [address] [place] [address] Luciana Mata MD Circumcision, penile block, all indicated procedures [13119 (CPT )] 10/21/2024 6:36 AM EDT - 10/21/2024 1:29 PM EDT Hospital Encounter [facility] Operating Room [address] [place] [address] Luciana Mata MD Redundant prepuce Discharge Disposition: Home or Self Care () 10/21/2024 Telephone [facility] Urology Clinic [address] [facility] [place] [address] Real Estate Financial Analyst: Luciana Bellamy MD from Last 3 Months [...] complete this topic Procedures * Due to [place] Jumblets law, this organization might not be sharing negative HIV tests. Procedure Name Priority Date/Time Associated Diagnosis Comments TISSUE EXAM Routine 10/21/2024 10:42 AM EDT Redundant prepuce [place] CIRCUMCISION,OTHR 10/21/2024 9:57 AM EDT Redundant prepuce from Last 3 Months Results * Due to [place] Jumblets law, this organization might not be sharing negative HIV tests. * Tissue Exam (10/21/2024 10:42 AM EDT) Final Diagnosis Foreskin, Circumcision: - Unremarkable foreskin [facility] 10/22/2024 1:13 PM EDT [facility] at 1313 EDT Clinical History Pre-op diagnosis: Redundant prepuce [N47.8] [facility] 10/22/2024 1:13 PM EDT [facility] Gross Description 1. [...] from red-pink and soft to focally fibrous. Director Engineering sections are submitted in 1A. [facility] 10/22/2024 1:13 PM EDT [facility] Gross Description User Grossing complete by Hope Terry on 10/21/2024 1:40 PM [facility] 10/22/2024 1:13 PM EDT [facility] Embedded Images [facility] 10/22/2024 1:13 PM EDT [employer] [facility] Resulting Agency Case was signed out at [facility], Department of Pathology, Biotech 3 CLIA [id number] [facility] 10/22/2024 1:13 PM EDT [facility] Report Header Surgical Pathology Report Case: [id number] Authorizing Provider: Luciana Mata MD Collected: 10/21/2024 1042 Ordering Location: [facility] Received: 10/21/[address] [place] [address] Operating Room Pathologist: Jaden Lind MD Specimen: Foreskin, foreskin 10/22/2024 1:13 PM EDT [facility] Tissue Structure of prepuce of penis / Unknown 10/21/2024 10:42 AM EDT 10/21/2024 12:42 PM EDT Comment:Pre-op diagnosis: Redundant prepuce [N47.8] us Luciana Mata MD LAB PATHOLOGY/CYTOLOGY OR DERABLES Final Result [facility] [address] [place] [address], from Last 3 Months Insurance [facility] HSNO/FREE CARE Care Teams Cardiology Specialist Relationship Specialty Start Date End Date Jaimie Cadena [address] [place] [phone] PCP - General Internal Medicine 06/15/23
--- OUTSIDE RECORDS SUMMARY | 2025-01-18 01:10 | XMS_ITS | Encounter Summary ---
Author Organization [facility] Address [address] [place] [address] Care Team Providers Care Teachers' Aide Name Role Phone Jaimie Cadena Primary Care Provider [phone] Encounter Details Date Type Department Care Team ([facility] st Contact Info) Description 09/27/2024 myChart Message [facility] Operating Room [address] [place] [address] Mychart, Generic Provider [address] [place] [id number] Questionnaire Submission Social History Tobacco Use [...] on filedocumented in this encounter Care Teams Teachers' Aide Relationship Specialty Start Date End Date Jaimie Cadena [address] [place] [address] PCP - General Internal Medicine 06/15/23 documented as of this encounter
--- NOTE | 2025-01-18 01:28 | ED_ITS ---
HPI - General Adult General Chief complaint: Eye Problems Stated complaint: eye injury Time Seen by Provider: 01/17/25 22:16 Source: patient Limitations: language barrier History of Present Illness ED Provider: Elaina Duque PA-C HPI narrative: 34-year-old male with a history of refractory headache, kidney stones, who presents with a headache. Over the past 3 weeks, patient has been having a left-sided retro-orbital headache, with the associated nausea and photosensitivity. Patient has been seen multiple times in the emergency department, treated for migraine, tension and cluster headache, he has been sent with the numerous medications, he states they have been ineffective. During 1 of his assessments, he has had imaging of the brain, that was normal. Denies change in symptoms. Patient has been referred to Neurology, he has a pending appointment next week. Related Data Previous Rx's ?Medication ?Instructions ?Recorded oxybutynin chloride 5 mg tablet 5 mg PO BID PRN bladde r spasms #60 08/12/22 tabs naproxen 375 mg tablet 375 mg PO BID PRN pain #12 t abs 08/30/22 ondansetron 4 mg disintegrating 4 mg PO Q8H PRN nausea and 04/21/23 tablet vomiting #20 tabs jnueiyowis-guxhvwttedngw-riyfzpdy 1 cap PO TID PRN rhoda n #20 caps 04/29/23 50 mg-300 mg-40 mg capsule (Fioricet) sumatriptan succinate 50 mg tablet See Rx Instructions PO .COMPLEX 04/29/23 #10 tabs cyclobenzaprine 10 mg tablet 10 mg PO TID PRN muscle s pasm #20 08/02/23 tabs cyclobenzaprine 10 mg tablet 10 mg PO TID PRN muscle s pasm #14 12/20/23 tabs ibuprofen 600 mg tablet 600 mg PO Q6H PRN pain #14 t abs 12/20/23 ibuprofen 600 mg tablet 600 mg PO Q6H PRN pain #20 t abs 01/13/24 cyclobenzaprine 10 mg tablet 10 mg PO TID PRN muscle s pasm #20 12/17/24 tabs naproxen 500 mg tablet 500 mg PO BID PRN pain #20 t abs 12/17/24 borkozcios-gmdwrgfjapyws-miggpqlm 1 cap PO Q8H PRN hea dache #5 caps 01/06/25 50 mg-300 mg-40 mg capsule (Fioricet) prednisone 10 mg tablet 60 mg (6 x 10 mg) PO DIRE CTED 01/14/25 18 days #63 tabs ketorolac 10 mg tablet 10 mg PO Q6H PRN pain #20 ta bs 01/18/25 prochlorperazine maleate 10 mg 10 mg PO Q8H PRN nausea and 01/18/25 tablet (Compazine) vomiting #10 tabs Allergies Allergy/AdvReac Type Severity Reaction Status Date / Time No Known Allergies Allergy Verified 01/18/25 02:45 Review of Systems Review of Systems: Yes all other systems are reviewed and are negative Constitutional: Constitutional: Denies fatigue, Denies fever(s) and Reports headache(s) Eyes: Eyes: Reports eye pain and Reports photophobia ENT: Denies dizziness and Reports headache(s) Gastrointestinal: Gastrointestinal: Reports nausea and Denies vomiting Neurologic: Denies dizziness and Reports headache(s) Endocrine: Endocrine: Denies fatigue PMFSH Past Medical History Attestation statement: The following information was validated with the patient. Medical History Calculus of kidney Hydronephrosis Surgical History Hx of bladder endoscopy Hx of appendectomy Family History Family History Father No problems noted. Mother No problems noted. Social History Social History Alcohol intake: current Alcohol intake frequency: does not drink Patient Tobacco Use Status: Never used Tobacco Advance Directives Date on File: 08/02/22 Physical Exam ED Vital Signs: Vital Signs - 24 hr 01/17/25 21:53 01/17/25 22:04 01/18/25 00:34 Temperature 97.8 F 98.0 F Pulse Rate 67 78 Respiratory Rate 20 18 Blood Pressure 144/85 H 97/52 L Pulse Oximetry 100 98 Oxygen Delivery Method Room Air Room Air Room Air 01/18/25 02:01 Temperature 98.0 F Pulse Rate 78 Respiratory Rate 18 Blood Pressure 97/52 L Pulse Oximetry 98 Oxygen Delivery Method Room Air BMI result Body Mass Index 24.4 Const Other: Alert, appears uncomfortable, not wanting to engage in conversation so as to obtain history Orientation/consciousness: patient oriented x3 Eyes Direct Ophthalmoscopy: photophobia Resp Effort & Inspection: normal respiratory effort Cardio Other: Normal peripheral perfusion Skin Other: Warm dry no rash Neuro General: patient oriented x3, gait normal, no focal motor deficits and CN's II- XI intact bilaterally Psych Other: Cooperative Course Reevaluation(s) Reevaluation #1: Headache resolved at the time of discharge Medications Administered Discontinued Medications Generic Name Dose Route Start Last Admin Trade Name Federico PRN Reason Stop Dose Admin Diazepam 2.5 mg 01/17/25 22:17 01/17/25 22:37 Diazepam 10 Mg/2 Ml Cartridge IVPUSH 01/17/25 22:18 2.5 mg STAT STA Administration Diphenhydramine HCl 25 mg 01/17/25 22:16 01/17/25 22:37 Diphenhydramine Hcl 50 Mg/Ml Vial IVPUSH 01/17/25 22:17 25 mg ONCE ONE Administration Sodium Chloride 1,000 mls @ 999 mls/hr 01/17/25 22:30 01/18/25 00:00 Ns IV 01/17/25 23:30 Infused .Q1H1M QIANA Infusion Ketorolac Tromethamine 15 mg 01/17/25 22:16 01/17/25 22:37 Ketorolac Tromethamine 15 Mg/Ml Vial IVPUSH 01/17/25 22:17 15 mg ONCE ONE Administration Prochlorperazine Edisylate 10 mg 01/17/25 22:16 01/17/25 22:37 Prochlorperazine Edisylate 10 Mg/2 Ml Vial IVPUSH 01/17/25 22:17 10 mg ONCE ONE Administration Medical Decision Making Medical Decision Making MDM Narrative: 34-year-old male with a history of refractory headache, kidney stones, who presents with a headache. Over the past 3 weeks, patient has been having a left-sided retro-orbital headache, with the associated nausea and photosensitivity. Patient has been seen multiple times in the emergency department, treated for migraine, tension and cluster headache, he has been sent with the numerous medications, he states they have been ineffective. During 1 of his assessments, he has had imaging of the brain, that was normal. Denies change in symptoms. Patient has been referred to Neurology, he has a pending appointment next week. Problem: Refractory headache History: Per patient I have considered the following differential diagnoses: Refractory headache , migraine versus cluster versus tension Plan: Patient here with a refractory headache, it has features of all the above headaches, we will treat with oxygen, Valium, ketorolac Compazine Benadryl. No indication for labs or imaging as there is no change in the patient's symptoms. Differential Diagnosis Differential Diagnoses: The differential diagnosis associated with the presentation includes See medical decision-making Admission/Observation Consideration of admission/observation: Escalation of care including admission/observation considered Not applicable Discharge Plan Discharge Clinical Impression: Headache Patient Disposition: Home, Self-Care Instructions: Acute Headache (ED) Additional Instructions: You were seen again for your ongoing headache. It is important that you keep your pending appointment with a neurologist. In the meantime, if you develop another similar headache, take the below medications at the same time. It is their synergistic effect that will help alleviate your headache pain. Continue with the steroid taper as directed Ketorolac 10 mg do not take additional NSAIDs with the ketorolac. Compazine 10 mg OTC Benadryl 25 mg Prescriptions: New ketorolac 10 mg tablet 10 mg PO Q6H PRN (Reason: pain) Qty: 20 0RF Rx Instructions: maximum total duration of 5 days from all oral, intranasal, or parenteral formulations, patient received an IV dose of Toradol here in the emergency room prochlorperazine maleate [Compazine] 10 mg tablet 10 mg PO Q8H PRN (Reason: nausea and vomiting) Qty: 10 0RF No Action naproxen 375 mg tablet 375 mg PO BID PRN (Reason: pain) Qty: 12 0RF cyclobenzaprine 10 mg tablet 10 mg PO TID PRN (Reason: muscle spasm) Qty: 20 0RF ibuprofen 600 mg tablet 600 mg PO Q6H PRN (Reason: pain) Qty: 14 0RF cyclobenzaprine 10 mg tablet 10 mg PO TID PRN (Reason: muscle spasm) Qty: 14 0RF naproxen 500 mg tablet 500 mg PO BID PRN (Reason: pain) Qty: 20 0RF cyclobenzaprine 10 mg tablet 10 mg PO TID PRN (Reason: muscle spasm) Qty: 20 0RF ondansetron 4 mg tablet,disintegrating 4 mg PO Q8H PRN (Reason: nausea and vomiting) Qty: 20 0RF yclooyoqeh-qswwxoxepgqpa-zfjq [Fioricet] 50-300-40 mg capsule 1 cap PO TID PRN (Reason: pain) Qty: 20 0RF sumatriptan succinate 50 mg tablet See Rx Instructions .ROUTE .COMPLEX Qty: 10 0RF Rx Instructions: take 1 tab at onset of headache; if no relief may repeat 1 tab after at least 2 hrs; max = 4 tabs/24 hr ibuprofen 600 mg tablet 600 mg PO Q6H PRN (Reason: pain) Qty: 20 0RF xanyhceqvs-xkuupgjbafegm-wcvn [Fioricet] 50-300-40 mg capsule 1 cap PO Q8H PRN (Reason: headache) Qty: 5 0RF prednisone 10 mg tablet 60 mg PO DIRECTED 18 Days Qty: 63 0RF Rx Instructions: see taper instructions Take 60mg (6 tabs) for 3 days Take 50mg (5 tab) for 3 days Take 40mg (4 tab) for 3 days Take 30mg (3 tab) for 3 days Take 20mg (2 tab) for 3 days Take 10mg (1 tab) for 3 days oxybutynin chloride 5 mg tablet 5 mg PO BID PRN (Reason: bladder spasms) Qty: 60 0RF Rx Instructions: use one tablet once to twice daily for bladder urgency Interventions: ED Discharge Assessment Last Done: 01/18/25 02:01 Discharge Date/Time: 01/18/25 02:02 Print Language: Kazakh
[2025-01-18 02:01] VITALS: BP 97/52; PULSE 78; RESP 18; TEMP 36.7; O2SAT 98
== END 2025-01-18 02:02 | disposition home or self-care (01) ==
PROVIDERS: Emergency Provider Emergency Medicine
DX: R51.9 Headache, unspecified (principal); R11.0 Nausea
CPT/HCPCS: 96361; 96374; 96375; 99284; J0737; J1200; J1885; J3360

== ENCOUNTER 2025-01-18 02:39 | Emergency (ER) | payer MEDICAID, OTHER, SELFPAY ==
--- OUTSIDE RECORDS SUMMARY | 2025-01-13 09:15 | XMS_ITS | Encounter Summary ---
Author Organization [employer] Address [address] [facility] 7t [place] [address] Care Team Providers Care Extractions Technician Name Role Phone Jaimie Cadena MD Primary Care Provider [phone] Encounter Details Date Type Department Care Team ([facility] st Contact Info) Description 01/13/2025 9:15 AM EST Office Visit [facility] [address] [place], [place] [phone] Cindy Davila, CARE TRANSPORT NURSE [address] [place] [address] Headache behind the eyes (Primary Dx) Social History Tobacco Use Types [...] 9:11 AM EST documented in this encounter Progress Notes * ROMÁN Thompson - 01/13/2025 9:15 AM EST Subjective: Manjula Webb is a 34 y.o. male who presents to the office for a sick visit. HPI Pt describes severe throbbing pain and pressure behind the left eye for 1-2 weeks. History of migraines and hypertension, but he reports this episode feels different compared to previous. He denies any light sensitivity, nausea, vomiting, dizziness, or aura with current pain. The pain fluctuates in severity. Treatment options have included sumatriptan and migraine meds w/o any improvement. Warm shower and oxycodone 5mg have been only partially alleviating factors. He is aware of med safety and risk factors with opioids and only uses with severe pain. No visual changes: denies blurred vision, double vision, loss of peripheral vision, or floaters Denies itching, trauma, or injury to the eye Denies fever, chills, nasal congestion, sneezing, or other viral symptoms No history of smoking, alcohol, or drug use No recent changes in daily routine, no new stressors or lifestyle changes No history of dental pain or issues - He was evaluated on 01/06/25 at [facility] in [place] and sent to ED. Head CT and CTA of brain and neck were unremarkable. Eye pressures and visual acuity checked in hospital were wnl. He was given migraine cocktail with positive effect. Lab work reassuring including no leukocytosis and normal inflammatory markers. - He was re-evaluated in [facility] ED on 01/11/25 for persistent symptoms. There was no evidence of bleed,aneurysm, or other abnormality on imaging. Testing for COVID, flu, and RSV was negative. Repeat migraine cocktail provided with good relief of symptoms. Problem List[1] Review of Systems Constitutional: Negative for chills and fever. HENT: Negative for congestion. Eyes: Negative for pain, discharge, redness, itching and visual disturbance. Pain and throbbing behind left eye Respiratory: Negative for cough and wheezing. Cardiovascular: Negative for chest pain and palpitations. Gastrointestinal: Negative for diarrhea, nausea and vomiting. Skin: Negative for rash. Neurological: Positive for headaches. Negative for dizziness. Psychiatric/Behavioral: Negative for suicidal ideas. Visit Vitals BP (!) 148/100 (BP Location: Left arm, Patient Position: Sitting, BP Cuff Size: Adult) Pulse 72 Temp 98.2 ??F (36.8 ??C) (Oral) Resp 20 Ht 5' 7 (1.702 m) Wt 193 lb (87.5 kg) SpO2 99% BMI 30.23 kg/m?? Smoking Status Never BSA 2.03 m?? Physical Exam Vitals reviewed. Constitutional: Appearance: Normal appearance. HENT: Head: Atraumatic. Right Ear: External ear normal. Left Ear: External ear normal. Nose: Right Sinus: No maxillary sinus tenderness or frontal sinus tenderness. Left Sinus: No maxillary sinus tenderness or frontal sinus tenderness. Eyes: Extraocular Movements: Extraocular movements intact. Pupils: Pupils are equal, round, and reactive to light. Cardiovascular: Rate and Rhythm: Normal rate and regular rhythm. Pulmonary: Effort: Pulmonary effort is normal. Breath sounds: Normal breath sounds. Neurological: General: No focal deficit present. Mental Status: He is alert and oriented to person, place, and time. Psychiatric: Mood and Affect: Mood normal. Behavior: Behavior normal. Problem List Items Addressed This Visit Visit Diagnoses Headache behind the eyes - Primary - Multiple ED visits and Walk in Center evaluation in the past 2 weeks related to same concern. Workup thus far has been unremarkable including CTA head/neck, head CT, labs, viral testing, EKG, visual acuity, and intraocular pressures at ED - Repeat ESR/sed rate to help r/o giant cell arteritis - Scheduled for urgent Eye Care visit on 01/14/25 at 3:30pm - Pain control: shared decision making to sent in 4 tablets of oxycodone 5mg Q6H PRN severe pain. Reviewed strict med safety and SE - ED/follow up precautions reviewed Relevant Medications oxyCODONE (Roxicodone) 5 MG immediate release tablet Other Relevant Orders CBC auto differential (Completed) Sed Rate by Modified Westergren Follow up: tomorrow with [facility], ED sooner as needed. [1] Patient Active Problem List Diagnosis Elevated blood pressure reading Vision abnormalities New daily persistent headache Lesion of frontal lobe of brain Hypertension Stress Persistent depressive disorder Anxiety with depression Herpes simplex infection of penis Neck pain Bloating Encounter for circumcision Helicobacter pylori (H. pylori) infection Acute intractable headache documented in this encounter Plan of Treatment Upcoming Encounters Date Type Department Care Team (Late st Contact Info) Description 01/22/2025 9:00 AM EST Office Visit [facility] [address] [place] [address] Jaimie Cadena MD [address] [place] [address] 04/28/2025 12:45 PM EST Office Visit [facility] ADULT [facility] [address] [place] [address] Melquiades Velazco documented as of this encounter Procedures Procedure Name Priority Date/Time Associated Diagnosis Comments CBC WITH AUTO DIFFERENTIAL Routine 01/13/2025 10:29 AM EST Headache behind the eyes SED RATE BY MODIFIED WESTERGREN Routine 01/13/2025 10:29 AM EST Headache behind the eyes documented in this encounter Results * Sed Rate by Modified Westergren (01/13/2025 10:29 AM EST) Pathologist [facility] Erythrocyte Sedimentation Rate 1 0 - 15 MM/HR [facility] Comment:Patients with polycy themia and many hemoglobin abnormalitiesmay have depressed sed rates whereas patients with anemiamay have elevated sed rates. Blood Venous blood specimen / Unknown 01/13/2025 10:29 AM EST 01/13/2025 2:17 PM EST Cindy Davila [facility] LAB BLOOD ORDERABLES Final Res ult [facility] [address] [place] [phone] * (ABNORMAL) CBC auto differential (01/13/2025 10:29 AM EST) Pathologist [facility] White Blood Count 6.6 4.8 - 10.8 X10*3/uL [facility] Red Blood Count 6.10(H) 4.60 - 5.80 X10*6/uL [facility] Hemoglobin 17.6 14.0 - 18.0 g/dl [facility] Hematocrit 53.2(H) 42.0 - 52.0 % [facility] Mean Corpuscular Volume 87.2 80.0 - 98.0 fL [facility] Mean Corpuscular Hemoglobin 28.9 27.0 - 33.0 pg [facility] Mean Corpuscular HGB Conc 33.1 31.0 - 36.0 g/dl [facility] Red Cell Distribution Width 12.2 11.0 - 16.0 % [facility] Platelet Count 204 160 - 400 X10*3/uL [facility] Mean Platelet Volume 10.8 9.4 - 12.4 fL [facility] Neutrophils Percent Auto 60.3 45 - 73 % [facility] Imm Gran Pct Auto 0.5(H) 0.0 - 0.4 % [facility] Lymphocytes Percent Auto 31.2 20 - 40 % [facility] Monocytes Percent Auto 6.2 2 - 11 % [facility] Eosinophils Percent Auto 1.2 0 - 4 % [facility] Basophils Percent Auto 0.6 0 - 2 % [facility] NRBC Pct Auto 0.0 0.0 - 0.2 /100WBC [facility] Neutrophils Absolute Auto 4.0 2.0 - 8.3 x10*3/uL [facility] Imm Gran Abs Auto 0.03 0.00 - 0.03 X10*3/uL [facility] Lymphocytes Absolute Auto 2.1 1.2 - 4.9 X10*3/uL [facility] Monocytes Absolute Auto 0.4 0.1 - 1.2 X10*3/uL [facility] Eosinophils Absolute Auto 0.1 0.0 - 0.4 X10*3/uL [facility] Basophils Absolute Auto 0.0 0.0 - 0.2 X10*3/uL [facility] NRBC Abs Auto 0.000 0.0 - 0.012 X10*3/uL [facility] Blood Venous blood specimen / Unknown 01/13/2025 10:29 AM EST 01/13/2025 2:20 PM EST us Cindy Davila CARE TRANSPORT NURSE LAB BLOOD ORDERABLES Final Res ult [facility] [address] [place] [phone] documented in this encounter Visit Diagnoses Diagnosis Headache behind the eyes- Primary Headache documented in this encounter Additional Health Concerns Assessment Noted Time PHQ-9 Depression Total Score: 0 09/05/19 25 10:20 AM EDT documented as of this encounter Care Teams Extractions Technician Relationship Specialty Start Date End Date Jaimie Cadena MD [address] [place] [phone] PCP - General Internal Medicine 05/25/23 documented as of this encounter
--- OUTSIDE RECORDS SUMMARY | 2025-01-13 14:00 | XMS_ITS | Encounter Summary ---
Author Organization [employer] Address [address] [facility] 7[address] [place] [address] Care Team Providers Care Cotton Ginner Helper Name Role Phone Jaimie Cadena MD Primary Care Provider [phone] Encounter Details Date Type Department Care Team ([facility] st Contact Info) Description 01/13/2025 2:00 PM EST Office Visit [facility] OPTOMETRY [address] [place], [place] [phone] TarkaIdania, OD [address] [place] [address] Migraine without aura and with status migrainosus, not intractable (Primary Dx) Social History Tobacco Use Types [...] AM EDT documented as of this encounter Progress Notes * Idania Thomas, OD - 01/13/2025 2:00 PM EST Eye Care Progress Note Patient ID: Manjula Webb is a 34 y.o. male. HPI Patient reports severe pain OS extending behind the eyes over the past two weeks. Patient describespain as radiating from behind the left eye to the back of the head. He says the pain comes in wavesand reaches 10/10. He says pain today is 10/10 and is so severe that he started vomiting and havingthe chills. Patient has been seen in the ER 3 times over the past week. He says all bloodwork and CT scans havebeen normal. Patient felt brief relief with IV fluids but pain returned when he got back home. Patient has a history of migraines but says this feels much different. Has never felt like this before. Patient denies aura, light sensitivity or blurry vision. Last edited by Idania Thomas, OD on 01/13/2025 3:13 PM. Current Medications[1] Medical History[2] Surgical History[3] Family History[4] Tobacco Use: Low Risk (01/06/2025) Tobacco Smoking Tobacco Use: Never Smokeless Tobacco Use: Never Passive Exposure: Never Allergies[5] ROS Positive for: Eyes Negative for: Constitutional, Gastrointestinal, Neurological, Skin, Genitourinary, Musculoskeletal,HENT, Endocrine, Cardiovascular, Respiratory, Psychiatric, Allergic/Imm, Heme/Lymph Last edited by Idania Thomas, OD on 01/13/2025 2:01 PM. Base Eye Exam Visual Acuity (Snellen - Linear) Right Left Dist sc 20/20 20/20 Tonometry (iCare , 2:08 PM) Right Left Pressure 16 17 Pupils Pupils APD Right PERRL None Left PERRL None Visual Crowe (Counting fingers) Left Right Full Full Extraocular Movement Right Left Full Full Neuro/Psych Oriented x3: Yes Mood/Affect: Normal Dilation Both eyes: 1.0% tropicamide @ 2:09 PM Additional Tests Color motor equipment captain desat: normal, symmetrical Slit Lamp and Fundus Exam External Exam Right Left External Normal Normal Slit Lamp Exam Right Left Lids/Lashes Clean and clear Clean and clear Conjunctiva/Sclera White and quiet Tr diffuse injection Cornea Clear Clear Anterior Chamber Deep and quiet, angles open gr 4; no cell/flare Deep and quiet, angles open gr 4; no cell/flare Iris Flat, round Iris hypopigmentation from 10:00-12:00, (-) TID Lens Clear Clear Fundus Exam Right Left Vitreous Clear Clear Disc [place] with distinct margins [place] with distinct margins C/D Ratio Vertical 0.20 0.20 C/D Ratio Horizontal 0.20 0.20 Macula Flat, even pigmentation Flat, even pigmentation Vessels AV 2/3, normal course and caliber AV 2/3, normal course and caliber Periphery No holes/tears/detachments 360 WWOP inferior Temporal, no holes/tears/detachments 360 Assessment and Plan Diagnoses and all orders for this visit: Migraine without aura and with status migrainosus, not intractable - No apparent ocular etiology. Acuity, pupils, EOMs, intraocular pressure all within normal limits.No inflammatory cells in anterior/posterior chamber. Optic nerve assessment unremarkable OU. - Patient had unremarkable CTA, CT, labs and viral testing at [facility]. Walk in provider reordered CBC & ESR to r/o GCA - all tests have returned and are unremarkable. - Advised patient that ocular health assessment today was unremarkable and symptoms are consistent with cluster headache - Recommended that patient follow up with PCP and to go to the ER if symptoms worsen/persist Idania Thomas, OD 01/13/2025, 3:18 PM Retail Bakery Manager Source: __ None _x_ Bilingual Staff __ Qualified Staff Home Theater Experience Expert __ Telephone Retail Bakery Manager; ID# __ Retail Bakery Manager brought by patient (family member, friend, INVESTIGATION OFFICER, etc) __ In person geographic information systems analyst __ Ipad Retail Bakery Manager; ID#: Language Spoken During Exam: Yakut [1] Current Outpatient Medications Medication Sig Dispense Refill cyclobenzaprine (Flexeril) 10 MG tablet TAKE 1 TABLET BY MOUTH THREE TIMES DAILY 30 tablet 2 FLUoxetine (PROzac) 20 MG capsule Take 1 capsule (20 mg) by mouth Once per day. 30 capsule 11 lisinopril (Prinivil) 20 MG tablet Take 1 tablet (20 mg) by mouth Once per day. 30 tablet 11 Omeprazole 20 MG tablet delayed-release Take 1 tablet (20 mg) by mouth Once per day. (Patient not taking: Reported on 11/27/2024) 90 tablet 0 oxyCODONE (Roxicodone) 5 MG immediate release tablet Take 1 tablet (5 mg) by mouth every 6 (six) hours if needed for severe pain for up to 1 day. 4 tablet 0 SUMAtriptan (Imitrex) 100 MG tablet TAKE 1 TABLET BY MOUTH ONCE NEEDED FOR MIGRAINE 9 tablet 3 valACYclovir (Valtrex) 1 g tablet Take 1 tablet (1,000 mg) by mouth Once per day. (Patient not taking: Reported on 11/27/2024) 30 tablet 11 No current facility-administered medications for this visit. [2] Past Medical History: Diagnosis Date Arachnoid cyst Right frontal Hypertension Lesion of frontal lobe of brain 05/25/2023 Migraine [3] Past Surgical History: Procedure Laterality Date APPENDECTOMY [4] Family History Problem Relation Name Age of Onset Migraines Mother Other (brain bleed) Father [5] No Known Allergies documented in this encounter Plan of Treatment Upcoming Encounters Date Type Department Care Team (Late st Contact Info) Description 01/22/2025 9:00 AM EST Office Visit [facility] MED & PEDS [address] [place] [address] Jaimie Cadena MD [address] [place], [place] [phone] 04/28/2025 12:45 PM EST Office Visit [facility] ADULT DENTAL [address] [place] [address] Melquiades Hawkins documented as of this encounter Visit Diagnoses Diagnosis Migraine without aura and with status migrainosus, not intractable- Primary documented in this encounter Additional Health Concerns Assessment Noted Time PHQ-9 Depression Total Score: 0 09/05/19 25 10:20 AM EDT documented as of this encounter Care Teams Cotton Ginner Helper Relationship Specialty Start Date End Date Jaimie Cadena MD [address] [place] [address] PCP - General Internal Medicine 05/25/23 documented as of this encounter
--- OUTSIDE RECORDS SUMMARY | 2025-01-14 11:00 | XMS_ITS | Encounter Summary ---
Author Organization [employer] Address [address] 7[address] [place] [address] Care Team Providers Care Ship Pilot Name Role Phone Jaimie Cadena MD Primary Care Provider [phone] Encounter Details Date Type Department Care Team (Latest Contact Info) Description 01/14/2025 11:00 AM EST Office Visit [facility] WALK-IN CENTER [address] [place] [place] [phone] Claude Haynes MD [address] [place] [address] Decreased responsiveness (Primary Dx); Intractable headache, unspecified chronicity pattern, unspecified headache type; Hypertension, unspecified type Social History Tobacco Use Types Packs/Day Years [...] AM EDT Sexual Orientation Don't know 09/28/2022 9 :44 AM EDT documented as of this encounter Last Filed Vital Signs Vital Sign Reading Time Taken Comments Blood Pressure 168/98 01/14/2025 12:06 PM EST Pulse 65 01/14/2025 12:06 PM EST Temperature - - Respiratory Rate 12 01/14/2025 12:06 PM EST Oxygen Saturation 100% 01/14/2025 12:06 PM EST Inhaled Oxygen Concentration - - Weight - - Height - - Body Mass Index - - documented in this encounter Progress Notes * Claude Haynes MD - 01/14/2025 11:00 AM EST Subjective Patient ID: Manjula Webb is a 34 y.o. male. HPI Manjula was brought to walk-in center by his mother, she states because he was vomiting this morning. He is minimally verbal at this time and cannot give history, however he responds to verbal and tactile stimuli, and when asked if anything hurts, he points to the left side of his head and face. He and his mother apparently [facility] into the [facility], and when he came to walk-in clinic he became less responsive and was placed in a wheelchair. No other information regarding this morning's events is available at this time. He was seen in walk-in center 01/06 for left headache and pain behind the left eye and hypertension,referred to the ED. In the [facility] ED, CT scan of the head, CTA of the brain and CTA of the neck were read as no acute abnormalities. Bilateral intraocular pressures were normal. CBC, CMP, rapid COVID and flu tests were negative. Clinical impression: Headache. Discharged home. On January 11 he returned to the [facility] ED because of persistent left headache. Repeat CBC, CMP, rapid COVID and flu tests were negative. Clinical impression and disposition are not included in the ED note. Per mother: Never smoked. No EtOH. No illicit substances. Patient Active Problem List Diagnosis Date Noted ??? Acute intractable headache 01/06/2025 ??? Helicobacter pylori (H. pylori) infection 08/01/2024 ??? Bloating 07/26/2024 ??? Encounter for circumcision 07/26/2024 ??? Neck pain 01/31/2024 ??? Anxiety with depression 12/11/2023 ??? 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 Stress 09/14/2023 ??? Persistent depressive disorder 09/14/2023 ??? Lesion of frontal lobe of brain 05/25/2023 ??? Hypertension 05/25/2023 ??? Elevated blood pressure reading 05/08/2023 ??? New daily persistent headache 05/08/2023 The following portions of the chart were reviewed this encounter and updated as appropriate: Review of Systems Gastrointestinal: Positive for vomiting. Neurological: Positive for headaches. Objective Physical Exam Constitutional: Appearance: Normal appearance. Comments: Patient is in a wheelchair with his head back supported by the back of the wheelchair. HENT: Nose: Nose normal. Eyes: Conjunctiva/sclera: Conjunctivae normal. Pupils: Pupils are equal, round, and reactive to light. Cardiovascular: Rate and Rhythm: Normal rate and regular rhythm. Heart sounds: No murmur heard. Pulmonary: Effort: Pulmonary effort is normal. Breath sounds: Normal breath sounds. Musculoskeletal: General: Normal range of motion. Cervical back: No tenderness. Skin: Findings: No rash. Neurological: Mental Status: He is lethargic. Cranial Nerves: Cranial nerves 2-12 are intact. Gait: Gait is intact. Comments: Patient is mildly responsive to verbal and tactile stimuli. When asked his name, he was able to whisper it, and when asked if anything hurt he put his hand on the left side of his head and face. Moves all extremities. Psychiatric: Mood and Affect: Mood normal. Behavior: Behavior normal. Procedures Assessment/Plan Diagnoses and all orders for this visit: Decreased responsiveness POC BG=79. Narcan withheld because of normal O2 sat, heart and respiratory rates, and responsiveness to verbaland tactile stimuli. He was taken to the ED via EMS. Intractable headache, unspecified chronicity pattern, unspecified headache type Transported by EMS to the ED as above. Hypertension, unspecified type To be rechecked in the ED. documented in this encounter Plan of Treatment Upcoming Encounters Date Type Department Care Team (Late st Contact Info) Description 01/22/2025 9:00 AM EST Office Visit [facility] MED & PEDS [address] [place] [address] Jaimie Cadena MD [address] [place] [address] 04/28/2025 12:45 PM EST Office Visit [facility] ADULT DENTAL [address] [place] [address] Melquiades Hawkins documented as of this encounter Visit Diagnoses Diagnosis Decreased responsiveness- Primary Intractable headache, unspecified chronicity pattern, unspecified headache type Hypertension, unspecified type documented in this encounter Additional Health Concerns Assessment Noted Time PHQ-9 Depression Total Score: 0 09/05/19 25 10:20 AM EDT documented as of this encounter Care Teams Ship Pilot Relationship Specialty Start Date End Date Jaimie Cadena MD [address] [place] [address] PCP - General Internal Medicine 05/25/23 documented as of this encounter
[2025-01-18 02:44] VITALS: BP 138/89; PULSE 78; RESP 20; TEMP 36.7; O2SAT 98; BMI 27.4
--- OUTSIDE RECORDS SUMMARY | 2025-01-18 03:06 | XMS_ITS | Encounter Summary ---
Author Organization [employer] Address [address] [facility] [address] [place] [address] Care Team Providers Care Abalone Processor Name Role Phone Jaimie Cadena MD Primary Care Provider [phone] Reason for Visit * Reason Onset Date Comments New Med Request 05/25/2023 Encounter Details Date Type Department Care Team ([facility] st Contact Info) Description 05/25/2023 Telephone [facility] MEDICINE [address] [place] [address] Jaimie Cadena MD [address] [place], [place] [phone] New Med Request Social History Tobacco Use [...] 1:19 PM EDT Sonny Pizano MA * How difficult have these problems made it for you to do your work, take care of things at home, or get along with other people? Answer Date of Assessment Author Not difficult at all 05/25/2023 1:19 PM EDT Mary Rodrigues [place] * Over the past 2 weeks, how often have you been bothered by any of the following problems? Question Answer Date of Assessment Author Little interest or pleasure in doing things Several days 05/25/2023 1:19 PM PHILOMENAT Mary Pizano MA Feeling down, depressed, or hopeless Several days 05/25/2023 1:19 PM PHILOMENAT Mary Pizano MA Trouble falling or staying [...] sent to pharmacy last night and can apple picker med at pt convenience. Pt agrees [...] Description 01/22/2025 9:00 AM EST Office Visit [facility] MED [facility] PED[facility] [address] [place] [address] Jaimie Cadena MD [address] [place] [address] 04/28/2025 12:45 PM EST Office Visit [facility] ADULT DENTAL [address] [place] [address] Melquiades Hawkins documented as of this encounter Visit Diagnoses Not on filedocumented in this encounter Additional Health Concerns Assessment Noted Time PHQ-9 Depression Total Score: 9 05/25/19 24 1:19 PM EDT documented as of this encounter Care Teams Abalone Processor Relationship Specialty Start Date End Date Jaimie Cadena MD [address] [place] [address] PCP - General Internal Medicine 05/25/23 documented as of this encounter
--- OUTSIDE RECORDS SUMMARY | 2025-01-18 03:06 | XMS_ITS | Encounter Summary ---
Author Organization [employer] Address [address] [facility] [address] [place] [address] Care Team Providers Care Boilermaker Apprentice Name Role Phone Jaimie Cadena MD Primary Care Provider [phone] Reason for Visit * Reason Comments Pre-visit Planning SDOH screening compl eted on 09/04/24 Encounter Details Date Type Department Care Team ([facility] st Contact Info) Description 01/15/2025 Patient Outreach [facility] MED[facility]INE [address] [place] [address] Jaimie Cadena MD [address] [place] [phone] Pre-visit Planning (SDOH screening completed on 09/04/24) Social History Tobacco Use Types Packs/Day Years [...] as of this encounter Progress Notes * Navin Paris - 01/15/2025 11:12 AM EST CC Navin Boo placed successful outbound call to patient for pre-visit planning. Patient name and confirmed. Patient confirms appt date and time, and has transportation arrangements. Biggest concern for appointment at this time is pt is requesting a referral for neurology. Patient advised to bring to appointment a photo id and insurance card. Appropriate screenings completed in anticipation ofappointment. documented in this encounter Plan of Treatment Upcoming Encounters Date Type Department Care Team (Late st Contact Info) Description 01/22/2025 9:00 AM EST Office Visit [facility] [address] [place] [address] Jaimie Cadena MD [address] [place] [address] 04/28/2025 12:45 PM EST Office Visit [facility] [address] [place] [address] Melquiades Hawkins documented as of this encounter Visit Diagnoses Not on filedocumented in this encounter Additional Health Concerns Assessment Noted Time PHQ-9 Depression Total Score: 0 09/05/19 25 10:20 AM EDT documented as of this encounter Care Teams Boilermaker Apprentice Relationship Specialty Start Date End Date Jaimie Cadena MD [address] [place] [address] PCP - General Internal Medicine 05/25/23 documented as of this encounter
--- OUTSIDE RECORDS SUMMARY | 2025-01-18 03:06 | XMS_ITS | Clinical Summary ---
Author Organization [employer] Address 75 [facility] 7t [place] [address] Care Team Providers Care Golf Technician Name Role Phone Jaimie Cadena MD Primary Care Provider Allergies No known active allergies Medications * [...] ONCE NEEDED FOR MIGRAINE 9 tablet 3 01/15/2025 10:15 AM EST 5 Active oxyCODONE (Roxicodone) 5 MG immediate release tabletIndicatio ns:Headache behind the eyes Take 1 tablet (5 mg) by mouth every 6 (six) hours if needed for severe pain for up to 1 day. 4 tablet 01/15/2025 10:15 AM EST 5 01/17/20 25 Active Problems Problem Noted Date Diagnosed Date [...] (09/18/2023 10:17 AM EDT): During IBH Consult Darcyann marie presenting with depressed mood, loss of interests/pleasure [...] intervention , Patient to reach out to [facility] team as needed, and Patient to reach out to [facility] as needed. Due to limited insurance patient was self- referred to [facility] programs. clinician will be available if requested/needed during next medical appointment. Persistent depressive disorder 09/14/2023 Assessment & Plan (09/18/2023 10:17 AM EDT): During IB Consult Manjula presenting with depressed mood, loss [...] intervention , Patient to reach out to [facility] team as needed, and Patient to reach out to [facility] as needed. Due to limited insurance patient was self- referred to [facility] programs. clinician will be available if requested/needed [...] Encounters Date Type Department Care Team Description 01/15/2025 Patient Outreach [facility] MEDICINE [address] [place] [phone] Jaimie Cadena MD Pre-visit Planning (SDOH screening completed on 09/04/24) 01/14/2025 11:00 AM EST Office Visit [facility] WALK-IN CENTER [address] [place] [address] Claude Haynes MD Decreased responsiveness (Primary Dx); Intractable headache, unspecified chronicity pattern, unspecified headache type; Hypertension, unspecified type 01/14/2025 Orders Only [facility] 01/14/2025 Telephone [facility] WALK-IN [address] [address] Jaimie Cadena MD 911 Call 01/14/2025 Travel 01/13/2025 2:00 PM EST Office Visit [facility] OPTOMETRY [address] [place] [address] Tarka, Idania, OD Migraine without aura and with status migrainosus, not intractable (Primary Dx) 01/13/2025 9:15 AM EST Office Visit [facility] MED & PEDS [address] [place] [address] Olga LidiaenSalvadorle, WHEEL PRESSER Headache behind the eyes (Primary Dx) 01/13/2025 Results Follow-Up [facility] MED & PEDS [address] [place] [address] Phalen Cindy, WHEEL PRESSER CBC auto differential, Sed Rate by Modified Westergren 01/13/2025 Travel 01/10/2025 Telephone [facility] MEDICINE [address] [place] [phone] Jaimie Cadena MD Nurse Triage 01/06/2025 10:00 AM EST Office Visit [facility] WALK-IN [address] [address] Marybel Shin, WHEEL PRESSER Acute intractable headache, unspecified headache type (Primary Dx); Elevated blood pressure reading in office with diagnosis of hypertension 01/06/[address] [address] Petra Lai, CHUCK WAGON DRIVER Expect 01/06/2025 Travel 12/01/2024 Refill [facility] MEDICINE [address] [place] [address] Jaimie Cadena MD 11/27/2024 1:00 PM EDT Office Visit [facility] ADULT DENTAL [address] [place], [place] [phone] Nelli Real DDS 11/21/2024 Refill [facility] MED & PEDS [address] [place], [place] [phone] Jaimie Cadena MD Neck pain 10/28/2024 Telephone [facility] WALK-IN CENTER [address] [place] [address] Claude Haynes MD 10/25/2024 11:00 AM EDT Office Visit [facility] ADULT DENTAL [address] [place] [address] RossMayurMelquiades Dental calculus (Primary Dx); 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 Orders Only [facility] MED & PEDS [address] [place], [place] [phone] Provider, MD Micheal from Last 3 Months [...] [facility] MED & PEDS [address] [place] [address] Jaimie Cadena MD [address] [place] [address] 04/28/2025 12:45 PM EST Office Visit [facility] ADULT DENTAL [address] [place] [address] Melquiades Hawkins Health Maintenance Due Date Last Done Comments Disability Screening 1990 Family Planning (PISQ) 2005 HPV Vaccines (1 - Male 3-dos e series) 2005 Hepatitis B Vaccines (3 of 3 - 19+ 3-dose series) 10/26/2023 08/31/2023, 12/18/2022 COVID-19 Vaccine (1 - 2024-2 6 season) [...] Procedure Name Priority Date/Time Associated Diagnosis Comments CT HEAD WO CONTRAST Routine 01/14/2025 2 :12 PM EST SED RATE BY MODIFIED WESTERGREN Routine 01/13/2025 [...] Recently Relevant to Health Maintenance Results * CT Head w/o Contrast (01/14/2025 2:12 PM EST) Anatomical Region Laterality Modality Head, Neck Computed Tomogra phy 01/14/2025 2:12 PM EST Narrative 01/14/2025 2:35 PM EST [place] [address] [place] Scan Report Signed Patient: Manjula Dietrich MR#: [id number] : 1990 Acct:[id number] Age/Sex: 34 / M ADM Date: 01/14/25 Loc: HO.ED Attending Dr: Ordering Physician: Argelia Becerra MD Date of Service: 01/14/25 Procedure(s): CT head/brain wo IV con Accession Number(s): [id number] cc: Argelia Becerra MD; Jaimie Cadena MD Report Number: [id number]: Total DLP = 716.00 mGy-cm Reason for Exam: AMS EXAMINATION: CT HEAD WITHOUT CONTRAST CLINICAL INFORMATION: AMS COMPARISON: April 29, 2023. TECHNIQUE: Contiguous axial imaging was performed from the skull base to vertex without intravenous administration of contrast. This CT examination was performed using dose optimization techniques as appropriate, variously including the following: *Automated exposure control *Adjustment of mA and/or kV according to patient size (this includes techniques or standardized protocols for targeted exams where dose is matched to indication/reason for exam; i.e. extremities or head) *Use of iterative reconstruction technique DLP: 716 mGy-cm FINDINGS: No acute intracranial hemorrhage, mass effect, midline shift, hydrocephalus or herniation. Mathews-white matter differentiation is normal. Posterior cranial fossa contents demonstrated no acute hemorrhage or mass effect. Normal position of the cerebellar tonsils. Sellar/suprasellar region demonstrated no gross abnormality. Tympanic cavities and mastoid cells are aerated. Pneumatized petrous apices, congenital. Mucous retention cyst, left ethmoid air cells. CT/CT head/brain wo IV con IMPRESSION: No acute or structural brain abnormality by CT. Electronically signed by: Zain Cunningham MD 01/14/2025 02:32 PM EST Dictated By: Zain Mckeon MD Signed By: <Electronically signed by Zain Lai MD in OV> 01/14/25 1432 DD/ 1412 TD/TT: 01/14/25 1425 Gis Technician: Procedure Note Donotuseinterpreter, Image - 01/14/[address] [address] [address] Scan Report Signed Patient: Ewa Dietrich#: [id number] : 1990Acct:[id number] Age/Sex: 34 / MADM Date: 01/14/25 Loc: HO.ED Attending Dr: Ordering Physician: Argelia Becerra MD Date of Service: 01/14/25 Procedure(s): CT head/brain wo IV con Accession Number(s): [id number] cc: Argelia Becerra MD; Jaimie Cadena MD Report Number: [id number]: Total DLP = 716.00 mGy-cm Reason for Exam: AMS EXAMINATION: CT HEAD WITHOUT CONTRAST CLINICAL INFORMATION: AMS COMPARISON: April 29, 2023. TECHNIQUE: Contiguous axial imaging was performed from the skull base to vertex without intravenous administration of contrast. This CT examination was performed using dose optimization techniques as appropriate, variously including the following: *Automated exposure control *Adjustment of mA and/or kV according to patient size (this includes techniques or standardized protocols for targeted exams where dose is matched to indication/reason for exam; i.e. extremities or head) *Use of iterative reconstruction technique DLP: 716 mGy-cm FINDINGS: No acute intracranial hemorrhage, mass effect, midline shift, hydrocephalus or herniation. Mathews-white matter differentiation is normal. Posterior cranial fossa contents demonstrated no acute hemorrhage or mass effect. Normal position of the cerebellar tonsils. Sellar/suprasellar region demonstrated no gross abnormality. Tympanic cavities and mastoid cells are aerated. Pneumatized petrous apices, congenital. Mucous retention cyst, left ethmoid air cells. CT/CT head/brain wo IV con IMPRESSION: No acute or structural brain abnormality by CT. Electronically signed by: Zain Cunningham MD 01/14/2025 02:32 PM EST RP Dictated By: Zain Mckeon MD Signed By: <Electronically signed by Zain Lai MDin OV> 01/14/25 1432 DD/ 1412 TD/TT: 01/14/25 1425 Gis Technician: [facility] External Provider IMG CT PROCEDURES Edited Result - Final * (ABNORMAL) CBC auto differential (01/13/2025 10:29 AM EST) White Blood Count 6.6 4.8 - 10.8 X10*3/uL [facility] Red Blood Count 6.10(H) 4.60 - 5.80 X10*6/uL [facility] Hemoglobin 17.6 14.0 - 18.0 g/dl [facility] Hematocrit 53.2(H) 42.0 - 52.0 % [facility] Mean Corpuscular Volume 87.2 80.0 - 98.0 fL [facility] Mean Corpuscular Hemoglobin 28.9 27.0 - 33.0 pg [facility] Mean Corpuscular HGB Conc 33.1 31.0 - 36.0 g/dl [facility] Red Cell Distribution Width 12.2 11.0 - 16.0 % [facility] Platelet Count 204 160 - 400 X10*3/uL [facility] Mean Platelet Volume 10.8 9.4 - 12.4 fL [facility] Neutrophils Percent Auto 60.3 45 - 73 % [facility] Imm Gran Pct Auto 0.5(H) 0.0 - 0.4 % [facility] Lymphocytes Percent Auto 31.2 20 - 40 % [facility] Monocytes Percent Auto 6.2 2 - 11 % [facility] Eosinophils Percent Auto 1.2 0 - 4 % [facility] Basophils Percent Auto 0.6 0 - 2 % [facility] NRBC Pct Auto 0.0 0.0 - 0.2 /100WBC [facility] Neutrophils Absolute Auto 4.0 2.0 - 8.3 x10*3/uL [facility] Imm Gran Abs Auto 0.03 0.00 - 0.03 X10*3/uL [facility] Lymphocytes Absolute Auto 2.1 1.2 - 4.9 X10*3/uL [facility] Monocytes Absolute Auto 0.4 0.1 - 1.2 X10*3/uL [facility] Eosinophils Absolute Auto 0.1 0.0 - 0.4 X10*3/uL [facility] Basophils Absolute Auto 0.0 0.0 - 0.2 X10*3/uL [facility] NRBC Abs Auto 0.000 0.0 - 0.012 X10*3/uL [facility] Blood Venous blood specimen / Unknown 01/13/2025 10:29 AM EST 01/13/2025 2:20 PM EST Cindy Davila WHEEL PRESSER LAB BLOOD ORDERABLES Final Res ult Performing Organization Address [facility] Co de Phone Number [facility] [address] [place] [phone] * Sed Rate by Modified Joyren (01/13/2025 10:29 AM EST) Erythrocyte Sedimentation Rate 1 0 - 15 MM/HR [facility] Comment:Patients with polycy themia and many hemoglobin abnormalitiesmay have depressed sed rates whereas patients with anemiamay have elevated sed rates. Blood Venous blood specimen / Unknown 01/13/2025 10:29 AM EST 01/13/2025 2:17 PM EST Cindy [employer]daniel WHEEL PRESSER LAB BLOOD ORDERABLES Final Res ult Performing Organization Address [facility] Co de Phone Number [facility] [address] [place] [phone] * Surgical Pathology (10/21/2024 12:37 PM EDT) Micheal Moyer MD LAB PATHOLOGY ORDERABLES Final Result * Referral to Urology (10/21/2024) Rolf Cruz MD OUTPATIENT REFERRA L ORDERABLES Final Result * Hepatitis C Antibody with Reflex to HCV, RNA, Quantitative, Real-Time PCR (01/25/2024 4:15 PM EST) Hepatitis C Antibody Nonreactive Nonreactive [facility] Comment:Antibodies to HCV no t detected; does not exclude early acuteHCV infection. Blood Venous blood specimen / Unknown 01/25/2024 4:15 PM EST 01/25/2024 5:47 PM EST Jaimie Cadena MD LAB BLOOD ORDERABLES Final Re sult [facility] [address] [place] [phone] * HIV-1/2 Antigen and Antibodies, Fourth Generation, with Reflexes (01/25/2024 4:15 PM EST) HIV AB/AG Nonreactive Nonreactive [facility] Comment:HIV-1 p24 Ag and/or HIV-1/HIV-2 Ab not detected.A test result that is nonreactive does not exclude thepossibility of exposure to or infection with HIV-1 and/orHIV-2. Nonreactive results in this assay for individualswith prior exposure to HIV-1 and/or HIV-2 may be due toantigen and antibody levels that are below the limit ofdetection of this assay.The [employer] HIV Ag/Ab Combo assay result andsupplemental assay results should be interpreted inconjunction with the patient's clinical presentation,history and other laboratory results. If the results areinconsistent with clinical evidence, additional testing issuggested to confirm the result. Blood Venous blood specimen / Unknown 01/25/2024 4:15 PM EST 01/25/2024 5:47 PM EST us Jaimie Cadena MD LAB BLOOD ORDERABLES Final Re sult Performing Organization Address [facility] Co de Phone Number [facility] [address] [place] [address] [phone] * (ABNORMAL) Lipid Panel with Reflex to Direct LDL (05/10/2023 10:05 AM EST) Triglycerides 145 <150 mg/dL [facility] Comment:Desirable Triglyceri de: less than 150 mg/dLBorderline High Triglyceride 150-199 mg/dLHigh Triglyceride: 200-499 mg/dLVery High Triglyceride: greater than or equal to 5OO mg/dL Cholesterol 150 <200 mg/dL [facility] Comment:Desirable Cholestero l: less than 200 mg/dLBorderline High Cholesterol: 200-239 mg/dLHigh Cholesterol: greater than 239 mg/dL LDL Cholesterol Calculated 85 <100 mg/dL [facility] Comment:Desirable LDL: less than 100 mg/dLNear Optimal/Above Optimal LDL: 110- 129 mg/dLBorderline High LDL: 130-159 mg/dLHigh LDL: 160-189 mg/dLVery High LDL: greater than or equal to 190 mg/dL HDL Cholesterol 36(L) >40 mg/dL [facility] Comment:Desirable HDL: great er than 40 mg/dL Note: This HDL assay may give artificially low results in patients with liver disease. Blood 05/10/2023 10:0 5 AM EST 05/10/2023 11:23 AM EST us Emelia Hui MD LAB BLOOD ORDERABLES Fin al Result Performing Organization Address City/[facility]/ZIP Co de Phone Number [facility] [address] [place] [phone] [phone] from Last 3 Months or Most Recently Relevant to Health Maintenance Insurance [employer] HSN FULL DENTAL-[facility] MEDICAID LIMITED ADULT DENTAL - HSN FULL (MEDICAID) Care Teams Golf Technician Relationship Specialty Start Date End Date Jaimie Cadena MD [address] [place] [phone] PCP - General Internal Medicine 05/25/23
--- OUTSIDE RECORDS SUMMARY | 2025-01-18 03:06 | XMS_ITS | Encounter Summary ---
Author Organization [employer] Address 75 [facility] 7 [place] [address] Care Team Providers Care Tag Meter Operator Name Role Phone Jaimie Cadena MD Primary Care Provider [phone] Reason for Visit * Reason Onset Date Comments 911 Call 01/14/2025 Encounter Details Date Type Department Care Team ([facility] st Contact Info) Description 01/14/2025 Telephone [facility] WALK-IN CENTER [address] [place] [address] Jaimie Cadena MD [address] [place] [phone] Call Social History Tobacco Use Types [...] encounter Miscellaneous Notes * Telephone Encounter - Kendra Vo RN - 01/15/2025 11:23 AM EST Pt has appointment on 01/22/25 for ED f/u * Telephone Encounter - Mei Herrera RN - 01/14/2025 11:29 AM EST Patient presented to walk in center almost collapsed while checking in assistant front desk manager called for nurse.Patient found incoherent in waiting room responsive to touch immediately asked [place] to get a providerand pt was brought back in a wheel chair to be assessed while 911 was initiated. Pt was found to behypertensive all other vitals stable however pt was diaphoretic and placed on 2 L of oxygen. EMS transported pt to [facility] will forward message to [facility] for a status check tomorrow. documented in this encounter Plan of Treatment Upcoming Encounters Date Type Department Care Team (Late st Contact Info) Description 01/22/2025 9:00 AM EST Office Visit [facility] MED & PEDS [address] [place], [place] [phone] Jaimie Cadena MD [address] [place] [address] 04/28/2025 12:45 PM EST Office Visit [facility] CHC ADULT DENTAL [address] [place] [address] Melquiades Hawkins documented as of this encounter Visit Diagnoses Not on filedocumented in this encounter Additional Health Concerns Assessment Noted Time PHQ-9 Depression Total Score: 0 09/05/19 25 10:20 AM EDT documented as of this encounter Care Teams Tag Meter Operator Relationship Specialty Start Date End Date Jaimie Cadena MD [address] [place] [address] PCP - General Internal Medicine 05/25/23 documented as of this encounter
--- OUTSIDE RECORDS SUMMARY | 2025-01-18 03:06 | XMS_ITS | Encounter Summary ---
Author Organization [employer] Address [address] [facility] [address] 7t [place] [address] Care Team Providers Care Central Supply Nurse Name Role Phone Jaimie Cadena MD Primary Care Provider [phone] Encounter Details Date Type Department Care Team [...] [facility] [address] [place] [address] Jaimie Cadena MD [address] [place] [address] 04/28/2025 12:45 PM EST Office Visit [facility] ADULT DENTAL [address] [place] [address] Melquiades Hawkins documented as of this encounter Visit Diagnoses Not on filedocumented in this encounter Additional Health Concerns Assessment Noted Time PHQ-9 Depression Total Score: 0 09/05/19 25 10:20 AM EDT documented as of this encounter Care Teams Central Supply Nurse Relationship Specialty Start Date End Date Jaimie Cadena MD [address] [place] [address] PCP - General Internal Medicine 05/25/23 documented as of this encounter
--- OUTSIDE RECORDS SUMMARY | 2025-01-18 03:06 | XMS_ITS | Encounter Summary ---
Author Organization [employer] Address 75 [facility] 7 [place] [address] Care Team Providers Care Electrician Maintenance Name Role Phone Jaimie Cadena MD Primary Care Provider [phone] Reason for Visit * Reason Onset Date Comments Results 07/30/2024 Encounter Details Date Type Department Care Team ([facility] st Contact Info) Description 07/30/2024 Telephone [facility] MEDICINE [address] [place] [address] Jaimie Cadena MD [address] [place], [place] [phone] Results Social History Tobacco Use Types Packs/Day [...] status of prior message Please return call [phone] * Telephone Encounter - Myriam Muhammad - 07/30/2024 11:06 AM EDT TC from pt requesting call back regarding Results. Type of results: Helicobacter pylori Antigen, EIA, Stool Date when done: 07/25/2024 Facility: [facility] [phone] [facility] documented in this encounter Plan of Treatment Upcoming Encounters Date Type Department Care Team (Late st Contact Info) Description 01/22/2025 9:00 AM EST Office Visit [facility] MED & PEDS [address] [place] [address] Jaimie Cadena MD [address] [place] [address] 04/28/2025 12:45 PM EST Office Visit [facility] ADULT DENTAL [address] [place] [address] Melquiades Hawkins documented as of this encounter Visit Diagnoses Not on filedocumented in this encounter Additional Health Concerns Assessment Noted Time PHQ-9 Depression Total Score: 16 024 9:53 AM EDT documented as of this encounter Care Teams Electrician Maintenance Relationship Specialty Start Date End Date Jaimie Cadena MD [address] [place] [phone] PCP - General Internal Medicine 05/25/23 documented as of this encounter
--- OUTSIDE RECORDS SUMMARY | 2025-01-18 03:06 | XMS_ITS | Encounter Summary ---
Author Organization [employer] Address 75 [facility] 7 [place] [address] Care Team Providers Care Admeasurer Name Role Phone Jaimie Cadena MD Primary Care Provider [phone] Reason for Visit * Reason Onset Date Comments New Patient 11/30/2022 Encounter Details Date Type Department Care Team (Late Contact Info) Description 11/30/2022 Telephone [facility] MEDICINE [address] [place] [address] Hakeem Akhtar MD [address] [place] [address] New Patient Social History Tobacco Use Types [...] Description 01/22/2025 9:00 AM EST Office Visit [facility] MED & PEDS [address] [place], [place] [phone] Jaimie Cadena MD [address] [place] [address] 04/28/2025 12:45 PM EST Office Visit [facility] ADULT DENTAL [address] [place] [address] Melquiades Hawkins documented as of this encounter Visit Diagnoses Not on filedocumented in this encounter Care Teams Admeasurer Relationship Specialty Start Date End Date Jaimie Cadena MD [address] [place] [address] PCP - General Internal Medicine 05/25/23 documented as of this encounter
--- OUTSIDE RECORDS SUMMARY | 2025-01-18 03:06 | XMS_ITS | Encounter Summary ---
Author Organization [employer] Address [address] [facility] [address] [place] [address] Care Team Providers Care Herb Doctor Name Role Phone Jaimie Cadena MD Primary Care Provider [phone] Encounter Details Date Type Department Care Team (Late st Contact Info) Description 10/23/2024 Orders Only [facility] CHC MED & PEDS [address] [place] [address] ProviderMicheal MD Social History Tobacco Use Types [...] 9:00 AM EST Office Visit [facility] MED & PEDS [address] [place] [address] Jaimie Cadena MD [address] [place] [address] 04/28/2025 12:45 PM EST Office Visit [facility] ADULT DENTAL [address] [place] [address] Melquiades Hawkins documented as of this encounter [...] documented as of this encounter Care Teams Herb Doctor Relationship Specialty Start Date End Date Jaimie Cadena MD [address] [place] [address] PCP - General Internal Medicine 05/25/23 documented as of this encounter
--- OUTSIDE RECORDS SUMMARY | 2025-01-18 03:06 | XMS_ITS | Encounter Summary ---
Author Organization [employer] Address [address] [place] [address] Care Team Providers Care Experienced Truck Driver Name Role Phone Jaimie Cadena MD Primary Care Provider [phone] Encounter Details Date Type Department Care Team (Late st Contact Info) Description 01/14/2025 Orders Only [facility] External Provider, [facility] Social History Tobacco Use Types Packs/Day Years [...] Description 01/22/2025 9:00 AM EST Office Visit [facility] [address] [place], [place] [phone] Jaimie Cadena MD [address] [place] [address] 04/28/2025 12:45 PM EST Office Visit [facility] ADULT DENTAL [address] [place] [address] Melquiades Hawkins documented as of this encounter Procedures Procedure Name Priority Date/Time Associated Diagnosis Comments CT HEAD WO CONTRAST Routine 01/14/2025 2 :12 PM EST documented in this encounter Results * CT Head w/o Contrast (01/14/2025 2:12 PM EST) Anatomical Region Laterality Modality Head, Neck Computed Tomogra phy 01/14/2025 2:12 PM EST Narrative 01/14/2025 2:35 PM EST [address] [address] [address] Scan Report Signed Patient: Manjula Dietrich MR#: [id number] : 1990 Acct:[id number] Age/Sex: 34 / M ADM Date: 01/14/25 Loc: .ED Attending Dr: Ordering Physician: Argelia Becerra MD Date of Service: 01/14/25 Procedure(s): CT head/brain wo IV con Accession Number(s): [id number] cc: Argelia Becerra MD; Jaimie Cadena MD Report Number: [id number]: Total DLP = 716.00 mGy-cm Reason for [...] by: Zain Cunningham MD 01/14/2025 02:32 PM [facility] Dictated By: Zain Mckeon MD Signed By: <Electronically signed by Zain Lai MD in OV> 01/14/25 1432 DD/ 1412 TD/TT: 01/14/25 1425 Technology Risk Intern: Procedure Note Donotuseinterpreter, Image - 01/14/[address] [address] [address] Scan Report Signed Patient: Ewa Dietrich#: [id number] : 1990Acct:[id number] Age/Sex: 34 / MADM Date: 01/14/25 Loc: HO.ED Attending Dr: Ordering Physician: Argelia Becerra MD Date of Service: 01/14/25 Procedure(s): CT head/brain wo IV con Accession Number(s): [id number] cc: Argelia Becerra MD; Jaimie Cadena MD Report Number: [id number]: Total DLP = 716.00 mGy-cm Reason for [...] by: Zain Cunningham MD 01/14/2025 02:32 PM [facility] Dictated By: Zain Mckeon MD Signed By: <Electronically signed by Zain Lai MDin OV> 01/14/25 1432 DD/ 1412 TD/TT: 01/14/25 1425 Technology Risk Intern: [facility] External Provider IMG CT PROCEDURES Edited Result - Final documented in this encounter Visit Diagnoses Not on filedocumented in this encounter Additional Health Concerns Assessment Noted Time PHQ-9 Depression Total Score: 0 09/05/19 10:20 AM EDT documented as of this encounter Care Teams Experienced Truck Driver Relationship Specialty Start Date End Date Jaimie Cadena MD [address] [place] [id number] (Aofu) PCP - General Internal Medicine 05/25/23 documented as of this encounter
--- OUTSIDE RECORDS SUMMARY | 2025-01-18 03:06 | XMS_ITS | Encounter Summary ---
Author Organization [employer] Address [address] [place] [address] Care Team Providers Care Nurse First Assist Name Role Phone Jaimie Cadena MD Primary Care Provider [phone] Encounter Details Date Type Department Care Team ([facility] st Contact Info) Description 05/25/[address] [facility] [address] [place] [address] Jaimie Cadena MD [address] [place], [place] [phone] Social History Tobacco Use Types Packs/Day Years [...] 1:19 PM PHILOMENAT Mary Pizano [place] Feeling tired or having little energy More than half the days 05/25/2023 1:19 PM EDT Mary Pizano [place] Poor appetite or overeating More than half the days 05/25/2023 1:19 PM PHILOMENAT Mary Pizano [place] Feeling bad about yourself - or that you are a failure or have let yourself or your family down Not at all 05/25/2023 1:19 PM PHILOMENAT Mary Pizano [place] Trouble concentrating on things, [...] 9:00 AM EST Office Visit [facility] MED [facility] PED[facility] [address] [place] [address] Jaimie Cadena MD [address] [place] [address] 04/28/2025 12:45 PM EST Office Visit [facility] ADULT DENTAL [address] [place] [address] Melquiades Hawkins documented as of this encounter Visit Diagnoses Not on filedocumented in this encounter Additional Health Concerns Assessment Noted Time PHQ-9 Depression Total Score: 9 05/25/19 24 1:19 PM EDT documented as of this encounter Care Teams Nurse First Assist Relationship Specialty Start Date End Date Jaimie Cadena MD [address] [place] [address] PCP - General Internal Medicine 05/25/23 documented as of this encounter
--- OUTSIDE RECORDS SUMMARY | 2025-01-18 03:06 | XMS_ITS | Encounter Summary ---
Author Organization [employer] Address [address] [facility] [address] [place] [address] Care Team Providers Care Cross Country/Track And Field Coach Name Role Phone Jaimie Cadena MD Primary Care Provider [phone] Encounter Details Date Type Department Care Team ([facility] Contact Info) Description 01/13/2025 Results Follow-Up [facility]S [address] [place], [place] [phone] Cindy Davila, SUMMER NANNY [address] [place] [address] CBC auto differential, Sed Rate by Modified [...] 9:00 AM EST Office Visit [facility] [address] [place] [address] Jaimie Cadena MD [address] [place] [address] 04/28/2025 12:45 PM EST Office Visit [facility] ADULT DENTAL [address] [place] [address] Melquiades Hawkins documented as of this encounter Visit Diagnoses Not on filedocumented in this encounter Additional Health Concerns Assessment Noted Time PHQ-9 Depression Total Score: 0 09/05/19 25 10:20 AM EDT documented as of this encounter Care Teams Cross Country/Track And Field Coach Relationship Specialty Start Date End Date Jaimie Cadena MD [address] [place] [address] PCP - General Internal Medicine 05/25/23 documented as of this encounter
--- OUTSIDE RECORDS SUMMARY | 2025-01-18 03:06 | XMS_ITS | Encounter Summary ---
Author Organization [employer] Address [address] [place] [address] Care Team Providers Care Interlocker Maintainer Name Role Phone Jaimie Cadena MD Primary Care Provider [phone] Encounter Details Date Type Department Care Team [...] [facility] [address] [place] [address] Jaimie Cadena MD [address] [place] [address] 04/28/2025 12:45 PM EST Office Visit [facility] ADULT [facility] [address] [place] [address] Melquiades Hawkins documented as of this encounter Visit Diagnoses Not on filedocumented in this encounter Additional Health Concerns Assessment Noted Time PHQ-9 Depression Total Score: 0 09/05/19 25 10:20 AM EDT documented as of this encounter Care Teams Interlocker Maintainer Relationship Specialty Start Date End Date Jaimie Cadena MD [address] [place] [address] PCP - General Internal Medicine 05/25/23 documented as of this encounter
--- NOTE | 2025-01-18 04:39 | ED_ITS ---
HPI - Headache General Chief Complaint: Headache Stated Complaint: fever Time Seen by Provider: 01/18/25 04:30 Source: patient Mode of arrival: ambulatory Limitations: no limitations History of Present Illness ED Provider: Dr. Jenny Hunter HPI Narrative: patient comes to the emergency room complaining of headache behind the left eye. Patient was seen here couple of hours ago, was treated with oxygen, ketorolac, diazepam , IV fluids. Patient was discharged home. Patient states that when he returned home, he had a sudden onset of headache again and then, within a few minutes, it self-resolved. Patient denies any visual changes. Patient states by the time that he arrived to the emergency room the 2nd time, he was completely asymptomatic. Patient denies any headache, no ocular pain, no visual changes, no nausea or vomiting. Related Data Previous Rx's ?Medication ?Instructions ?Recorded oxybutynin chloride 5 mg tablet 5 mg PO BID PRN bladde r spasms #60 08/12/22 tabs naproxen 375 mg tablet 375 mg PO BID PRN pain #12 t abs 08/30/22 ondansetron 4 mg disintegrating 4 mg PO Q8H PRN nausea and 04/21/23 tablet vomiting #20 tabs gonhegmhry-xwqjlederdjla-ypriixzi 1 cap PO TID PRN rhoda n #20 caps 04/29/23 50 mg-300 mg-40 mg capsule (Fioricet) sumatriptan succinate 50 mg tablet See Rx Instructions PO .COMPLEX 04/29/23 #10 tabs cyclobenzaprine 10 mg tablet 10 mg PO TID PRN muscle s pasm #20 08/02/23 tabs cyclobenzaprine 10 mg tablet 10 mg PO TID PRN muscle s pasm #14 12/20/23 tabs ibuprofen 600 mg tablet 600 mg PO Q6H PRN pain #14 t abs 12/20/23 ibuprofen 600 mg tablet 600 mg PO Q6H PRN pain #20 t abs 01/13/24 cyclobenzaprine 10 mg tablet 10 mg PO TID PRN muscle s pasm #20 12/17/24 tabs naproxen 500 mg tablet 500 mg PO BID PRN pain #20 t abs 12/17/24 edykmatwlg-ykkozdrveayzt-wbzrjdzg 1 cap PO Q8H PRN hea dache #5 caps 01/06/25 50 mg-300 mg-40 mg capsule (Fioricet) prednisone 10 mg tablet 60 mg (6 x 10 mg) PO DIRE CTED 01/14/25 18 days #63 tabs ketorolac 10 mg tablet 10 mg PO Q6H PRN pain #20 ta bs 01/18/25 prochlorperazine maleate 10 mg 10 mg PO Q8H PRN nausea and 01/18/25 tablet (Compazine) vomiting #10 tabs sumatriptan succinate 100 mg tablet See Rx Instruction s PO .COMPLEX 01/18/25 #14 tabs Allergies Allergy/AdvReac Type Severity Reaction Status Date / Time No Known Allergies Allergy Verified 01/18/25 02:45 Review of Systems Review of Systems: Constitutional : No Weight loss, No Fever, No Chills, No Night Sweats, No Fatigue, No Malaise ENT/Mouth : No Hearing loss, No Ear Pain, No Nasal Congestion, No Sinus Pain, No Hoarseness, No sore throat, No Rhinorrhea, No Swallowing Difficulty Eyes: No Eye Pain, No Swelling, No Redness, No Foreign Body, No Discharge, No Vision Changes Cardiovascular : No Chest Pain, No SOB, No Dyspnea on Exertion, No Orthopnea, No Edema, No Palpitations Respiratory : No Cough, No Sputum, No Wheezing, No Smoke Exposure, No Dyspnea Gastrointestinal : No Nausea, No Vomiting, No Diarrhea, No Constipation, No abdominal Pain, No Hematochezia, No Melena Genitourinary : no irregular bleeding, No Dysuria, No Urinary Frequency, No H ematuria, No Urinary Incontinence, No Urgency, No Flank Pain, No Urinary Flow Changes, No Hesitancy Musculoskeletal : No joint pain, No Myalgias, No Joint Swelling Skin : No Skin Lesions, No rash Neuro : No Weakness, No Numbness, No Paresthesias, No Loss of Consciousness, No Dizziness, Complaining of a cluster headache that resolved fairly quickly prior to arrival to the ED Psych : No Anxiety/Panic, No Depression, No SI/HI/AH/VH, No Social Issues, Heme/Lymph: No Bruising, No Bleeding,No Lymphadenopathy Endocrine : No Polyuria, No Polydipsia, No Temperature Intolerance PMFSH Past Medical History Medical History (Updated 01/18/25 @ 04:42 by Jenny Hunter MD) Cluster headache Calculus of kidney Hydronephrosis Surgical History Hx of bladder endoscopy Hx of appendectomy Family History Family History Father No problems noted. Mother No problems noted. Social History Social History Alcohol intake: current Alcohol intake frequency: does not drink Patient Tobacco Use Status: Never used Tobacco Advance Directives: No Advance Directives Information Provided: Yes Advance Directives Date on File: 08/02/22 Physical Exam Exam: Exam: Appearance: Alert. Oriented X3. No acute distress. Eyes: Pupils equal, round and reactive to light. ENT: Pharynx normal. Neck: Normal inspection. Neck supple. No lymph nodes noted. No crepitus CVS: Normal heart rate and rhythm. Pulses normal. Normal S1 and S2 Respiratory: No respiratory distress. Breath sounds normal. No Wheezing. No rales Abdomen: Soft and nontender. No rigidity. No distention. Skin: Skin warm and dry. Normal skin color. Normal skin turgor. Extremities: No lower extremity edema. No Lacerations. No Rash Neuro: Oriented X 3. No motor deficit. No sensory deficit. Moving all extremities. No slurred speech. CN 2 through 12 grossly intact Psych: calm, cooperative, normal affect Vital Signs: Vital Signs: Last Vital Signs Temp 98.0 F 01/18/25 02:44 Pulse 78 01/18/25 02:44 Resp 20 01/18/25 02:44 BP 138/89 01/18/25 02:44 Pulse Ox 98 01/18/25 02:44 O2 Del Method Room Air 01/18/25 02:44 BMI result Body Mass Index 27.4 Medical Decision Making Medical Decision Making MDM Narrative: this is the patient's 2nd ED visit for the same complaint. However, this time when patient arrived to the emergency room, patient states that he was already completely asymptomatic. Patient has remained asymptomatic since his arrival. Patient states that he has an appointment pending with a new neurologist. At this time, no need for any further treatment. As mentioned above, patient is completely asymptomatic at this time I reviewed patient's past medical history. A few days ago, patient had a CTA of the head and neck on November 3rd, it was negative for stenosis, occlusions, dissections or aneurysms Discharge Plan Discharge Clinical Impression: Cluster headache Patient Disposition: Home, Self-Care Instructions: Cluster Headache (ED) Additional Instructions: Please follow-up with your primary care physician tomorrow. If you have any worsening or new symptoms, please return to the emergency room or call 911 Prescriptions: New sumatriptan succinate 100 mg tablet See Rx Instructions .ROUTE .COMPLEX Qty: 14 0RF Rx Instructions: take 1 tab at onset of headache; if no relief, may repeat 1 tab after at least 2 hrs; max = 2 tabs/24 hrs No Action naproxen 375 mg tablet 375 mg PO BID PRN (Reason: pain) Qty: 12 0RF cyclobenzaprine 10 mg tablet 10 mg PO TID PRN (Reason: muscle spasm) Qty: 20 0RF ibuprofen 600 mg tablet 600 mg PO Q6H PRN (Reason: pain) Qty: 14 0RF cyclobenzaprine 10 mg tablet 10 mg PO TID PRN (Reason: muscle spasm) Qty: 14 0RF naproxen 500 mg tablet 500 mg PO BID PRN (Reason: pain) Qty: 20 0RF cyclobenzaprine 10 mg tablet 10 mg PO TID PRN (Reason: muscle spasm) Qty: 20 0RF ketorolac 10 mg tablet 10 mg PO Q6H PRN (Reason: pain) Qty: 20 0RF Rx Instructions: maximum total duration of 5 days from all oral, intranasal, or parenteral formulations, patient received an IV dose of Toradol here in the emergency room prochlorperazine maleate [Compazine] 10 mg tablet 10 mg PO Q8H PRN (Reason: nausea and vomiting) Qty: 10 0RF ondansetron 4 mg tablet,disintegrating 4 mg PO Q8H PRN (Reason: nausea and vomiting) Qty: 20 0RF umxfowdtyh-vzaemgwevexzu-qcpx [Fioricet] 50-300-40 mg capsule 1 cap PO TID PRN (Reason: pain) Qty: 20 0RF sumatriptan succinate 50 mg tablet See Rx Instructions .ROUTE .COMPLEX Qty: 10 0RF Rx Instructions: take 1 tab at onset of headache; if no relief may repeat 1 tab after at least 2 hrs; max = 4 tabs/24 hr ibuprofen 600 mg tablet 600 mg PO Q6H PRN (Reason: pain) Qty: 20 0RF iyuorinazh-ronqkvbffojmd-xqfu [Fioricet] 50-300-40 mg capsule 1 cap PO Q8H PRN (Reason: headache) Qty: 5 0RF prednisone 10 mg tablet 60 mg PO DIRECTED 18 Days Qty: 63 0RF Rx Instructions: see taper instructions Take 60mg (6 tabs) for 3 days Take 50mg (5 tab) for 3 days Take 40mg (4 tab) for 3 days Take 30mg (3 tab) for 3 days Take 20mg (2 tab) for 3 days Take 10mg (1 tab) for 3 days oxybutynin chloride 5 mg tablet 5 mg PO BID PRN (Reason: bladder spasms) Qty: 60 0RF Rx Instructions: use one tablet once to twice daily for bladder urgency Print Language: Azerbaijani
[2025-01-18 04:50] VITALS: BP 132/77; PULSE 77; TEMP 36.6; O2SAT 98
[2025-01-18 05:00] VITALS: BP 132/77; PULSE 77; RESP 16; TEMP 36.6; O2SAT 98
--- NOTE | 2025-01-18 05:01 | PC.NURSE ---
Pt recently discharged with cluster headaches. Pt states went home and the pain was severe at that time. At presentation pt has no pain. Reassurance provided. Pt understands to follow up with pcp and neurology . Discharge instructions reviewed with pt and pt agrees to understanding.
== END 2025-01-18 05:02 | disposition home or self-care (01) ==
PROVIDERS: Emergency Provider Emergency Medicine
DX: G44.009 Cluster headache syndrome, unspecified, not intractable (principal)
CPT/HCPCS: 99283

== ENCOUNTER 2025-01-21 12:59 | Outpatient (REF) | payer OTHER, SELFPAY ==
[2025-01-21 17:47] LABS: Alanine Aminotransferase 87 U/L (0-40); Aspartate Amino Transferase 31 U/L (5-37)
[2025-01-22 07:00] LABS: HIV Num 1 0.07 S/CO (0.00-0.99)
--- OUTSIDE RECORDS SUMMARY | 2025-01-22 09:00 | XMS_ITS | Encounter Summary ---
Author Organization [employer] Address [address] [place] [address] Care Team Providers Care Drying Equipment Operator Name Role Phone Jaimie Cadena MD Primary Care Provider [phone] Reason for Referral * Consultation (Urgent) - Pending Review Specialty Diagnoses / Procedures Referred By Анна wilson Referred To Contact Neurology Diagnoses New daily persistent headache Intracranial arachnoid cyst Jaimie Cadena MD [address] [place] [address] Phone: tel: fax: Referral ID Status Reason Start Date Expiration Date Visits Requested Visits Authorized [id number] Pending Review Specialty Services Required 5 01/22/2026 1 1 Encounter Details Date Type Department Care Team ([facility] Contact Info) Description 01/22/2025 9:00 AM EST Office Visit [facility]ED[facility] [address] [place] [address] Jaimie Cadena MD [address] [place] [address] New daily persistent headache (Primary Dx); Intracranial arachnoid cyst; Primary hypertension Social History Tobacco Use Types Packs/Day [...] Sign Reading Time Taken Comments Blood Pressure 150/90 01/22/2025 9:24 AM EST Pulse 88 01/22/2025 8:51 AM EST Temperature 37.7 C (99.8 F) 01/22/2025 8:51 AM EST Respiratory Rate 16 01/22/2025 8:51 AM EST Oxygen Saturation - - Inhaled Oxygen Concentration - - Weight 88.5 kg (195 lb) 01/22/2025 8:51 AM EST Height 170.2 cm (5' 7 ) 01/22/2025 8:51 AM EST Body Mass Index 30.54 01/22/2025 8:51 AM EST documented in this encounter Progress Notes * Jaimie Cadena MD - 01/22/2025 9:00 AM EST Subjective Patient ID: Manjula Webb is a 34 y.o. male who presents for f/u [facility] Er visit and headache. Manjula Webb, 34 years Headache and Eye Pain Has experienced recurrent severe headaches for several months, often described as stabbing or throbbing, with pain sometimes radiating to the eye. 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 Reports episodes of intense pain leading to emergency visits, including one episode with loss of consciousness requiring ambulance transport. Headaches are sometimes accompanied by anxiety, nervousness, and tremors, but denies recent changes in stress or anxiety levels. Pain is partially relieved by prescribed medications, including acetaminophen, ketorolac, and prednisone, but not fully controlled. Past use of sleep aids and strong analgesics,including oxycodone, provided limited relief. MRI of the head showed a small lesion ( frontal arachnoid cyst) neurosurgery from [facility] recommended follow-up in two years. CT scan and recent ophthalmology evaluation on January 14, 2025, were normal, with no evidence of increased intraocular pressure. Laboratory tests for vasculitis and inflammation were normal. Family history includes father who of headache-related cause. Hypertension Has a history of elevated blood pressure, with episodes of high readings during hospital and clinicvisits. Currently taking lisinopril, including a dose taken on the morning of the encounter. Reports ability to distinguish headache pain related to hypertension from migraine pain. Dietary salt intake discussed as a possible trigger for blood pressure elevation and headaches. Review of Systems Constitutional: Negative for activity change, chills, fever and unexpected weight change. Eyes: Negative for photophobia and visual disturbance. Respiratory: Negative for cough, shortness of breath and wheezing. Cardiovascular: Negative for chest pain, palpitations and leg swelling. Gastrointestinal: Negative for abdominal pain and blood in stool. Endocrine: Negative for polydipsia and polyuria. Genitourinary: Negative for decreased urine volume, difficulty urinating, dysuria and hematuria. Musculoskeletal: Negative for arthralgias and gait problem. Skin: Negative for color change and rash. Allergic/Immunologic: Negative for environmental allergies. Neurological: Negative for dizziness, light-headedness and headaches. Hematological: Negative for adenopathy. Psychiatric/Behavioral: Negative for dysphoric mood, hallucinations, sleep disturbance and suicidalideas. The patient is not nervous/anxious. Objective BP (!) 150/90 Pulse 88 Temp 99.8 ??F (37.7 ??C) (Oral) Resp 16 Ht 5' 7 (1.702 m) Wt 195 lb (88.5 kg) BMI 30.54 kg/m?? Physical Exam Vitals reviewed. Constitutional: General: He is not in acute distress. Appearance: Normal appearance. He is normal weight. HENT: Nose: Nose normal. Mouth/Throat: Pharynx: Oropharynx is clear. Eyes: Extraocular Movements: Extraocular movements intact. Conjunctiva/sclera: Conjunctivae normal. Pupils: Pupils are equal, round, and reactive to light. Cardiovascular: Rate and Rhythm: Normal rate and regular rhythm. Heart sounds: Normal heart sounds. No murmur heard. Pulmonary: Effort: Pulmonary effort is normal. No respiratory distress. Breath sounds: Normal breath sounds. Abdominal: Tenderness: There is no abdominal tenderness. There is no rebound. Musculoskeletal: Right lower leg: No edema. Left lower leg: No edema. Skin: Coloration: Skin is not pale. Neurological: General: No focal deficit present. Mental Status: He is oriented to person, place, and time. Mental status is at baseline. Coordination: Coordination normal. Gait: Gait normal. Deep Tendon Reflexes: Reflexes normal. Psychiatric: Mood and Affect: Mood normal. Behavior: Behavior normal. Thought Content: Thought content normal. Judgment: Judgment normal. Assessment/Plan Diagnoses and all orders for this visit: New daily persistent headache: - Persistent headache with episodes of severe pain, not fully controlled by current medications. Neurology consult recommended for further evaluation. Differential diagnosis discussed includes possible vasculitis and trigeminal neuralgia. - Referred to neurology at [facility] for urgent evaluation. Advised use of melatonin to aid sleep. Provided instructions for follow-up in four weeks. Recommended to monitor headache pattern and response to medications. Intracranial arachnoid cyst: - Intracranial arachnoid cyst previously identified on MRI. Neurosurgery recommendation to re-evaluate with imaging in two years. - Will follow neurosurgery recommendation for repeat imaging in two years. No acute intervention required at this time. Primary hypertension: - Primary hypertension requiring ongoing management. - Prescribed lisinopril 30 mg, to be picked up at [facility]. Provided blood pressure monitor for home use. Advised dietary sodium restriction, including use of low-sodium seasonings such as . Recommended to check blood pressure regularly at home. New daily persistent headache - Referral to Neurology; Future - Blood Pressure kit; Check BP daily Intracranial arachnoid cyst - Referral to Neurology; Future Primary hypertension Other orders - lisinopril 30 MG tablet; Take 1 tablet (30 mg) by mouth Once per day. documented in this encounter Plan of Treatment Upcoming Encounters Date Type Department Care Team (Late st Contact Info) Description 02/19/2025 3:00 PM EST Clinical Support [facility] [address] [place] [address] 04/28/2025 12:45 PM EST Office Visit [facility] ADULT DENTAL [address] [place] [address] Melquiades Hawkins Scheduled Referrals Name Type Priority Associated Diagnoses Orde r Schedule Referral to Neurology Outpatient Referral Urgent New daily persistent headache Intracranial arachnoid cyst Expected: 01/22/2025 (Approximate), Expires: 01/22/2026 documented as of this encounter Visit Diagnoses Diagnosis New daily persistent headache- Primary Intracranial arachnoid cyst Cerebral cysts Primary hypertension Unspecified essential hypertension documented in this encounter Additional Health Concerns Assessment Noted Time PHQ-9 Depression Total Score: 0 09/05/19 25 10:20 AM EDT documented as of this encounter Care Teams Drying Equipment Operator Relationship Specialty Start Date End Date Jaimie Cadena MD [address] [place] [address] PCP - General Internal Medicine 05/25/23 documented as of this encounter
--- OUTSIDE RECORDS SUMMARY | 2025-01-22 13:24 | XMS_ITS | Encounter Summary ---
Author Organization [employer] Address [address] 7[address] [place] [address] Care Team Providers Care Bar Back Name Role Phone Jaimie Cadena MD Primary Care Provider [phone] Encounter Details Date Type Department Care Team ([facility] st Contact Info) Description 10/23/2024 Orders Only [facility] MED & PEDS [address] [place], [place] [phone] ProviderMicheal MD Social History Tobacco Use Types [...] Description 02/19/2025 3:00 PM EST Clinical Support [facility] MED & PEDS [address] [place] [address] 04/28/2025 12:45 PM EST Office Visit [facility] ADULT DENTAL [address] [place] [address] Melquiades Hawkins documented as of this encounter [...] documented as of this encounter Care Teams Bar Back Relationship Specialty Start Date End Date Jaimie Cadena MD [address] [place] [address] PCP - General Internal Medicine 05/25/23 documented as of this encounter
--- OUTSIDE RECORDS SUMMARY | 2025-01-22 13:24 | XMS_ITS | Encounter Summary ---
Author Organization [employer] Address [address] [facility] 7 [place] [address] Care Team Providers Care Test Examiner Name Role Phone Jaimie Cadena MD Primary Care Provider [phone] Reason for Visit * Reason Onset Date Comments New Med Request 05/25/2023 Encounter Details Date Type Department Care Team ([facility] st Contact Info) Description 05/25/2023 Telephone [facility] MEDICINE [address] [place], [place] [phone] Jaimie Cadena MD [address] [place] [phone] New Med Request Social History Tobacco Use [...] sent to pharmacy last night and can pick pulling machine 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 Pt agrees with [...] Description 02/19/2025 3:00 PM EST Clinical Support [facility] MED & PEDS [address] [place] [address] 04/28/2025 12:45 PM EST Office Visit [facility] ADULT DENTAL [address] [place] [address] Melquiades Hawkins documented as of this encounter Visit Diagnoses Not on filedocumented in this encounter Additional Health Concerns Assessment Noted Time PHQ-9 Depression Total Score: 9 05/25/19 24 1:19 PM EDT documented as of this encounter Care Teams Test Examiner Relationship Specialty Start Date End Date Jaimie Cadena MD [address] [place] [address] PCP - General Internal Medicine 05/25/23 documented as of this encounter
--- OUTSIDE RECORDS SUMMARY | 2025-01-22 13:24 | XMS_ITS | Encounter Summary ---
Author Organization [employer] Address [address] [facility] 7 [place] [address] Care Team Providers Care Clod Puller Name Role Phone Jaimie Cadena MD Primary Care Provider [phone] Reason for Visit * Reason Onset Date Comments Chart Prep 01/20/2025 Encounter Details Date Type Department Care Team ([facility] Contact Info) Description 01/20/[address] [facility] MED & PEDS [address] [place] [address] Jaimie Cadena MD [address] [place] [address] Chart Prep Social History Tobacco Use Types Packs/Day Years [...] encounter Miscellaneous Notes * Telephone Encounter - Raegan Powers [place] - 01/20/2025 10:27 AM EST Chart Prep Labs: done Images: done Referrals: complete Vaccines due: Covid, Flu, Hep B, and HPV Screenings: PISQ Overdue care gaps: Oral health screening, Disability screen, and Tobacco documented in this encounter Plan of Treatment Upcoming Encounters Date Type Department Care Team ([facility] st Contact Info) Description 02/19/2025 3:00 PM EST Clinical Support [facility] MED & PEDS [address] [place] [address] 04/28/2025 12:45 PM EST Office Visit [facility] ADULT DENTAL [address] [place] [address] Melquiades Hawkins documented as of this encounter Visit Diagnoses Not on filedocumented in this encounter Additional Health Concerns Assessment Noted Time PHQ-9 Depression Total Score: 0 09/05/19 25 10:20 AM EDT documented as of this encounter Care Teams Clod Puller Relationship Specialty Start Date End Date Jaimie Cadena MD [address] [place] [address] PCP - General Internal Medicine 05/25/23 documented as of this encounter
--- OUTSIDE RECORDS SUMMARY | 2025-01-22 13:24 | XMS_ITS | Encounter Summary ---
Author Organization [employer] Address [address] 7[address] [place] [address] Care Team Providers Care Theatrical Trouper Name Role Phone Jaimie Cadena MD Primary Care Provider [phone] Encounter Details Date Type Department Care Team (Latest Contact Info) Description 01/22/2025 Travel Social History Tobacco Use Types Packs/Day [...] Description 02/19/2025 3:00 PM EST Clinical Support [facility] MED & PEDS [address] [place] [address] 04/28/2025 12:45 PM EST Office Visit [facility] ADULT DENTAL [address] [place] [address] Melquiades Hawkins documented as of this encounter Visit Diagnoses Not on filedocumented in this encounter Additional Health Concerns Assessment Noted Time PHQ-9 Depression Total Score: 0 09/05/19 25 10:20 AM EDT documented as of this encounter Care Teams Theatrical Trouper Relationship Specialty Start Date End Date Jaimie Cadena MD [address] [place] [address] PCP - General Internal Medicine 05/25/23 documented as of this encounter
--- OUTSIDE RECORDS SUMMARY | 2025-01-22 13:24 | XMS_ITS | Encounter Summary ---
Author Organization [employer] Address [address] [facility] 7 [place] [address] Care Team Providers Care Probate Lawyer Name Role Phone Jaimie Cadena MD Primary Care Provider [phone] Reason for Visit * Reason Onset Date Comments Results 07/30/2024 Encounter Details Date Type Department Care Team ([facility] st Contact Info) Description 07/30/2024 Telephone [facility] MEDICINE [address] [place] [address] Jaimie Cadena MD [address] [place] [address] Results Social History Tobacco Use Types Packs/Day [...] status of prior message Please return call [phone] * Telephone Encounter - Myriam Muhammad - 07/30/2024 11:06 AM EDT TC from pt requesting call back regarding Results. Type of results: Helicobacter pylori Antigen, EIA, Stool Date when done: 07/25/2024 Facility: [facility] [phone] indonesian documented in this encounter Plan of Treatment Upcoming Encounters Date Type Department Care Team (Late st Contact Info) Description 02/19/2025 3:00 PM EST Clinical Support [facility] MED & PEDS [address] [place] [address] 04/28/2025 12:45 PM EST Office Visit [facility] ADULT DENTAL [address] [place] [address] Melquiades Hawkins documented as of this encounter Visit Diagnoses Not on filedocumented in this encounter Additional Health Concerns Assessment Noted Time PHQ-9 Depression Total Score: 16 024 9:53 AM EDT documented as of this encounter Care Teams Probate Lawyer Relationship Specialty Start Date End Date Jaimie Cadena MD [address] [place] [address] PCP - General Internal Medicine 05/25/23 documented as of this encounter
--- OUTSIDE RECORDS SUMMARY | 2025-01-22 13:24 | XMS_ITS | Encounter Summary ---
Author Organization [employer] Address [address] [facility] [address] 7t [place] [address] Care Team Providers Care Administrator Of Home Health Name Role Phone Jaimie Cadena MD Primary Care Provider [phone] Encounter Details Date Type Department Care Team ([facility] st Contact Info) Description 05/25/2023 Telephone [facility] MEDICINE [address] [place] [address] Jaimie Cadena MD [address] [place], [place] [phone] Social History Tobacco Use Types Packs/Day Years [...] [facility] [address] [place] [address] 04/28/2025 12:45 PM EST Office Visit [facility] ADULT DENTAL [address] [place] [address] Melquiades Hawkins documented as of this encounter Visit Diagnoses Not on filedocumented in this encounter Additional Health Concerns Assessment Noted Time PHQ-9 Depression Total Score: 9 05/25/19 24 1:19 PM EDT documented as of this encounter Care Teams Administrator Of Home Health Relationship Specialty Start Date End Date Jaimie Cadena MD [address] [place] [address] PCP - General Internal Medicine 05/25/23 documented as of this encounter
--- OUTSIDE RECORDS SUMMARY | 2025-01-22 13:25 | XMS_ITS | Clinical Summary ---
Author Organization [employer] Address [address] 7[address] [place] [address] Care Team Providers Care Dining Room Helper Name Role Phone Jaimie Cadena MD Primary Care Provider [phone] Allergies No known active allergies Medications * This document contains information received from the source organization and may not represent a complete record from that organization. Omeprazole 20 MG tablet delayed-relea se Take 1 tablet (20 mg) by mouth Once per day. 90 tablet 07/26/19 25 Active Additional Information Patient not taking.Reported on 11/27/2024 FLUoxetine (PROzac) 20 MG capsuleIndica tions:Anxiety with depression Take 1 capsule (20 mg) by mouth Once per day. 30 capsule 11 09/05/19 25 026 Active cyclobenzapri ne (Flexeril) 10 MG tabletIndicat ions:Neck pain TAKE 1 TABLET BY MOUTH THREE TIMES DAILY 30 tablet 2 11/22/19 25 Active SUMAtriptan (Imitrex) 100 MG tablet TAKE 1 TABLET BY MOUTH ONCE NEEDED FOR MIGRAINE 9 tablet 3 5 10:15 AM EST 12/03/19 25 Active Blood Pressure kitIndication s:New daily persistent headache Check BP daily 1 kit 01/23/20 25 Active lisinopril 30 MG tablet Take 1 tablet (30 mg) by mouth Once per day. 30 tablet 11 01/23/20 25 026 Active butalbital-ac etaminophen-c affeine 50-325-40 MG tablet TAKE 1 TABLET BY MOUTH EVERY 8 HOURS NEEDED FOR HEADACHE 01/11/20 25 Active predniSONE (Deltasone) 10 MG tablet TAKE 6 TABLETS DAILY FOR 3 DAYS, TAKE 5 TABLETS DAILY FOR 3 DAYS, TAKE 4 TABLETS DAILY FOR 3 DAYS, TAKE 3 TABLETS DAILY FOR 3 DAYS, TAKE 2 TABLETS DAILY FOR 3 DAYS, TAKE 1 TABLET DAILY FOR 3 DAYS 01/15/20 Active valACYclovir (Valtrex) 1 g tablet Take 1 tablet (1,000 mg) by mouth Once per day. 30 tablet 01/25/20 025 Additional Information Patient not taking.Reported on 11/27/2024 lisinopril (Prinivil) 20 MG tablet Take 1 tablet (20 mg) by mouth Once per day. 30 tablet 09/05/19 025 Discontinued(Th erapy completed) oxyCODONE (Roxicodone) 5 MG immediate release tabletIndicat ions:Headache behind the eyes Take 1 tablet (5 mg) by mouth every 6 (six) hours if needed for severe pain for up to 1 day. 4 tablet 5 10:15 AM EST 01/14/20 025 Blood Pressure kitIndication s:New daily persistent headache Check BP daily 1 kit 01/23/20 025 Discontinued Active Problems Problem Noted Date [...] intervention , Patient to reach out to [facility] team as needed, and Patient [...] intervention , [facility], and Patient to reach out to [facility] as needed. Due to limited insurance patient was self- referred to HC programs. clinician will be available if requested/needed during next medical appointment. Lesion of frontal lobe of brain 05/25/2023 Primary hypertension 05/25/2023 Assessment & Plan (12/11/2023 2:21 PM [...] Encounters Date Type Department Care Team Description 01/22/2025 9:00 AM EST Office Visit [facility] MED & PEDS [address] [place] [address] Jaimie Cadena MD New daily persistent headache (Primary Dx); Intracranial arachnoid cyst; Primary hypertension 01/22/2025 Travel 01/20/2025 Telephone [facility] MED & PEDS [address] [place], [place] [phone] Jaimie Cadena MD Chart Prep 01/15/2025 Patient Outreach [facility] MEDICINE [address] [place] [address] Jaimie Cadena MD Pre-visit Planning (SDOH screening completed on 09/04/24) 01/14/2025 11:00 AM EST Office Visit [facility] WALK-IN CENTER [address] [place] [address] Claude Haynes MD Decreased responsiveness (Primary Dx); Intractable headache, unspecified chronicity pattern, unspecified headache type; Hypertension, unspecified type 01/14/2025 Orders Only [facility] External Provider, [facility] 01/14/2025 Telephone [facility] WALK-IN CENTER [address] [place] [address] Jaimie Cadena MD 911 Call 01/14/2025 Travel 01/13/2025 2:00 PM EST Office Visit [facility] OPTOMETRY [address] [place], [place] [phone] Tarka, Idania, OD Migraine without aura and with status migrainosus, not intractable (Primary Dx) 01/13/2025 9:15 AM EST Office Visit [facility] MED & PEDS [address] [place] [address] Cindy Davila FNP Headache behind the eyes (Primary Dx) 01/13/2025 Results Follow-Up [facility] MED & PEDS [address] [place] [address] Cindy Davila, ENVIRONMENTAL PROPERTY ASSESSOR CBC auto differential, Sed Rate by Modified [place] 01/13/2025 Travel 01/10/[address] [address] Jaimie Cadena MD Nurse Triage 01/06/2025 10:00 AM EST Office Visit [facility] WALK-IN CENTER [address] [place] [address] Marybel Shin, ENVIRONMENTAL PROPERTY ASSESSOR Acute intractable headache, unspecified headache type (Primary Dx); Elevated blood pressure reading in office with diagnosis of hypertension 01/06/[address] [address] Petra Lai, BINDERY MACHINE OPERATOR Expect 01/06/2025 Travel 12/01/[address] [address] Jaimie Cadena MD 11/27/2024 1:00 PM EDT Office Visit [facility] ADULT DENTAL [address] [place] [address] Nelli Real DDS 11/21/2024 Refill [facility] MED & PEDS [address] [place] [address] Jaimie Cadena MD Neck pain 10/28/2024 Telephone [facility] WALK-IN [address] [address] Claude Haynes MD 10/25/2024 11:00 AM EDT Office Visit [facility] ADULT DENTAL [address] [place] [address] Melquiades Hawkins Dental calculus (Primary Dx); 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 Orders Only [facility] MED & PEDS [address] [place] [address] ProviderMicheal MD from Last 3 Months Immunizations Immunization Administration Dates Next Due Hep B, adult 08/31/2023,12/18/2022 Influenza Injectable Quadriv alant Preservative Free IIV4 MDCK 12/18/2022 Influenza, seasonal, injectable, preservative fr ee 01/25/2024 MMR 12/18/2022 Tdap 12/10/2024,12/18/2022 Family History Medical History Relation Name Comments [...] 16 01/22/2025 8:51 AM EST Oxygen Saturation 100% 01/14/2025 12:06 PM EST Inhaled Oxygen Concentration - - Weight 88.5 kg (195 lb) 01/22/2025 8:51 AM EST Height 170.2 cm (5' 7 ) 01/22/2025 8:51 AM EST Body Mass Index 30.54 01/22/2025 8:51 AM EST Plan of Treatment Upcoming Encounters Date Type Department Care Team ([facility] st Contact Info) Description 02/19/2025 3:00 PM EST Clinical Support [facility] MED & PEDS [address] [place] [address] 04/28/2025 12:45 PM EST Office Visit [facility] ADULT DENTAL [address] [place] [address] Melquiades Hawkins Health Maintenance Due Date Last [...] 09/04/2024 SDOH Screening 09/04/2025 09/04/2024 Tobacco Screening 01/22/2026 01/22/2025 Dental X-Ray: Full Mouth 05/22/202705/20/2 025, 04/24/2024 Lipid Panel 05/09/2028 05/10/2023 DTaP/Tdap/Td [...] COMPOSITE FILLING Routine 10/25/2024 12:00 AM EDT PANORAMIC RADIOGRAPHIC IMAGE Routine 05/20/2024 2:30 PM [...] PM EST Narrative 01/14/2025 2:35 PM EST [place] [address] CT Scan Report Signed Patient: Manjula Dietrich MR#: [id number] : 1990 Acct:[id number] Age/Sex: 34 / M ADM Date: 01/14/25 Loc: HO.ED Attending Dr: Ordering Physician: Argelia Becerra MD Date of Service: 01/14/25 Procedure(s): CT head/brain wo IV con Accession Number(s): [id number] cc: Argelia Becerra MD; Jaimie Cadena MD Report Number: [id number]: Total DLP = 716.00 mGy-cm Reason for [...] by: Zain Cunningham MD 01/14/2025 02:32 PM [facility] Dictated By: Zain Mckeon MD Signed By: <Electronically signed by Zain Lai MD in OV> 01/14/25 1432 DD/ 1412 TD/TT: 01/14/25 1425 Life Management Teacher: Procedure Note Donotuseinterpreter, Image - 01/14/[address] [place] [address] [address] Scan Report Signed Patient: Manjula DietrichMR#: [id number] : 1990Acct:[id number] Age/Sex: 34 / MADM Date: 01/14/25 Loc: HO.ED Attending Dr: Ordering Physician: Argelia Becerra MD Date of Service: 01/14/25 Procedure(s): CT head/brain wo IV con Accession Number(s): [id number] cc: Argelia Becerra MD; Jaimie Cadena MD Report Number: [id number]: Total DLP = 716.00 mGy-cm Reason for [...] 01/14/25 1432 DD/ 1412 TD/TT: 01/14/25 1425 Life Management Teacher: [facility] External Provider IMG CT PROCEDURES Edited Result - Final * (ABNORMAL) CBC auto differential (01/13/2025 10:29 AM EST) White Blood Count 6.6 4.8 - 10.8 X10*3/uL [facility] Red Blood Count 6.10(H) 4.60 - 5.80 X10*6/uL [facility] Hemoglobin 17.6 14.0 - 18.0 g/dl [facility] Hematocrit 53.2(H) 42.0 - 52.0 % [facility] Mean Corpuscular Volume 87.2 80.0 - 98.0 fL [facility] Mean Corpuscular Hemoglobin 28.9 27.0 - 33.0 pg [facility] Mean Corpuscular HGB Conc 33.1 31.0 - 36.0 g/dl [facility] Red Cell Distribution Width 12.2 11.0 - 16.0 % [facility] Platelet Count 204 160 - 400 X10*3/uL [facility] Mean Platelet Volume 10.8 9.4 - 12.4 fL [facility] Neutrophils Percent Auto 60.3 45 - 73 % [facility] Imm Gran Pct Auto 0.5(H) 0.0 - 0.4 % [facility] Lymphocytes Percent Auto 31.2 20 - 40 % [facility] Monocytes Percent Auto 6.2 2 - 11 % [facility] Eosinophils Percent Auto 1.2 0 - 4 % [facility] Basophils Percent Auto 0.6 0 - 2 % [facility] NRBC Pct Auto 0.0 0.0 - 0.2 /100WBC [facility] Neutrophils Absolute Auto 4.0 2.0 - 8.3 x10*3/uL [facility] Imm Gran Abs Auto 0.03 0.00 - 0.03 X10*3/uL [facility] Lymphocytes Absolute Auto 2.1 1.2 - 4.9 X10*3/uL [facility] Monocytes Absolute Auto 0.4 0.1 - 1.2 X10*3/uL [facility] Eosinophils Absolute Auto 0.1 0.0 - 0.4 X10*3/uL [facility] Basophils Absolute Auto 0.0 0.0 - 0.2 X10*3/uL [facility] NRBC Abs Auto 0.000 0.0 - 0.012 X10*3/uL [facility] Blood Venous blood specimen / Unknown 01/13/2025 10:29 AM EST 01/13/2025 2:20 PM EST us Cindy Davila ENVIRONMENTAL PROPERTY ASSESSOR LAB BLOOD ORDERABLES Final Res ult Performing Organization Address [facility] de Phone Number [facility] [address] [place] [address] [phone] * Sed Rate by Modified Joyren (01/13/2025 10:29 AM EST) Erythrocyte Sedimentation Rate 1 0 - 15 MM/HR [facility] Comment:Patients with polycy themia and many hemoglobin abnormalitiesmay have depressed sed rates whereas patients with anemiamay have elevated sed rates. Blood Venous blood specimen / Unknown 01/13/2025 10:29 AM EST 01/13/2025 2:17 PM EST us Cindy Davila ENVIRONMENTAL PROPERTY ASSESSOR LAB BLOOD ORDERABLES Final Res ult Performing Organization Address [facility] de Phone Number [facility] [address] [place] [address] [phone] * Hepatitis C Antibody with Reflex to HCV, RNA, Quantitative, Real-Time PCR (01/25/2024 4:15 PM EST) Hepatitis C Antibody Nonreactive Nonreactive [facility] Comment:Antibodies to HCV no t detected; does not exclude early acuteHCV infection. Blood Venous blood specimen / Unknown 01/25/2024 4:15 PM EST 01/25/2024 5:47 PM EST us Jaimie Cadena MD LAB BLOOD ORDERABLES Final Re sult Performing Organization Address [facility] Co de Phone Number [facility] [address] [place] [address] [phone] * HIV-1/2 Antigen and Antibodies, Fourth Generation, with Reflexes (01/25/2024 4:15 PM EST) HIV AB/AG Nonreactive Nonreactive [facility] Comment:HIV-1 p24 Ag and/or HIV-1/HIV-2 Ab not detected.A test result that is nonreactive does not exclude thepossibility of exposure to or infection with HIV-1 and/orHIV-2. Nonreactive results in this assay for individualswith prior exposure to HIV-1 and/or HIV-2 may be due toantigen and antibody levels that are below the limit ofdetection of this assay.The [employer] HIV Ag/Ab Combo assay result andsupplemental assay results should be interpreted inconjunction with the patient's clinical presentation,history and other laboratory results. If the results areinconsistent with clinical evidence, additional testing issuggested to confirm the result. Blood Venous blood specimen / Unknown 01/25/2024 4:15 PM EST 01/25/2024 5:47 PM EST us Jaimie Cadena MD LAB BLOOD ORDERABLES Final Re sult [facility] [address] [place] [address] [phone] * (ABNORMAL) Lipid Panel with Reflex to Direct LDL (05/10/2023 10:05 AM EST) Triglycerides 145 <150 mg/dL [facility] Comment:Desirable Triglyceri de: less than 150 mg/dLBorderline High Triglyceride 150-199 mg/dLHigh Triglyceride: 200-499 mg/dLVery High Triglyceride: greater than or equal to 5OO mg/dL Cholesterol 150 <200 mg/dL [facility] Comment:Desirable Cholestero l: less than 200 mg/dLBorderline High Cholesterol: 200-239 mg/dLHigh Cholesterol: greater than 239 mg/dL LDL Cholesterol Calculated 85 <100 mg/dL [facility] Comment:Desirable LDL: less than 100 mg/dLNear Optimal/Above Optimal LDL: 110- 129 mg/dLBorderline High LDL: 130-159 mg/dLHigh LDL: 160-189 mg/dLVery High LDL: greater than or equal to 190 mg/dL HDL Cholesterol 36(L) >40 mg/dL [facility] Comment:Desirable HDL: great er than 40 mg/dL Note: This HDL assay may give artificially low results in patients with liver disease. Blood 05/10/2023 10:0 5 AM EST 05/10/2023 11:23 AM EST Emelia Hui MD LAB BLOOD ORDERABLES Fin al Result [facility] [address] [place] [address] [phone] from Last 3 Months or Most Recently Relevant to Health Maintenance Insurance [facility] [place] FULL DENTAL[place] ADULT DENTAL - HSN FULL (MEDICAID) Care Teams Dining Room Helper Relationship Specialty Start Date End Date Jaimie Cadena MD [address] [place] [phone] PCP - General Internal Medicine 05/25/23
--- OUTSIDE RECORDS SUMMARY | 2025-01-22 13:25 | XMS_ITS | Encounter Summary ---
Author Organization [employer] Address [address] [place] [address] 7t [place] [address] Care Team Providers Care Sueding Machine Operator Name Role Phone Jaimie Cadena MD Primary Care Provider [phone] Reason for Visit * Reason Onset Date Comments New Patient 11/30/2022 Encounter Details Date Type Department Care Team (Late st Contact Info) Description 11/30/2022 Telephone [facility] MEDICINE [address] [place], [place] [phone] Hakeem Akhtar MD [address] [place] [address] New Patient Social History Tobacco Use Types [...] Description 02/19/2025 3:00 PM EST Clinical Support [facility] CHC MED & PEDS [address] [place] [address] 04/28/2025 12:45 PM EST Office Visit [facility] ADULT DENTAL [address] [place] [address] Melquiades Hawkins documented as of this encounter Visit Diagnoses Not on filedocumented in this encounter Care Teams Sueding Machine Operator Relationship Specialty Start Date End Date Jaimie Cadena MD [address] [place] [address] PCP - General Internal Medicine 05/25/23 documented as of this encounter
--- OUTSIDE RECORDS SUMMARY | 2025-01-22 13:25 | XMS_ITS | Clinical Summary ---
Author Organization [facility] Address [address] [place] [address] Care Team Providers Care Lpta Name Role Phone Jaimie Cadena Primary Care Provider [phone] Allergies No known active allergies Medications butalbital-acet [...] Active Active Problems No known active problems Family History Medical History Relation Name Comments [...] Screening 03/06/2024 Basic Metabolic Panel 05/09/2024 05/10/2023 Influenza Vaccine (#1) 2024 , 12/18/2022 COVID-19 Vaccine (1 - 2024-2 6 season) 2024 DTaP,Tdap,and Td Vaccines (2 - Td or Tdap) 12/18/2032 12/18/2022 HIV Screening Completed 01/25/2024, 01/25/2024, 08/22/2023 Hepatitis C Screening Completed 01/25/2024 Pneumococcal Vaccine: Pediatric (0-5 Years) and At-Risk Patients (6-50 Years) Aged Out No longer eligible based on patient's age to complete this topic Insurance [facility] HSNO/FREE CARE Care Teams Lpta Relationship Specialty Start Date End Date Jaimie Cadena [address] [place] [id number] PCP - General Internal Medicine 06/15/23
--- OUTSIDE RECORDS SUMMARY | 2025-01-22 13:25 | XMS_ITS | Encounter Summary ---
Author Organization [employer] Address [address] [facility] [address] [place] [address] Care Team Providers Care Sinter Feeder Name Role Phone Jaimie Cadena MD Primary Care Provider [phone] Encounter Details Date Type Department Care Team ([facility] Contact Info) Description 01/13/2025 Results Follow-Up [facility] [address] [place], [place] [id number] Cindy Davila, ROMÁN [address] [place] [address] CBC auto differential, Sed Rate by Modified Joyren Social History Tobacco Use Types Packs/Day Years [...] Support [facility] [address] [place] [address] 04/28/2025 12:45 PM EST Office Visit [facility] [address] [place] [address] Melquiades Hawkins documented as of this encounter Visit Diagnoses Not on filedocumented in this encounter Additional Health Concerns Assessment Noted Time PHQ-9 Depression Total Score: 0 09/05/19 25 10:20 AM EDT documented as of this encounter Care Teams Sinter Feeder Relationship Specialty Start Date End Date Jaimie Cadena MD [address] [place] [address] PCP - General Internal Medicine 05/25/23 documented as of this encounter
--- OUTSIDE RECORDS SUMMARY | 2025-01-22 13:25 | XMS_ITS | Encounter Summary ---
Author Organization [facility] Address [address] [place] [address] Care Team Providers Care Humanities Division Chair Name Role Phone Jaimie Cadena Primary Care Provider [phone] Encounter Details Date Type Department Care Team ([facility] st Contact Info) Description 09/27/2024 myChart Message [facility] Operating Room [address] [place] [address] Mychart, Generic Provider [address] [place] [id number] Questionnaire Submission Social History Tobacco Use [...] on filedocumented in this encounter Care Teams Humanities Division Chair Relationship Specialty Start Date End Date Jaimie Cadena [address] [place] [address] PCP - General Internal Medicine 06/15/23 documented as of this encounter
== END 2025-01-21 13:00 | disposition home or self-care (01) ==
LOC: WCCF 12:59
PROVIDERS: Emergency Medicine
DX: Z77.21 Contact with and (suspected) exposure to potentially hazardous body fluids (principal); Z02.79 Encounter for issue of other medical certificate
CPT/HCPCS: 36415; 84450; 84460; 87389; 99211

== ENCOUNTER 2025-01-22 08:45 | Outpatient (REF) | payer OTHER, SELFPAY | END 2025-01-22 08:46 | disposition home or self-care (01) | LOC: HO.CHCLNP 08:45 | PROVIDERS: Visit Provider Pediatrics | DX: A04.8 Other specified bacterial intestinal infections (principal) | CPT/HCPCS: 87338 ==